=== PATIENT | female | born 1995 | race Caucasian/White ===

== ENCOUNTER → 2020-11-09 10:55 | Outpatient (BNVA) | payer BC, MEDICAID, SELFPAY | PROVIDERS: Family Provider Family Medicine; Visit Provider Obstetrics & Gynecology | DX: Z32.01 Encounter for pregnancy test, result positive (principal) | CPT/HCPCS: 81025; 87210; 87529 ==

== ENCOUNTER 2020-11-23 19:30 | Emergency (ER) | payer BC, MEDICAID, SELFPAY ==
[2020-11-23 19:34] VITALS: BP 120/79; PULSE 95; RESP 16; TEMP 36.8; O2SAT 100; BMI 37.3
--- NOTE | 2020-11-23 20:48 | US_ITS ---
WS: [id number] ULTRASOUND EARLY TECHNIQUE: Transabdominal sonography of the pelvis was performed. Followed by transvaginal sonography to better evaluate the uterus and ovaries. CLINICAL INFORMATION: abd pain LMP: 10/12/2020 Beta hCG: Unknown. COMPARISON: None. FINDINGS: UTERUS AND GESTATIONAL SAC Intrauterine gestations: Estimated gestational age: 5w5d Yolk sac: 0.3 cm. Pajaros rump length (CRL): 0.2 cm. Subchorionic hemorrhage: Present OVARIES Right ovary: Normal. Left ovary: Normal. FREE FLUID Trace US/US OB <= 14 weeks fetus [id number] IMPRESSION: 1. Intrauterine gestational sac with small subchorionic hemorrhage measuring 1 0.0 x 4.5 mm. Recommend short interval follow-up. 2. Estimated gestational age 5 weeks 5 days. Too early to detect cardiac activ ity. 3. Trace free fluid in the cul-de-sac.
--- NOTE | 2020-11-23 20:54 | ED_ITS ---
HPI - Abdominal Pain General: Chief Complaint: Abdominal Pain Stated Complaint: , LOWER ABDOMINAL PAIN Time Seen by Provider: 11/23/20 20:45 Source: patient Mode of arrival: ambulatory Limitations: no limitations History of Present Illness: HPI narrative: 25-year-old female states she is roughly 5 to 6 weeks . States she been having lower abdominal cramping for the last week. She states she had an ultrasound 2 days ago showed a possible IUP possible cyst but they state they cannot see it very well. She also went to [place] today where they recommended her to come here she did not have ultrasound. She states her pain is a 3 out of 10. Denies any vomiting or diarrhea. Denies any vaginal bleeding or discharge. MD elicited complaint: abdominal pain Associated Symptoms: Denies chills, diarrhea, dysuria, fever(s), nausea and vomiting Review of Systems Const: Denies: fever(s), chills, body aches or change in appetite Eyes: Denies: blurry vision or eye discomfort ENMT: Denies: throat pain or dental pain Card: Denies: chest pain Resp: Denies: dyspnea GI: Reports: abdominal pain; Denies: nausea, vomiting or diarrhea : Denies: dysuria Musc: Denies: neck pain or back pain Skin/Breast: Denies: rash Neuro: Denies: headache(s) Psych: Denies: depression Moshe/Lymph: Denies: easy bruising All/Imm: Denies: urticaria PFSH ED PFSH: Medical History (Updated 11/23/20 @ 22:46 by Feliciano Olivares MD) Anxiety and depression Has had a long-standing problem with depression and anxiety since teenage years and has been on medication on and off Blood type A+ Mild intermittent asthma, uncomplicated States that she was diagnosed with asthma as a child. Right now she only has asthma attacks when she has panic attacks and uses her inhaler only during those times usually a couple of times a month. Surgical History (Updated 11/11/20 @ 14:20 by Alex Farrar MD) Hx laparoscopic cholecystectomy (12/08/18) Performed by Dr. Roberts at [facility] in [place], [place] Family History (Updated 11/09/20 @ 11:39 by Keesha Rodriguez) Mother Hypertension Diabetes Father Diabetes Social History (Updated 11/11/20 @ 14:22 by Alex Farrar MD) Smoking and tobacco status: former smoker Quit status (tobacco): has quit using tobacco Year quit tobacco: Quit age 20 Former quit date comment: Started smoking age 19. Smoked 1 to 2 cig/day Alcohol intake: current Physical Exam Const: COMMON NORMALS: no acute distress, patient oriented x3 and healthy appearing HENMT: COMMON NORMALS: normocephalic and atraumatic HEAD & SCALP: normocephalic and atraumatic Eye: COMMON NORMALS: Equal, round and reactive pupils present and EOMs intact bilaterally PUPIL: Yes Equal, round and reactive pupils present Neck/C-Spine: COMMON NORMALS: full ROM and supple Chest: COMMONS NORMALS: normal inspection of the chest and normal palpation of entire chest wall Resp: COMMON NORMALS: normal respiratory effort, No retractions, No use of accessory muscles and clear to auscultation bilaterally AUSCULTATION: clear to auscultation bilaterally Cardio: COMMON NORMALS: regular rate, regular rhythm and No murmurs present (Cardio) RATE: regular rate RHYTHM: regular rhythm GI: COMMON NORMALS: Normal to inspection, nondistended, normoactive bowel sounds present, Soft to palpation, non-tender and no masses PALPATION: Yes Soft to palpation Extremity: COMMON NORMALS: normal to inspection and full ROM Neuro: COMMON NORMALS: patient oriented x3, moves all extremities and no focal motor deficits Psych: COMMON NORMALS: mental status grossly normal, Normal thought process present and cooperative THOUGHT PROCESS: Normal thought process present Skin: COMMON NORMALS: no rashes or lesions noted and no wounds GENERAL SKIN EXAM: no rashes or lesions noted Course Vital Signs: Vital signs: Vital Signs Temperature 98.2 F 11/23/20 19:34 Pulse Rate 95 11/23/20 19:34 Respiratory Rate 16 11/23/20 19:34 Blood Pressure 120/79 11/23/20 19:34 Pulse Oximetry 100 11/23/20 19:34 MDM - Abdominal Pain MDM Narrative: Medical decision making narrative: Patient presents here with some cramping in . Her ultrasound here showed an IUP. She is slightly dehydrated and feels improved after IV fluids and Reglan. Will prescribe her Reglan for home. She is stable for discharge and is to follow-up with OB and return if worsening. Lab Data: Labs: Lab Results 11/23/20 11/23/20 11/23/20 Range/Units 21:34 21:34 22:15 WBC 7.8 (4.0-10.0) 10^3/ uL RBC 4.40 (4.1-5.3) 10^6/u L Hgb 11.3 L (11.5-15.3) g/dL Hct 36.8 L (37.0-47.0) % MCV 83.6 (81-99) fL MCH 25.7 L (28.0-34.0) pg MCHC 30.7 (30.0-36.0) g/dL RDW 16.3 H (12.1-15.1) % Plt Count 280 (130-400) 10^3/c mm MPV 9.5 (7.4-10.4) fL Neut % (Auto) 60.8 % Lymph % (Auto) 30.8 % [place] % (Auto) 5.9 % Eos % (Auto) 1.5 % Baso % (Auto) 0.4 % Neut # (Auto) 4.72 (1.8-7.7) 10^3/u L Lymph # (Auto) 2.4 (0.8-4.8) 10^3/u L [place] # (Auto) 0.5 (0.2-0.9) 10^3/u L Eos # (Auto) 0.1 (0.0-0.8) 10^3/u L Baso # (Auto) 0.0 (0.0-0.1) 10^3/u L Nucleated RBC % (a uto) 0 % Nucleated RBCs # 0.0 /100WBC Sodium 135 L (136-145) mmol/L Potassium 3.6 (3.5-5.1) mmol/L Chloride 101 (98-107) mmol/L Carbon Dioxide 22 (22-29) mmol/L Anion Gap 15.6 (5-19) BUN 8 (6-20) mg/dL Creatinine 0.5 (0.5-0.9) mg/dL GFR Calculation 151.6 H (90-130) mL/min Glucose 95 (65-115) mg/dL Calculated Osmolal ity 278 L (285-295) mOsm/k g Calcium 8.9 (8.5-10.5) mg/dL Total Bilirubin 0.3 (0.15-1.2) mg/dL AST 41 H (0-32) U/L ALT 71 H (0-33) U/L Alkaline Phosphata se 77 (35-105) IU/L Total Protein 7.4 (6.6-8.7) g/dL Albumin 3.8 (3.5-5.2) g/dL Globulin 3.6 (1.3-4.6) g/dL Lipase 12 L (13-60) U/L Urine Color Yellow (Yellow) Urine Appearance Clear (CLEAR) Urine pH 5.0 (5-7) Ur Specific Gravit y 1.030 (1.005-1.030) Urine Protein Neg (Negative) Urine Glucose (UA) Norm (Normal) Urine Ketones 2+ H (Negative) Urine Blood Neg (Negative) Urine Nitrate Negative (Negative) Urine Bilirubin Neg (Negative) Urine Urobilinogen Norm (Negative) mg/dL Ur Leukocyte Yaa ase Negative (Negative) Discharge Plan Discharge Patient Disposition: Home Clinical Impression: Abdominal pain, Condition: Stable Prescriptions: New Reglan 10 mg tablet 10 mg PO Q6H PRN (Reason: nausea and vomiting) Qty: 20 RF: 0 No Action prenat.vits,neal,[id number] Tablet 1 tab PO DAILY@0900 RF: 0 Tylenol 325 mg Tablet 325 mg PO QID PRN (Reason: Pain) RF: 0 Discharge Orders: Discharge ED (Routine); Ordered 11/23/20 Ordered By: Feliciano Olivares Referrals: Stephany Dudley MD [Primary Care Provider] - Discharge Diet: Advance as tolerated Discharge Activity: Resume usual activity Patient Instructions: Abdominal Pain (ED) Coding Level of Care Code ED Clamp Remover for Chg Fwd Exam Comprehensive
[2020-11-23 21:40] LABS: Basophils % 0.4 %; Eosinophils # 0.1 10^3/uL (0.0-0.8); Eosinophils % 1.5 %; Hematocrit 36.8 % (37.0-47.0); Hemoglobin 11.3 g/dL (11.5-15.3); Lymphocytes # 2.4 10^3/uL (0.8-4.8); Lymphocytes % 30.8 %; Mean Corpuscular HGB Conc 30.7 g/dL (30.0-36.0); Mean Corpuscular Hemoglobin 25.7 pg (28.0-34.0); Mean Corpuscular Volume 83.6 fL (81-99); Mean Platelet Volume 9.5 fL (7.4-10.4); Monocytes # 0.5 10^3/uL (0.2-0.9); Monocytes % 5.9 %; Neutrophils # 4.72 10^3/uL (1.8-7.7); Neutrophils % 60.8 %; Nucleated Red Blood Cells % 0 %; Platelet Count 280 10^3/cmm (130-400); Red Cell Distribution Width 16.3 % (12.1-15.1); White Blood Count 7.8 10^3/uL (4.0-10.0)
[2020-11-23] MEDS: sodium chloride 0.9% 1,000 ML 999 ML IV (21:40)
--- NOTE | 2020-11-23 22:12 | PC.NURSE ---
Patient requested for food and water, doctor okayed it. Took a sandwich, oreos, peaches, and water to the patient and some additional water for her at bedside.
[2020-11-23 22:13] LABS: Alanine Aminotransferase 71 U/L (0-33); Albumin Level 3.8 g/dL (3.5-5.2); Alkaline Phosphatase 77 IU/L (35-105); Anion Gap 15.6 (5-19); Aspartate Amino Transferase 41 U/L (0-32); Blood Urea Nitrogen 8 mg/dL (6-20); Calcium 8.9 mg/dL (8.5-10.5); Carbon Dioxide 22 mmol/L (22-29); Chloride 101 mmol/L (98-107); Globulin 3.6 g/dL (1.3-4.6); Glomerular Filtration Rate 151.6 mL/min (90-130); Glucose 95 mg/dL (65-115); Lipase 12 U/L (13-60); Osmolality Calculated 278 mOsm/kg (285-295); Potassium 3.6 mmol/L (3.5-5.1); Sodium 135 mmol/L (136-145); Total Bilirubin 0.3 mg/dL (0.15-1.2); Total Protein 7.4 g/dL (6.6-8.7)
--- NOTE | 2020-11-23 22:20 | PC.NURSE ---
UA collected and sent to lab
[2020-11-23 22:33] LABS: Add Urine Microscopic? NO
[2020-11-23 22:44] LABS: Bilirubin Urine Neg (Negative); Blood Urine Neg (Negative); Glucose Urine UA Norm (Normal); Ketones Urine 2+ (Negative); Leukocyte Esterase Urine Negative (Negative); Nitrate Urine Negative (Negative); Protein Urine Neg (Negative); Urine Appearance Clear (CLEAR); Urine Color Yellow (Yellow); Urobilinogen Urine Norm (Negative)
[2020-11-23 22:58] VITALS: BP 121/80; PULSE 90; RESP 18; O2SAT 100
== END 2020-11-23 22:58 | disposition home or self-care (01) ==
PROVIDERS: Emergency Provider Emergency Medicine; PCP Family Medicine
DX: O26.891 Other specified pregnancy related conditions, first trimester (principal); R10.9 Unspecified abdominal pain; Z3A.01 Less than 8 weeks gestation of pregnancy; Z87.891 Personal history of nicotine dependence
CPT/HCPCS: 12345; 76801; 80053; 81003; 83690; 85025; 96361; 96374; 96375; 99282; 99283; J7030

== ENCOUNTER → 2020-12-05 12:50 | Outpatient (BNVA) | payer BC, MEDICAID, SELFPAY | PROVIDERS: PCP Family Medicine; Visit Provider Obstetrics & Gynecology | DX: Z34.90 Encounter for supervision of normal pregnancy, unspecified, unspecified trimester (principal); N89.8 Other specified noninflammatory disorders of vagina; B37.3 Candidiasis of vulva and vagina | CPT/HCPCS: 84315; 87070; 87205; 87491; 87591 ==

== ENCOUNTER 2021-02-24 19:48 | Emergency (ER) | payer BC, MEDICAID, SELFPAY ==
[2021-02-24 20:02] VITALS: BP 118/81; PULSE 97; RESP 16; TEMP 36.5; O2SAT 98; BMI 34.4
--- NOTE | 2021-02-24 20:20 | XRR_ITS ---
PROCEDURE INFORMATION: Exam: XR Chest Exam date and time: 02/24/2021 8:24 PM Age: 26 years old Clinical indication: Pain; Chest pressure; Additional info: Cp TECHNIQUE: Imaging protocol: XR of the chest. Views: 1 view. Total images: 1 COMPARISON: No relevant prior studies available. FINDINGS: Lungs: No visible active interstitial or alveolar airspace disease. Pleural spaces: Unremarkable. No pleural effusion. No pneumothorax. Heart/Mediastinum: Unremarkable. No cardiomegaly. Bones/joints: Unremarkable. Other findings: Obesity. XR/XR chest 1V portable [id number] IMPRESSION: Nonacute.
[2021-02-25 00:15] VITALS: BP 130/80; O2SAT 98
[2021-02-25 00:15] LABS: Basophils % 0.3 %; Eosinophils # 0.1 10^3/uL (0.0-0.8); Eosinophils % 1.1 %; Hematocrit 35.7 % (37.0-47.0); Hemoglobin 11.5 g/dL (11.5-15.3); Lymphocytes # 2.5 10^3/uL (0.8-4.8); Lymphocytes % 32.9 %; Mean Corpuscular HGB Conc 32.2 g/dL (30.0-36.0); Mean Corpuscular Hemoglobin 26.6 pg (28.0-34.0); Mean Corpuscular Volume 82.6 fL (81-99); Mean Platelet Volume 10.1 fL (7.4-10.4); Monocytes # 0.4 10^3/uL (0.2-0.9); Monocytes % 5.7 %; Neutrophils # 4.54 10^3/uL (1.8-7.7); Neutrophils % 59.7 %; Nucleated Red Blood Cells % 0 %; Platelet Count 230 10^3/cmm (130-400); Red Blood Count 4.32 10^6/uL (4.1-5.3); Red Cell Distribution Width 14.6 % (12.1-15.1); White Blood Count 7.6 10^3/uL (4.0-10.0)
[2021-02-25] MEDS: diphenhydrAMINE 50 mg/mL SDV 1mL 25 MG IVP (00:19)
[2021-02-25] MEDS: metoclopramide 5 mg/mL SDV 2 mL IVP (00:20)
[2021-02-25] MEDS: sodium chloride 0.9% 1,000 ML 999 ML IV ×2 (00:20→00:55)
--- NOTE | 2021-02-25 00:20 | ED_ITS ---
HPI - Chest Pain General: Chief Complaint: Chest Pain Stated Complaint: Chest pain/pressure upon standing, shaking,dizzy Time Seen by Provider: 02/24/21 23:53 Source: patient Mode of arrival: ambulatory Limitations: no limitations History of Present Illness: HPI narrative: 26-year-old female is currently 20 weeks states that over the last 4 days she has been having nausea along with some dizziness and numbness in her hands. States she has this nausea when she lays flat she gets a burning sensation in her chest. She denies any chest pain currently. She denies any swelling in her legs or shortness of breath. She denies any vaginal discharge or bleeding or lower abdominal pain. This is her second and she states she had no problems with the first pre gnancy. She had one episode of vomiting earlier today. Denies any worsening improving factors. Associated symptoms: Reports nausea; Deny dyspnea or fever(s) Review of Systems Const: Denies: fever(s), chills, body aches or change in appetite Eyes: Denies: blurry vision or eye discomfort ENMT: Denies: throat pain or dental pain Card: Reports: chest pain Resp: Denies: dyspnea GI: Reports: nausea : Denies: dysuria Musc: Denies: neck pain or back pain Skin/Breast: Denies: rash Neuro: Denies: headache(s) Psych: Denies: depression Moshe/Lymph: Denies: easy bruising All/Imm: Denies: urticaria [facility] ED PFSH: Medical History (Updated 02/25/21 @ 00:46 by Feliciano Olivares MD) Anxiety and depression Has had a long-standing problem with depression and anxiety since teenage years and has been on medication on and off--BuSpar and Effexor which she s topped when she found out she was . Mild intermittent asthma, uncomplicated States that she was diagnosed with asthma as a child. Right now she only has asthma attacks when she has panic attacks and uses her inhaler only during those times usually a couple of times a month. No pertinent past medical history Denies diabetes, hypertension, seizures, DVT/PE PCP: PEACE De Paz Surgical History Hx laparoscopic cholecystectomy 12/08/2018---performed by Dr. Roberts at [facility] in [place], [place] Family History (Updated 12/21/20 @ 12:18 by Nilsa Chen RN) Mother Hypertension Diabetes Thyroid condition Father Diabetes Grandfather Heart disease maternal Other Colon cancer Denies family history of Ovarian cancer Hyperlipidemia Breast cancer Uterine cancer Stroke Physical Exam Const: COMMON NORMALS: no acute distress, patient oriented x3 and healthy appearing HENMT: COMMON NORMALS: normocephalic and atraumatic HEAD & SCALP: normoceph alic and atraumatic Eye: COMMON NORMALS: Equal, round and reactive pupils present and EOMs intact bilaterally PUPIL: Yes Equal, round and reactive pupils present Neck/C-Spine: COMMON NORMALS: full ROM and supple Chest: COMMONS NORMALS: normal inspection of the chest and normal palpation of entire chest wall Resp: COMMON NORMALS: normal respiratory effort, No retractions, No use of accessory muscles and clear to auscultation bilaterally AUSCULTATION: clear to auscultation bilaterally Cardio: COMMON NORMALS: regular rate, regular rhythm and No murmurs present (Cardio) RATE: regular rate RHYTHM: regular rhythm GI: COMMON NORMALS: Normal to inspection, nondistended, normoactive bowel sounds present, Soft to palpation, non-tender and no masses PALPATION: Yes Soft to palpation Extremity: COMMON NORMALS: normal to inspection and full ROM NARRATIVE EXTREMITY EXAM: No sign of DVT GENERAL: No calf tenderness Neuro: COMMON NORMALS: patient oriented x3, moves all extremities and no focal motor deficits Psych: COMMON NORMALS: mental status grossly normal, Normal thought process present and cooperative THOUGHT PROCESS: Normal thought process present Skin: COMMON NORMALS: no rashes or lesions noted and no wounds GENERAL SKIN EXAM: no rashes or lesions noted Course Vital Signs: Vital signs: Vital Signs Temperature 97.7 F 02/24/21 20:02 Pulse Rate 90 02/25/21 01:24 Respiratory Rate 16 02/25/21 01:24 Blood Pressure 95/55 02/25/21 01:24 Pulse Oximetry 99 02/25/21 01:24 MDM - Chest Pain MDM Narrative: Medical decision making narrative: Patient presents here with nausea vomiting some abdominal cramping and dizziness. She does have ketones in her urine likely dehydrated. She feels improved here after Reglan and Benadryl and IV fluids. Patient's blood work here is all normal. She is stable for discharge and is to follow-up PCP and return if worsening. She understands agrees to plan. Lab Data: Labs: Lab Results 02/25/21 02/25/21 02/25/21 Range/Units 00:08 00:08 00:15 WBC 7.6 (4.0-10.0) 10^3/ uL RBC 4.32 (4.1-5.3) 10^6/u L Hgb 11.5 (11.5-15.3) g/dL Hct 35.7 L (37.0-47.0) % MCV 82.6 (81-99) fL MCH 26.6 L (28.0-34.0) pg MCHC 32.2 (30.0-36.0) g/dL RDW 14.6 (12.1-15.1) % Plt Count 230 (130-400) 10^3/c mm MPV 10.1 (7.4-10.4) fL Neut % (Auto) 59.7 % Lymph % (Auto) 32.9 % [place] % (Auto) 5.7 % Eos % (Auto) 1.1 % Baso % (Auto) 0.3 % Neut # (Auto) 4.54 (1.8-7.7) 10^3/u L Lymph # (Auto) 2.5 (0.8-4.8) 10^3/u L [place] # (Auto) 0.4 (0.2-0.9) 10^3/u L Eos # (Auto) 0.1 (0.0-0.8) 10^3/u L Baso # (Auto) 0.0 (0.0-0.1) 10^3/u L Nucleated RBC % (a uto) 0 % Nucleated RBCs # 0.0 /100WBC Sodium 137 (136-145) mmol/L Potassium 3.9 (3.5-5.1) mmol/L Chloride 104 (98-107) mmol/L Carbon Dioxide 25 (22-29) mmol/L Anion Gap 11.9 (5-19) BUN 7 (6-20) mg/dL Creatinine 0.6 (0.5-0.9) mg/dL GFR Calculation 121.8 (90-130) mL/min Glucose 88 (65-115) mg/dL Calculated Osmolal ity 281 L (285-295) mOsm/k g Calcium 8.9 (8.5-10.5) mg/dL Total Bilirubin 0.2 (0.15-1.2) mg/dL AST 13 (0-32) U/L ALT 15 (0-33) U/L Alkaline Phosphata se 90 (35-105) IU/L Total Protein 7.2 (6.6-8.7) g/dL Albumin 3.8 (3.5-5.2) g/dL Globulin 3.4 (1.3-4.6) g/dL Lipase 16 (13-60) U/L Urine Color Yellow (Yellow) Urine Appearance Clear (CLEAR) Urine pH 5 (5-7) Ur Specific Gravit y 1.025 (1.005-1.030) Urine Protein Neg (Negative) Urine Glucose (UA) Norm (Normal) Urine Ketones 2+ H (Negative) Urine Blood Neg (Negative) Urine Nitrate Negative (Negative) Urine Bilirubin Neg (Negative) Urine Urobilinogen Norm (Negative) mg/dL Ur Leukocyte Yaa ase Negative (Negative) Imaging Data^: CXR: Attestation: I personally reviewed and interpreted this imaging study as follows: Radiologist's impression: [address] [address] XRay Report Signed Patient: Catalina Mcbride Unit #: [id number] : 1995 Age/Sex: 26 / F ADM Date: 02/24/21 Loc: ER Room/Bed: Attending Dr: Ordering Provider/Ordering MD: Feliciano Olivares MD Date of Service: 02/24/21 Procedure(s): XR chest 1V portable [id number] Accession Number(s): [id number] Report Number: [id number] PROCEDURE INFORMATION: Exam: XR Chest Exam date and time: 02/24/2021 8:24 PM Age: 26 years old Clinical indication: Pain; Chest pressure; Additional info: Cp TECHNIQUE: Imaging protocol: XR of the chest. Views: 1 view. Total images: 1 COMPARISON: No relevant prior studies available. FINDINGS: Lungs: No visible active interstitial or alveolar airspace disease. Pleural spaces: Unremarkable. No pleural effusion. No pneumothorax. Heart/Mediastinum: Unremarkable. No cardiomegaly. Bones/joints: Unremarkable. Other findings: Obesity. XR/XR chest 1V portable [id number] IMPRESSION: Nonacute. EKG Data^: EKG 1: Attestation: I personally reviewed and interpreted this EKG as follows: EKG interpretation date: 02/24/21 EKG interpretation time: 20:14 Interpretation: nsr hr [address] or t wave abnormalities qrs 82 qtc 409 Discharge Plan Discharge Patient Disposition: Home Clinical Impression: Nausea & vomiting Qualifiers: Vomiting type: unspecified Vomiting Intractability: non-intractable Qualified Code(s): R11.2 - Nausea with vomiting, unspecified Chest pain Qualifiers: Chest pain type: unspecified Qualified Code(s): R07.9 - Chest pain, unspecified Qualifiers: Weeks of gestation: 20 weeks Qualified Code(s): Z3A.20 - 20 weeks gestation of Condition: Stable Prescriptions: No Action prenat.vits,neal,[id number] Tablet 1 tab PO DAILY@0900 RF: 0 Tylenol 325 mg Tablet 325 mg PO QID PRN (Reason: Pain) RF: 0 Discharge Orders: Discharge ED (Routine); Ordered 02/25/21 Ordered By: Feliciano Olivares Referrals: Stephany Dudley MD [Primary Care Provider] - Discharge Diet: Advance as tolerated Discharge Activity: Resume usual activity Patient Instructions: Chest Pain (ED) Coding Level of Care Code ED [employer] [place] Specialist for Chg Fwd Exam Comprehensive
[2021-02-25 00:25] LABS: Add Urine Microscopic? NO; Charge for UA Resulting for Rev
[2021-02-25 00:29] LABS: Bilirubin Urine Neg (Negative); Blood Urine Neg (Negative); Glucose Urine UA Norm (Normal); Ketones Urine 2+ (Negative); Leukocyte Esterase Urine Negative (Negative); Nitrate Urine Negative (Negative); Protein Urine Neg (Negative); Specific Gravity, Urine 1.025 (1.005-1.030); Urine Appearance Clear (CLEAR); Urine Color Yellow (Yellow); Urobilinogen Urine Norm (Negative); pH Urine 5 (5-7)
[2021-02-25 00:32] LABS: Alanine Aminotransferase 15 U/L (0-33); Albumin Level 3.8 g/dL (3.5-5.2); Alkaline Phosphatase 90 IU/L (35-105); Anion Gap 11.9 (5-19); Aspartate Amino Transferase 13 U/L (0-32); Blood Urea Nitrogen 7 mg/dL (6-20); Calcium 8.9 mg/dL (8.5-10.5); Carbon Dioxide 25 mmol/L (22-29); Chloride 104 mmol/L (98-107); Creatinine Clr Calc Pharmacy 145.1995; Globulin 3.4 g/dL (1.3-4.6); Glomerular Filtration Rate 121.8 mL/min (90-130); Glucose 88 mg/dL (65-115); Lipase 16 U/L (13-60); Osmolality Calculated 281 mOsm/kg (285-295); Potassium 3.9 mmol/L (3.5-5.1); Sodium 137 mmol/L (136-145); Total Bilirubin 0.2 mg/dL (0.15-1.2); Total Protein 7.2 g/dL (6.6-8.7)
[2021-02-25 01:24] VITALS: BP 95/55; PULSE 90; RESP 16; O2SAT 99
== END 2021-02-25 01:25 | disposition home or self-care (01) ==
PROVIDERS: Emergency Provider Emergency Medicine; PCP Family Medicine
DX: O26.892 Other specified pregnancy related conditions, second trimester (principal); R07.9 Chest pain, unspecified; R11.2 Nausea with vomiting, unspecified; Z3A.20 20 weeks gestation of pregnancy
CPT/HCPCS: 71045; 80053; 81003; 83690; 85025; 96361; 96374; 96375; 99284; J1200; J2765; J7030

== ENCOUNTER 2021-04-13 16:11 | Outpatient (CLI) | payer BC, MEDICAID, SELFPAY ==
[2021-04-13 16:20] VITALS: RESP 17
[2021-04-13 16:27] VITALS: BP 119/76; PULSE 73
[2021-04-13 16:30] VITALS: TEMP 36.3
[2021-04-13 16:48] VITALS: BMI 36.7
== END 2021-04-13 16:44 | disposition home or self-care (01) ==
LOC: OPOB 16:13 → OBGYN 16:14
PROVIDERS: PCP Family Medicine; Visit Provider Family Medicine
DX: O36.8190 Decreased fetal movements, unspecified trimester, not applicable or unspecified (principal); Z3A.00 Weeks of gestation of pregnancy not specified
CPT/HCPCS: 99211

== ENCOUNTER 2021-06-02 17:20 | Outpatient (CLI) | payer MEDICAID, SELFPAY ==
[2021-06-02 17:39] VITALS: TEMP 35.9
[2021-06-02 17:40] VITALS: BP 101/55; PULSE 97; RESP 18
[2021-06-02 17:47] VITALS: BMI 36.7
== END 2021-06-02 18:14 | disposition home or self-care (01) ==
LOC: OPOB 17:26 → OBGYN 17:27
PROVIDERS: PCP Family Medicine; Visit Provider Family Medicine
DX: O26.899 Other specified pregnancy related conditions, unspecified trimester (principal); Z3A.00 Weeks of gestation of pregnancy not specified; R10.9 Unspecified abdominal pain; M54.9 Dorsalgia, unspecified
CPT/HCPCS: 59025; 99211

== ENCOUNTER 2021-07-08 16:25 | Outpatient (CLI) | payer MEDICAID, SELFPAY ==
[2021-06-02 17:40] VITALS: RESP 18
[2021-07-08 16:42] VITALS: TEMP 36.2
[2021-07-08 16:43] VITALS: BP 136/75; PULSE 100
[2021-07-08 17:00] VITALS: RESP 18
[2021-07-08 17:01] VITALS: BMI 36.2
[2021-07-08 17:03] VITALS: BP 120/68; PULSE 93
[2021-07-08 17:23] VITALS: BP 119/67; PULSE 91
[2021-07-08 17:41] VITALS: BP 122/72; PULSE 92
== END 2021-07-08 17:48 | disposition home or self-care (01) ==
LOC: OPOB 16:31 → OBGYN 16:34
PROVIDERS: PCP Family Medicine; Visit Provider Family Medicine
DX: O26.899 Other specified pregnancy related conditions, unspecified trimester (principal); Z3A.00 Weeks of gestation of pregnancy not specified; R10.9 Unspecified abdominal pain
CPT/HCPCS: 59025; 99211

== ENCOUNTER 2021-07-17 19:05 | Inpatient (IN) | payer MEDICAID, SELFPAY ==
[2021-07-17] VITALS (9 sets, daily range): BP systolic 108–126; BP diastolic 71–89; PULSE 65–84; RESP 15–18; TEMP 36.3; BMI 36.4
[2021-07-17 18:49] LABS: Actim Prom Positive
[2021-07-17 18:53] LABS: Add Urine Culture? No; Bacteria Urine TRACE /hpf; Bilirubin Urine Neg (Negative); Blood Urine Neg (Negative); Glucose Urine UA Norm (Normal); Ketones Urine Negative (Negative); Leukocyte Esterase Urine Negative (Negative); Nitrate Urine Negative (Negative); Protein Urine Neg (Negative); RBC Urine 0-4 /hpf (0-2); Squamous Epithelial Cell Urine 0-4 /hpf (0-5); Urine Appearance Clear (CLEAR); Urine Color Yellow (Yellow); Urobilinogen Urine Norm (Negative); WBC Urine 0-4 /hpf (0-5); pH Urine 7 (5-7)
[2021-07-17 19:49] LABS: Basophils % 0.2 %; Eosinophils # 0.1 10^3/uL (0.0-0.8); Eosinophils % 0.6 %; Hematocrit 36.3 % (37.0-47.0); Hemoglobin 11.5 g/dL (11.5-15.3); Lymphocytes % 21.7 %; Mean Corpuscular HGB Conc 31.7 g/dL (30.0-36.0); Mean Corpuscular Hemoglobin 26.4 pg (28.0-34.0); Mean Corpuscular Volume 83.3 fl (81-99); Mean Platelet Volume 10.3 fL (7.4-10.4); Monocytes # 0.6 10^3/uL (0.2-0.9); Monocytes % 6.5 %; Neutrophils # 6.59 10^3/uL (1.8-7.7); Neutrophils % 70.6 %; Nucleated Red Blood Cells % 0 %; Platelet Count 248 10^3/cmm (130-400); Red Blood Count 4.36 10^6/uL (4.1-5.3); Red Cell Distribution Width 15.7 % (12.1-15.1); White Blood Count 9.4 10^3/uL (4.0-10.0)
[2021-07-17] MEDS: miSOPROStol 100 mcg tablet 25 MCG SUBLINGUAL (20:06)
[2021-07-17] MEDS: dextrose 5%-lactated ringers 1,000 ML 125 ML IV (20:07)
[2021-07-18] VITALS (85 sets, daily range): BP systolic 90–158; BP diastolic 52–91; PULSE 66–108; RESP 17; TEMP 35.4–36.7; O2SAT 93–100
[2021-07-18] MEDS: miSOPROStol 100 mcg tablet 25 MCG SUBLINGUAL ×2 (00:12→05:01)
--- NOTE | 2021-07-18 06:56 | PM.OPHPUD ---
Labor & Delivery H&P Update Date of Procedure: July 18, 2021 Date H&P Performed: 07/12/21 H&P update information: I have reviewed H&P completed within last 30 days, I have examined patient prior to procedure and Changes to prior documentation as noted here (Spontaneous rupture of membranes) Admission Diagnosis: 39-week female with spontaneous rupture of membranes. Related Problem List Diagnoses (1) 39 weeks gestation of : (2) Spontaneous rupture of membranes:
[2021-07-18] MEDS: oxytocin 30 UNIT/500 ML BAG IV (08:58)
[2021-07-18] MEDS: lactated ringers 1,000 ML 999 ML IV ×2 (10:23→11:34)
[2021-07-18] MEDS: fentaNYL 50 mcg/mL INJ 2mL IVP (11:06)
--- NOTE | 2021-07-18 11:45 | P.ANESASSM_ITS ---
Pre-Anesthetic Assessment Pre-Anesthetic Assessment: Height/Weight: Height 1.55 m Weight 87.543 kg Temp Pulse Resp BP Pulse Ox 97.0 F L 78 15 125/59 93 07/18/21 07:06 07/18/21 11:42 07/17/21 19:01 07/18/21 11:42 07/18/21 11:31 Preop Diagnosis: IUP Proposed Procedure: Epidural Familial anesthetic complications: None Was Beta Waylon taken within 24 hours: N/A Was Clonidine taken within 24 hours: N/A Last intake: Hours Social: Social History: No alcohol and No tobacco Exam: Pre-Anes Outpt Exam: alert, oriented x 3, clear to auscultation bilaterally and regular rate & rhythm Airway: Cervical ROM: WNL MP: 2 Dentition: Chipped Pulmonary: Pulmonary: Asthma Metabolic: Metabolic: Morbid obesity Anesthetic Plan: ASA status: 2 Anesthesia: Regional (specify below) Risk of > 500 ml blood loss (7ml/kg in children): Yes, adequate IV access and fluids planned Meds/Allergies Current Medications: Current Medications Generic Name Dose Route Start Last Admin Trade Name Freq PRN Reason Stop Dose Admin Fentanyl 25 - 100 mcg 07/17/21 19:01 07/18/21 11:06 Fentanyl 50 Mcg/ Ml Inj 2ml IVP 25 mcg Q1H PRN Administration SEVERE PAIN Dextrose/Lactated Ringer's 1,000 mls @ 125 m ls/hr 07/17/21 19:15 07/17/21 20:07 Dextrose 5%-Lact ated Ringers IV 125 mls/hr .Q8H QUAN Administration Lactated Ringer's 1,000 mls @ 999 m ls/hr 07/17/21 19:01 07/18/21 11:34 Lactated Ringers IV 999 mls/hr .Q1H1M PRN Administration Per L&D Rescitati on Protocol Oxytocin 30 unit in 500 ml s @ 2 mls/hr 07/18/21 09:00 07/18/21 10:30 Pitocin IV 14 milliunit/min .Q24H QUAN 14 mls/hr Titration Protocol 2 MILLIUNIT/MIN Lactated Ringer's 1,000 mls @ 999 m ls/hr 07/18/21 10:18 07/18/21 10:23 Lactated Ringers IV 999 mls/hr .Q1H1M PRN Administration See label comment s PFSH Anesthesia PFSH: Medical History (Updated 07/18/21 @ 06:57 by Kip Oglesby MD) Anxiety and depression Has had a long-standing problem with depression and anxiety since teenage years and has been on medication on and off--BuSpar and Effexor which she stopped when she found out she was . Mild intermittent asthma, uncomplicated States that she was diagnosed with asthma as a child. Right now she only has asthma attacks when she has panic attacks and uses her inhaler only during those times usually a couple of times a month. No pertinent past medical history Denies diabetes, hypertension, seizures, DVT/PE PCP: PEACE De Paz Surgical History Hx laparoscopic cholecystectomy 12/08/2018---[place]. Roberts [place] [facility] [place], [place] Family History (Updated 12/21/20 @ 12:18 by Nilsa Chen RN) Mother Hypertension Diabetes Thyroid condition Father Diabetes Grandfather Heart disease maternal Other Colon cancer Denies family history of Ovarian cancer Hyperlipidemia Breast cancer Uterine cancer Stroke Female Reproductive History: : 2 Data Anesthesia CBC & Chem 7: 07/17/21 19:30 Other Labs: Laboratory Results - last 48 hr 07/17/21 07/17/21 07/17/21 18:20 18:20 19:30 WBC 9.4 RBC 4.36 Hgb 11.5 Hct 36.3 L MCV 83.3 MCH 26.4 L MCHC 31.7 RDW 15.7 H Plt Count 248 MPV 10.3 Neut % (Auto) 70.6 Lymph % (Auto) 21.7 [place] % (Auto) 6.5 Eos % (Auto) 0.6 Baso % (Auto) 0.2 Neut # (Auto) 6.59 Lymph # (Auto) 2.0 [place] # (Auto) 0.6 Eos # (Auto) 0.1 Baso # (Auto) 0.0 Nucleated RBC % (auto) 0 Nucleated RBCs # 0.0 Insulin-like GF I Positive Urine Color Yellow Urine Appearance Clear Urine pH 7 Ur Specific [place] 1.010 Urine Protein Neg Urine Glucose (UA) Norm Urine Ketones Negative Urine Blood Neg Urine Nitrate Negative Urine Bilirubin Neg Urine Urobilinogen Norm Ur Leukocyte Esterase Negative Urine RBC 0-4 H Urine WBC 0-4 H Ur Squamous Epith Cells 0-4 H Amorphous Sediment Not Reportable Urine Bacteria Trace Cardiac Studies: No Data to Display
--- NOTE | 2021-07-18 11:45 | ANES.PROC ---
Anesthesia Procedures Procedure/Date: 07/18/21 Epidural: Time Out Performed: Yes Consents Signed: Procedure Consent, NPO Consent and No Consent Needed Consent: requested by attending/covering physician, from patient, risks and benefits reviewed and patient agrees to proceed Lumbar Level: L3-L4 Epidural position: other Epidural procedure: sterile prep of area, 1% lidocaine to numb the area, 18 g needle, negative for paresthesia passed, neg for paresthesia, test dose given, 1.5% xylocaine 1:200k epi (3 cc), 0.2% Ropivacaine bolus ml (5 cc), placed PCEA, no systemic response, sterile dressing applied, L.U.D. no apparent complications and 0.2% Ropiavacaine @ mls/hr (10) Additional Comments: BALA at 7 cm, threaded to 13 cm
--- NOTE | 2021-07-18 16:16 | PM.DELIVERY ---
Delivery Note: Date of delivery: July 18, 2021 Pre-delivery diagnoses: 26-year-old 2 para 1-0-0-1 at 39 weeks and 6 days estimated gestational age with spontaneous rupture of membranes Post-delivery diagnoses: Status post spontaneous vaginal delivery Procedure: Spontaneous vaginal delivery Op report anesthesia: Epidural Estimated blood loss (mL): 75 Pre-Delivery Course: The patient presented to the hospital about 24 hours prior to delivery with spontaneous rupture of membranes. Her cervix was found to be 2 cm dilated about 50% effaced with a -3 station. She was placed on Cytotec 25 mcg sublingually x3. An epidural was placed. She progressed to complete without difficulty. She was allowed to labor down for about 45 minutes. Delivery: DELIVERY: The patient progressed to complete without difficulty. She delivered a female with a weight of 5 pounds 10 ounces with Apgars of 9, 9. The baby was delivered from the JORDY position and placed on the mother's abdomen. The cord was then clamped and cut 1 minute after delivery. There was no nuchal cord. There was no meconium. The placenta and 3 vessel cord were delivered intact shortly thereafter. The perineum and vaginal vault were carefully examined. No lacerations were noted. Both the mother and the baby were in stable condition. 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
[2021-07-18] MEDS: ibuprofen 800 mg tablet PO (21:54)
[2021-07-19] VITALS (8 sets, daily range): BP systolic 114–131; BP diastolic 52–95; PULSE 75–91; RESP 16; TEMP 35.9–36.5
[2021-07-19 06:21] LABS: Hematocrit 30.1 % (37.0-47.0); Hemoglobin 9.5 g/dL (11.5-15.3); Mean Corpuscular HGB Conc 31.6 g/dL (30.0-36.0); Mean Corpuscular Hemoglobin 26.2 pg (28.0-34.0); Mean Corpuscular Volume 82.9 fl (81-99); Mean Platelet Volume 10.2 fL (7.4-10.4); Platelet Count 197 10^3/cmm (130-400); Red Blood Count 3.63 10^6/uL (4.1-5.3); Red Cell Distribution Width 15.9 % (12.1-15.1); White Blood Count 9.8 10^3/uL (4.0-10.0)
--- NOTE | 2021-07-19 07:40 | P.DS_ITS ---
Discharge Providers [place] MACHINE OPERATOR Date of Admission: 07/17/21 19:05 Date of Discharge: 07/19/21 Attending Provider at Admission: Kip Oglesby MD Attending Provider at Discharge: Kip Oglesby MD Primary Care Provider: Stephany Dudley MD Diagnoses at Discharge Discharge Diagnosis (1) 39 weeks gestation of : Status: Acute (2) Spontaneous rupture of membranes: Status: Acute Reason for Visit Reason for Visit: POSSIBLE RUPTURE OF MEMBRANES Hospital Course Hospital Course The patient arrived at the hospital with spontaneous rupture of membranes. She was not in active labor. Her cervix was unfavorable. She was placed on Cytotec 25 mcg sublingual every 4 hours x3. An epidural was placed. She progressed to complete and delivered her about 24 hours after her membranes ruptured. She pushed through 2 contractions. Her labor was unremarkable. The delivery of her baby was unremarkable. Her course was also unremarkable. Her bleeding was within normal limits. Her pain was well controlled. She had some difficulty with her baby latching well breast-feeding, but ultimately was able to breast-feed well prior to discharge. Information 2 Peripartum Data: Delivery Method: Vaginal Physical Exam Narrative: EXAM NARRATIVE: The patient is alert. She appears comfortable. Her heart has a regular rate and rhythm with no murmurs appreciated. Lungs are clear to auscultation bilaterally. Her fundus is firm and below the umbilicus. Urinary Catheter Management^: [place]: Cath Placed During This Visit: yes Urinary Catheter Date of Insertion: 07/18/21 Urinary Catheter Time of Insertion: 12:20 Discharge Data Data Completed and Pending: Labs from last 24 hours 07/19/21 06:00 WBC 9.8 RBC 3.63 L Hgb 9.5 L Hct 30.1 L MCV 82.9 MCH 26.2 L MCHC 31.6 RDW 15.9 H Plt Count 197 MPV 10.2 Vitals: Last Vital Signs Temp 95.7 F L 07/18/21 15:21 Pulse 86 07/19/21 04:35 Resp 17 07/18/21 16:40 BP 114/52 07/19/21 04:35 Pulse Ox 93 07/18/21 11:31 Discharge Plan Discharge Patient Disposition: Home Condition: Stable Prescriptions: New ibuprofen 800 mg Tablet 800 mg PO TID Qty: 45 RF: 0 Discharge Orders: Discharge Order (Routine); Ordered 07/19/21 Ordered By: Kip Oglesby Referrals: Kip Oglesby MD [Family Provider] - 6 Weeks Discharge Diet: Usual diet Discharge Activity: Limit activity as instructed Patient Instructions: Opioid Safety Discharge Attestations [place] MACHINE OPERATOR Time Spent in Discharge Care*: less than 30 min Specific Discharge Activities: Specific discharge activities: educating patient Coding Level of Care Code Acute Slice 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
[2021-07-19] MEDS: prenatal vitamin Capsule 1 CAP PO (08:10)
[2021-07-19] MEDS: docusate sodium 100 mg Capsule PO (08:10)
[2021-07-19] MEDS: ibuprofen 800 mg tablet PO ×2 (08:10→15:00)
--- NOTE | 2021-07-19 09:30 | ANE.PACU2 ---
Inpatient post-anesthesia follow up: Airway intact: Yes Vital signs: Temperature 97.7 F Pulse Rate 75 Respiratory Rate 16 Blood Pressure 127/82 Pulse Oximetry 93 Oxygen Delivery Me thod Room Air Oxygen Flow Rate Fraction of Inspir ed Oxygen Hydration adequate: Yes Nausea and vomiting: No Pain level: 2 Mental status: Baseline
== END 2021-07-19 18:18 | disposition home or self-care (01) | DRG 807 ==
LOC: OPOB 20:45 → OBGYN 20:45
PROVIDERS: Absent Provider Family Medicine; Admitting Provider Family Medicine; Family Provider Family Medicine; PCP Family Medicine; Visit Provider Family Medicine
DX: O80 Encounter for full-term uncomplicated delivery (principal); Z37.0 Single live birth; Z3A.39 39 weeks gestation of pregnancy
CPT/HCPCS: 12345; 36415; 51702; 59025; 81001; 83986; 84112; 85025; 85027; 96374; 98960; 99211; J2795; J3010

== ENCOUNTER 2021-08-25 16:35 | Emergency (ER) | payer MEDICAID, SELFPAY ==
[2021-08-25] VITALS (7 sets, daily range): BP systolic 123–142; BP diastolic 81–98; PULSE 72–81; RESP 17–19; TEMP 36.4; O2SAT 96–100; BMI 34.2
[2021-08-25 18:06] LABS: Basophils % 0.5 %; Eosinophils # 0.2 10^3/uL (0.0-0.8); Eosinophils % 2.1 %; Hematocrit 39.2 % (37.0-47.0); Lymphocytes # 2.3 10^3/uL (0.8-4.8); Lymphocytes % 29.3 %; Mean Corpuscular HGB Conc 30.6 g/dL (30.0-36.0); Mean Corpuscular Volume 81.7 fl (81-99); Mean Platelet Volume 9.7 fL (7.4-10.4); Monocytes # 0.5 10^3/uL (0.2-0.9); Monocytes % 5.9 %; Neutrophils # 4.75 10^3/uL (1.8-7.7); Neutrophils % 61.8 %; Nucleated Red Blood Cells % 0 %; Platelet Count 324 10^3/cmm (130-400); Red Cell Distribution Width 14.8 % (12.1-15.1); White Blood Count 7.7 10^3/uL (4.0-10.0)
[2021-08-25 18:17] LABS: Alanine Aminotransferase 40 U/L (0-33); Albumin Level 4.4 g/dL (3.5-5.2); Alkaline Phosphatase 116 IU/L (35-105); Anion Gap 14.4 (5-19); Aspartate Amino Transferase 23 U/L (0-32); Blood Urea Nitrogen 11 mg/dL (6-20); Calcium 9.4 mg/dL (8.5-10.5); Carbon Dioxide 27 mmol/L (22-29); Chloride 98 mmol/L (98-107); Globulin 3.3 g/dL (1.3-4.6); Glomerular Filtration Rate 150.3 mL/min (90-130); Glucose 81 mg/dL (65-115); Osmolality Calculated 278 mOsm/kg (285-295); Potassium 4.4 mmol/L (3.5-5.1); Sodium 135 mmol/L (136-145); Total Bilirubin 0.2 mg/dL (0.15-1.2); Total Protein 7.7 g/dL (6.6-8.7)
[2021-08-25 18:20] LABS: Troponin T (5th) Once 6 ng/L (0-10)
--- NOTE | 2021-08-25 18:28 | XRR_ITS ---
PROCEDURE INFORMATION: Exam: XR Chest Exam date and time: 08/25/2021 6:28 PM Age: 26 years old Clinical indication: Pain; Chest pressure; Additional info: Chest pain TECHNIQUE: Imaging protocol: XR of the chest. Views: 2 views. COMPARISON: CR XR chest 1V portable [id number] 02/24/2021 8:26 PM FINDINGS: Lungs: Unremarkable. No consolidation. Pleural spaces: Unremarkable. No pleural effusion. No pneumothorax. Heart/Mediastinum: Unremarkable. No cardiomegaly. Bones/joints: Unremarkable. XR/XR chest 2V* [id number] IMPRESSION: No acute findings. Radiation Dose CTDIVOL = (mGy): DLP = (mGy-cm)
--- NOTE | 2021-08-25 19:17 | W.ED.CHESTPA ---
Documented by User: PEACE Griffin 08/25/21 21:22 HPI - Chest Pain General: Chief Complaint: Chest Pain Stated Complaint: 5 WKS P/:CHEST TIGHT, HTN, H/A, EARS CLOGGED Time Seen by Provider: 08/25/21 19:17 History of Present Illness: HPI narrative: 26-year-old female comes in today with some shortness of breath. Patient states that started this afternoon. Patient had a baby about 5 weeks ago. Patient's baby had RSV last week and was hospitalized. Patient states that today she was at home in the kitchen and felt some chest discomfort and noticed that her blood pressure was running high. Patient denies any other complaints. Patient does have a history of asthma and recurrent bronchitis along with anxiety. Associated symptoms: Reports dyspnea Review of Systems General: Reports: 10 or more systems reviewed and unremarkable except in HPI and below Resp: Reports: dyspnea [facility] ED PFSH: Medical History (Updated 08/26/21 @ 17:02 by João Santana DO) Anxiety and depression Has had a long-standing problem with depression and anxiety since teenage years and has been on medication on and off--BuSpar and Effexor which she stopped when she found out she was . Mild intermittent asthma, uncomplicated States that she was diagnosed with asthma as a child. Right now she only has asthma attacks when she has panic attacks and uses her inhaler only during those times usually a couple of times a month. No pertinent past medical history Denies diabetes, hypertension, seizures, DVT/PE PCP: PEACE De Paz Surgical History Hx laparoscopic cholecystectomy 12/08/2018---[place]. Roberts [place] [facility] [place] Family History (Updated 12/21/20 @ 12:18 by Nilsa Chen RN) Mother Hypertension Diabetes Thyroid condition Father Diabetes Grandfather Heart disease maternal Other Colon cancer Denies family history of Ovarian cancer Hyperlipidemia Breast cancer Uterine cancer Stroke Physical Exam Const: COMMON NORMALS: no acute distress and patient oriented x3 GENERAL APPEARANCE: cooperative HENMT: COMMON NORMALS: normocephalic, TM's normal bilaterally and Normal external nose present HEAD & SCALP: normal to inspection and normocephalic NOSE: Normal external nose present TYMPANIC MEMBRANE: TM's normal bilaterally MOUTH: Normal oral and palatal mucosa present THROAT: posterior oropharynx normal Eye: GENERAL EYE: appearance normal, both eyes and all related structures Neck/C-Spine: COMMON NORMALS: full ROM Lymph: LYMPHATIC: no lymphadenopathy noted Chest: COMMONS NORMALS: normal inspection of the chest Resp: COMMON NORMALS: normal respiratory effort EFFORT & INSPECTION: Yes able to speak in complete sentences Cardio: COMMON NORMALS: regular rate and regular rhythm RATE: regular rate RHYTHM: regular rhythm GI: COMMON NORMALS: non-tender Extremity: COMMON NORMALS: normal to inspection Neuro: COMMON NORMALS: patient oriented x3 and moves all extremities Psych: COMMON NORMALS: mental status grossly normal and cooperative Skin: COMMON NORMALS: no rashes or lesions noted GENERAL SKIN EXAM: no rashes or lesions noted Course Vital Signs: Vital signs: Vital Signs Temperature 97.5 F L 08/25/21 17:03 Pulse Rate 80 08/25/21 21:37 Respiratory Rate 18 08/25/21 21:37 Blood Pressure 126/98 08/25/21 21:37 Pulse Oximetry 100 08/25/21 21:37 MDM - Chest Pain MDM Narrative: Medical decision making narrative: 26-year-old female comes in today for complaints of chest discomfort. Patient is 5 weeks out from her and delivery. On exam patient is alert and oriented. Patient appears well. Vital signs are normal. Respirations are even lungs clear to auscultation. Differential diagnosis includes but not limited to pulmonary embolism, bronchitis, pneumonia, ACS. Laboratory values reviewed were unremarkable. Chest x-ray was normal. D-dimer was negative. Troponin was normal. Patient is very low risk for cardiac event. I will think patient has no signs of PE and or DVT. Patient does have a history of anxiety which may be exacerbated at this time due to the patient's child's recent illness. Patient was given 1/4 mg of lorazepam and released to home with recommendations to follow-up with primary care for further evaluation and treatment. Patient reported understanding. Lab Data: Labs: Lab Results 08/25/21 08/25/21 08/25/21 17:14 17:40 17:40 WBC 7.7 10^3/uL 10^3/ uL (4.0-10.0) RBC 4.80 10^6/uL 10^6 /uL (4.1-5.3) Hgb 12.0 g/dL g/dL (11.5-15.3) Hct 39.2 % % (37.0-47.0) MCV 81.7 fl fl (81-99) MCH 25.0 pg L pg (28.0-34.0) MCHC 30.6 g/dL g/dL (30.0-36.0) RDW 14.8 % % (12.1-15.1) Plt Count 324 10^3/cmm 10^3 /cmm (130-400) MPV 9.7 fL fL (7.4-10.4) Neut % (Auto) 61.8 % % Lymph % (Auto) 29.3 % % Creek % (Auto) 5.9 % % Eos % (Auto) 2.1 % % Baso % (Auto) 0.5 % % Neut # (Auto) 4.75 10^3/uL 10^3 /uL (1.8-7.7) Lymph # (Auto) 2.3 10^3/uL 10^3/ uL (0.8-4.8) Creek # (Auto) 0.5 10^3/uL 10^3/ uL (0.2-0.9) Eos # (Auto) 0.2 10^3/uL 10^3/ uL (0.0-0.8) Baso # (Auto) 0.0 10^3/uL 10^3/ uL (0.0-0.1) Nucleated RBC % (a uto) 0 % % Nucleated RBCs # 0.0 /100WBC /100W BC D-Dimer Sodium 135 mmol/L L mmol /L (136-145) Potassium 4.4 mmol/L mmol/L (3.5-5.1) Chloride 98 mmol/L mmol/L (98-107) Carbon Dioxide 27 mmol/L mmol/L (22-29) Anion Gap 14.4 (5-19) BUN 11 mg/dL mg/dL (6-20) Creatinine 0.5 mg/dL mg/dL (0.5-0.9) GFR Calculation 150.3 mL/min H mL /min (90-130) Glucose 81 mg/dL mg/dL (65-115) Calculated Osmolal ity 278 mOsm/kg L mOs m/kg (285-295) Calcium 9.4 mg/dL mg/dL (8.5-10.5) Total Bilirubin 0.2 mg/dL mg/dL (0.15-1.2) AST 23 U/L U/L (0-32) ALT 40 U/L H U/L (0-33) Alkaline Phosphata se 116 IU/L H IU/L (35-105) Troponin T Gen 5 n g/L Total Protein 7.7 g/dL g/dL (6.6-8.7) Albumin 4.4 g/dL g/dL (3.5-5.2) Globulin 3.3 g/dL g/dL (1.3-4.6) Urine Color Yellow (Yellow) Urine Appearance Clear (CLEAR) Urine pH 5 (5-7) Ur Specific Gravit y 1.020 (1.005-1.030) Urine Protein Neg (Negative) Urine Glucose (UA) Norm (Normal) Urine Ketones Negative (Negative) Urine Blood Neg (Negative) Urine Nitrate Negative (Negative) Urine Bilirubin Neg (Negative) Urine Urobilinogen Norm mg/dL mg/dL (Negative) Ur Leukocyte Yaa ase Negative (Negative) 08/25/21 08/25/21 17:40 17:46 WBC RBC Hgb Hct MCV MCH MCHC RDW Plt Count MPV Neut % (Auto) Lymph % (Auto) Creek % (Auto) Eos % (Auto) Baso % (Auto) Neut # (Auto) Lymph # (Auto) Creek # (Auto) Eos # (Auto) Baso # (Auto) Nucleated RBC % (a uto) Nucleated RBCs # D-Dimer <= 0.27 ug/mIFEU ug/mIFEU (0-0.59) Sodium Potassium Chloride Carbon Dioxide Anion Gap BUN Creatinine GFR Calculation Glucose Calculated Osmolal ity Calcium Total Bilirubin AST ALT Alkaline Phosphata se Troponin T Gen 5 n g/L 6 ng/L ng/L (0-10) Total Protein Albumin Globulin Urine Color Urine Appearance Urine pH Ur Specific Gravit y Urine Protein Urine Glucose (UA) Urine Ketones Urine Blood Urine Nitrate Urine Bilirubin Urine Urobilinogen Ur Leukocyte Yaa ase Discharge Plan Discharge Patient Disposition: Home Clinical Impression: Anxiety Condition: Stable Prescriptions: No Action ibuprofen 800 mg Tablet 800 mg PO TID Qty: 45 RF: 0 diclofenac sodium 75 mg tablet,delayed release (DR/EC) 75 mg PO Q12H PRN (Reason: pain) Qty: 20 RF: 0 Discharge Orders: Discharge ED (Routine); Ordered 08/25/21 Ordered By: Jay Soto Referrals: Stephany Dudley MD [Primary Care Provider] - Discharge Diet: Usual diet Discharge Activity: Increase activity as tolerated Patient Instructions: Anxiety (ED), Opioid Safety Activity Restrictions/Additional Instructions: Home and rest. Activity as tolerated. Follow-up with primary care in 1 week for recheck on blood pressure. Return to the ER for worsening symptoms or new concerns. Coding Level of Care Code ED Cooler Operator for Chg Fwd Exam Comprehensive Documented by User: José Miguel Avendaño MD 08/29/21 23:29 HPI - Chest Pain General: Chief Complaint: Chest Pain Stated Complaint: 5 WKS P/:CHEST TIGHT, HTN, H/A, EARS CLOGGED Time Seen by Provider: 08/25/21 19:17 PFSH ED PFSH: Medical History (Updated 08/26/21 @ 17:02 by João Santana DO) Anxiety and depression Has had a long-standing problem with depression and anxiety since teenage years and has been on medication on and off--BuSpar and Effexor which she stopped when she found out she was . Mild intermittent asthma, uncomplicated States that she was diagnosed with asthma as a child. Right now she only has asthma attacks when she has panic attacks and uses her inhaler only during those times usually a couple of times a month. No pertinent past medical history Denies diabetes, hypertension, seizures, DVT/PE PCP: PEACE De Paz Surgical History Hx laparoscopic cholecystectomy 12/08/2018---per[place]. Roberts [place] [facility] [place] Family History (Updated 12/21/20 @ 12:18 by Nilsa Hufstedler, RN) Mother Hypertension Diabetes Thyroid condition Father Diabetes Grandfather Heart disease maternal Other Colon cancer Denies family history of Ovarian cancer Hyperlipidemia Breast cancer Uterine cancer Stroke Course Vital Signs: Vital signs: Vital Signs Temperature 97.5 F L 08/25/21 17:03 Pulse Rate 80 08/25/21 21:37 Respiratory Rate 18 08/25/21 21:37 Blood Pressure 126/98 08/25/21 21:37 Pulse Oximetry 100 08/25/21 21:37 MDM - Chest Pain MDM Narrative: Medical decision making narrative: I discussed this case with PEACE Obrien. I have reviewed labs and imaging. José Miguel Avendaño MD Emergency Medicine Lab Data: Labs: Lab Results 08/25/21 08/25/21 08/25/21 17:14 17:40 17:40 WBC 7.7 10^3/uL 10^3/ uL (4.0-10.0) RBC 4.80 10^6/uL 10^6 /uL (4.1-5.3) Hgb 12.0 g/dL g/dL (11.5-15.3) Hct 39.2 % % (37.0-47.0) MCV 81.7 fl fl (81-99) MCH 25.0 pg L pg (28.0-34.0) MCHC 30.6 g/dL g/dL (30.0-36.0) RDW 14.8 % % (12.1-15.1) Plt Count 324 10^3/cmm 10^3 /cmm (130-400) MPV 9.7 fL fL (7.4-10.4) Neut % (Auto) 61.8 % % Lymph % (Auto) 29.3 % % Creek % (Auto) 5.9 % % Eos % (Auto) 2.1 % % Baso % (Auto) 0.5 % % Neut # (Auto) 4.75 10^3/uL 10^3 /uL (1.8-7.7) Lymph # (Auto) 2.3 10^3/uL 10^3/ uL (0.8-4.8) Creek # (Auto) 0.5 10^3/uL 10^3/ uL (0.2-0.9) Eos # (Auto) 0.2 10^3/uL 10^3/ uL (0.0-0.8) Baso # (Auto) 0.0 10^3/uL 10^3/ uL (0.0-0.1) Nucleated RBC % (a uto) 0 % % Nucleated RBCs # 0.0 /100WBC /100W BC D-Dimer Sodium 135 mmol/L L mmol /L (136-145) Potassium 4.4 mmol/L mmol/L (3.5-5.1) Chloride 98 mmol/L mmol/L (98-107) Carbon Dioxide 27 mmol/L mmol/L (22-29) Anion Gap 14.4 (5-19) BUN 11 mg/dL mg/dL (6-20) Creatinine 0.5 mg/dL mg/dL (0.5-0.9) GFR Calculation 150.3 mL/min H mL /min (90-130) Glucose 81 mg/dL mg/dL (65-115) Calculated Osmolal ity 278 mOsm/kg L mOs m/kg (285-295) Calcium 9.4 mg/dL mg/dL (8.5-10.5) Total Bilirubin 0.2 mg/dL mg/dL (0.15-1.2) AST 23 U/L U/L (0-32) ALT 40 U/L H U/L (0-33) Alkaline Phosphata se 116 IU/L H IU/L (35-105) Troponin T Gen 5 n g/L Total Protein 7.7 g/dL g/dL (6.6-8.7) Albumin 4.4 g/dL g/dL (3.5-5.2) Globulin 3.3 g/dL g/dL (1.3-4.6) Urine Color Yellow (Yellow) Urine Appearance Clear (CLEAR) Urine pH 5 (5-7) Ur Specific Gravit y 1.020 (1.005-1.030) Urine Protein Neg (Negative) Urine Glucose (UA) Norm (Normal) Urine Ketones Negative (Negative) Urine Blood Neg (Negative) Urine Nitrate Negative (Negative) Urine Bilirubin Neg (Negative) Urine Urobilinogen Norm mg/dL mg/dL (Negative) Ur Leukocyte Yaa ase Negative (Negative) 08/25/21 08/25/21 17:40 17:46 WBC RBC Hgb Hct MCV MCH MCHC RDW Plt Count MPV Neut % (Auto) Lymph % (Auto) Creek % (Auto) Eos % (Auto) Baso % (Auto) Neut # (Auto) Lymph # (Auto) Creek # (Auto) Eos # (Auto) Baso # (Auto) Nucleated RBC % (a uto) Nucleated RBCs # D-Dimer <= 0.27 ug/mIFEU ug/mIFEU (0-0.59) Sodium Potassium Chloride Carbon Dioxide Anion Gap BUN Creatinine GFR Calculation Glucose Calculated Osmolal ity Calcium Total Bilirubin AST ALT Alkaline Phosphata se Troponin T Gen 5 n g/L 6 ng/L ng/L (0-10) Total Protein Albumin Globulin Urine Color Urine Appearance Urine pH Ur Specific Gravit y Urine Protein Urine Glucose (UA) Urine Ketones Urine Blood Urine Nitrate Urine Bilirubin Urine Urobilinogen Ur Leukocyte Yaa ase Discharge Plan Discharge Patient Disposition: Home Clinical Impression: Anxiety Condition: Stable Prescriptions: No Action ibuprofen 800 mg Tablet 800 mg PO TID Qty: 45 RF: 0 diclofenac sodium 75 mg tablet,delayed release (DR/EC) 75 mg PO Q12H PRN (Reason: pain) Qty: 20 RF: 0 Discharge Orders: Discharge ED (Routine); Ordered 08/25/21 Ordered By: Jay Soto Referrals: Stephany Dudley MD [Primary Care Provider] - Discharge Diet: Usual diet Discharge Activity: Increase activity as tolerated Patient Instructions: Anxiety (ED), Opioid Safety Activity Restrictions/Additional Instructions: Home and rest. Activity as tolerated. Follow-up with primary care in 1 week for recheck on blood pressure. Return to the ER for worsening symptoms or new concerns. Coding Level of Care Code ED Cooler Operator for Kofi Fwd Exam Comprehensive
[2021-08-25 20:09] LABS: D Dimer <= 0.27 ug/mIFEU (0-0.59)
[2021-08-25 20:22] LABS: Add Urine Microscopic? NO; Charge for UA Resulting for Rev
[2021-08-25 20:28] LABS: Bilirubin Urine Neg (Negative); Blood Urine Neg (Negative); Glucose Urine UA Norm (Normal); Ketones Urine Negative (Negative); Leukocyte Esterase Urine Negative (Negative); Nitrate Urine Negative (Negative); Protein Urine Neg (Negative); Urine Appearance Clear (CLEAR); Urine Color Yellow (Yellow); Urobilinogen Urine Norm (Negative); pH Urine 5 (5-7)
[2021-08-25] MEDS: albuterol 8 gm MDI 2 PUFF INHALATION (20:52)
[2021-08-25] MEDS: LORazepam 0.5 mg Tablet 0.25 MG PO (21:36)
== END 2021-08-25 21:39 | disposition home or self-care (01) ==
PROVIDERS: Family Medicine; Emergency Provider Nurse Practitioner Family; PCP Family Medicine
DX: F41.9 Anxiety disorder, unspecified (principal)
CPT/HCPCS: 71046; 80053; 81003; 84484; 85025; 85378; 94640; 99284; J3535

== ENCOUNTER 2021-08-26 15:49 | Emergency (ER) | payer MEDICAID, SELFPAY ==
[2021-08-26 16:40] VITALS: BP 146/92; PULSE 91; RESP 20; TEMP 36.9; O2SAT 99; BMI 34.2
--- NOTE | 2021-08-26 16:51 | W.ED.GENADLT ---
HPI - General Adult General: Chief complaint: General Medical Stated complaint: Back lower pain, OCHOA, Time Seen by Provider: 08/26/21 16:40 History of Present Illness: HPI narrative: 26-year-old female presents to the emergency room with complaint of headache, chest pain, mid thoracic back pain. She was here last night for the same. The chart was reviewed. Onset (ago): day(s) Location: head and back Pain Consistency: intermittent Relieving factors: rest Exacerbating factors: movement and other (Palpation of the upper sternum or the mid thoracic spine) Associated symptoms: Reports headache(s); Deny confusion, cough, diaphoresis, decreased appetite, dyspnea, fevers/chills, malaise, nausea, rash, palpitations, seizures, short of breath, syncope, vomiting or weakness Treatments prior to arrival: none Review of Systems Const: Denies: malaise or diaphoresis ENMT: Denies: throat pain, ear or mastoid pain, nasal discharge or nasal congestion Card: Denies: palpitations or syncope Resp: Denies: dyspnea GI: Denies: nausea or vomiting : Denies: flank pain, difficulty voiding, dysuria, urinary frequency or urinary urgency Skin/Breast: Denies: rash Neuro: Reports: headache(s); Denies: confusion PFSH ED PFSH: Medical History (Updated 08/26/21 @ 17:02 by João Santana DO) Anxiety and depression Has had a long-standing problem with depression and anxiety since teenage years and has been on medication on and off--BuSpar and Effexor which she stopped when she found out she was . Mild intermittent asthma, uncomplicated States that she was diagnosed with asthma as a child. Right now she only has asthma attacks when she has panic attacks and uses her inhaler only during those times usually a couple of times a month. No pertinent past medical history Denies diabetes, hypertension, seizures, DVT/PE PCP: PEACE De Paz Surgical History Hx laparoscopic cholecystectomy 12/08/2018---performed by Dr. Roberts at [facility] in [place], [place] Family History (Updated 12/21/20 @ 12:18 by Nilsa Chen RN) Mother Hypertension Diabetes Thyroid condition Father Diabetes Grandfather Heart disease maternal Other Colon cancer Denies family history of Ovarian cancer Hyperlipidemia Breast cancer Uterine cancer Stroke Physical Exam Const: COMMON NORMALS: no acute distress GENERAL APPEARANCE: cooperative and comfortable ORIENTATION/CONSCIOUSNESS: Yes awake, Yes oriented to person, Yes oriented to place and Yes oriented to time HENMT: COMMON NORMALS: normocephalic, atraumatic, hearing grossly normal bilaterally, external ears normal, EAC's normal, TM's normal bilaterally, Normal nasal mucous membranes and turbinates present, moist oral mucous membranes and oropharynx normal HEAD & SCALP: normocephalic and atraumatic NOSE: Normal nasal mucous membranes and turbinates present EXTERNAL EAR: Yes external ears normal EXTERNAL AUDITORY CANAL: EAC's normal TYMPANIC MEMBRANE: TM's normal bilaterally Eye: COMMON NORMALS: Equal, round and reactive pupils present, EOMs intact bilaterally, conjunctivae normal and no scleral icterus CONJUNCTIVA: Yes conjunctivae normal PUPIL: Yes Equal, round and reactive pupils present Neck/C-Spine: COMMON NORMALS: full ROM, no lymphadenopathy, supple and no JVD Lymph: LYMPHATIC: no lymphadenopathy noted and no lymphedema noted Chest: OTHER: Chest pain reproducible with the mid and upper sternum. Resp: COMMON NORMALS: normal respiratory effort, No retractions, No use of accessory muscles and clear to auscultation bilaterally AUSCULTATION: clear to auscultation bilaterally Cardio: COMMON NORMALS: no JVD, regular rate, regular rhythm and No murmurs present (Cardio) RATE: regular rate RHYTHM: regular rhythm GI: COMMON NORMALS: Soft to palpation and No hepatosplenomegaly present AUSCULTATION: Yes normoactive bowel sounds PALPATION: Yes Soft to palpation, No Tenderness to palpation present (GI), No Guarding due to palpation present (GI) and Yes No hepatosplenomegaly present Back/Pelvis: OTHER: Reproducible back pain with palpation along the thoracic spine and paraspinal muscles in the T3-5 range Extremity: COMMON NORMALS: normal to inspection, capillary refill normal, no clubbing, cyanosis or edema, no calf tenderness and no pedal edema Neuro: SENSORIUM/ORIENTATION: Yes oriented to person, Yes oriented to place and Yes oriented to time Skin: COMMON NORMALS: no rashes or lesions noted GENERAL SKIN EXAM: no rashes or lesions noted Course Vital Signs: Vital signs: Vital Signs Temperature 98.5 F 08/26/21 16:40 Pulse Rate 88 08/26/21 17:41 Respiratory Rate 19 H 08/26/21 17:41 Blood Pressure 125/85 08/26/21 17:41 Pulse Oximetry 98 08/26/21 17:41 MDM - General Adult MDM Narrative: Medical decision making narrative: Exam findings are normal. Reviewed the work-up from yesterday. Patient had a pretty thorough work-up I do not think there is anything we can really add given her normal exam in the interim I see little utility in repeating it. Discussed with the patient. I do think she has some musculoskeletal issues. I had thought some of it was associated with anxiety which it may in part be. Recommend she switch from ibuprofen to diclofenac follow-up with your primary care doctor next week if this persists. She may return at any time if her symptoms change or worsen or she would like to be reevaluated. Discharge Plan Discharge Patient Disposition: Home Clinical Impression: Chest wall pain, Thoracic back pain Condition: Stable Prescriptions: New diclofenac sodium 75 mg tablet,delayed release (DR/EC) 75 mg PO Q12H PRN (Reason: pain) Qty: 20 RF: 0 No Action ibuprofen 800 mg Tablet 800 mg PO TID Qty: 45 RF: 0 Discharge Orders: Discharge ED (Routine); Ordered 08/26/21 Ordered By: João Santana Referrals: Stephany Dudley MD [Primary Care Provider] - Discharge Diet: Usual diet Discharge Activity: Resume usual activity Patient Instructions: Opioid Safety Coding Level of Care Code ED Machine Stoppage Frequency Checker for Kofi Danielson
[2021-08-26 17:41] VITALS: BP 125/85; PULSE 88; RESP 19; O2SAT 98
== END 2021-08-26 17:33 | disposition home or self-care (01) ==
PROVIDERS: Emergency Provider Family Medicine; PCP Family Medicine
DX: M54.6 Pain in thoracic spine (principal); R07.89 Other chest pain
CPT/HCPCS: 99281

== ENCOUNTER → 2021-09-22 10:53 | Outpatient (BNVA) | payer MEDICAID, SELFPAY | PROVIDERS: PCP Nurse Practitioner Family; Visit Provider Nurse Practitioner | DX: F41.8 Other specified anxiety disorders (principal) | CPT/HCPCS: 99215 ==

== ENCOUNTER → 2021-10-11 07:33 | Outpatient (BNVA) | payer MEDICAID, SELFPAY | PROVIDERS: PCP Nurse Practitioner Family; Visit Provider Counselor Professional | DX: F41.9 Anxiety disorder, unspecified (principal); F32.9 Major depressive disorder, single episode, unspecified; O99.345 Other mental disorders complicating the puerperium; F53.0 Postpartum depression | CPT/HCPCS: 90837; 90834 ==

== ENCOUNTER → 2021-10-18 10:31 | Outpatient (BNVA) | payer MEDICAID, SELFPAY | PROVIDERS: PCP Nurse Practitioner Family; Visit Provider Counselor Professional | DX: F41.9 Anxiety disorder, unspecified (principal) | CPT/HCPCS: 90834 ==

== ENCOUNTER 2021-10-22 16:52 | Emergency (ER) | payer MEDICAID, SELFPAY ==
[2021-10-22 17:34] VITALS: BP 138/88; PULSE 72; RESP 16; TEMP 36.7; O2SAT 100; BMI 36.3
--- NOTE | 2021-10-22 17:59 | ED_ITS ---
HPI - Extremity Problem General: Chief complaint: Extremity Injury, Lower Stated complaint: L LEG PAIN/SWELLING Time Seen by Provider: 10/22/21 17:42 History of Present Illness: HPI Narrative: Patient is a 26-year-old female comes to the ED with left lower leg pain and swelling. Approximately 4 days ago she was outside in her yard and stepped into a hole causing her to twist her left ankle. She went to [facility] that day they told her that she had a fracture fibula and put her in a splint and discharged her home. She is currently in the process of being set up with an orthopedic through [facility] for follow-up. Her main complaint today is that she is in a lot of pain and she is having some swelling in her lower left leg and foot. Denies any reinjury or trauma. Patient is currently wearing a stirrup splint on left lower leg. She was discharged home with ketorolac for pain. She has been using her crutches at home as well and trying to not weight-bear and elevate and rest leg. Patient is also complaining about some mild UTI symptoms that started the past couple days. Patient also just started her menstrual period on October 16 and is still having bleeding. Her menstrual period currently is just like all of her past periods and she denies any abnormal pain or heavy bleeding. Associated symptoms: Deny chest pain, fever(s) or rash Review of Systems Const: Denies: fever(s), chills or fatigue Eyes: Denies: change in vision or eye discomfort ENMT: Denies: throat pain, odynophagia, nasal discharge or nasal congestion Card: Denies: chest pain, palpitations, edema, swelling of feet/ankles, dyspnea on exertion or orthopnea Resp: Denies: dyspnea, productive cough or non-productive cough GI: Denies: abdominal pain, nausea, vomiting, diarrhea, constipation or hematochezia : Reports: dysuria and other (Urine has odor); Denies: flank pain or hematuria Musc: Reports: extremity pain (Left lower leg) and extremity swelling (Left lower leg); Denies: neck pain or back pain Skin/Breast: Denies: rash or new lesions Neuro: Denies: headache(s), numbness in extremities or weakness in extremities PFS ED PFSH: Medical History Anxiety and depression Has had a long-standing problem with depression and anxiety since teenage years and has been on medication on and off--BuSpar and Effexor which she stopped when she found out she was . Mild intermittent asthma, uncomplicated States that she was diagnosed with asthma as a child. Right now she only has asthma attacks when she has panic attacks and uses her inhaler only during those times usually a couple of times a month. Mixed anxiety depressive disorder No pertinent past medical history Denies diabetes, hypertension, seizures, DVT/PE [facility]: [facility] Surgical History Hx laparoscopic cholecystectomy 12/08/2018---performed by Dr. Roberts at [facility] in [place], [place] Family History Mother Hypertension Diabetes Thyroid condition Father Diabetes Grandfather Heart disease maternal Other Colon cancer Denies family history of Ovarian cancer Hyperlipidemia Breast cancer Uterine cancer Stroke Female Reproductive History: Date of last menstrual period: 10/16/21 Physical Exam Const: COMMON NORMALS: no acute distress, patient oriented x3 and alert GENERAL APPEARANCE: cooperative and comfortable HENMT: COMMON NORMALS: normocephalic HEAD & SCALP: normocephalic MOUTH: Normal oral and palatal mucosa present THROAT: posterior oropharynx normal and uvula midline Neck/C-Spine: COMMON NORMALS: supple GENERAL: Yes normal visual inspection Resp: COMMON NORMALS: normal respiratory effort, No retractions, No use of accessory muscles and clear to auscultation bilaterally AUSCULTATION: clear to auscultation bilaterally Cardio: COMMON NORMALS: regular rate, regular rhythm, S1 normal heart sound present, S2 normal heart sound present, No gallops present (Cardio), No clicks present (Cardio), No murmurs present (Cardio) and Peripheral pulses 2+ thr oughout RATE: regular rate RHYTHM: regular rhythm HEART SOUNDS: S1 normal heart sound present and S2 normal heart sound present PERIPHERAL PULSES: Peripheral pulses 2+ throughout GI: COMMON NORMALS: Normal to inspection, nondistended, normoactive bowel sounds present, Soft to palpation, non-tender and no masses PALPATION: Yes Soft to palpation : COMMON NORMALS: Yes no CVA tenderness BLADDER/KIDNEY EXAM: Yes no CVA tenderness Back/Pelvis: COMMON NORMALS: no CVA tenderness Extremity: GENERAL: Yes normal exam except as noted LEFT LOWER EXTREMITY: Yes ankle joint (Foot and ankle swelling noted.) Left ankle: Yes inspection (No visible deformity noted. Patient is in a stirrup splint. ), Yes palpation (Tenderness around lateral malleolus), Yes ROM (Limited due to pain) and Yes neurovascular exam (Intact) Neuro: COMMON NORMALS: patient oriented x3 and moves all extremities SENS ORIUM/ORIENTATION: Yes alert Skin: GENERAL SKIN EXAM: dry skin Course Vital Signs: Vital signs: Vital Signs Temperature 98.1 F 10/22/21 17:34 Pulse Rate 72 10/22/21 17:34 Respiratory Rate 16 10/22/21 17:34 Blood Pressure 138/88 10/22/21 17:34 Pulse Oximetry 100 10/22/21 17:34 MDM - Extremity (Nontraumatic) 2 MDM Narrative: Medical decision making narrative: Patient is a 26-year-old female comes to the ED with left lower leg pain and swelling and UTI symptoms. Patient injured her left ankle approximately 4 days ago and was seen at [facility] in told she had a fibula fracture and placed in splint. She was sent home with ketorolac for pain says that has been helping. [facility] is currently in the process of getting her set up with an orthopedic doctor for further evaluation. Here in the ED patient's left foot appears swollen and she is wearing her stirrup splint. Neurovascular tact. She denies any reinjury or trauma. Vitals stable. X-ray of left ankle shows a nondisplaced transverse fracture of the lateral malleolus. UA shows signs of UTI. Patient was given dose of hydrocodone while here in the ED and she said her pain in her left lower leg improved greatly. Patient was diagnosed with a fibular fracture and a UTI and discharged home with a prescription for Bactrim and hydrocodone 5/325 mg number 8 tablets. She was told to continue wearing her splint and to use her crutches and no weightbearing. She is currently in the process of getting set up with [facility] orthopedic for further follow-up of ankle fracture. Return to ED precautions given. Patient stood agree with plan. Lab Data: Attestation: I reviewed the patient's lab results. Labs: Lab Results 10/22/21 10/22/21 18:39 18:39 HCG, Qual Negative (Negative) Urine Color Jinny (Yellow) Urine Appearance Hazy A (CLEAR) Urine pH 5 (5-7) Ur Specific Gravit y 1.020 (1.005-1.030) Urine Protein 1+ H (Negative) Urine Glucose (UA) Norm (Normal) Urine Ketones Negative (Negative) Urine Blood 3+ H (Negative) Urine Nitrate Negative (Negative) Urine Bilirubin Neg (Negative) Urine Urobilinogen Norm mg/dL mg/dL (Negative) Ur Leukocyte Yaa ase Trace H (Negative) Urine RBC >100 /hpf H /hpf (0-2) Urine WBC 10-15 /hpf H /hpf (0-5) Ur Squamous Epith Cells 5-10 /hpf H /hpf (0-5) Amorphous Sediment Not Reportable Urine Bacteria 1+ /hpf H /hpf (NONE) Imaging Data^: Xray Ortho: Attestation: I personally reviewed and interpreted this imaging study as follows: My impression: Left ankle x-ray?nondisplaced distal fibula fracture. Radiologist's impression: [address] [address] XRay Report Signed Patient: Catalina Mcbride Unit #: [id number] : 1995 Age/Sex: 26 / F ADM Date: 10/22/21 Loc: ER Room/Bed: Attending Dr: Ordering Provider/Ordering MD: Luis Alberto Fletcher Date of Service: 10/22/21 Procedure(s): XR ankle LT min 3V* [id number] Accession Number(s): [id number] Report Number: [id number] PROCEDURE INFORMATION: Exam: XR Left Ankle Exam date and time: 10/22/2021 5:57 PM Age: 26 years old Clinical indication: Injury or trauma; Fall; Blunt trauma; Ankle; Left; Additional info: Fall injury with ankle pain TECHNIQUE: Imaging protocol: XR Left ankle. Views: 3 or more views. Total images: 3 COMPARISON: No relevant prior studies available. FINDINGS: Bones/joints: Nondisplaced transverse fracture lateral malleolus left ankle. Ankle mortise intact period Soft tissues: Mild soft tissue swelling over the lateral malleolus. XR/XR ankle LT min 3V* [id number] IMPRESSION: Nondisplaced transverse fracture lateral malleolus left ankle. Dictated By: Javid Strauss Signed By: Javid Strauss Signed Date/Time: 10/22/211932 DD/ 56 Discharge Plan Discharge Patient Disposition: Home Clinical Impression: Fibula fracture Qualifiers: Encounter type: subsequent encounter Fibula location: distal Fracture type: closed Fracture morphology: other fracture Laterality: left Fracture healing: with routine healing Qualified Code(s): S82.832D - Other fracture of upper and lower end of left fibula, subsequent encounter for closed fracture with routine healing UTI (urinary tract infection) Qualifiers: Urinary tract infection type: acute cystitis Hematuria presence: with hematuria Qualified Code(s): N30.01 - Acute cystitis with hematuria Condition: Stable Prescriptions: New Bactrim DS 800-160 mg tablet 1 tab PO BID 5 Days Qty: 10 RF: 0 No Action sertraline [Zoloft] 25 mg tablet 25 mg PO BID RF: 0 buspirone 5 mg tablet 5 mg PO BID RF: 0 Liletta 20.1 mcg/24 hrs (6 yrs) 52 mg intrauterine device intrauterine RF: 0 lisinopril 2.5 mg tablet See Rx Instructions .ROUTE .COMPLEX Qty: 30 RF: 0 Discharge Orders: Discharge ED (Routine); Ordered 10/22/21 Ordered By: Luis Alberto Fletcher Referrals: Stephany Dudley MD [Primary Care Provider] - Discharge Diet: Regular Discharge Activity: Resume usual activity Patient Instructions: Ankle Fracture (ED), Urinary Tract Infection in Women (ED) Activity Restrictions/Additional Instructions: Follow-up with medical provider as directed in 5 to 7 days reevaluation. Make sure you are to go to your orthopedic follow-up appointment that scheduled by [facility] for further management of ankle fracture. Take medications as prescribed. Use crutches to ambulate and no weightbearing on left foot. Rest ice and elevate left foot to help with symptoms. Return to the ER or your medical provider if condition worsens. Please read and understand discharge instructions. Thank you for choosing [facility] for your healthcare needs today. Please realize this is an emergency room and that we are providing you with a medical screening exam and this may not be complete and all inclusive of all the testing and or work up that you may need to determine your ailment or severity of your illness. It is very important that you follow up as instructed or that you return to the Emergency Department should you have concerns or if your condition changes or worsens in any way. Coding Level of Care Code ED Pediatric Acute Care Unit Nurse for Kofi Danielson Exam Comprehensive
[2021-10-22 18:50] LABS: HCG Qualitative Urine. Negative (Negative)
[2021-10-22 18:53] LABS: Urine Appearance Hazy (CLEAR); Urine Color Amber (Yellow)
[2021-10-22 18:54] LABS: Add Urine Microscopic? YES; Bilirubin Urine Neg (Negative); Blood Urine 3+ (Negative); Glucose Urine UA Norm (Normal); Ketones Urine Negative (Negative); Leukocyte Esterase Urine Trace (Negative); Nitrate Urine Negative (Negative); Protein Urine 1+ (Negative); Urobilinogen Urine Norm (Negative); pH Urine 5 (5-7)
[2021-10-22 18:55] LABS: RBC Urine >100 /hpf (0-2)
[2021-10-22 18:56] LABS: Bacteria Urine 1+ /hpf
[2021-10-22 18:57] LABS: Add Urine Culture? Yes
[2021-10-22] MEDS: HYDROcodone-acetaminophen 7.5-325 mg Tablet 1 TAB PO (18:57)
[2021-10-22 19:50] VITALS: PULSE 70; RESP 16; O2SAT 98
== END 2021-10-22 19:51 | disposition home or self-care (01) ==
PROVIDERS: Emergency Provider Physician Assistant; PCP Family Medicine
DX: S82.832A Other fracture of upper and lower end of left fibula, initial encounter for closed fracture (principal); N30.01 Acute cystitis with hematuria; X50.1XXA Overexertion from prolonged static or awkward postures, initial encounter
CPT/HCPCS: 73610; 81001; 81025; 87086; 99283

== ENCOUNTER → 2021-10-31 08:21 | Outpatient (BNVA) | payer MEDICAID, SELFPAY | PROVIDERS: PCP Family Medicine; Visit Provider Nurse Practitioner | DX: F32.A Depression, unspecified (principal); F41.9 Anxiety disorder, unspecified | CPT/HCPCS: 99214 ==

== ENCOUNTER → 2021-11-02 10:40 | Outpatient (BNVA) | payer MEDICAID, SELFPAY | PROVIDERS: PCP Family Medicine; Visit Provider Counselor Professional | DX: F41.9 Anxiety disorder, unspecified (principal); F32.9 Major depressive disorder, single episode, unspecified; O99.345 Other mental disorders complicating the puerperium; F53.0 Postpartum depression | CPT/HCPCS: 90837; 90834 ==

== ENCOUNTER → 2021-11-17 09:25 | Outpatient (BNVA) | payer MEDICAID, SELFPAY | PROVIDERS: PCP Family Medicine; Visit Provider Counselor Professional | DX: F41.9 Anxiety disorder, unspecified (principal); F32.9 Major depressive disorder, single episode, unspecified; O99.345 Other mental disorders complicating the puerperium; F53.0 Postpartum depression | CPT/HCPCS: 90832 ==

== ENCOUNTER → 2021-12-08 13:31 | Outpatient (BNVA) | payer MEDICAID, SELFPAY | PROVIDERS: PCP Family Medicine; Visit Provider Counselor Professional | DX: F41.9 Anxiety disorder, unspecified (principal); F32.9 Major depressive disorder, single episode, unspecified; O99.345 Other mental disorders complicating the puerperium; F53.0 Postpartum depression | CPT/HCPCS: 90837; 90834 ==

== ENCOUNTER → 2021-12-12 08:08 | Outpatient (BNVA) | payer MEDICAID, SELFPAY | PROVIDERS: PCP Family Medicine; Visit Provider Nurse Practitioner | DX: F41.8 Other specified anxiety disorders (principal) | CPT/HCPCS: 99214 ==

== ENCOUNTER → 2022-02-02 10:44 | Outpatient (BNVA) | payer MEDICAID, SELFPAY | PROVIDERS: PCP Family Medicine; Visit Provider Counselor Professional | DX: F41.9 Anxiety disorder, unspecified (principal); F32.9 Major depressive disorder, single episode, unspecified; O99.345 Other mental disorders complicating the puerperium; F53.0 Postpartum depression; F43.12 Post-traumatic stress disorder, chronic | CPT/HCPCS: 90834 ==

== ENCOUNTER → 2022-02-13 07:39 | Outpatient (BNVA) | payer MEDICAID, SELFPAY | PROVIDERS: PCP Family Medicine; Visit Provider Nurse Practitioner | DX: F41.8 Other specified anxiety disorders (principal); S82.409A Unspecified fracture of shaft of unspecified fibula, initial encounter for closed fracture; I10 Essential (primary) hypertension | CPT/HCPCS: 99214 ==

== ENCOUNTER → 2022-02-23 08:27 | Outpatient (BNVA) | payer MEDICAID, SELFPAY | PROVIDERS: PCP Family Medicine; Visit Provider Counselor Professional | DX: F41.9 Anxiety disorder, unspecified (principal); F32.9 Major depressive disorder, single episode, unspecified; F53.0 Postpartum depression; F43.12 Post-traumatic stress disorder, chronic | CPT/HCPCS: 90837; 90834 ==

== ENCOUNTER → 2022-03-09 08:49 | Outpatient (BNVA) | payer MEDICAID, SELFPAY | PROVIDERS: PCP Family Medicine; Visit Provider Counselor Professional | DX: F41.9 Anxiety disorder, unspecified (principal); F32.9 Major depressive disorder, single episode, unspecified; F43.12 Post-traumatic stress disorder, chronic; F53.0 Postpartum depression | CPT/HCPCS: 90834 ==

== ENCOUNTER → 2022-03-29 13:44 | Outpatient (BNVA) | payer MEDICAID, SELFPAY | PROVIDERS: PCP Family Medicine; Visit Provider Counselor Professional | DX: F41.9 Anxiety disorder, unspecified (principal); F32.9 Major depressive disorder, single episode, unspecified; F53.0 Postpartum depression; F43.12 Post-traumatic stress disorder, chronic | CPT/HCPCS: 90837; 90834 ==

== ENCOUNTER → 2022-04-19 07:37 | Outpatient (BNVA) | payer MEDICAID, SELFPAY | PROVIDERS: PCP Family Medicine; Visit Provider Counselor Professional | DX: F41.9 Anxiety disorder, unspecified (principal); F32.9 Major depressive disorder, single episode, unspecified; F53.0 Postpartum depression; F43.12 Post-traumatic stress disorder, chronic | CPT/HCPCS: 90834 ==

== ENCOUNTER → 2022-05-01 09:51 | Outpatient (BNVA) | payer MEDICAID, SELFPAY | PROVIDERS: PCP Family Medicine; Visit Provider Nurse Practitioner | DX: F41.9 Anxiety disorder, unspecified (principal) | CPT/HCPCS: 80061; 83036 ==

== ENCOUNTER → 2022-06-10 17:52 | Outpatient (BNVA) | payer MEDICAID, SELFPAY ==
[2022-05-30 12:49] VITALS: BP 133/85; BMI 39.0
== END ==
PROVIDERS: PCP Family Medicine; Visit Provider Family Medicine
DX: R10.2 Pelvic and perineal pain (principal)
CPT/HCPCS: 81000; 81025

== ENCOUNTER 2022-06-21 18:52 | Emergency (ER) | payer MEDICAID, SELFPAY ==
[2022-05-30 12:49] VITALS: BP 133/85; BMI 39.0
[2022-06-21 19:24] VITALS: BP 120/82; PULSE 89; RESP 16; TEMP 36.4; O2SAT 99
--- NOTE | 2022-06-21 20:09 | ED_ITS ---
HPI - Abdominal Pain General: Chief Complaint: Abdominal Pain Stated Complaint: RT side pelvic and lower back pain Time Seen by Provider: 06/21/22 20:08 History of Present Illness: Ms Mcbride is a 27-year-old lady with history of psychiatric disorder presents to the emergency department due to pelvic pain. She reports a intermittent history for the past 5 to 6 months of typically bila teral flank pain radiating down to the pelvis. This morning she reports a discomfort and full sensation in her vagina as well as dysuria and more isolated flank pain on the right groin. Intensity of symptoms varies. There is some radiation of the leg. Patient does have a history of PID though this was treated with a course of antibiotics. No other specific changes in health, exacerbating, or alleviating factors identified. Onset (ago): month(s) Pain Consistency: intermittent Location: L flank, R flank and Pelvis Severity: moderate Quality: aching Associated Symptoms: Reports dysuria Related Data: Date of Last Menstrual Period: 06/01/22 Review of Systems General: Reports: 10 or more systems reviewed and unremarkable except in HPI and below : Reports: dysuria PFSH ED PFSH: Medical History Anxiety and depression Has had a long-standing problem with depression and anxiety since teenage years and has been on medication on and off--BuSpar and Effexor which she stopped when she found out she was . Major depressive disorder, recurrent severe without psychotic features Mild intermittent asthma, uncomplicated States that she was diagnosed with asthma as a child. Right now she only has asthma attacks when she has panic attacks and uses her inhaler only during those times usually a couple of times a month. Mixed anxiety depressive disorder No pertinent past medical history Denies diabetes, hypertension, seizures, DVT/PE [facility]CP: [facility] Surgical History Hx laparoscopic cholecystectomy 12/08/2018---performed by Dr. Roberts at [facility] [place], [place] Family History Mother Hypertension Diabetes Thyroid condition Father Diabetes Grandfather Heart disease maternal Other Colon cancer Denies family history of Ovarian cancer Hyperlipidemia Breast cancer Uterine cancer Stroke Social History Smoking and tobacco status: former smoker Second hand smoke exposure: No Alcohol intake: current Alcohol intake frequency: holidays/special occasions only Adopted: Yes Caregiver/support person: No Lives independently: Yes Household members: children Housing: Manufactured/Mobile home Marital status: Marital status details: 6 years Number of children: 2 Number of grandchildren: 0 Highest education level completed: Some College, No Degree service: No Current occupational status: unemployed Pets and animals: No History of recent travel: No Leisure activites: reading and other Leisure activities details: bake Sexually active: Yes Current gender identity: Female Leticia/Catholic: Church Special leticia needs: No Agree to transfusion: Yes Financial difficulty paying for basics: Hard Female Reproductive History: Date of last menstrual period: 06/01/22 Para: 2 Spontaneous abortions: No Physical Exam Const: COMMON NORMALS: alert GENERAL APPEARANCE: cooperative and well developed HENMT: COMMON NORMALS: normocephalic and atraumatic HEAD & SCALP: normocephalic and atraumatic Eye: COMMON NORMALS: conjunctivae normal CONJUNCTIVA: Yes conjunctivae normal SCLERA: sclerae normal Neck/C-Spine: COMMON NORMALS: supple GENERAL: Yes trachea midline Resp: COMMON NORMALS: normal respiratory effort and clear to auscultation bilaterally EFFORT & INSPECTION: Yes able to speak in complete sentences AUSCULTATION: clear to auscultation bilaterally Cardio: COMMON NORMALS: regular rate and regular rhythm RATE: regular rate RHYTHM: regular rhythm GI: COMMON NORMALS: Soft to palpation PALPATION: Yes Soft to palpation, Yes Tenderness to palpation present (GI) (Mild epigastric), No Guarding due to palpation present (GI) and No Rigid due to palpation PERCUSSION: normal to percussion : COMMON NORMALS: Yes no CVA tenderness BLADDER/KIDNEY EXAM: Yes no CVA tenderness Back/Pelvis: COMMON NORMALS: no CVA tenderness and no thoracic nor lumbar t enderness OTHER: Mild right paraspinal lumbar tenderness nearing the SI joint Extremity: GENERAL: Yes normal exam except as noted and No edema Neuro: COMMON NORMALS: moves all extremities SENSORIUM/ORIENTATION: Yes alert and No Orientation impaired Psych: COMMON NORMALS: mental status grossly normal and Normal thought process present THOUGHT PROCESS: Normal thought process present Course ED course: - Patient was seen and evaluated by me at bedside - Patient placed on cardiac monitors, IV access obtained - Initial evaluation notable for exam as above. Patient is nontoxic in appearance. - Labs and xrays personally interpreted by me -Symptom treatment ordered - Labs notable for no leukocytosis, no acute electrolyte abnormality. Mild transaminitis of uncertain etiology. Negative urinalysis, not . - Imaging notable for negative renal and pelvis ultrasounds. - Upon serial reexamination after treatment the patient was improved. Given improvement and in discussion with the patient she is comfortable foregoing further imaging. - Based on patient history, evaluation, and testing as interpreted the most likely cause of the patient's condition is unclear pain likely musculoskeletal - The results of ED evaluation were discussed with the patient including prescriptions and/or symptomatic cares (if applicable) including appropriate and responsible use, followup plan, and return precautions. The patient verbalized understanding and felt safe for discharge. - Patient discharged in satisfactory condition. Note: Click bubbles or prepopulated melgar in note writing are used for assistance with data collection and billing and are inherently more limited than narrative and other text portions of this note. Please use narrative for additional clinical history and defer to narrative/free test for any case of contradictory information. If information appears in only free text or click bubble it should be considered present or absent as reported. Please contact note technical report writer for clarifications of clinical information or contradictory information. MDM is a brief summary, contradictory or erroneous seeming information should be clarified and full note should be reviewed. Vital Signs: Vital signs: Vital Signs Temperature 97.5 F L 06/21/22 19:24 Pulse Rate 78 06/21/22 22:32 Respiratory Rate 18 06/21/22 22:32 Blood Pressure 124/80 06/21/22 22:32 Pulse Oximetry 99 06/21/22 22:32 Oxygen Delivery Mi thod 06/21/22 22:32 MDM - Abdominal Pain Medical Decision Making 27-year-old lady presenting with pelvic and back pain. No clear etiology identified on ED evaluation. Improved with treatment. Satisfactory for outpatient management with strict return precautions given. Medical Records I reviewed the patient's medical records. Lab Data I reviewed the patient's lab results. : 06/21/22 20:32 06/21/22 20:32 Labs/Radiology: Radiology Impressions Pelvis Ultrasound 06/21/22 21:28 IMPRESSION: No acute findings. Renal Ultrasound 06/21/22 21:28 IMPRESSION: Unremarkable kidneys and bladder. Laboratory Results WBC 8.4 10^3/uL (4.0-10.0) 06/21/22: RBC 4.98 10^6/uL (4.1-5.3) 06/21/22 20: Hgb 12.2 g/dL (11.5-15.3) 06/21/22 20: Hct 39.7 % (37.0-47.0) 06/21/22: MCV 79.7 fl (81-99) L 06/21/22: MCH 24.5 pg (28.0-34.0) L 06/21/22: MCHC 30.7 g/dL (30.0-36.0) 06/21/22: RDW 16.0 % (12.1-15.1) H 06/21/22: Plt Count 299 10^3/cmm (130-400) 06/21/22: MPV 9.8 fL (7.4-10.4) 06/21/22 20: Neut % (Auto) 67.4 % 06/21/22: Lymph % (Auto) 25.5 % 06/21/22: [place] % (Auto) 4.4 % 06/21/22: Eos % (Auto) 1.7 % 06/21/22: Baso % (Auto) 0.4 % 06/21/22: Neut # (Auto) 5.66 10^3/uL (1.8-7.7) 06/21/22: Lymph # (Auto) 2.1 10^3/uL (0.8-4.8) 06/21/22: [place] # (Auto) 0.4 10^3/uL (0.2-0.9) 06/21/22: Eos # (Auto) 0.1 10^3/uL (0.0-0.8) 06/21/22: Baso # (Auto) 0.0 10^3/uL (0.0-0.1) 06/21/22: Nucleated RBC % (auto) 0 % 08/11/22 20:32 Nucleated RBCs # 0.0 /100WBC 06/21/22 20:32 Sodium 138 mmol/L (136-145) 06/21/22 20:32 Potassium 4.0 mmol/L (3.5-5.1) 06/21/22 20:32 Chloride 99 mmol/L (98-107) 06/21/22 20:32 Carbon Dioxide 28 mmol/L (22-29) 06/21/22 20:32 Anion Gap 15.0 (5-19) 06/21/22 20:32 BUN 7 mg/dL (6-20) 06/21/22 20:32 Creatinine 0.6 mg/dL (0.5-0.9) 06/21/22 20:32 GFR Calculation 120.8 mL/min (90-130) 06/21/22 20:32 Glucose 130 mg/dL (65-115) H 06/21/22 20:32 Calculated Osmolality 286 mOsm/kg (285-295) 06/21/22 20:32 Calcium 9.5 mg/dL (8.5-10.5) 06/21/22 20:32 Total Bilirubin 0.3 mg/dL (0.15-1.2) 06/21/22 20:32 AST 37 U/L (0-32) H 06/21/22 20:32 ALT 57 U/L (0-33) H 06/21/22 20:32 Alkaline Phosphatase 94 IU/L (35-105) 06/21/22 20:32 Total Protein 8.1 g/dL (6.6-8.7) 06/21/22 20:32 Albumin 4.6 g/dL (3.5-5.2) 06/21/22 20:32 Globulin 3.5 g/dL (1.3-4.6) 06/21/22 20:32 Lipase 13 U/L (13-60) 06/21/22 20:32 HCG, Qual Negative (Negative) 06/21/22 20:36 Urine Color Yellow (Yellow) 06/21/22 20:36 Urine Appearance Clear (CLEAR) 06/21/22 20:36 Urine pH 6 (5-7) 06/21/22 20:36 Ur Specific [place] 1.020 (1.005-1.030) 06/21/22 20:36 Urine Protein Neg (Negative) 06/21/22 20:36 Urine Glucose (UA) Norm (Normal) 06/21/22 20:36 Urine Ketones Negative (Negative) 06/21/22 20:36 Urine Blood Neg (Negative) 06/21/22 20:36 Urine Nitrate Negative (Negative) 06/21/22 20:36 Urine Bilirubin Neg (Negative) 06/21/22 20:36 Urine Urobilinogen Norm mg/dL (Negative) 06/21/22 20:36 Ur Leukocyte Esterase Negative (Negative) 06/21/22 20:36 Discharge Plan Discharge Patient Disposition: Home Clinical Impression: Pelvic pain, Transaminitis Condition: Stable Prescriptions: New orphenadrine citrate 100 mg tablet extended release 100 mg PO BID PRN (Reason: back pain) Qty: 10 0RF No Action buspirone 5 mg tablet 5 mg PO BID Qty: 60 1RF sertraline [Zoloft] 50 mg tablet 50 mg PO DAILY Qty: 30 1RF Discharge Orders: Discharge ED (Routine); Ordered 06/21/22 Ordered By: José Miguel Avendaño Referrals: Stephany Dudley MD [Primary Care Provider] - Discharge Diet: Usual diet Discharge Activity: Increase activity as tolerated Patient Instructions: Pelvic Pain in Women (ED), Back Pain (ED) Activity Restrictions/Additional Instructions: Thank you for visiting the emergency department. You were seen and evaluated for pelvic pain and back pain. The exact cause of your symptoms is unclear. I recommended continued outpatient follow-up including follow-up with [facility]. Please follow-up with your primary care provider. Return to the emergency department for worsening symptoms or anything else that you are concerned about and feel needs emergency department evaluation. Coding Level of Care Code ED [facility] Driver for Kofi Fwfareed Exam Comprehensive
[2022-06-21 20:44] LABS: Basophils % 0.4 %; Eosinophils # 0.1 10^3/uL (0.0-0.8); Eosinophils % 1.7 %; Hematocrit 39.7 % (37.0-47.0); Hemoglobin 12.2 g/dL (11.5-15.3); Lymphocytes # 2.1 10^3/uL (0.8-4.8); Lymphocytes % 25.5 %; Mean Corpuscular HGB Conc 30.7 g/dL (30.0-36.0); Mean Corpuscular Hemoglobin 24.5 pg (28.0-34.0); Mean Corpuscular Volume 79.7 fl (81-99); Mean Platelet Volume 9.8 fL (7.4-10.4); Monocytes # 0.4 10^3/uL (0.2-0.9); Monocytes % 4.4 %; Neutrophils # 5.66 10^3/uL (1.8-7.7); Neutrophils % 67.4 %; Nucleated Red Blood Cells % 0 %; Platelet Count 299 10^3/cmm (130-400); Red Blood Count 4.98 10^6/uL (4.1-5.3); White Blood Count 8.4 10^3/uL (4.0-10.0)
[2022-06-21 20:55] LABS: HCG Qualitative Urine. Negative (Negative)
[2022-06-21 20:58] LABS: Add Urine Microscopic? NO; Charge for UA Resulting for Rev
[2022-06-21 21:01] LABS: Alanine Aminotransferase 57 U/L (0-33); Albumin Level 4.6 g/dL (3.5-5.2); Alkaline Phosphatase 94 IU/L (35-105); Aspartate Amino Transferase 37 U/L (0-32); Blood Urea Nitrogen 7 mg/dL (6-20); Calcium 9.5 mg/dL (8.5-10.5); Carbon Dioxide 28 mmol/L (22-29); Chloride 99 mmol/L (98-107); Creatinine Clr Calc Pharmacy 152.4838; Globulin 3.5 g/dL (1.3-4.6); Glomerular Filtration Rate 120.8 mL/min (90-130); Glucose 130 mg/dL (65-115); Lipase 13 U/L (13-60); Osmolality Calculated 286 mOsm/kg (285-295); Sodium 138 mmol/L (136-145); Total Bilirubin 0.3 mg/dL (0.15-1.2); Total Protein 8.1 g/dL (6.6-8.7)
[2022-06-21 21:11] LABS: Bilirubin Urine Neg (Negative); Blood Urine Neg (Negative); Glucose Urine UA Norm (Normal); Ketones Urine Negative (Negative); Leukocyte Esterase Urine Negative (Negative); Nitrate Urine Negative (Negative); Protein Urine Neg (Negative); Urine Appearance Clear (CLEAR); Urine Color Yellow (Yellow); Urobilinogen Urine Norm (Negative); pH Urine 6 (5-7)
--- NOTE | 2022-06-21 21:28 | USR_ITS ---
PROCEDURE INFORMATION: Exam: US Nonobstetric Pelvis; Complete Exam date and time: 06/21/2022 10:02 PM Age: 27 years old Clinical indication: Pelvic pain; Additional info: R adnexal pain TECHNIQUE: Imaging protocol: Transabdominal pelvic nonobstetric ultrasound. Complete exam. Real time ultrasound with image documentation. COMPARISON: US renal BI* [id number] 06/21/2022 9:50 PM FINDINGS: Uterus: Uterus is normal. Endometrial stripe is normal. Right ovary/adnexa: Ovary is normal. No mass. Normal blood flow. Left ovary/adnexa: Ovary is normal. No mass. Normal blood flow. Intraperitoneal space: No intraperitoneal fluid. Urinary bladder: Normal. US/US pelvic complete* [id number] IMPRESSION: No acute findings.
--- NOTE | 2022-06-21 21:28 | USR_ITS ---
PROCEDURE INFORMATION: Exam: US Retroperitoneal; Complete; Kidneys and Bladder Exam date and time: 06/21/2022 9:50 PM Age: 27 years old Clinical indication: Abdominal pain; Acute; Additional info: Bilateral flank pain TECHNIQUE: Imaging protocol: Real-time ultrasound of the retroperitoneum with image documentation. Complete exam focused on the kidneys and bladder. COMPARISON: US OB >= 14 weeks fetus [id number] 02/27/2021 1:16 PM FINDINGS: Right kidney: Normal. No stones. No hydronephrosis. Left kidney: Normal. No stones. No hydronephrosis. Urinary bladder: Unremarkable. US/US renal BI* [id number] IMPRESSION: Unremarkable kidneys and bladder.
[2022-06-21] MEDS: orphenadrine 30 mg/mL Inj 2 mL 60 MG IVP (22:10)
[2022-06-21] MEDS: ketorolac 30 mg/mL INJ IVP (22:10)
[2022-06-21 22:32] VITALS: BP 124/80; PULSE 78; RESP 18; O2SAT 99
== END 2022-06-22 | disposition home or self-care (01) ==
PROVIDERS: Emergency Provider Emergency Medicine; PCP Family Medicine
DX: R10.2 Pelvic and perineal pain (principal); R74.01 Elevation of levels of liver transaminase levels; Z87.891 Personal history of nicotine dependence
CPT/HCPCS: 76770; 76856; 80053; 81003; 81025; 83690; 85025; 87210; 87491; 87591; 96374; 96375; 99284; J1885; J2360

== ENCOUNTER → 2023-05-24 14:15 | Outpatient (BNVA) | payer OTHER, SELFPAY ==
[2022-05-30 12:49] VITALS: BP 133/85; BMI 39.0
== END ==
PROVIDERS: PCP Family Medicine; Visit Provider Nurse Practitioner Psychiatric/Mental Health
DX: F41.9 Anxiety disorder, unspecified (principal)
CPT/HCPCS: 80061; 83036

== ENCOUNTER 2023-12-02 03:12 | Observation (INO) | payer MEDICAID, SELFPAY ==
[2022-05-30 12:49] VITALS: BP 133/85
[2023-06-19 13:29] VITALS: BMI 39.5
[2023-12-02] VITALS (196 sets, daily range): BP systolic 92–139; BP diastolic 58–105; PULSE 64–112; RESP 12–25; TEMP 36.6–37.8; O2SAT 93–100; BMI 37.5; BMI 38.0
--- NOTE | 2023-12-02 03:16 | ECG_ITS ---
[facility] Test Date: 2023-12-02 Pat Name: Catalina Mcbride Department: Room: Gender: Female Hand Singer: : 1995 Requested By: Feliciano Olivares Order Number: [id number] MD: Cy Hummel M.D. Measurements Intervals [place] Rate: 86 P: 11 NE: 143 QRS: 1 QRSD: 84 T: 0 QT: 369 QTc: 443 Interpretive Statements SINUS RHYTHM WITH MARKED SINUS ARRHYTHMIA VOLTAGE CRITERIA FOR LVH [MEETS CRITERIA IN ONE OF: R(aVL), S(V1), R(V5), R(V5/V6)+S(V1)] No previous ECG available for comparison Electronically Signed On 12-02-2023 9:54:46 OBSERVER HELPER by Cy Hummel M.D. [id number]
--- NOTE | 2023-12-02 03:16 | XRR_ITS ---
PROCEDURE INFORMATION: Exam: XR Chest Exam date and time: 12/02/2023 3:26 AM Age: 28 years old Clinical indication: Chest pressure; Prior surgery; Surgery date: 6+ months; Surgery type: Gb; Patient HX: C/O chest pain; Additional info: Cp TECHNIQUE: Imaging protocol: Radiologic exam of the chest. Views: 1 view. COMPARISON: CR (CHEST, ) 08/25/2021 6:54 PM FINDINGS: Lungs: Unremarkable. No consolidation. Pleural spaces: Unremarkable. No pleural effusion. No pneumothorax. Heart/Mediastinum: Unremarkable. No cardiomegaly. Bones/joints: Unremarkable. XR/XR chest 1V portable [id number] IMPRESSION: No acute findings.
--- NOTE | 2023-12-02 03:19 | ED_ITS ---
HPI - Chest Pain 2 General: Chief Complaint: Chest Pain Stated Complaint: chest tighness and zone out Time Seen by Provider: 12/02/23 03:15 Source: patient Mode of arrival: ambulatory Limitations: no limitations History of Present Illness: 28-year-old female states over last 4 ho urs she has had some chest pressure. States she has been working states she is feels like she is zoned out at times as well. Denies any headache she denies any shortness of breath denies any nausea or vomiting. She rates her pain a 4 out of 10 currently. Denies any abdominal pain Associated symptoms: Deny abdominal pain, dyspnea, fever(s), nausea or vomiting Review of Systems 2 Const: Denies: fever(s), chills, body aches or change in appetite Eyes: Denies: blurry vision or eye discomfort ENMT: Denies: throat pain or dental pain Card: Denies: chest pain Resp: Denies: dyspnea GI: Denies: abdominal pain, nausea, vomiting or diarrhea : Denies: dysuria Musc: Denies: neck pain or back pain Skin/Breast: Denies: rash Neuro: Denies: headache(s) PFSH ED 2 PFSH: Medical History Personal history of nonsuicidal self-harm last self harmed via cutting 2012 Generalized anxiety disorder Major depressive disorder, recurrent severe without psychotic features Psychiatric care No pertinent past medical history Denies diabetes, hypertension, seizures, DVT/PE PCP: PEACE De Paz Mild intermittent asthma, uncomplicated States that she was diagnosed with asthma as a child. Right now she only has asthma attacks when she has panic attacks and uses her inhaler only during those times usually a couple of times a month. Surgical History Hx laparoscopic cholecystectomy 12/08/2018---performed by Dr. Roberts at [facility] in [place], [place] Family History Mother Hypertension Diabetes Thyroid disease Father Diabetes Grandfather Heart disease maternal Other Colon cancer Denies family history of Ovarian cancer Hyperlipidemia Breast cancer Uterine cancer Stroke Social History Smoking and tobacco/nicotine status: former use of tobacco/nicotine Second hand smoke exposure: No Alcohol intake: current Alcohol intake frequency: holidays/special occasions only Alcohol type: hard liquor Substance/Drug Use: never Adopted: Yes Caregiver/support person: No Lives independently: Yes Household members: spouse and children Housing: Manufactured/Mobile home Marital status: Marital status details: 6 years Number of children: 2 Number of grandchildren: 0 Highest education level completed: Some College, No Degree service: No Current occupational status: unemployed Current occupational exposures/hazards: No Pets and animals: Yes Pets & animals: cat(s) Leisure activites: reading and other Leisure activities details: bake for other people Sexually active: Yes Do you think of yourself as: Straight/Heterosexual Current gender identity: Female Leticia/Sikh: Confucianism Special leticia needs: No Agree to transfusion: Yes Female Reproductive History: Para: 2 Spontaneous abortions: No Physical Exam 2 Const: COMMON NORMALS: no acute distress, patient oriented x3 and healthy appearing HENMT: COMMON NORMALS: normocephalic and atraumatic HEAD & SCALP: n ormocephalic and atraumatic Eye: COMMON NORMALS: conjunctivae normal CONJUNCTIVA: Yes conjunctivae normal Neck/C-Spine: COMMON NORMALS: full ROM and supple Chest: COMMONS NORMALS: normal inspection of the chest Resp: COMMON NORMALS: normal respiratory effort, No retractions, No use of accessory muscles and clear to auscultation bilaterally AUSCULTATION: clear to auscultation bilaterally Cardio: COMMON NORMALS: regular rate, regular rhythm and No murmurs present (Cardio) RATE: regular rate RHYTHM: regular rhythm GI: COMMON NORMALS: Normal to inspection, nondistended, normoactive bowel sounds present, Soft to palpation, non-tender and no masses PALPATION: Yes Soft to palpation Extremity: COMMON NORMALS: normal to inspection and full ROM Neuro: COMMON NORMALS: patient oriented x3, moves all extremities and no focal motor deficits Psych: COMMON NORMALS: mental status grossly normal, Normal thought process present and cooperative THOUGHT PROCESS: Normal thought process present Skin: COMMON NORMALS: no rashes or lesions noted and no wounds GENERAL SKIN EXAM: no rashes or lesions noted Course 2 Vital Signs: Vital signs: Vital Signs Temperature 98.4 F 12/02/23 03:17 Pulse Rate 80 12/02/23 04:02 Respiratory Rate 15 12/02/23 04:02 Blood Pressure 130/85 12/02/23 04:02 Pulse Oximetry 97 12/02/23 04:02 Oxygen Delivery Me thod Room Air 12/02/23 03:36 MDM - Chest Pain Medical Decision Making Patient presents here with chest pain she does have an elevated troponin or D- dimer here is negative patient was seen down in the ER by Dr. Humphrey is again admit patient for ACS rule out Medical Records I reviewed the patient's medical records. Lab Data I reviewed the patient's lab results. 12/02/23 03:28 12/02/23 03:28 Radiology Impressions Chest X-Ray 12/02/23 03:16 IMPRESSION: No acute findings. Laboratory Results WBC 7.80 10^3/uL (3.29-11.43) 12/02/23 03:28 RBC 4.60 10^6/uL (3.85-5.65) 12/02/23 03:28 Hgb 11.40 g/dL (11.27-16.99) 12/02/23 03:28 Hct 36.2 % (36-47) 12/02/23 03:28 MCV 78.7 fl (85-98) L 12/02/23 03:28 MCH 24.8 pg (27-33) L 12/02/23 03:28 MCHC 31.5 g/dL (30-55) 12/02/23 03:28 RDW 15.9 % (12.1-15.1) H 12/02/23 03:28 Plt Count 296 10^3/cmm (157-399) 12/02/23 03:28 MPV 9.5 fL (7.4-10.4) 12/02/23 03:28 Neut % (Auto) 59.3 % 12/02/23 03:28 Lymph % (Auto) 32.6 % 12/02/23 03:28 [place] % (Auto) 6.0 % 12/02/23 03:28 Eos % (Auto) 1.2 % 12/02/23 03:28 Baso % (Auto) 0.5 % 12/02/23 03:28 Neut # (Auto) 4.63 10^3/uL (1.8-7.7) 12/02/23 03:28 Lymph # (Auto) 2.5 10^3/uL (0.8-4.8) 12/02/23 03:28 [place] # (Auto) 0.5 10^3/uL (0.2-0.9) 12/02/23 03:28 Eos # (Auto) 0.1 10^3/uL (0.0-0.8) 12/02/23 03:28 Baso # (Auto) 0.0 10^3/uL (0.0-0.1) 12/02/23 03:28 Nucleated RBC % (auto) 0 % 12/02/23 03:28 Nucleated RBCs # 0.0 /100WBC 12/02/23 03:28 D-Dimer 0.28 ug/mLFEU (0-0.59) 12/02/23 03:29 Sodium 137 mmol/L (136-145) 12/02/23 03:28 Potassium 3.5 mmol/L (3.5-5.1) 12/02/23 03:28 Chloride 100 mmol/L (98-107) 12/02/23 03:28 Carbon Dioxide 23 mmol/L (22-29) 12/02/23 03:28 Anion Gap 17.5 (5-19) 12/02/23 03:28 BUN 10 mg/dL (6-20) 12/02/23 03:28 Creatinine 0.7 mg/dL (0.5-0.9) 12/02/23 03:28 GFR Calculation 100.4 mL/min (90-130) 12/02/23 03:28 Glucose 94 mg/dL (65-115) 12/02/23 03:28 Calculated Osmolality 283 mOsm/kg (285-295) L 12/02/23 03:28 Calcium 9.5 mg/dL (8.5-10.5) 12/02/23 03:28 Total Bilirubin 0.2 mg/dL (0.15-1.2) 12/02/23 03:28 AST 69 U/L (0-32) H 12/02/23 03:28 ALT 104 U/L (0-33) H 12/02/23 03:28 Alkaline Phosphatase 106 U/L (35-105) H 12/02/23 03:28 Troponin T Baseline 63 ng/L (0-10) H 12/02/23 03:28 NT-Pro-B Natriuret Pep 203 pg/mL (0-125) H 12/02/23 03:29 Total Protein 7.5 g/dL (6.6-8.7) 12/02/23 03:28 Albumin 4.0 g/dL (3.5-5.2) 12/02/23 03:28 Globulin 3.5 g/dL (1.3-4.6) 12/02/23 03:28 HCG, Qual Negative (Negative) 12/02/23 03:28 All radiology interpretation(s) finalized by discharge EKG Data EKG 1: I personally reviewed and interpreted this EKG as follows: EKG interpretation date: 12/02/23 EKG interpretation time: 03:20 Interpretation: nsr hr [address] or t wave abnormalities qrs 84 qtc 412 Discharge Plan Discharge Condition: Stable Prescriptions: No Action ibuprofen 600 mg tablet 600 mg PO Q8H PRN (Reason: pain) Qty: 60 0RF azithromycin [Zithromax Z-Ge] 250 mg tablet See Rx Instructions PO .COMPLEX Qty: 6 0RF Rx Instructions: For 250 mg dose pack: take 500 mg today (day 1), then 250 mg for 4 days (days 2-5) PO albuterol sulfate 2.5 mg /3 mL (0.083 %) solution for nebulization 2.5 mg inhalation QID PRN (Reason: shortness of breath or wheezing) Qty: 75 1RF aripiprazole [Abilify] 2 mg tablet 4 mg PO .morning Qty: 60 2RF Rx Instructions: Take two tablets every morning control tablet PO trazodone 50 mg tablet 50 mg PO DIRECTED PRN (Reason: insomnia) Qty: 30 1RF Rx Instructions: May take half to one tablet 30-60 min prior to bedtime as needed for sleep. 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
[2023-12-02 03:34] LABS: Basophils % 0.5 %; Eosinophils # 0.1 10^3/uL (0.0-0.8); Eosinophils % 1.2 %; Hematocrit 36.2 % (36-47); Lymphocytes # 2.5 10^3/uL (0.8-4.8); Lymphocytes % 32.6 %; Mean Corpuscular HGB Conc 31.5 g/dL (30-55); Mean Corpuscular Hemoglobin 24.8 pg (27-33); Mean Corpuscular Volume 78.7 fl (85-98); Mean Platelet Volume 9.5 fL (7.4-10.4); Monocytes # 0.5 10^3/uL (0.2-0.9); Neutrophils # 4.63 10^3/uL (1.8-7.7); Neutrophils % 59.3 %; Nucleated Red Blood Cells % 0 %; Platelet Count 296 10^3/cmm (157-399); Red Cell Distribution Width 15.9 % (12.1-15.1)
[2023-12-02 03:44] LABS: HCG, Serum Qual Negative (Negative)
[2023-12-02 03:51] LABS: Troponin(5th) Baseline 63 ng/L (0-10)
[2023-12-02 03:53] LABS: Alanine Aminotransferase 104 U/L (0-33); Alkaline Phosphatase 106 U/L (35-105); Anion Gap 17.5 (5-19); Aspartate Amino Transferase 69 U/L (0-32); Blood Urea Nitrogen 10 mg/dL (6-20); Calcium 9.5 mg/dL (8.5-10.5); Carbon Dioxide 23 mmol/L (22-29); Chloride 100 mmol/L (98-107); Globulin 3.5 g/dL (1.3-4.6); Glomerular Filtration Rate 100.4 mL/min (90-130); Glucose 94 mg/dL (65-115); Osmolality Calculated 283 mOsm/kg (285-295); Potassium 3.5 mmol/L (3.5-5.1); Sodium 137 mmol/L (136-145); Total Bilirubin 0.2 mg/dL (0.15-1.2); Total Protein 7.5 g/dL (6.6-8.7)
[2023-12-02 04:34] LABS: NT Pro B Type Natriuretic Pept 203 pg/mL (0-125)
[2023-12-02 04:41] LABS: D Dimer 0.28 ug/mLFEU (0-0.59)
--- NOTE | 2023-12-02 05:05 | CTR_ITS ---
PROCEDURE INFORMATION: Exam: CTA Chest With Contrast Exam date and time: 12/02/2023 5:40 AM Age: 28 years old Clinical indication: Shortness of breath; Chest pressure; Prior surgery; Surgery date: 6+ months; Surgery type: Gb; Patient HX: Chest pain with SOB. Negative dimer with elevated troponin. ; Additional info: Chest pain, shortness of breath TECHNIQUE: Imaging protocol: Computed tomographic angiography of the chest with contrast. Exam focused on the arteries. 3D rendering (Not supervised by radiologist): MIP and/or 3D reconstructed images were created by the technologist. Total images: 1163 Radiation optimization: All CT scans at this facility use at least one of these dose optimization techniques: automated exposure control; mA and/or kV adjustment per patient size (includes targeted exams where dose is matched to clinical indication); or iterative reconstruction. Contrast material: OMNI 350; Contrast volume: 64 ml; Contrast route: INTRAVENOUS (IV); COMPARISON: CR (CHEST, ) 12/02/2023 3:26 AM RADIATION DOSE METRICS: Total DLP (mGy-cm): 426.35 FINDINGS: Pulmonary arteries: Pulmonary artery evaluation of good technical quality with no pulmonary artery embolism identified. Aorta: Unremarkable. No aortic aneurysm. No aortic dissection. Lungs: No acute focal pulmonary opacities are detected. Pleural spaces: Unremarkable. No pneumothorax. No pleural effusion. Heart: Upper normal heart size noted. Lymph nodes: Unremarkable. No enlarged lymph nodes. Gallbladder and bile ducts: Prior cholecystectomy noted. Bones/joints: Unremarkable. No acute fracture. Soft tissues: Unremarkable. CT/CT angio chest PE protcl [id number] IMPRESSION: 1. No pulmonary artery embolism identified. 2. No acute focal pulmonary opacities are detected.
[2023-12-02 05:14] LABS: Estmated Average Glucose 111; Hemoglobin A1C 5.5 % (4.0-6.0)
--- NOTE | 2023-12-02 05:19 | ECG_ITS ---
[facility] Test Date: 2023-12-02 Pat Name: Catalina Mcbride Department: Room: Gender: Female Video Presentation Operator: : 1995 Requested By: Feliciano Olivares Order Number: [id number] Kerrie MD: Cy Hummel M.D. Measurements Intervals [place] Rate: 77 P: 22 [place]: 150 QRS: -5 QRSD: 99 T: -6 QT: 397 QTc: 450 Interpretive Statements SINUS RHYTHM WITH OCCASIONAL SUPRAVENTRICULAR PREMATURE COMPLEXES VOLTAGE CRITERIA FOR LVH [MEETS CRITERIA IN ONE OF: R(aVL), S(V1), R(V5), R(V5/V6)+S(V1)] INFERIOR MYOCARDIAL INFARCTION , OF INDETERMINATE AGE [40+ ms Q WAVE AND/OR ST/T ABNORMALITY IN II/aVF] Compared to ECG 12/02/2023 03:20:00 Myocardial infarct finding now present Sinus arrhythmia no longer present Electronically Signed On 12-02-2023 10:12:51 SOAKERS SUPERVISOR by Cy Hummel M.D. [id number]
--- NOTE | 2023-12-02 05:22 | USCV_ITS ---
Catalina Mcbride Age: 28 Gender: F : 1995 Exam Date: 12/02/2023 06:14 Ordering Phys: Vladimir Royal MD Technologist: Armen Monson Exam Location: [facility] Indication: high trop BP: 97 / 58 HR: 77 Rhythm: Sinus Technical Quality: Adequate MEASUREMENTS (Male / Female) Normal Values 2D ECHO LV Diastolic Diameter PLAX 3.5 cm 4.2 - 5.9 / 3.9 - 5.3 cm LV Systolic Diameter PLAX 2.5 cm IVS Diastolic Thickness 1.1 cm 0.6 - 1.0 / 0.6 - 0.9 cm IVS Systolic Thickness 1.5 cm LVPW Diastolic Thickness 1.0 cm 0.6 - 1.0 / 0.6 - 0.9 cm LVPW Systolic Thickness 1.3 cm LVOT Diameter 2.0 cm LV Ejection Fraction 2D Teich 55.8 % LV Ejection Fraction MOD 2C 65.9 % LV Ejection Fraction 2C AL 65.8 % LA Diameter 3.3 cm M-MODE Aortic Annulus Diameter 3.4 cm LA Ao Ratio MM 1.0 MV E Point Septal Separation 1.1 cm DOPPLER AV Peak Velocity 120.0 cm/s LVOT Peak Velocity 102.0 cm/s AV Area Cont Eq vti 3.4 cm squared AV Area Cont Eq pk 2.8 cm squared MV Area PHT 3.9 cm squared Mitral E to A Ratio 1.7 MV E' Velocity 56.5 cm/s Mitral E to MV E' Ratio 7.3 Mitral E to LV E' Lateral Ratio 5.8 Mitral E to LV E' Septal Ratio 9.7 TR Peak Velocity 126.0 cm/s TR Peak Gradient 6.4 mmHg TV Peak E Velocity 80.0 cm/s Right Atrial Pressure 3.0 mmHg Pulmonary Artery Systolic Pressu 9.4 mmHg RV Acceleration Time 0.1 s FINDINGS Left Ventricle Normal left ventricular size and systolic function, EF 67 %. No regional wall motion abnormalities. Right Ventricle The right ventricle is normal in size and function. Right Atrium The right atrium is normal in size. Left Atrium The left atrium is normal in size. Mitral Valve No gross abnormalities noted no gross abnormalities noted Aortic Valve No gross abnormalities noted Tricuspid Valve No gross abnormalities noted Pulmonic Valve No gross abnormalities noted Pericardium Normal pericardium without effusion. Aorta Normal ascending aorta dimension. IVC The inferior vena cava appears normal. CONCLUSIONS Normal left ventricular size and systolic function, EF 67 %. No regional wall motion abnormalities. No gross valvular abnormalities. Normal cardiac chamber sizes. No intracardiac shunts by color-flow Doppler examination There is no pericardial effusion. There are no intracardiac masses. No similar previous studies are available for comparison Dr Sam Escalante MD [facility] (Electronically Signed) Final Date: 02 December 2023 09:54 S
--- NOTE | 2023-12-02 05:24 | P.HP_ITS ---
Providers/Chief Complaint 2 Primary Care Provider: Stephany Dudley MD Chief Complaint: chest tighness and zone out History of Present Illness Catalina Mcbride is a 28 year old female , history of cholecystectomy, currently on control, who presents to [facility] due to chest pain. 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, and she started experience substernal chest pain, nonradiating, associated with difficulty catching her breath, she tells me that the chest pain was pressure like someone sitting sitting on her chest, denies a cardiovascular history, she is adopted is not sure of her family history, she does not use any alcohol no drug use, he does report that she took a C4 energy drink but this was yesterday, no recent caffeine use, or any other energy drink Review of Systems 2 Const: Denies: fever(s) or chills Card: Reports: chest pain Resp: Reports: dyspnea GI: Denies: abdominal pain Medications/Allergies Home Medications Medication Instructions Recorded Confirmed Last Taken Type ibuprofen 600 mg tablet 600 mg PO Q8H PRN pain #60 tabs 05/12/23 09/30/23 Unknown Rx albuterol sulfate 2.5 mg/3 mL 2.5 mg (3 mL) inhalation QID PRN 07/23/23 09/30/23 Unknown Rx (0.083 %) solution for nebulization shortness of breath or wheezing #75 mL azithromycin 250 mg tablet See Rx Instructions PO .COMPLEX #6 07/23/23 09/02/23 Unknown Rx (Zithromax Z-Ge) tabs trazodone 50 mg tablet 50 mg PO DIRECTED PRN insomnia 08/15/23 09/30/23 Unknown Rx #30 tabs aripiprazole 2 mg tablet (Abilify) 4 mg (2 x 2 mg) PO .morning #60 09/02/23 09/30/23 Unknown Rx tabs control PO 09/30/23 Unknown History Allergies Allergy/AdvReac Type Severity Reaction Status Date / Time No Known Allergies Allergy Verified 09/30/23 13:16 PFSH Acute 2 PFSH: Medical History Personal history of nonsuicidal self-harm last self harmed via cutting 2012 Generalized anxiety disorder Major depressive disorder, recurrent severe without psychotic features Psychiatric care No pertinent past medical history Denies diabetes, hypertension, seizures, DVT/PE PCP: PEACE De Paz Mild intermittent asthma, uncomplicated States that she was diagnosed with asthma as a child. Right now she only has asthma attacks when she has panic attacks and uses her inhaler only during those times usually a couple of times a month. Surgical History Hx laparoscopic cholecystectomy 12/08/2018---[place] [facility] [place] Family History Mother Hypertension Diabetes Thyroid disease Father Diabetes Grandfather Heart disease maternal Other Colon cancer Denies family history of Ovarian cancer Hyperlipidemia Breast cancer Uterine cancer Stroke Social History Smoking and tobacco/nicotine status: former use of tobacco/nicotine Second hand smoke exposure: No Alcohol intake: current Alcohol intake frequency: holidays/special occasions only Alcohol type: hard liquor Substance/Drug Use: never Adopted: Yes Caregiver/support person: No Lives independently: Yes Household members: spouse and children Housing: Manufactured/Mobile home Marital status: Marital status details: 6 years Number of children: 2 Number of grandchildren: 0 Highest education level completed: Some College, No Degree service: No Current occupational status: unemployed Current occupational exposures/hazards: No Pets and animals: Yes Pets & animals: cat(s) Leisure activites: reading and other Leisure activities details: bake for other people Sexually active: Yes Do you think of yourself as: Straight/Heterosexual Current gender identity: Female Leticia/Denominational: Confucianism Special leticia needs: No Agree to transfusion: Yes Female Reproductive History: Date of last menstrual period: 11/25/23 Para: 2 Spontaneous abortions: No Vitals/I&O/Wt Last Vital Signs Temp 98.4 F 12/02/23 03:17 Pulse 80 12/02/23 04:02 Resp 15 12/02/23 04:02 BP 130/85 12/02/23 04:02 Pulse Ox 97 12/02/23 04:02 O2 Del Method Room Air 12/02/23 03:36 Weight last 48 hrs Weight 92.986 kg Physical Exam 2 Const: COMMON NORMALS: no acute distress and patient oriented x3 HENMT: COMMON NORMALS: normocephalic HEAD & SCALP: normocephalic Eye: COMMON NORMALS: Equal, round and reactive pupils present Neck/C-Spine: COMMON NORMALS: no JVD Resp: COMMON NORMALS: normal respiratory effort, No retractions, No use of accessory muscles and clear to auscultation bilaterally AUSCULTATION: clear to auscultation bilaterally Cardio: COMMON NORMALS: regular rate, regular rhythm, S1 normal heart sound present and S2 normal heart sound present RATE: regular rate RHYTHM: r egular rhythm HEART SOUNDS: S1 normal heart sound present and S2 normal heart sound present GI: COMMON NORMALS: Normal to inspection, nondistended, normoactive bowel sounds present, Soft to palpation and non-tender PALPATION: Yes Soft to palpation and Yes No hepatosplenomegaly present Extremity: COMMON NORMALS: capillary refill normal, no clubbing, cyanosis or edema, no calf tenderness and no pedal edema Neuro: COMMON NORMALS: patient oriented x3, CN's II-XII intact bilaterally, moves all extremities and no focal motor deficits Psych: COMMON NORMALS: mental status grossly normal Data 12/02/23 03:28 12/02/23 03:28 A&P Assessment and plan (1) Chest pain: Qualifiers: Chest pain type: unspecified Qualified Code(s): R07.9 - Chest pain, unspecified Plan Chest pain ? Has typical features ? First troponin is 63 ? EKG did show T wave inversions in inferior lead -Does report shortness of breath ? Plan: ? Given shortness of breath, chest pain, is on control, will order CT angiogram of the chest to rule out PE ? Serial EKGs, start troponins Telemetry monitoring, ? Cardiac echo ? Telemetry monitoring -S/p cholecystectomy -Has transaminitis, CRP, Pro-Asif, TSH, GGT, lipase, lipid profile, -CPK, CK-MB ? Full code ? Lovenox DVT prophylaxis Attestations 2 Medical Necessity Statement*: Patient requires hospitalization, outpatient observation, for chest pain and shortness of breath Diagnoses Chest pain R07.9 Chest pain type: unspecified
[2023-12-02 05:35] LABS: Troponin 5 2HR 78.84 ng/L (0-10)
[2023-12-02 05:38] LABS: Troponin 5 2HR Delta 15.84 ABS# (0-10)
[2023-12-02 05:43] LABS: CKMB 2.7 ng/mL (0-5.34); Procalcitonin 0.08 ng/mL (0-0.5); Thyroid Stimulating Hormone 1.43 uIU/mL (0.27-4.20)
[2023-12-02] MEDS: iohexol 350 mg/mL 500 mL Btl (per mL) IV (05:46)
[2023-12-02 05:54] LABS: C Reactive Protein 48.4 mg/L (0.0-4.9); Chol HDL Ratio 4.37 mg/dL (0.0-4.40); Cholesterol 166 mg/dL (0-200); Creatine Phosphokinase 68 U/L (26-192); Gamma Glutamyl Transferase 47 U/L (5-36); HDL Cholesterol 38 mg/dL (60-100); LDL Cholesterol Calculated 103 mg/dL (50-129); LDL HDL Ratio 2.71 RATIO (0.00-3.22); Lipase 17 U/L (13-60); Magnesium 2.2 mg/dL (1.7-2.3); Phosphorus 4.4 mg/dL (2.5-4.5); Triglycerides 123 mg/dL (0-150)
[2023-12-02 05:57] LABS: Alcohol Level < 10 mg/dL (0-10)
[2023-12-02] MEDS: aspirin 81 mg Chew Tablet 324 MG PO (06:24)
[2023-12-02] MEDS: sodium chloride 0.9% 1,000 ML 75 ML IV (06:25)
[2023-12-02] MEDS: pantoprazole 40 mg SDV IVP (06:30)
[2023-12-02] MEDS: heparin drip 25,000 UNIT/500 ML PREMIX 26 UNIT IV (06:48)
[2023-12-02] MEDS: heparin 5,000 unit/mL INJ 1 mL IV (06:50)
[2023-12-02 08:03] LABS: Amphetamines Screen Urine Negative (Negative); Barbiturates Screen Urine Negative (Negative); Benzodiazepines Screen Urine Negative (Negative); Cocaine Screen Urine Negative (Negative); Opiate Screen Urine Negative (Negative); PCP Screen Urine Negative (Negative); THC Screen Urine Negative (Negative)
[2023-12-02 08:18] LABS: Erythrocyte Sedimentation Rate 77 mm/hr (0-15)
[2023-12-02 08:26] LABS: Add Urine Microscopic? YES; Bilirubin Urine Neg (Negative); Blood Urine Neg (Negative); Glucose Urine UA Norm (Normal); Ketones Urine 2+ (Negative); Leukocyte Esterase Urine Negative (Negative); Nitrate Urine Negative (Negative); Protein Urine Trace (Negative); Specific Gravity, Urine 1.015 (1.005-1.030); Urine Appearance Clear (CLEAR); Urine Color Yellow (Yellow); Urobilinogen Urine Neg (Negative); pH Urine 5 (5-7)
[2023-12-02 08:27] LABS: Bacteria Urine 1+ /hpf; Mucus Urine 2+ /hpf; RBC Urine 0-4 /hpf (0-2); WBC Urine 0-4 /hpf (0-5)
[2023-12-02 08:28] LABS: Add Urine Culture? No
[2023-12-02] MEDS: morphine 4 mg/mL SDV 1 mL 1 MG IVP ×2 (08:49→12:21)
[2023-12-02 09:03] LABS: Adenovirus Not Detected (NOT DETECT); Chlamydia Pneumoniae Not Detected (NOT DETECT); Coronavirus 229E,HKU1,NL63,OC4 Not Detected (NOT DETECT); Human Metapneumovirus Not Detected (NOT DETECT); Human Rhinovirus/Enterovirus Not Detected (NOT DETECT); Influenza A Not Detected (NOT DETECT); Influenza A H1 Not Detected (NOT DETECT); Influenza A H1-2009 Not Detected (NOT DETECT); Influenza A H3 Not Detected (NOT DETECT); Influenza B Not Detected (NOT DETECT); Mycoplasma Pneumoniae Not Detected (NOT DETECT); Parainfluenza Virus Type 1 Not Detected (NOT DETECT); Parainfluenza Virus Type 2 Not Detected (NOT DETECT); Parainfluenza Virus Type 3 Not Detected (NOT DETECT); Parainfluenza Virus Type 4 Not Detected (NOT DETECT); Respiratory Syncytial Virus A Not Detected (NOT DETECT); Respiratory Syncytial Virus B Not Detected (NOT DETECT); SARS-COV-2 Not Detected (NOT DETECT)
[2023-12-02 09:40] LABS: Troponin 5 6HR 103.6 ng/L (0-10); Troponin 5 6HR Delta 40.6 ng/L (0-12)
--- NOTE | 2023-12-02 09:40 | ECG_ITS ---
[facility] Test Date: 2023-12-02 Pat Name: Catalina Mcbride Department: Room: 104 Gender: Female Investigative Research Specialist: : 1995 Requested By: Feliciano Olivares Order Number: [id number] Kerrie MD: Cy Hummel M.D. Measurements Intervals [place] Rate: 73 P: -23 CT: 134 QRS: -25 QRSD: 92 T: -25 QT: 410 QTc: 452 Interpretive Statements SINUS RHYTHM BORDERLINE LEFT AXIS DEVIATION [QRS AXIS < -20] MINIMAL VOLTAGE CRITERIA FOR LVH, CONSIDER NORMAL VARIANT [MEETS CRITERIA IN ONE OF: R(aVL), S(V1), R(V5), R(V5/V6)+S(V1)] Compared to ECG 12/02/2023 05:18:33 Myocardial infarct finding no longer present Electronically Signed On 12-02-2023 10:13:56 TRANSPORT MANAGER by Cy Hummel M.D. [id number]
[2023-12-02 11:02] LABS: Iron 31 ug/dL (37-145); Percent Saturation 11.7 % (20-50); Total Iron Binding Capacity 264 mcg/dl; Unsaturated Iron Binding 233 ug/dL (112-347)
[2023-12-02 11:18] LABS: Vitamin B12 467 pg/mL (232-1245)
--- NOTE | 2023-12-02 12:14 | PM.CONSULT ---
Providers/Reason For Consult Consulting Physician/Specialty*: AISHWARYA Escalante MD/cardiology Reason for Consult*: Patient with chest pain and elevated troponin T Requesting Physician: Dr. Benjamin Attending Physician: Michael Santiago MD Primary Care Provider: Stephany Dudley MD History of Present Illness History of Present Illness Catalina Mcbride is a 28 year old female with no significant past medical history, is admitted to hospital through the emergency room where she presented with complaints of chest pain for 4 hours. 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 She started with pain around midnight. She was resting at that time. The pain was more or less constant with some waxing and waning. Denies any the pain was 4-6. It was in the mid substernal region radiating across the chest. She may have had some associated shortness of breath. No nausea or vomiting. No sweating, dizziness or syncopal episode. Her friend drove her to the emergency room. Her initial troponin Ts was elevated. She had a 2-hour delta of 15 and a 6-hour delta of 40. She continues to have the pain, intensity of 3-4/10. She also has some amount of shortness of breath. She has no previous history for coronary disease, myocardial infarction or congestive heart failure. No history for high blood pressure, diabetes or dyslipidemia. She drinks occasionally. No smoking abuse. She has 2 children diagnosed 1 is 2 years old. She got 6 months ago. Her mother and maternal grandmother are known to have some form of tachyarrhythmia. Maternal grandfather had a myocardial infarction in his 70s. Father is known to have diabetes. No other relevant family history. Review of Systems Narrative: CONSTITUTIONAL: No fever or chills.She had a low-grade fever and sore throat last week. Has not had any fever or chills for the last 72 hours ENT: No hoarseness of voice, auditory disturbances or sore throat. CARDIOVASCULAR: As mentioned above. RESPIRATORY: No significant cough. GASTROINTESTINAL: No hematemesis or melena. GENITOURINARY: No dysuria or hematuria. INTEGUMENTARY: No skin rashes or history of skin cancer. NEURO: No transient ischemic attacks or amaurosis. PSYCHIATRIC: No history of psychosis or major depression. HEMATOLOGIC: No bleeding disorders or significant anemia. ENDOCRINE: No history of polyuria or polydipsia. MUSCULOSKELETAL: No recent joint pain or swelling. ALLERGY/IMMUNOLOGY: As mentioned above. Medications/Allergies Home Medications Medication Instructions Recorded Confirmed Last Taken Type ibuprofen 600 mg tablet 600 mg PO Q8H PRN pain #60 tabs 05/12/23 09/30/23 Unknown Rx albuterol sulfate 2.5 mg/3 mL 2.5 mg (3 mL) inhalation QID PRN 07/23/23 09/30/23 Unknown Rx (0.083 %) solution for nebulization shortness of breath or wheezing #75 mL azithromycin 250 mg tablet See Rx Instructions PO .COMPLEX #6 07/23/23 09/02/23 Unknown Rx (Zithromax Z-Ge) tabs trazodone 50 mg tablet 50 mg PO DIRECTED PRN insomnia 08/15/23 09/30/23 Unknown Rx #30 tabs aripiprazole 2 mg tablet (Abilify) 4 mg (2 x 2 mg) PO .morning #60 09/02/23 09/30/23 Unknown Rx tabs control PO 09/30/23 Unknown History Allergies Allergy/AdvReac Type Severity Reaction Status Date / Time No Known Allergies Allergy Verified 09/30/23 13:16 Current Medications Generic Name Dose Route Start Last Admin Trade Name Freq PRN Reason Stop Dose Admin Heparin Sodium (Porcine) 0 unit 12/02/23 06:21 12/02/23 06:50 Heparin 5,000 Unit/Ml Inj 1 Ml IV 4,700 unit PRN PRN Administration Heparin weight-base protocol Protocol Sodium Chloride 1,000 mls @ 75 mls/hr 12/02/23 05:30 12/02/23 06:25 Sodium Chloride 0.9% IV 75 mls/hr .[id number] QUAN Administration Heparin Sodium/Sodium Chloride 25,000 unit in 500 mls @ 0 mls/hr 12/02/23 06:21 12/02/23 06:48 Heparin Drip IV 13.79 unit/kg/hr .Q0M QUAN 26 mls/hr Administration Protocol Per Protocol Morphine Sulfate 1 mg 12/02/23 05:22 12/02/23 08:49 Morphine 4 Mg/Ml Sdv 1 Ml IVP 1 mg Q4H PRN Administration SEVERE PAIN Pantoprazole Sodium 40 mg 12/02/23 05:30 12/02/23 06:30 Pantoprazole 40 Mg Sdv IVP 40 mg Q24H QUAN Administration PFSH Acute PFSH: Medical History Personal history of nonsuicidal self-harm last self harmed via cutting 2012 Generalized anxiety disorder Major depressive disorder, recurrent severe without psychotic features Psychiatric care No pertinent past medical history Denies diabetes, hypertension, seizures, DVT/PE PCP: PEACE De Paz Mild intermittent asthma, uncomplicated States that she was diagnosed with asthma as a child. Right now she only has asthma attacks when she has panic attacks and uses her inhaler only during those times usually a couple of times a month. Surgical History Hx laparoscopic cholecystectomy 12/08/2018---performed by Dr. Roberts at [facility] in [place], [place] Family History Mother Hypertension Diabetes Thyroid disease Father Diabetes Grandfather Heart disease maternal Other Colon cancer Denies family history of Ovarian cancer Hyperlipidemia Breast cancer Uterine cancer Stroke Social History Smoking and tobacco/nicotine status: former use of tobacco/nicotine Second hand smoke exposure: No Alcohol intake: current Alcohol intake frequency: holidays/special occasions only Alcohol type: hard liquor Substance/Drug Use: never Adopted: Yes Caregiver/support person: No Lives independently: Yes Household members: spouse and children Housing: Manufactured/Mobile home Marital status: Marital status details: 6 years Number of children: 2 Number of grandchildren: 0 Highest education level completed: Some College, No Degree service: No Current occupational status: unemployed Current occupational exposures/hazards: No Pets and animals: Yes Pets & animals: cat(s) Leisure activites: reading and other Leisure activities details: bake for other people Sexually active: Yes Do you think of yourself as: Straight/Heterosexual Current gender identity: Female Leticia/Oriental Orthodox: Methodist Special leticia needs: No Agree to transfusion: Yes Female Reproductive History: Date of last menstrual period: 11/25/23 Para: 2 Spontaneous abortions: No Vitals/I&O/Wt Last Vital Signs Temp 100.0 F H 12/02/23 09:40 Pulse 73 12/02/23 10:38 Resp 19 H 12/02/23 08:49 BP 111/72 12/02/23 09:40 Pulse Ox 99 12/02/23 09:40 O2 Del Method Room Air 12/02/23 09:40 Weight last 48 hrs Weight 207 lb 14.4 oz Weight 205 lb Physical Exam Narrative: GENERAL: The patient is alert and oriented times three. Not in any acute distress. Somewhat anxious and nervous HEENT: No significant pallor, icterus or lymphadenopathy.Oral cavity: There are no mucous membrane lesions. NECK: Trachea appears to be central. No masses noted. No JVD or thyromegaly appreciated. RESPIRATORY: Chest is symmetrical. No intercostals muscle retraction or any accessory muscle activation. There is no chest wall tenderness. Breath sounds are heard bilaterally. No rales or rhonchi heard. No evidence of any consolidation. BREASTS: Deferred. HEART: The heart sounds are normal. No S3 or S4. No significant murmurs. No pericardial rub ABDOMEN: No vessel pulsations or distention. No tenderness. No organomegaly appreciated. Bowel sounds are normally heard. : Deferred. RECTAL: Deferred. LYMPHATIC: No lymphadenopathy noted in the neck. EXTREMITIES: No edema or cyanosis. No clubbing. Radial pulses are of low amplitude bilaterally MUSCULOSKELETAL: No acute joint deformities or swelling SKIN: There are no significant rashes or ecchymosis NEUROPSYCHIATRIC: The patient is alert and oriented x3. Appears to be in a good mood. No tremors or rigidity noted. Data 12/02/23 03:28 12/02/23 03:28 Other Labs: Laboratory Last Values WBC 7.80 10^3/uL (3.29-11.43) 12/02/23 03:28 RBC 4.60 10^6/uL (3.85-5.65) 12/02/23 03:28 Hgb 11.40 g/dL (11.27-16.99) 12/02/23 03:28 Hct 36.2 % (36-47) 12/02/23 03:28 MCV 78.7 fl (85-98) L 12/02/23 03:28 MCH 24.8 pg (27-33) L 12/02/23 03:28 MCHC 31.5 g/dL (30-55) 12/02/23 03:28 RDW 15.9 % (12.1-15.1) H 12/02/23 03:28 Plt Count 296 10^3/cmm (157-399) 12/02/23 03:28 MPV 9.5 fL (7.4-10.4) 12/02/23 03:28 Neut % (Auto) 59.3 % 12/02/23 03:28 Lymph % (Auto) 32.6 % 12/02/23 03:28 Centre % (Auto) 6.0 % 12/02/23 03:28 Eos % (Auto) 1.2 % 12/02/23 03:28 Baso % (Auto) 0.5 % 12/02/23 03:28 Neut # (Auto) 4.63 10^3/uL (1.8-7.7) 12/02/23 03:28 Lymph # (Auto) 2.5 10^3/uL (0.8-4.8) 12/02/23 03:28 Centre # (Auto) 0.5 10^3/uL (0.2-0.9) 12/02/23 03:28 Eos # (Auto) 0.1 10^3/uL (0.0-0.8) 12/02/23 03:28 Baso # (Auto) 0.0 10^3/uL (0.0-0.1) 12/02/23 03:28 Nucleated RBC % (auto) 0 % 12/02/23 03:28 Nucleated RBCs # 0.0 /100WBC 12/02/23 03:28 ESR 77 mm/hr (0-15) H 12/02/23 03:28 D-Dimer 0.28 ug/mLFEU (0-0.59) 12/02/23 03:29 Sodium 137 mmol/L (136-145) 12/02/23 03:28 Potassium 3.5 mmol/L (3.5-5.1) 12/02/23 03:28 Chloride 100 mmol/L (98-107) 12/02/23 03:28 Carbon Dioxide 23 mmol/L (22-29) 12/02/23 03:28 Anion Gap 17.5 (5-19) 12/02/23 03:28 BUN 10 mg/dL (6-20) 12/02/23 03:28 Creatinine 0.7 mg/dL (0.5-0.9) 12/02/23 03:28 GFR Calculation 100.4 mL/min (90-130) 12/02/23 03:28 Glucose 94 mg/dL (65-115) 12/02/23 03:28 Estimat Average Glucose 111 12/02/23 03:27 Hemoglobin A1c 5.5 % (4.0-6.0) 12/02/23 03:27 Calculated Osmolality 283 mOsm/kg (285-295) L 12/02/23 03:28 Calcium 9.5 mg/dL (8.5-10.5) 12/02/23 03:28 Phosphorus 4.4 mg/dL (2.5-4.5) 12/02/23 05:08 Magnesium 2.2 mg/dL (1.7-2.3) 12/02/23 05:08 Iron 31 ug/dL (37-145) L 12/02/23 09:07 TIBC 264 mcg/dl 12/02/23 09:07 % Saturation 11.7 % (20-50) L 12/02/23 09:07 Unsat Iron Binding 233 ug/dL (112-347) 12/02/23 09:07 Total Bilirubin 0.2 mg/dL (0.15-1.2) 12/02/23 03:28 GGT 47 U/L (5-36) H 12/02/23 05:08 AST 69 U/L (0-32) H 12/02/23 03:28 ALT 104 U/L (0-33) H 12/02/23 03:28 Alkaline Phosphatase 106 U/L (35-105) H 12/02/23 03:28 Creatine Kinase 68 U/L (26-192) 12/02/23 05:08 CK-MB (CK-2) 2.7 ng/mL (0-5.34) 12/02/23 05:08 CK-MB (CK-2) Rel Index % (0.0-10.4) 12/02/23 05:08 Troponin T Baseline 63 ng/L (0-10) H 12/02/23 03:28 Troponin T 120 Minute 78.84 ng/L (0-10) H 12/02/23 05:08 Delta Troponin T 15.84 ABS# (0-10) H* 12/02/23 05:08 Troponin T Hi Sens 6Hr 103.6 ng/L (0-10) H 12/02/23 09:07 Troponin T Hi Sens 6Hr Delta 40.6 ng/L (0-12) H* 12/02/23 09:07 C-Reactive Protein 48.4 mg/L (0.0-4.9) H 12/02/23 05:08 NT-Pro-B Natriuret Pep 203 pg/mL (0-125) H 12/02/23 03:29 Total Protein 7.5 g/dL (6.6-8.7) 12/02/23 03:28 Albumin 4.0 g/dL (3.5-5.2) 12/02/23 03:28 Globulin 3.5 g/dL (1.3-4.6) 12/02/23 03:28 Triglycerides 123 mg/dL (0-150) 12/02/23 05:08 Cholesterol 166 mg/dL (0-200) 12/02/23 05:08 LDL Cholesterol, Calc 103 mg/dL (50-129) 12/02/23 05:08 HDL Cholesterol 38 mg/dL (60-100) L 12/02/23 05:08 LDL/HDL Ratio 2.71 RATIO (0.00-3.22) 12/02/23 05:08 Cholesterol/HDL Ratio 4.37 mg/dL (0.0-4.40) 12/02/23 05:08 Lipase 17 U/L (13-60) 12/02/23 05:08 Vitamin B12 467 pg/mL (232-1245) 12/02/23 09:07 Procalcitonin 0.08 ng/mL (0-0.5) 12/02/23 05:08 TSH 1.43 uIU/mL (0.27-4.20) 12/02/23 05:08 HCG, Qual Negative (Negative) 12/02/23 03:28 Urine Color Yellow (Yellow) 12/02/23 07:32 Urine Appearance Clear (CLEAR) 12/02/23 07:32 Urine pH 5 (5-7) 12/02/23 07:32 Ur Specific [place] 1.015 (1.005-1.030) 12/02/23 07:32 Urine Protein Trace (Negative) 12/02/23 07:32 Urine Glucose (UA) Norm (Normal) 12/02/23 07:32 Urine Ketones 2+ (Negative) H 12/02/23 07:32 Urine Blood Neg (Negative) 12/02/23 07:32 Urine Nitrate Negative (Negative) 12/02/23 07:32 Urine Bilirubin Neg (Negative) 12/02/23 07:32 Urine Urobilinogen Neg mg/dL (Negative) 12/02/23 07:32 Ur Leukocyte Esterase Negative (Negative) 12/02/23 07:32 Urine RBC 0-4 /hpf (0-2) H 12/02/23 07:32 Urine WBC 0-4 /hpf (0-5) H 12/02/23 07:32 Ur Squamous Epith Cells 5-10 /hpf (0-5) H 12/02/23 07:32 Amorphous Sediment Not Reportable 12/02/23 07:32 Urine Bacteria 1+ /hpf (NONE) H 12/02/23 07:32 Urine Mucus 2+ /hpf 12/02/23 07:32 Urine Opiates Screen Negative ng/mL (Negative) 12/02/23 07:32 Ur Barbiturates Screen Negative ng/mL (Negative) 12/02/23 07:32 Ur Phencyclidine Scrn Negative ng/mL (Negative) 12/02/23 07:32 Ur Amphetamines Screen Negative ng/mL (Negative) 12/02/23 07:32 U Benzodiazepines Scrn Negative ng/mL (Negative) 12/02/23 07:32 Urine Cocaine Screen Negative ng/mL (Negative) 12/02/23 07:32 U Marijuana (THC) Screen Negative ng/mL (Negative) 12/02/23 07:32 Ethyl Alcohol < 10 mg/dL (0-10) 12/02/23 05:08 Adenovirus (PCR) Not detected (NOT DETECT) 12/02/23 05:31 C. pneumoniae DNA (PCR) Not detected (NOT DETECT) 12/02/23 05:31 Coronavirus 229E (PCR) Not detected (NOT DETECT) 12/02/23 05:31 Human Metapneumovir PCR Not detected (NOT DETECT) 12/02/23 05:31 Influenza A (H1) PCR Not detected (NOT DETECT) 12/02/23 05:31 Influ A (H1/09) PCR Not detected (NOT DETECT) 12/02/23 05:31 Influenza A (H3) PCR Not detected (NOT DETECT) 12/02/23 05:31 Influenza Type A (PCR) Not detected (NOT DETECT) 12/02/23 05:31 Influenza Type B (PCR) Not detected (NOT DETECT) 12/02/23 05:31 M. pneumoniae (PCR) Not detected (NOT DETECT) 12/02/23 05:31 Parainfluenza 1 (PCR) Not detected (NOT DETECT) 12/02/23 05:31 Parainfluenza 2 (PCR) Not detected (NOT DETECT) 12/02/23 05:31 Parainfluenza 3 (PCR) Not detected (NOT DETECT) 12/02/23 05:31 Parainfluenza 4 (PCR) Not detected (NOT DETECT) 12/02/23 05:31 RSV Type A (PCR) Not detected (NOT DETECT) 12/02/23 05:31 RSV Type B (PCR) Not detected (NOT DETECT) 12/02/23 05:31 Entero/Rhino (PCR) Not detected (NOT DETECT) 12/02/23 05:31 SARS-CoV-2 (PCR) Not detected (NOT DETECT) 12/02/23 05:31 EKG 1: My Interpretation: Sinus rhythm with some early repolarization changes. No acute ST-T changes. Minimal voltage criteria for LVH Other data: Echocardiogram from today Normal left ventricular size and systolic function, EF 67 %. No regional wall motion abnormalities. No gross valvular abnormalities. Normal cardiac chamber sizes. No intracardiac shunts by color-flow Doppler examination There is no pericardial effusion. There are no intracardiac masses. No similar previous studies are available for comparison A&P Assessment and plan (1) Chest pain: Patient continues to have the chest pain. Her clinical features are suggestive of unstable angina. She was started on heparin. No significant EKG changes Qualifiers: Chest pain type: unspecified Qualified Code(s): R07.9 - Chest pain, unspecified (2) Elevated troponin: She has features of a non-ST elevation myocardial infarction. Patient may be treated with beta-ashia, aspirin, Plavix and heparin. (3) Elevated blood pressure reading: I may go ahead and started on metoprolol 25 mg p.o. now and twice daily. (4) Dyslipidemia: Patient may be started on Lipitor 40 mg p.o. now and daily. Plan Patient may be given Plavix 300 mg p.o. now followed by 75 mg p.o. daily Lipitor 40 mg p.o. now and daily Metoprolol 25 mg p.o. twice daily In view of the patient's ongoing symptoms, in order to further evaluate her coronary status, a cardiac catheterization would be appropriate. This was discussed with the patient in detail with risk and benefits. The risk of bleeding, hematoma, vascular injury, myocardial infarction, myocardial perforation, malignant cardiac arrhythmias ,CVA, renal failure and other concomitant complications were explained in detail. Patient understood this well and consented to proceed. We may go ahead schedule this as early as possible Based on the results of the above tests and the patient's clinical progress, further recommendations will be made. Consult Attestations Medical Necessity Statement: Patient requires continued hospital stay for close monitoring and further management Coding Level of Care Code 11259 Diagnoses Chest pain R07.9 Chest pain type: unspecified Elevated troponin R79.89 Elevated blood pressure reading R03.0 Dyslipidemia E78.5
--- NOTE | 2023-12-02 13:21 | XACV_ITS ---
Exam Room: 2 Ht: 157 cm Wt: 94 kg BSA: 2.07 m2 Gender: Female : 1995 Any Known Allergies: No known allergies Exam Priority: Routine Procedure(s): Procedure Description: Diagnostic procedure Procedure Description: Left Heart Catheterization Procedure Description: Left ventriculography Procedure Description: Coronary Angiography Boris ADKINS; Diagnostic Cath Status: Elective Diagnostic Findings * The left main is a medium caliber vessel with no significant stenotic lesions. * The left anterior descending artery is a medium caliber vessel which appears to wrap around the LV apex. It gives off a high diagonal branch which also was found to have no significant lesions. * The intermedius artery(high obtuse marginal) is a small to medium caliber vessel with no significant lesions. * The left circumflex artery is a nondominant small to medium caliber vessel with no significant lesions. * The right coronary artery is a medium caliber dominant vessel which was found to have an acute angulation at the ostium. There is also catheter induced ostial spasm. Intracoronary injection of nitroglycerin relieved the spasm in the artery. Conclusions 1. 28-year-old white female presents with a prolonged episode of chest pain, elevated troponin T. EKG and echocardiogram were unremarkable. CTA did not reveal any evidence of PE. In view of her ongoing chest pains, a cardiac catheterization was recommended to further evaluate the coronary status and decide on management. Patient underwent left heart catheterization with left and right coronary angiogram and LV angiogram today. The findings are as follows.. 2. Normal left main, with no significant stenotic lesions. Medium sized to left anterior descending artery which wraparound LV apex. Nondominant circumflex artery with no significant lesions. Small to medium caliber intermedius artery also with no significant lesions. Right coronary artery was found to have ostial spasm and also bent near the ostium. No significant stenotic lesions. The catheter induced ostial spasm was relieved with intracoronary nitro. Normal LV ejection fraction of 55%. LVEDP of 16 mmHg. Recommendations * Possibility of her having a variant of Takotsubo is a consideration. Patient apparently is known to have anxiety/depressive illness and also has been undergoing some stress situations at home lately. Diagnostic RX Recommendation: medical therapy and/or counseling LV EDP: 16 mmHg Ventriculography Ejection Fraction: 55.0 % Left Ventriculography Findings: * The LV gram was performed the LORD projection. The LV cavity appeared to be normal size. There was no filling defects. No significant mitral valve prolapse or mitral regurgitation. No significant wall motion normalities were noted. The overall ejection fraction was 55%. LVEDP was 16 mmHg which went up to 22 following the LV angiogram. Pressures Phase:Rest AO : 128 / 83 ( 103 ) @ 2:14:00 PM 79 / 60 ( 21 ) @ 2:18:00 PM 117 / 93 ( 106 ) @ 2:19:00 PM 127 / 86 ( 107 ) @ 2:22:00 PM 134 / 80 ( 108 ) @ 2:32:00 PM 135 / 79 ( 107 ) @ 2:32:00 PM LV : 142 / -9 / 16 @ 2:30:00 PM 143 / -5 / 21 @ 2:32:00 PM 144 / -4 / 19 @ 2:32:00 PM Valves Phase:DefaultPhase AV : 14.0 @ 2:40:12 PM 14.0 @ 2:40:12 PM AV Mean Gradient: 14.0 @ 2:40:12 PM 14.0 @ 2:40:12 PM Clinical Evaluation EBL: 5mL-10mL Procedural Details Procedure Consent Obtained. Current Diagnosis : NSTEMI. Pre-Procedure Time Out. Identified patient by full name and date of as verbalized by the patient/guarantor. Does the consent match the physician's order: Yes. Accurate & Complete Informed Consent: Yes. Inpatient/Outpatient History & Physical on Chart: Yes. If H&P is completed, is and addenduem needed: No; If yes, is the addendum complete: N/A. Visualize and Verify Site with Patient/Guarantor: N/A. Relevant Radiology Images available: Yes. Pre-op teaching completed and patient verbalized understanding. The risks, benefits, and alternatives of sedation and/or procedure were discussed by physician. The patient agrees to continue. Procedure started. [facility] Clinical Fraility Score: 3: Managing Well. Community Placement Worker Indications: ACS > 24 hours. Chest Pain Symptom Assessment: Atypical Angina. Correct patient, site and procedure confirmed by cath team. Current diagnosis: NSTEMI. PERRLA. Strong, equal hand certified nursing attendant bilaterally. Lungs clear x 5 lobes. IV Site on Arrival: 20 gauge in the right anticubital. IV Site on Arrival: 20 gauge in the left anticubital. IV Fluids: 0.9% NaCl at KVO. 500 mL infused prior to medical laboratory technical officer. Pre Procedural Pulses: bilateral dorsalis pedis was 3+. Pre Procedural Pulses: bilateral posterior tibial was 3+. Oxygen started at 2liters/min via nasal canula. bilateral groins was prepped with chloroprep then draped in the usual sterile fashion. Baseline sample Acquired. HR: 72 BPM. Physician notified. Physician arrived. Physician scrubbed in. Immediate Pre-Procedure Time Out. Correct Patient: Yes; Correct Procedure: Yes; Correct Site: Yes; Correct Patient Position: Yes; Correct Supplies: Yes; Dried Flammable Prep: Yes; Blood Products Available: N/A;. Lidocaine 1% infiltrated to the right radial. Arterial access obtained. Wire unable to advance. Wire and needle out. Pressure dressing applied to brachial site. Lidocaine 1% infiltrated to the right groin. Arterial access obtained with micropuncture set. A 5 albanian JL4 catheter in over wire. ACT drawn. Results 120 seconds. Therapeutic limits - pre-heparin administration 90-150 seconds and monitoring heparin during a vascular procedure >250 seconds. Catheter removed over the standard wire. A 5 albanian JL3.5 catheter in over wire. Multiple views taken of left coronary artery. Catheter removed over the standard wire. A 5 albanian JR4 catheter in over wire. Multiple views taken of right coronary artery. Catheter removed over the standard wire. A 5 albanian Angled Pig catheter in over wire. EDP Sample taken: LV 142/-10,16; HR: 103 BPM; SpO2: 100%. LV gram performed in LORD @ 10 mL/second for a total of 30 mL. EDP Sample taken: LV 143/-6,21; HR: 104 BPM; SpO2: 100%. Pullback taken: LV 144/-5,19; AO 134/80(108); Mean: 14mmHg, Peak to Peak: 14mmHg, SEP: 25sec/min; HR: 106 BPM; SpO2: 100%. Catheter removed over the standard wire. A Suture was successful obtaining hemostatsis at the Right Femoral artery insertion site. Vital chart was stopped. Physician scrubbed out. Sheath(s) sutured into position with 2-0 silk and sterile 4x4's and Op-site applied over the site. No oozing or signs and symptoms of hematoma noted. Arterial sheath flushed and connected to tranducer and pressure bag with heparinized saline. Post Procedure: Pulses reassessed and unchanged. PERRLA. Strong, equal hand certified nursing attendant bilaterally. No VTE prophylaxis required. Medication's Wasted: Lidocaine 1% = 10 mL. Medication's Wasted: Nitro = 49.8 mg. Medication's Wasted: Heparin = 4000 units. Medication's Wasted: Other = Fentanyl 75mcg Versed 1 mg. Total IV fluids: 70 mL. Complications: None. Post-op diagnosis: Normal Coronaries. Estimated blood loss: 5mL-10mL. Responsiveness - Normal response to verbal stimuli; alert and oriented, PERRLA. Airway - Unaffected, no intervention required; spontaneous ventilation. Circulation: W/N/L, pulses unchanged. Nausea/Vomiting: Yes. Procedure completed. Patient transferred by bed to 1st floor. Access Site Site: Right Femoral artery Sheath Size: 5 Fr Hemostasis Method: Suture Hemostasis Success: Successful Procedure Medications Start: 1:45 PM Stop: 1:45 PM Medication: Fentanyl Amount: 25 mcg Route: I.V. Start: 1:49 PM Stop: 1:49 PM Medication: Versed 1 mg and Fentanyl 25 mcg Amount: 1 Route: I.V. Start: 1:58 PM Stop: 1:58 PM Medication: Versed 1 mg and Fentanyl 25 mcg Amount: 1 Route: I.V. Start: 2:07 PM Stop: 2:07 PM Medication: Versed Amount: 1 mg Route: I.V. Start: 2:08 PM Stop: 2:08 PM Medication: Fentanyl Amount: 25 mcg Route: I.V. Start: 2:24 PM Stop: 2:24 PM Medication: Nitrogylcerin Amount: 2 Sprays Route: S.L. Start: 2:26 PM Stop: 2:26 PM Medication: Nitrogylcerin Amount: 200 mcg Route: I.C. I, the attending physician, have reviewed and verified all procedure medications. Yes, all medications given per verbal order History/Risk Factors Hypertension: No Dyslipidemia: No Peripheral Arterial Disease (PAD): No Myocardial Infarction (PR): No Obesity: No Renal Disease: No Tobacco Use: Former Prior Interventions PCI: No CABG: No Valve Surgery: No Report Signatures Finalized by Dr Sam Escalante MD [facility] on 12/02/2023 04:15 PM
[2023-12-02] MEDS: metoprolol tartrate 25 mg Tablet PO ×2 (13:29→19:55)
[2023-12-02] MEDS: clopidogrel 300 mg Tablet PO (13:29)
--- NOTE | 2023-12-02 13:31 | W.PM.OPSUD ---
Surgery/Procedure H&P Update DATE OF PROCEDURE: December 02, 2023 DATE H&P PERFORMED: 12/02/23 H&P UPDATE INFORMATION: I have reviewed H&P completed within last 30 days, I have examined patient prior to procedure and No changes to prior documentation PREOP DIAGNOSIS: Non-ST elation myocardial infarction /atherosclerotic heart disease PRIMARY INDICATION FOR PROCEDURE: Unstable angina/elevated troponin T PLANNED PROCEDURE: Left heart catheterization with left and right coronary angiogram and possible PCI PATIENT REASSESSED PRIOR TO SEDATION, WITH NO CHANGE NOTED: Yes PHYSICAL EXAM: alert, oriented x 3 and clear to auscultation bilaterally AIRWAY EVAL/ANESTHESIA PLAN: normal airway, see other exam findings, ASA III, Local Anesthesia, Risks, benefits & alternatives of sedation and/or procedure discussed and Patient agrees to continue as planned
[2023-12-02 15:47] LABS: Partial Thromboplastin Time 22.7 SECONDS (23.9-36.7)
--- NOTE | 2023-12-02 15:53 | W.PM.EVENTAC ---
Event Note Event Note: Cross coverage note. Mid overnight. H&P and labs appreciated. On examination patient is on heparin drip. Complaining of retrosternal chest pressure and dizziness on minimal movement. Patient slightly tachycardic with heart rate up to 110. Blood pressure stable. Remains on room air. Awake and alert. Troponin cycle positive. D-dimer negative. CT results appreciated. Echocardiogram results appreciated for no regional wall motion abnormality, normal EF. Plan: Will consult cardiology given ongoing chest pressure and positive delta troponins for possible cardiac angiogram versus stress test. Start on metoprolol 25 mg twice daily. Protonix IV daily Carafate before meals and at bedtime for now. One-time Maalox. Addendum: Patient seen by cardiology. Patient underwent cardiac angiogram given ongoing chest pain with delta troponins. Patient found to have normal coronaries on cardiac angiogram. Stop heparin drip Continue with oral metoprolol and other treatment as above. Event Notes Attestations Time Spent in Patient Care: Greater than 35 minutes
[2023-12-02] MEDS: sucralfate 1 gm/10 mL Oral Liq UDC PO (19:56)
[2023-12-03] VITALS (59 sets, daily range): BP systolic 102–127; BP diastolic 67–82; PULSE 60–103; RESP 18; TEMP 36.7–37; O2SAT 92–99
[2023-12-03 03:53] LABS: Basophils % 0.3 %; Eosinophils # 0.1 10^3/uL (0.0-0.8); Eosinophils % 1.5 %; Hematocrit 30.7 % (36-47); Lymphocytes # 2.1 10^3/uL (0.8-4.8); Lymphocytes % 30.1 %; Mean Corpuscular HGB Conc 30.9 g/dL (30-55); Mean Corpuscular Hemoglobin 24.8 pg (27-33); Mean Corpuscular Volume 80.2 fl (85-98); Mean Platelet Volume 9.7 fL (7.4-10.4); Monocytes # 0.4 10^3/uL (0.2-0.9); Monocytes % 5.7 %; Neutrophils # 4.21 10^3/uL (1.8-7.7); Nucleated Red Blood Cells % 0 %; Platelet Count 245 10^3/cmm (157-399); Red Blood Count 3.83 10^6/uL (3.85-5.65); Red Cell Distribution Width 16.1 % (12.1-15.1)
[2023-12-03 04:18] LABS: Alanine Aminotransferase 99 U/L (0-33); Albumin Level 3.3 g/dL (3.5-5.2); Alkaline Phosphatase 83 U/L (35-105); Aspartate Amino Transferase 61 U/L (0-32); Blood Urea Nitrogen 9 mg/dL (6-20); Calcium 8.9 mg/dL (8.5-10.5); Carbon Dioxide 23 mmol/L (22-29); Chloride 106 mmol/L (98-107); Creatinine Clr Calc Pharmacy 150.7025; Globulin 3.4 g/dL (1.3-4.6); Glomerular Filtration Rate 119.9 mL/min (90-130); Glucose 86 mg/dL (65-115); Osmolality Calculated 284 mOsm/kg (285-295); Sodium 138 mmol/L (136-145); Total Bilirubin 0.2 mg/dL (0.15-1.2); Total Protein 6.7 g/dL (6.6-8.7)
[2023-12-03 04:29] LABS: Magnesium 2.1 mg/dL (1.7-2.3)
[2023-12-03 04:32] LABS: Folate Level 9.3 ng/mL (4.8-37.3)
[2023-12-03] MEDS: pantoprazole 40 mg SDV IVP (06:21)
[2023-12-03] MEDS: sucralfate 1 gm/10 mL Oral Liq UDC PO ×2 (06:21→11:31)
[2023-12-03] MEDS: metoprolol tartrate 25 mg Tablet PO (08:04)
--- NOTE | 2023-12-03 10:37 | PM.PN ---
Subjective Subjective: The patient is feeling okay. Vital signs remained stable. No hematoma bleeding from the right groin. She had a cardiac catheterization yesterday. Was found to have no significant obstructive coronary artery disease. Medications: Medication Review Details: Current Medications Acetaminophen (Acetaminophen 325 Mg Tablet) 650 mg PO Q6H PRN PRN Reason: Mild/Mod Pain Or Temp >/= 101 Al Hydrox/Mg Hydrox/Simethicone (Jaqv-Nrj-Gcjretcml-Noman 30 Ml Udc) 30 ml PO Q15M PRN PRN Reason: INDIGESTION Alprazolam (Alprazolam 0.5 Mg Tablet) 0.25 mg PO TID PRN PRN Reason: ANXIETY Atropine Sulfate (Atropine 1 Mg/Ml Sdv 1 Ml) 0.5 mg IVP PRN PRN PRN Reason: Symptomatic bradycardia Magnesium Hydroxide (Magnesium Hydroxide 30 Ml Udc) 30 ml PO DAILY PRN PRN Reason: CONSTIPATION Metoprolol Tartrate (Metoprolol Tartrate 25 Mg Tablet) 25 mg PO BID@0900,2100 [facility] Last Admin: 12/03/23 08:04 Dose: 25 mg Morphine Sulfate (Morphine 4 Mg/Ml Sdv 1 Ml) 1 mg IVP Q4H PRN PRN Reason: SEVERE PAIN Last Admin: 12/02/23 12:21 Dose: 1 mg Naloxone HCl (Naloxone 0.4 Mg/Ml Sdv) 0.1 mg IVP Q2M PRN PRN Reason: OPIATERV Nitroglycerin (Nitroglycerin 0.4 Mg Sublingual Tablet) 0.4 mg SUBLINGUAL Q5M PRN PRN Reason: CHEST PAIN Ondansetron HCl (Ondansetron 2 Mg/Ml Sdv 2 Ml) 4 mg IVP Q8H PRN PRN Reason: vomiting, or N/V if npo Pantoprazole Sodium (Pantoprazole 40 Mg Sdv) 40 mg IVP Q24H [facility] Last Admin: 12/03/23 06:21 Dose: 40 mg Sucralfate (Sucralfate 1 Gm/10 Ml Oral Liq Udc) 1 gm PO AC&BEDTIME [facility] Last Admin: 12/03/23 06:21 Dose: 1 gm Temazepam (Temazepam 15 Mg Capsule) 15 mg PO BEDTIME PRN PRN Reason: INSOMNIA Vitals/I&O/Wt Last Vital Signs Temp 98.6 F 12/03/23 08:50 Pulse 92 12/03/23 08:50 Resp 18 12/03/23 08:50 BP 104/67 12/03/23 08:50 Pulse Ox 96 12/03/23 08:50 O2 Del Method Room Air 12/02/23 19:57 12/02/23 12/03/23 12/03/23 22:59 06:59 14:59 Intake Total 2161.597 / 2161.597 240 / 2401.597 240 / 240 Balance 2161.597 / 2161.597 240 / 2401.597 240 / 240 Weight last 48 hrs Weight 207 lb Weight 207 lb 14.4 oz Weight 205 lb Physical Exam Narrative: GENERAL: The patient is alert and oriented times three. Not in any acute distress. Somewhat anxious and nervous HEENT: No significant pallor, icterus or lymphadenopathy.Oral cavity: There are no mucous membrane lesions. NECK: Trachea appears to be central. No masses noted. No JVD or thyromegaly appreciated. RESPIRATORY: Chest is symmetrical. No intercostals muscle retraction or any accessory muscle activation. There is no chest wall tenderness. Breath sounds are heard bilaterally. No rales or rhonchi heard. No evidence of any consolidation. BREASTS: Deferred. HEART: The heart sounds are normal. No S3 or S4. No significant murmurs. No pericardial rub ABDOMEN: No vessel pulsations or distention. No tenderness. No organomegaly appreciated. Bowel sounds are normally heard. : Deferred. RECTAL: Deferred. LYMPHATIC: No lymphadenopathy noted in the neck. EXTREMITIES: No hematoma bleeding in the right groin. MUSCULOSKELETAL: No acute joint deformities or swelling SKIN: There are no significant rashes or ecchymosis NEUROPSYCHIATRIC: The patient is alert and oriented x3. Appears to be in a good mood. No tremors or rigidity noted. Data 12/03/23 03:33 12/03/23 03:33 Other Labs: Laboratory Last Values WBC 6.80 10^3/uL (3.29-11.43) 12/03/23 03:33 RBC 3.83 10^6/uL (3.85-5.65) L 12/03/23 03:33 Hgb 9.50 g/dL (11.27-16.99) L 12/03/23 03:33 Hct 30.7 % (36-47) L 12/03/23 03:33 MCV 80.2 fl (85-98) L 12/03/23 03:33 MCH 24.8 pg (27-33) L 12/03/23 03:33 MCHC 30.9 g/dL (30-55) 12/03/23 03:33 RDW 16.1 % (12.1-15.1) H 12/03/23 03:33 Plt Count 245 10^3/cmm (157-399) 12/03/23 03:33 MPV 9.7 fL (7.4-10.4) 12/03/23 03:33 Neut % (Auto) 62.0 % 12/03/23 03:33 Lymph % (Auto) 30.1 % 12/03/23 03:33 [place] % (Auto) 5.7 % 12/03/23 03:33 Eos % (Auto) 1.5 % 12/03/23 03:33 Baso % (Auto) 0.3 % 12/03/23 03:33 Neut # (Auto) 4.21 10^3/uL (1.8-7.7) 12/03/23 03:33 Lymph # (Auto) 2.1 10^3/uL (0.8-4.8) 12/03/23 03:33 [place] # (Auto) 0.4 10^3/uL (0.2-0.9) 12/03/23 03:33 Eos # (Auto) 0.1 10^3/uL (0.0-0.8) 12/03/23 03:33 Baso # (Auto) 0.0 10^3/uL (0.0-0.1) 12/03/23 03:33 Nucleated RBC % (auto) 0 % 12/03/23 03:33 Nucleated RBCs # 0.0 /100WBC 12/03/23 03:33 ESR 77 mm/hr (0-15) H 12/02/23 03:28 APTT 22.7 SECONDS (23.9-36.7) L 12/02/23 15:27 D-Dimer 0.28 ug/mLFEU (0-0.59) 12/02/23 03:29 Sodium 138 mmol/L (136-145) 12/03/23 03:33 Potassium 4.0 mmol/L (3.5-5.1) 12/03/23 03:33 Chloride 106 mmol/L (98-107) 12/03/23 03:33 Carbon Dioxide 23 mmol/L (22-29) 12/03/23 03:33 Anion Gap 13.0 (5-19) 12/03/23 03:33 BUN 9 mg/dL (6-20) 12/03/23 03:33 Creatinine 0.6 mg/dL (0.5-0.9) 12/03/23 03:33 GFR Calculation 119.9 mL/min (90-130) 12/03/23 03:33 Glucose 86 mg/dL (65-115) 12/03/23 03:33 Estimat Average Glucose 111 12/02/23 03:27 Hemoglobin A1c 5.5 % (4.0-6.0) 12/02/23 03:27 Calculated Osmolality 284 mOsm/kg (285-295) L 12/03/23 03:33 Calcium 8.9 mg/dL (8.5-10.5) 12/03/23 03:33 Phosphorus 4.4 mg/dL (2.5-4.5) 12/02/23 05:08 Magnesium 2.1 mg/dL (1.7-2.3) 12/03/23 03:33 Iron 31 ug/dL (37-145) L 12/02/23 09:07 TIBC 264 mcg/dl 12/02/23 09:07 % Saturation 11.7 % (20-50) L 12/02/23 09:07 Unsat Iron Binding 233 ug/dL (112-347) 12/02/23 09:07 Total Bilirubin 0.2 mg/dL (0.15-1.2) 12/03/23 03:33 GGT 47 U/L (5-36) H 12/02/23 05:08 AST 61 U/L (0-32) H 12/03/23 03:33 ALT 99 U/L (0-33) H 12/03/23 03:33 Alkaline Phosphatase 83 U/L (35-105) 12/03/23 03:33 Creatine Kinase 68 U/L (26-192) 12/02/23 05:08 CK-MB (CK-2) 2.7 ng/mL (0-5.34) 12/02/23 05:08 CK-MB (CK-2) Rel Index % (0.0-10.4) 12/02/23 05:08 Troponin T Baseline 63 ng/L (0-10) H 12/02/23 03:28 Troponin T 120 Minute 78.84 ng/L (0-10) H 12/02/23 05:08 Delta Troponin T 15.84 ABS# (0-10) H* 12/02/23 05:08 Troponin T Hi Sens 6Hr 103.6 ng/L (0-10) H 12/02/23 09:07 Troponin T Hi Sens 6Hr Delta 40.6 ng/L (0-12) H* 12/02/23 09:07 C-Reactive Protein 48.4 mg/L (0.0-4.9) H 12/02/23 05:08 NT-Pro-B Natriuret Pep 203 pg/mL (0-125) H 12/02/23 03:29 Total Protein 6.7 g/dL (6.6-8.7) 12/03/23 03:33 Albumin 3.3 g/dL (3.5-5.2) L 12/03/23 03:33 Globulin 3.4 g/dL (1.3-4.6) 12/03/23 03:33 Triglycerides 123 mg/dL (0-150) 12/02/23 05:08 Cholesterol 166 mg/dL (0-200) 12/02/23 05:08 LDL Cholesterol, Calc 103 mg/dL (50-129) 12/02/23 05:08 HDL Cholesterol 38 mg/dL (60-100) L 12/02/23 05:08 LDL/HDL Ratio 2.71 RATIO (0.00-3.22) 12/02/23 05:08 Cholesterol/HDL Ratio 4.37 mg/dL (0.0-4.40) 12/02/23 05:08 Lipase 17 U/L (13-60) 12/02/23 05:08 Vitamin B12 467 pg/mL (232-1245) 12/02/23 09:07 Folate 9.3 ng/mL (4.8-37.3) 12/03/23 03:33 Procalcitonin 0.08 ng/mL (0-0.5) 12/02/23 05:08 TSH 1.43 uIU/mL (0.27-4.20) 12/02/23 05:08 HCG, Qual Negative (Negative) 12/02/23 03:28 Urine Color Yellow (Yellow) 12/02/23 07:32 Urine Appearance Clear (CLEAR) 12/02/23 07:32 Urine pH 5 (5-7) 12/02/23 07:32 Ur Specific [place] 1.015 (1.005-1.030) 12/02/23 07:32 Urine Protein Trace (Negative) 12/02/23 07:32 Urine Glucose (UA) Norm (Normal) 12/02/23 07:32 Urine Ketones 2+ (Negative) H 12/02/23 07:32 Urine Blood Neg (Negative) 12/02/23 07:32 Urine Nitrate Negative (Negative) 12/02/23 07:32 Urine Bilirubin Neg (Negative) 12/02/23 07:32 Urine Urobilinogen Neg mg/dL (Negative) 12/02/23 07:32 Ur Leukocyte Esterase Negative (Negative) 12/02/23 07:32 Urine RBC 0-4 /hpf (0-2) H 12/02/23 07:32 Urine WBC 0-4 /hpf (0-5) H 12/02/23 07:32 Ur Squamous Epith Cells 5-10 /hpf (0-5) H 12/02/23 07:32 Amorphous Sediment Not Reportable 12/02/23 07:32 Urine Bacteria 1+ /hpf (NONE) H 12/02/23 07:32 Urine Mucus 2+ /hpf 12/02/23 07:32 Urine Opiates Screen Negative ng/mL (Negative) 12/02/23 07:32 Ur Barbiturates Screen Negative ng/mL (Negative) 12/02/23 07:32 Ur Phencyclidine Scrn Negative ng/mL (Negative) 12/02/23 07:32 Ur Amphetamines Screen Negative ng/mL (Negative) 12/02/23 07:32 U Benzodiazepines Scrn Negative ng/mL (Negative) 12/02/23 07:32 Urine Cocaine Screen Negative ng/mL (Negative) 12/02/23 07:32 U Marijuana (THC) Screen Negative ng/mL (Negative) 12/02/23 07:32 Ethyl Alcohol < 10 mg/dL (0-10) 12/02/23 05:08 Adenovirus (PCR) Not detected (NOT DETECT) 12/02/23 05:31 C. pneumoniae DNA (PCR) Not detected (NOT DETECT) 12/02/23 05:31 Coronavirus 229E (PCR) Not detected (NOT DETECT) 12/02/23 05:31 Human Metapneumovir PCR Not detected (NOT DETECT) 12/02/23 05:31 Influenza A (H1) PCR Not detected (NOT DETECT) 12/02/23 05:31 Influ A (H1/09) PCR Not detected (NOT DETECT) 12/02/23 05:31 Influenza A (H3) PCR Not detected (NOT DETECT) 12/02/23 05:31 Influenza Type A (PCR) Not detected (NOT DETECT) 12/02/23 05:31 Influenza Type B (PCR) Not detected (NOT DETECT) 12/02/23 05:31 M. pneumoniae (PCR) Not detected (NOT DETECT) 12/02/23 05:31 Parainfluenza 1 (PCR) Not detected (NOT DETECT) 12/02/23 05:31 Parainfluenza 2 (PCR) Not detected (NOT DETECT) 12/02/23 05:31 Parainfluenza 3 (PCR) Not detected (NOT DETECT) 12/02/23 05:31 Parainfluenza 4 (PCR) Not detected (NOT DETECT) 12/02/23 05:31 RSV Type A (PCR) Not detected (NOT DETECT) 12/02/23 05:31 RSV Type B (PCR) Not detected (NOT DETECT) 12/02/23 05:31 Entero/Rhino (PCR) Not detected (NOT DETECT) 12/02/23 05:31 SARS-CoV-2 (PCR) Not detected (NOT DETECT) 12/02/23 05:31 A&P Assessment and plan (1) Chest pain: Most likely the patient had a variant of Takotsubo. Currently she is asymptomatic. May continue on baby aspirin and the metoprolol. Qualifiers: Chest pain type: unspecified Qualified Code(s): R07.9 - Chest pain, unspecified (2) Elevated troponin: As mentioned above. (3) Elevated blood pressure reading: Continue on the small dose of metoprolol. (4) Dyslipidemia: May try the dietary modification Plan If the patient continues remain stable, may be discharged home from a cardiac standpoint. Continue on the metoprolol and a baby aspirin. Appointment at the [facility] to be seen by the nurse practitioner in 1 week. Appointment with me in the office in 6 weeks. Attestations Medical Necessity Statement*: Disposition as per the primary. Coding Level of Care Code 01169 Diagnoses Chest pain R07.9 Chest pain type: unspecified Elevated troponin R79.89 Elevated blood pressure reading R03.0 Dyslipidemia E78.5
--- NOTE | 2023-12-03 12:07 | PM.DCS ---
Discharge Providers Date of Admission: 12/02/23 05:35 Date of Discharge: December 03, 2023 Attending Provider at Admission: Vladimir Royal MD Attending Provider at Discharge: Michael Santiago MD Consults: Cardiology: Dr. Escalante Primary Care Provider: Stephany Dudley MD Diagnoses at Discharge Discharge Diagnosis (1) Chest pain: Status: Inactive Qualifiers: Chest pain type: unspecified Qualified Code(s): R07.9 - Chest pain, unspecified (2) Elevated troponin: Status: Acute (3) Elevated blood pressure reading: Status: Acute (4) Dyslipidemia: Status: Acute Reason for Visit Reason for Visit: chest tighness and zone out Hospital Course Hospital Course Catalina Mcbride is a 28 year old female with no significant past medical history, is admitted to hospital through the emergency room where she presented with complaints of chest pain for 4 hours. 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 She started with pain around midnight. She was resting at that time. The pain was more or less constant with some waxing and waning. Denies any the pain was 4-6. It was in the mid substernal region radiating across the chest. She may have had some associated shortness of breath. No nausea or vomiting. No sweating, dizziness or syncopal episode. Her friend drove her to the emergency room. Her initial troponin Ts was elevated. She had a 2-hour delta of 15 and a 6-hour delta of 40. She continues to have the pain, intensity of 3-4/10. She also has some amount of shortness of breath. She has no previous history for coronary disease, myocardial infarction or congestive heart failure. No history for high blood pressure, diabetes or dyslipidemia. She drinks occasionally. No smoking abuse. She has 2 children diagnosed 1 is 2 years old. She got 6 months ago. Her mother and maternal grandmother are known to have some form of tachyarrhythmia. Maternal grandfather had a myocardial infarction in his 70s. Father is known to have diabetes. No other relevant family history. She underwent cardiac angiogram on 12/02 which showed nonobstructive CAD with normal coronaries. Underwent echocardiogram which showed normal EF without regional wall motion abnormality. It is believed patient's symptoms are most likely in setting of gastritis. Patient was seen to have mild hypertension for which she was started on metoprolol 25 mg twice daily. She is discharged in hemodynamically stable condition advised to follow-up with a primary care provider within next 2 weeks. She was counseled in detail about healthy heart lifestyle. Physical Exam Narrative: GENERAL: The patient is alert and oriented times three. Not in any acute distress. Somewhat anxious and nervous HEENT: No significant pallor, icterus or lymphadenopathy.Oral cavity: There are no mucous membrane lesions. NECK: Trachea appears to be central. No masses noted. No JVD or thyromegaly appreciated. RESPIRATORY: Chest is symmetrical. No intercostals muscle retraction or any accessory muscle activation. There is no chest wall tenderness. Breath sounds are heard bilaterally. No rales or rhonchi heard. No evidence of any consolidation. BREASTS: Deferred. HEART: The heart sounds are normal. No S3 or S4. No significant murmurs. No pericardial rub ABDOMEN: No vessel pulsations or distention. No tenderness. No organomegaly appreciated. Bowel sounds are normally heard. : Deferred. RECTAL: Deferred. LYMPHATIC: No lymphadenopathy noted in the neck. EXTREMITIES: No edema or cyanosis. No clubbing. Radial pulses are of low amplitude bilaterally MUSCULOSKELETAL: No acute joint deformities or swelling SKIN: There are no significant rashes or ecchymosis NEUROPSYCHIATRIC: The patient is alert and oriented x3. Appears to be in a good mood. No tremors or rigidity noted. Discharge Data Studies Completed and Pending Completed Studies During Hospitalization Category Date Time Status CT angio chest PE protcl [id number] Stat Cat Scan 12/02/23 05:05 Completed [employer] request for service Routine Exams 12/02/23 13:21 Completed XR chest 1V portable [id number] Stat Exams 12/02/23 03:16 Completed CV. echo complete* [id number] Stat Ultrasound 12/02/23 05:22 Completed Pending at discharge Category Date Time Status MAG [Magnesium] AM LABS Lab 12/04/23 04:00 Ordered MAG [Magnesium] AM LABS Lab 12/05/23 04:00 Ordered Radiology Impressions Chest X-Ray 12/02/23 03:16 IMPRESSION: No acute findings. Chest CTA 12/02/23 05:05 IMPRESSION: 1. No pulmonary artery embolism identified. 2. No acute focal pulmonary opacities are detected. Echocardiogram: CONCLUSIONS Normal left ventricular size and systolic function, EF 67 %. No regional wall motion abnormalities. No gross valvular abnormalities. Normal cardiac chamber sizes. No intracardiac shunts by color-flow Doppler examination There is no pericardial effusion. There are no intracardiac masses. No similar previous studies are available for comparison Laboratory Results WBC 6.80 10^3/uL (3.29-11.43) 12/03/23 03:33 RBC 3.83 10^6/uL (3.85-5.65) L 12/03/23 03:33 Hgb 9.50 g/dL (11.27-16.99) L 12/03/23 03:33 Hct 30.7 % (36-47) L 12/03/23 03:33 MCV 80.2 fl (85-98) L 12/03/23 03:33 MCH 24.8 pg (27-33) L 12/03/23 03:33 MCHC 30.9 g/dL (30-55) 12/03/23 03:33 RDW 16.1 % (12.1-15.1) H 12/03/23 03:33 Plt Count 245 10^3/cmm (157-399) 12/03/23 03:33 MPV 9.7 fL (7.4-10.4) 12/03/23 03:33 Neut % (Auto) 62.0 % 12/03/23 03:33 Lymph % (Auto) 30.1 % 12/03/23 03:33 [place] % (Auto) 5.7 % 12/03/23 03:33 Eos % (Auto) 1.5 % 12/03/23 03:33 Baso % (Auto) 0.3 % 12/03/23 03:33 Neut # (Auto) 4.21 10^3/uL (1.8-7.7) 12/03/23 03:33 Lymph # (Auto) 2.1 10^3/uL (0.8-4.8) 12/03/23 03:33 [place] # (Auto) 0.4 10^3/uL (0.2-0.9) 12/03/23 03:33 Eos # (Auto) 0.1 10^3/uL (0.0-0.8) 12/03/23 03:33 Baso # (Auto) 0.0 10^3/uL (0.0-0.1) 12/03/23 03:33 Nucleated RBC % (auto) 0 % 12/03/23 03:33 Nucleated RBCs # 0.0 /100WBC 12/03/23 03:33 ESR 77 mm/hr (0-15) H 12/02/23 03:28 APTT 22.7 SECONDS (23.9-36.7) L 12/02/23 15:27 D-Dimer 0.28 ug/mLFEU (0-0.59) 12/02/23 03:29 Sodium 138 mmol/L (136-145) 12/03/23 03:33 Potassium 4.0 mmol/L (3.5-5.1) 12/03/23 03:33 Chloride 106 mmol/L (98-107) 12/03/23 03:33 Carbon Dioxide 23 mmol/L (22-29) 12/03/23 03:33 Anion Gap 13.0 (5-19) 12/03/23 03:33 BUN 9 mg/dL (6-20) 12/03/23 03:33 Creatinine 0.6 mg/dL (0.5-0.9) 12/03/23 03:33 GFR Calculation 119.9 mL/min (90-130) 12/03/23 03:33 Glucose 86 mg/dL (65-115) 12/03/23 03:33 Estimat Average Glucose 111 12/02/23 03:27 Hemoglobin A1c 5.5 % (4.0-6.0) 12/02/23 03:27 Calculated Osmolality 284 mOsm/kg (285-295) L 12/03/23 03:33 Calcium 8.9 mg/dL (8.5-10.5) 12/03/23 03:33 Phosphorus 4.4 mg/dL (2.5-4.5) 12/02/23 05:08 Magnesium 2.1 mg/dL (1.7-2.3) 12/03/23 03:33 Iron 31 ug/dL (37-145) L 12/02/23 09:07 TIBC 264 mcg/dl 12/02/23 09:07 % Saturation 11.7 % (20-50) L 12/02/23 09:07 Unsat Iron Binding 233 ug/dL (112-347) 12/02/23 09:07 Total Bilirubin 0.2 mg/dL (0.15-1.2) 12/03/23 03:33 GGT 47 U/L (5-36) H 12/02/23 05:08 AST 61 U/L (0-32) H 12/03/23 03:33 ALT 99 U/L (0-33) H 12/03/23 03:33 Alkaline Phosphatase 83 U/L (35-105) 12/03/23 03:33 Creatine Kinase 68 U/L (26-192) 12/02/23 05:08 CK-MB (CK-2) 2.7 ng/mL (0-5.34) 12/02/23 05:08 CK-MB (CK-2) Rel Index % (0.0-10.4) 12/02/23 05:08 Troponin T Baseline 63 ng/L (0-10) H 12/02/23 03:28 Troponin T 120 Minute 78.84 ng/L (0-10) H 12/02/23 05:08 Delta Troponin T 15.84 ABS# (0-10) H* 12/02/23 05:08 Troponin T Hi Sens 6Hr 103.6 ng/L (0-10) H 12/02/23 09:07 Troponin T Hi Sens 6Hr Delta 40.6 ng/L (0-12) H* 12/02/23 09:07 C-Reactive Protein 48.4 mg/L (0.0-4.9) H 12/02/23 05:08 NT-Pro-B Natriuret Pep 203 pg/mL (0-125) H 12/02/23 03:29 Total Protein 6.7 g/dL (6.6-8.7) 12/03/23 03:33 Albumin 3.3 g/dL (3.5-5.2) L 12/03/23 03:33 Globulin 3.4 g/dL (1.3-4.6) 12/03/23 03:33 Triglycerides 123 mg/dL (0-150) 12/02/23 05:08 Cholesterol 166 mg/dL (0-200) 12/02/23 05:08 LDL Cholesterol, Calc 103 mg/dL (50-129) 12/02/23 05:08 HDL Cholesterol 38 mg/dL (60-100) L 12/02/23 05:08 LDL/HDL Ratio 2.71 RATIO (0.00-3.22) 12/02/23 05:08 Cholesterol/HDL Ratio 4.37 mg/dL (0.0-4.40) 12/02/23 05:08 Lipase 17 U/L (13-60) 12/02/23 05:08 Vitamin B12 467 pg/mL (232-1245) 12/02/23 09:07 Folate 9.3 ng/mL (4.8-37.3) 12/03/23 03:33 Procalcitonin 0.08 ng/mL (0-0.5) 12/02/23 05:08 TSH 1.43 uIU/mL (0.27-4.20) 12/02/23 05:08 HCG, Qual Negative (Negative) 12/02/23 03:28 Urine Color Yellow (Yellow) 12/02/23 07:32 Urine Appearance Clear (CLEAR) 12/02/23 07:32 Urine pH 5 (5-7) 12/02/23 07:32 Ur Specific [place] 1.015 (1.005-1.030) 12/02/23 07:32 Urine Protein Trace (Negative) 12/02/23 07:32 Urine Glucose (UA) Norm (Normal) 12/02/23 07:32 Urine Ketones 2+ (Negative) H 12/02/23 07:32 Urine Blood Neg (Negative) 12/02/23 07:32 Urine Nitrate Negative (Negative) 12/02/23 07:32 Urine Bilirubin Neg (Negative) 12/02/23 07:32 Urine Urobilinogen Neg mg/dL (Negative) 12/02/23 07:32 Ur Leukocyte Esterase Negative (Negative) 12/02/23 07:32 Urine RBC 0-4 /hpf (0-2) H 12/02/23 07:32 Urine WBC 0-4 /hpf (0-5) H 12/02/23 07:32 Ur Squamous Epith Cells 5-10 /hpf (0-5) H 12/02/23 07:32 Amorphous Sediment Not Reportable 12/02/23 07:32 Urine Bacteria 1+ /hpf (NONE) H 12/02/23 07:32 Urine Mucus 2+ /hpf 12/02/23 07:32 Urine Opiates Screen Negative ng/mL (Negative) 12/02/23 07:32 Ur Barbiturates Screen Negative ng/mL (Negative) 12/02/23 07:32 Ur Phencyclidine Scrn Negative ng/mL (Negative) 12/02/23 07:32 Ur Amphetamines Screen Negative ng/mL (Negative) 12/02/23 07:32 U Benzodiazepines Scrn Negative ng/mL (Negative) 12/02/23 07:32 Urine Cocaine Screen Negative ng/mL (Negative) 12/02/23 07:32 U Marijuana (THC) Screen Negative ng/mL (Negative) 12/02/23 07:32 Ethyl Alcohol < 10 mg/dL (0-10) 12/02/23 05:08 Adenovirus (PCR) Not detected (NOT DETECT) 12/02/23 05:31 C. pneumoniae DNA (PCR) Not detected (NOT DETECT) 12/02/23 05:31 Coronavirus 229E (PCR) Not detected (NOT DETECT) 12/02/23 05:31 Human Metapneumovir PCR Not detected (NOT DETECT) 12/02/23 05:31 Influenza A (H1) PCR Not detected (NOT DETECT) 12/02/23 05:31 Influ A (H1/09) PCR Not detected (NOT DETECT) 12/02/23 05:31 Influenza A (H3) PCR Not detected (NOT DETECT) 12/02/23 05:31 Influenza Type A (PCR) Not detected (NOT DETECT) 12/02/23 05:31 Influenza Type B (PCR) Not detected (NOT DETECT) 12/02/23 05:31 M. pneumoniae (PCR) Not detected (NOT DETECT) 12/02/23 05:31 Parainfluenza 1 (PCR) Not detected (NOT DETECT) 12/02/23 05:31 Parainfluenza 2 (PCR) Not detected (NOT DETECT) 12/02/23 05:31 Parainfluenza 3 (PCR) Not detected (NOT DETECT) 12/02/23 05:31 Parainfluenza 4 (PCR) Not detected (NOT DETECT) 12/02/23 05:31 RSV Type A (PCR) Not detected (NOT DETECT) 12/02/23 05:31 RSV Type B (PCR) Not detected (NOT DETECT) 12/02/23 05:31 Entero/Rhino (PCR) Not detected (NOT DETECT) 12/02/23 05:31 SARS-CoV-2 (PCR) Not detected (NOT DETECT) 12/02/23 05:31 Procedures Performed Cardiac angiogram: Diagnostic Cath Status: Elective Diagnostic Findings * The left main is a medium caliber vessel with no significant stenotic lesions. * The left anterior descending artery is a medium caliber vessel which appears to wrap around the LV apex. It gives off a high diagonal branch which also was found to have no significant lesions. * The intermedius artery(high obtuse marginal) is a small to medium caliber vessel with no significant lesions. * The left circumflex artery is a nondominant small to medium caliber vessel with no significant lesions. * The right coronary artery is a medium caliber dominant vessel which was found to have an acute angulation at the ostium. There is also catheter induced ostial spasm. Intracoronary injection of nitroglycerin relieved the spasm in the artery. Conclusions 1. 28-year-old white female presents with a prolonged episode of chest pain, elevated troponin T. EKG and echocardiogram were unremarkable. CTA did not reveal any evidence of PE. In view of her ongoing chest pains, a cardiac catheterization was recommended to further evaluate the coronary status and decide on management. Patient underwent left heart catheterization with left and right coronary angiogram and LV angiogram today. The findings are as follows.. 2. Normal left main, with no significant stenotic lesions. Medium sized to left anterior descending artery which wraparound LV apex. Nondominant circumflex artery with no significant lesions. Small to medium caliber intermedius artery also with no significant lesions. Right coronary artery was found to have ostial spasm and also bent near the ostium. No significant stenotic lesions. The catheter induced ostial spasm was relieved with intracoronary nitro. Normal LV ejection fraction of 55%. LVEDP of 16 mmHg. Recommendations * Possibility of her having a variant of Takotsubo is a consideration. Patient apparently is known to have anxiety/depressive illness and also has been undergoing some stress situations at home lately. Diagnostic RX Recommendation: medical therapy and/or counseling LV EDP: 16 mmHg Ventriculography Ejection Fraction: 55.0 % Vitals Last Vital Signs Temp 98.6 F 12/03/23 08:50 Pulse 92 12/03/23 08:50 Resp 18 12/03/23 08:50 BP 104/67 12/03/23 08:50 Pulse Ox 96 12/03/23 08:50 O2 Del Method Room Air 12/02/23 19:57 Discharge Plan Discharge Patient Disposition: Home Condition: Stable Prescriptions: New metoprolol tartrate 25 mg Tablet 25 mg PO BID@0900,2100 30 Days Qty: 60 0RF Protonix 40 mg tablet,delayed release (DR/EC) 40 mg PO QAM 28 Days Qty: 28 0RF Mag-Al Plus 200-200-20 mg/5 mL Suspension 30 ml PO TID PRN (Reason: Indigestion) Qty: 3000 0RF Continued albuterol sulfate 2.5 mg /3 mL (0.083 %) solution for nebulization 2.5 mg inhalation QID PRN (Reason: shortness of breath or wheezing) Qty: 75 1RF Justyna Fe 1.5/30 (28) 1.5 mg-30 mcg (21)/75 mg (7) tablet 1 tab PO DAILY ibuprofen 200 mg Tablet 600 mg PO Q6H PRN (Reason: Pain) trazodone 50 mg tablet 25 - 50 mg PO BEDTIME PRN (Reason: Sleep) Abilify 2 mg tablet 4 mg PO QAM Discharge Orders: Discharge Order (Routine); Ordered 12/03/23 Ordered By: Michael Santiago Referrals: Maci Ricketts FNP [Nurse Practitioner] - 12/12/23 2:00 pm Damaris Escamilla [Referring] - 12/06/23 10:00 am Discharge Diet: Regular Discharge Activity: Resume usual activity and Increase activity as tolerated Patient Instructions: Metoprolol (By mouth) (Lopressor, Toprol XL), Pantoprazole (By mouth) (Protonix), Aluminum, Magnesium, and Simethicone Antacid (By mouth) (Almacone,..., Low Fat Diet (DC), Heart Catheterization (DC), Chest Pain Stoplight, Opioid Safety, Post Angiogram Home Care Instructions Discharge Attestations Time Spent in Discharge Care*: greater than 30 min Specific Discharge Activities: educating patient, educating and/or supporting family/caregiver, discussing with pcp/other providers, discussing with watch case polisher/social workers/dc planners, documenting/other paperwork and evaluating patient/reviewing data Status at Discharge: Cognitive status at discharge: cognitively intact, Behavioral status at discharge: cooperative, Functional status at discharge: independent ambulation, Overall status at discharge: patient is back to baseline Quality Metrics Clinical Quality Measures [ No reported AMI, CVA or VTE this stay] Coding Level of Care Code 19151 Total time (in minutes) for Discharge: 60 Diagnoses Chest pain R07.9 Chest pain type: unspecified Elevated troponin R79.89 Elevated blood pressure reading R03.0 Dyslipidemia E78.5
[2023-12-03] MEDS: acetaminophen 325 mg Tablet 650 MG PO (12:54)
== END 2023-12-03 14:38 | disposition home or self-care (01) ==
LOC: ER 03:23 → CSU 05:35
PROVIDERS: Internal Medicine Cardiovascular Disease; Admitting Provider Family Medicine; Emergency Provider Emergency Medicine; PCP Family Medicine; Visit Provider Student in an Organized Health Care Education/Training Program
DX: R07.9 Chest pain, unspecified (principal); R79.89 Other specified abnormal findings of blood chemistry; R03.0 Elevated blood-pressure reading, without diagnosis of hypertension; E78.5 Hyperlipidemia, unspecified
CPT/HCPCS: 36415; 71045; 71275; 80053; 80061; 80306; 80307; 81001; 82550; 82553; 82607; 82746; 82977; 83036; 83540; 83550; 83690; 83735; 83880; 84100; 84145; 84443; 84484; 84703; 85025; 85347; 85378; 85651; 85730; 86140; 87486; 87581; 87633; 93005; 93306; 93458; 96376; 99152; 99153; 99285; C1769; C1887; C1894; C9113; G0378; J1644; J2250; J2270; J3010; J3490; J7030; Q9967

== ENCOUNTER 2024-03-10 14:46 | Inpatient (IN) | payer MEDICAID, SELFPAY ==
[2022-05-30 12:49] VITALS: BP 133/85
[2023-06-19 13:29] VITALS: BMI 39.5
[2024-03-10 14:49] VITALS: BP 139/83; PULSE 60; RESP 16; TEMP 36.6; O2SAT 99
--- NOTE | 2024-03-10 15:34 | ED.C_ITS ---
HPI - Psych 2 General: Chief Complaint: Psychiatric Symptoms Stated Complaint: MHE Time Seen by Provider: 03/10/24 14:59 Source: patient Mode of arrival: ambulatory History of Present Illness: 29-year-old female presents emergency ro om with her significant other. She has a history of mental health that she she wrote a letter to her significant other she showed it to me on her phone basically that she is not feeling well she has thoughts of suicide although she states she did not have a specific plan and later states she did not really plan to harm herself she has been acting out of sorts that she is been distracted. She states she feels very stressed and anxious. Several years ago she was admitted to the hospital after an episode of cutting she states she was not particularly suicidal at that time. Her significant other that was with is with her they are legally but however I have amicably but not . They have a mutual agreement on child custody sharing. Patient states she is been going to college for psychology degree and has 1 year left. No auditory or visual hallucinations. She feels very depressed. She normally is seen at [facility] although has not been taking any of her medications she tells me the last 3 to 4 months. She has a scheduled appointment for her provider at [facility] within the next few weeks. MD complaint: feels depressed Onset (ago): day(s) Duration: constant Associated psychiatric symptoms: depression Associated symptoms: Reports depression and suicidal ideation; Deny auditory hallucinations, visual hallucinations, delusions, homicidal ideation or racing thoughts If self harm: admits thoughts of self harm Review of Systems 2 Const: Denies: fever(s) or chills Card: Denies: chest pain Resp: Denies: dyspnea GI: Denies: abdominal pain : Denies: dysuria, urinary frequency or urinary urgency Musc: Denies: neck pain or back pain Skin/Breast: Denies: rash Psych: Reports: depression and suicidal ideation; Denies: visual hallucinations, auditory hallucinations or homicidal ideation PFS ED 2 PFSH: Medical History Personal history of nonsuicidal self-harm last self harmed via cutting 2012 Generalized anxiety disorder Major depressive disorder, recurrent severe without psychotic features Psychiatric care No pertinent past medical history Denies diabetes, hypertension, seizures, DVT/PE PCP: [facility] De Paz Mild intermittent asthma, uncomplicated States that she was diagnosed with asthma as a child. Right now she only has asthma attacks when she has panic attacks and uses her inhaler only during those times usually a couple of times a month. Surgical History Hx laparoscopic cholecystectomy 12/08/2018---performed by Dr. Roberts at [facility] in [place], [place] Family History Mother Hypertension Diabetes Thyroid disease Father Diabetes Grandfather Heart disease maternal Other Colon cancer Denies family history of Ovarian cancer Hyperlipidemia Breast cancer Uterine cancer Stroke Social History Smoking and tobacco/nicotine status: former use of tobacco/nicotine Second hand smoke exposure: No Alcohol intake: current Alcohol intake frequency: holidays/special occasions only Alcohol type: hard liquor Substance/Drug Use: never Adopted: Yes Caregiver/support person: No Lives independently: Yes Household members: spouse and children Housing: Manufactured/Mobile home Marital status: Marital status details: 6 years Number of children: 2 Number of grandchildren: 0 Highest education level completed: Some College, No Degree service: No Current occupational status: unemployed Current occupational exposures/hazards: No Pets and animals: Yes Pets & animals: cat(s) Leisure activites: reading and other Leisure activities details: bake for other people Sexually active: Yes Do you think of yourself as: Straight/Heterosexual Current gender identity: Female Leticia/Latter-Day: Hoahaoism Special leticia needs: No Agree to transfusion: Yes Female Reproductive History: Para: 2 Spontaneous abortions: No Physical Exam 2 Const: COMMON NORMALS: no acute distress GENERAL APPEARANCE: cooperative and comfortable ORIENTATION/CONSCIOUSNESS: Yes awake, Yes oriented to person, Yes oriented to place and Yes oriented to time HENMT: COMMON NORMALS: normocephalic, atraumatic and hearing grossly normal bilaterally HEAD & SCALP: normocephalic and atraumatic Resp: COMMON NORMALS: normal respiratory effort, No retractions, No use of accessory muscles and clear to auscultation bilaterally AUSCULTATION: clear to auscultation bilaterally Cardio: COMMON NORMALS: regular rate, regular rhythm and No murmurs present (Cardio) RATE: regular rate RHYTHM: regular rhythm GI: COMMON NORMALS: Soft to palpation and No hepatosplenomegaly present A USCULTATION: Yes normoactive bowel sounds PALPATION: Yes Soft to palpation, No Tenderness to palpation present (GI), No Guarding due to palpation present (GI) and Yes No hepatosplenomegaly present Extremity: COMMON NORMALS: normal to inspection, capillary refill normal, no clubbing, cyanosis or edema, no calf tenderness and no pedal edema Neuro: SENSORIUM/ORIENTATION: Yes oriented to person, Yes oriented to place and Yes oriented to time Psych: THOUGHT CONTENT: No delusions Skin: COMMON NORMALS: no rashes or lesions noted GENERAL SKIN EXAM: no rashes or lesions noted Course 2 Vital Signs: Vital signs: Vital Signs Temperature 97.9 F 03/10/24 14:49 Pulse Rate 60 03/10/24 14:49 Respiratory Rate 16 03/10/24 14:49 Blood Pressure 139/83 03/10/24 14:49 Pulse Oximetry 99 03/10/24 14:49 MDM - Psych Medical Decision Making Discussed with Dr. Yuen will admit for suicidal ideation and depression. Patient is agreeable for admission. Orders written Medical Records I reviewed the patient's medical records. Lab Data I reviewed the patient's lab results. 03/10/24 15:52 03/10/24 15:52 Laboratory Results WBC 6.98 10^3/uL (3.29-11.43) 03/10/24 15:52 RBC 4.66 10^6/uL (3.85-5.65) 03/10/24 15:52 Hgb 11.70 g/dL (11.27-16.99) 03/10/24 15:52 Hct 37.0 % (36-47) 03/10/24 15:52 MCV 79.4 fl (85-98) L 03/10/24 15:52 MCH 25.1 pg (27-33) L 03/10/24 15:52 MCHC 31.6 g/dL (30-55) 03/10/24 15:52 RDW 15.6 % (12.1-15.1) H 03/10/24 15:52 Plt Count 269 10^3/cmm (157-399) 03/10/24 15:52 MPV 9.3 fL (7.4-10.4) 03/10/24 15:52 Neut % (Auto) 61.4 % 03/10/24 15:52 Lymph % (Auto) 31.4 % 03/10/24 15:52 [place] % (Auto) 5.4 % 03/10/24 15:52 Eos % (Auto) 1.1 % 03/10/24 15:52 Baso % (Auto) 0.4 % 03/10/24 15:52 Neut # (Auto) 4.28 10^3/uL (1.8-7.7) 03/10/24 15:52 Lymph # (Auto) 2.2 10^3/uL (0.8-4.8) 03/10/24 15:52 [place] # (Auto) 0.4 10^3/uL (0.2-0.9) 03/10/24 15:52 Eos # (Auto) 0.1 10^3/uL (0.0-0.8) 03/10/24 15:52 Baso # (Auto) 0.0 10^3/uL (0.0-0.1) 03/10/24 15:52 Nucleated RBC % (auto) 0 % 03/10/24 15:52 Nucleated RBCs # 0.0 /100WBC 03/10/24 15:52 No radiology studies performed this visit Discharge Plan Discharge Patient Disposition: Admitted As Inpatient Clinical Impression: Suicidal ideation, Depression Condition: Stable Prescriptions: No Action albuterol sulfate 2.5 mg /3 mL (0.083 %) solution for nebulization 2.5 mg inhalation QID PRN (Reason: shortness of breath or wheezing) Qty: 75 1RF norethindrone-e.estradiol-iron [Justyna Fe 1.5/30 (28)] 1.5 mg-30 mcg (21)/75 mg (7) tablet 1 tab PO DAILY ibuprofen 200 mg Tablet 600 mg PO Q6H PRN (Reason: Pain) trazodone 50 mg tablet 25 - 50 mg PO BEDTIME PRN (Reason: Sleep) Referrals: Stephany Dudley MD [Primary Care Provider] - Coding Level of Care Code ED Wastewater Technician for Chg Erum
[2024-03-10 15:55] LABS: Basophils % 0.4 %; Eosinophils # 0.1 10^3/uL (0.0-0.8); Eosinophils % 1.1 %; Lymphocytes # 2.2 10^3/uL (0.8-4.8); Lymphocytes % 31.4 %; Mean Corpuscular HGB Conc 31.6 g/dL (30-55); Mean Corpuscular Hemoglobin 25.1 pg (27-33); Mean Corpuscular Volume 79.4 fl (85-98); Mean Platelet Volume 9.3 fL (7.4-10.4); Monocytes # 0.4 10^3/uL (0.2-0.9); Monocytes % 5.4 %; Neutrophils # 4.28 10^3/uL (1.8-7.7); Neutrophils % 61.4 %; Nucleated Red Blood Cells % 0 %; Platelet Count 269 10^3/cmm (157-399); Red Blood Count 4.66 10^6/uL (3.85-5.65); Red Cell Distribution Width 15.6 % (12.1-15.1); White Blood Count 6.98 10^3/uL (3.29-11.43)
[2024-03-10 16:17] LABS: Alanine Aminotransferase 31 U/L (0-33); Albumin Level 3.7 g/dL (3.5-5.2); Alkaline Phosphatase 92 U/L (35-105); Anion Gap 14.8 (5-19); Aspartate Amino Transferase 21 U/L (0-32); Blood Urea Nitrogen 9 mg/dL (6-20); Calcium 8.9 mg/dL (8.5-10.5); Carbon Dioxide 22 mmol/L (22-29); Chloride 100 mmol/L (98-107); Creatinine Clr Calc Pharmacy 145.4101; Globulin 4.2 g/dL (1.3-4.6); Glucose 78 mg/dL (65-115); Osmolality Calculated 274 mOsm/kg (285-295); Potassium 3.8 mmol/L (3.5-5.1); Sodium 133 mmol/L (136-145); Total Bilirubin 0.3 mg/dL (0.15-1.2); Total Protein 7.9 g/dL (6.6-8.7)
[2024-03-10 16:18] LABS: Acetaminophen < 5.0 ug/mL (10-30); Alcohol Level < 10 mg/dL (0-10); Salicylate < 0.3 mg/dL (3-10)
[2024-03-10 16:34] LABS: HCG Qualitative Urine. Negative (Negative)
[2024-03-10 16:43] LABS: Amphetamines Screen Urine Negative (Negative); Barbiturates Screen Urine Negative (Negative); Benzodiazepines Screen Urine Negative (Negative); Cocaine Screen Urine Negative (Negative); Opiate Screen Urine Negative (Negative); PCP Screen Urine Negative (Negative); THC Screen Urine Negative (Negative)
[2024-03-10 16:44] LABS: Urine Color Yellow (Yellow)
[2024-03-10 16:45] LABS: Add Urine Microscopic? YES; Bilirubin Urine Neg (Negative); Blood Urine 3+ (Negative); Glucose Urine UA Norm (Normal); Ketones Urine 1+ (Negative); Leukocyte Esterase Urine Negative (Negative); Nitrate Urine Negative (Negative); Protein Urine Neg (Negative); Urine Appearance SL Hazy (CLEAR); Urobilinogen Urine Norm (Negative); pH Urine 5 (5-7)
[2024-03-10 17:20] LABS: Bacteria Urine 1+ /hpf; Mucus Urine 1+ /hpf; RBC Urine 15-25 /hpf (0-2); WBC Urine 0-4 /hpf (0-5)
[2024-03-10 17:21] LABS: Add Urine Culture? Yes
[2024-03-10 17:52] VITALS: BP 143/90; PULSE 72; RESP 16; TEMP 36.8; O2SAT 98
--- NOTE | 2024-03-10 18:45 | PC.NURSE ---
Patient denies any past or current psychiatric meds
[2024-03-10 19:31] VITALS: BP 115/79; PULSE 73; RESP 16; TEMP 36.7; O2SAT 99
[2024-03-11 06:00] VITALS: BP 113/78; PULSE 92; RESP 16; TEMP 36.7; O2SAT 98
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
[2024-03-11 14:00] VITALS: BP 104/61; PULSE 85; RESP 16; TEMP 36.6; O2SAT 98
[2024-03-11] MEDS: fluoxetine 10 mg Capsule 20 MG PO (15:59)
[2024-03-11] MEDS: ibuprofen 600 mg Tablet PO (17:44)
[2024-03-11 19:41] VITALS: BP 123/73; PULSE 77; RESP 16; TEMP 36.7; O2SAT 97
[2024-03-12 06:00] VITALS: BP 103/66; PULSE 74; RESP 15; TEMP 36.5; O2SAT 98
[2024-03-12] MEDS: fluoxetine 20 mg Capsule PO (08:54)
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
[2024-03-12 13:55] VITALS: BP 103/66; PULSE 74; RESP 15; TEMP 36.5; O2SAT 98
[2024-03-12 14:00] VITALS: BP 122/82; PULSE 80; RESP 16; TEMP 36.5; O2SAT 98
== END 2024-03-12 15:55 | disposition home or self-care (01) | DRG 880 ==
LOC: ER 16:00 → NP 16:15
PROVIDERS: Admitting Provider Psychiatry & Neurology Psychiatry; Emergency Provider Family Medicine; PCP Family Medicine; Visit Provider Psychiatry & Neurology Psychiatry
DX: F41.1 Generalized anxiety disorder (principal); R45.851 Suicidal ideations; Z91.52 Personal history of nonsuicidal self-harm
CPT/HCPCS: 36415; 80053; 80306; 80307; 81001; 81025; 85025; 87086; 97150; 97165; 99285

== ENCOUNTER → 2024-09-20 18:45 | Outpatient (BNVA) | payer MEDICAID, SELFPAY ==
[2024-03-13 11:29] VITALS: BP 133/85; BMI 39.5
== END ==
PROVIDERS: Visit Provider Emergency Medicine
DX: J02.9 Acute pharyngitis, unspecified (principal)
CPT/HCPCS: 87071; 87880

== ENCOUNTER 2025-06-19 15:19 | Emergency (ER) | payer MEDICAID, SELFPAY ==
--- OUTSIDE RECORDS SUMMARY | 2020-08-25 01:19 | XMS_ITS | Continuity of Care Document ---
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 real-time communication between the patient and the provider. Consent for telephonic visit was obtained in advance. The patient has given consent for this visit.[facility] time: 2:21Stop time: 2:3211 minutesPt to use OTC vaginal lubricant as needed.Continue to monitor. If symptoms do not resolve in a few months pt to RTC for hormone labs.Call sooner with questions or concerns. Related to Vaginal dryness Pelvic US ordered. P t will be notified of results.Referral to gynecology at [facility] will be sent after receiving US results.Call sooner with questions or concerns. Related to Dysmenorrhea I reviewed patient's chart including previous progress notes, lab data and nursing notes. We spoke about the risks and benefits of changes being made in medications, including possible drug/drug interactions and potential side effects. I explained the reason for the changes, i.e. better genetic match, different side effect profile and targeted symptoms. I explained other treatment options available. We also spoke about life style changes, including diet, exercise and substance abuse. Lastly we spoke about continuing the treatment plan and what to do if conditions worsen.F/U in 2 months Related to Severe episode of recurrent major depressive disorder, without psychotic features UA done and WNL. Uri ne preg neg.Yoga, massage and stretching.Ibuprofen 600mg TID with food and muscle cream.Make appt with PCP for follow up. Related to Back muscle spasm Promethazine sent to pharmacy.Most likely viral and antibiotics not indicated at this time.Pt may continue to use OTC cold relief and Tylenol/ibuprofen for symptom management.Pt may use warm salt water gargles, saline nasal flushes, and cool mist vaporizer for symptom management.Pt to eat bland diet until symptoms resolve.Increase fluid intake and rest. Monitor I&O.F/U as needed. Related to Gastroenteritis Dietary management e ducation, guidance, and counseling Related to Gastroenteritis Patient advised about exercise R elated to Gastroenteritis Weight control education Related to Gastroenteritis I reviewed patient's chart including previous progress notes, lab data and nursing notes. We spoke about the risks and benefits of changes being made in medications, including possible drug/drug interactions and potential side effects. I explained the reason for the changes, i.e. better genetic match, different side effect profile and targeted symptoms. I explained other treatment options available. We also spoke about life style changes, including diet, exercise and substance abuse. Lastly we spoke about continuing the treatment plan and what to do if conditions worsen.F/U in 4-6 weeks Related to Severe episode of recurrent major depressive disorder, without psychotic features Area on heel of left foot has improved with cryotherapy.Pt to decide next month if she would like a 2nd treatment.F/U as needed.Call sooner with questions or concerns. Related to Plantar wart of left foot See #1 above. Related to Enc nter for therapeutic drug level monitoring Pt was started on li thium 300mg BID and venlafaxine ER 150mg in the morning at her inpatient psychiatric stay last week. Abilify and Viibryd were stopped there as well.[place] level drawn today.Pt to F/U with Dr. Ruby for medication management on 11/13/2018.Pt to continue counseling and is scheduled on 11/17/2018. Discussed sources of support and positive coping skills pt can utilize to better manage depression and anxiety. Pt agrees to call 911 or go to the nearest emergency room with concern for harm to self or others. F/U in 1 month.Call sooner with questions or concerns. Related to Moderate episode of recurrent major depressive disorder I reviewed patient's chart including previous progress notes, lab data and nursing notes. We spoke about the risks and benefits of changes being made in medications, including possible drug/drug interactions and potential side effects. I explained the reason for the changes, i.e. better genetic match, different side effect profile and targeted symptoms. I explained other treatment options available. We also spoke about life style changes, including diet, exercise and substance abuse. Lastly we spoke about continuing the treatment plan and what to do if conditions worsen.Continue ViibrydStart AbilifyF/U in 4-6 weeks Patient was seen today for greater than 20 minutes. Over 50% of visit was spent in counseling or care coordination with focus being on diagnosis, treatment options and importance of self care Related to Severe episode of recurrent major depressive disorder, without psychotic features Pt reports episodes of nausea, sweating, and lightheadedness 1-2x/month only while at work. Pt reports episodes last approximately 30 minutes and resolve with rest.Pt to check BP readings during episode.Pt encouraged to eat a healthy diet and stay well hydrated drinking at least 64oz of water daily.F/U as needed.Call sooner with questions or concerns. Related to Nausea UPT today is negativ e.Pt to stop oral contraception and start transdermal patch for contraception.Discussed the risks and benefits of transdermal contraception.Education given on the need to use alternate form of control for the first week of using transdermal patches.F/U as needed.Call sooner with questions or concerns. Related to Encounter for initial prescription of transdermal patch hormonal contraceptive device Area treated with li quid nitrogen.Keep area clean and dry. May add padding or donut shaped cushioning to inside shoe.Pt to RTC in 2-4 weeks if further treatment is needed.Call sooner with questions or concerns. Related to Plantar wart of left foot Weight control education Related to Severe episode of recurrent major depressive disorder, without psychotic features Weight control education Related to Nausea Patient advised about exercise R elated to Nausea Dietary management e ducation, guidance, and counseling Related to Nausea I reviewed patient's chart including previous progress notes, lab data and nursing notes. We spoke about the risks and benefits of changes being made in medications, including possible drug/drug interactions and potential side effects. I explained the reason for the changes, i.e. better genetic match, different side effect profile and targeted symptoms. I explained other treatment options available. We also spoke about life style changes, including diet, exercise and substance abuse. Lastly we spoke about continuing the treatment plan and what to do if conditions worsen.Continue ViibrydStart AbilifyF/U in 3-4 weeks Related to Severe episode of recurrent major depressive disorder, without psychotic features Mental health care education Rel ated to Severe episode of recurrent major depressive disorder, without psychotic features Weight control education Related to Severe episode of recurrent major depressive disorder, without psychotic features Most likely viral an d antibiotics not indicated at this time.Pt may continue to use OTC cold relief and Tylenol/ibuprofen for symptom management.Increase fluid intake and rest. Monitor I&O. Education given on signs of dehydration and when to go to the ER.Eat a bland diet until symptoms resolve.F/U as needed. Related to Non-intractable vomiting with nausea, unspecified vomiting type Weight control education Related to Non-intractable vomiting with nausea, unspecified vomiting type Patient advised about exercise R elated to Non-intractable vomiting with nausea, unspecified vomiting type Dietary management e ducation, guidance, and counseling Related to Non-intractable vomiting with nausea, unspecified vomiting type Pt previously seen b y PCP at [facility].Pt would like to establish at [facility] in [place].Pt to return for wellness labs. Pt will be contacted with results. Education given on the importance of healthy low carb diet and exercise.F/U in 6 months.Call sooner with questions or concerns. Related to Encounter to establish care Pt to use nystatin p owder in groin area twice daily until rash resolved.F/U as needed.Call sooner with questions or concerns. Related to Shayla rash of groin See #3 above. Related to Pain in left foot Skelaxin PRN for mus stuart spasms.Pt given information about PT available at [facility].F/U as needed.Call sooner with questions or concern. Related to Back muscle spasm X-rays ordered. Pt w ill be notified of results.Will discuss possible referral to podiatry after X-ray results received.Pt handout given on heel pain.F/U as needed.Call sooner with questions or concerns. Related to Heel pain, bilateral Pt given sample of V iibryd.Pt has tried Zoloft, Effexor, and Remeron in the past but all 3 increased her suicidal ideation so medications were stopped.[facility] genetic testing collected today.Referral given to [facility] for psychological evaluation for possible bipolar disorder and for counseling. Discussed sources of support and positive coping skills pt can utilize to better manage depression and anxiety. Pt agrees to call 911 or go to the nearest emergency room with concern for harm to self or others.F/U in 1 month.Call sooner with questions or concerns. Related to Moderate episode of recurrent major depressive disorder Patient advised about exercise R elated to Encounter to establish care Weight control education Related to Encounter to establish care Mental health care education Rel ated to Moderate episode of recurrent major depressive disorder Dietary management e ducation, guidance, and counseling Related to Encounter to establish care Assessments Type Assessment Date No Information Patient Care Teams Name Effective Dates (start - stop) Status Members No Information
[2024-03-13 11:29] VITALS: BP 133/85; BMI 39.5
--- OUTSIDE RECORDS SUMMARY | 2025-06-15 08:20 | XMS_ITS | Encounter Summary ---
Author Organization [facility] Address [address] [place] [address] Care Team Providers Care Fourdrinier Machine Operator Name Role Phone Armando Ngo MD Primary Care Provider +1 [phone] Reason for Visit * Reason Comments ER Follow Up Seen in ER on d ay and was told that she was slightly dehydrated - been trying to drink liquid IV - states she gags with trying to drink anything - legs cramping Encounter Details Date Type Department Care Team (Late st Contact Info) Description 06/15/2025 8:20 AM CDT Office Visit [facility] [address] [address] Albertina Kahn, [address] [address] Nausea (Primary Dx) Social History Tobacco Use Types Packs/Day Years Used Date Smoking Tobacco: Former Cigarettes Q uit: 09/18/2016 Passive Smoke Exposure: Past Smokeless Tobacco: Never Alcohol Use Standard Drinks/Week Comments Yes 0 (1 standard drink = 0.6 oz pur e alcohol) rarely Comments No Sex and Gender Information Value Date Recorded Sex Assigned at Not on file Legal Sex Female 6:37 AM NURSERY ATTENDANT Gender Identity Not on file Sexual Orientation Not on file documented as of this encounter Last Filed Vital Signs Vital Sign Reading Time Taken Comments Blood Pressure 110/78 06/15/2025 8:16 AM CDT Pulse 107 06/15/2025 8:16 AM CDT Temperature 36.7 C (98 F) 06/15/2025 8:16 AM CDT Respiratory Rate 26 06/15/2025 8:16 AM CDT Oxygen Saturation 100% 06/15/2025 8:16 AM CDT Inhaled Oxygen Concentration - - Weight 89.7 kg (197 lb 12.8 oz) 06/15/2025 8:16 AM CDT Height 157.5 cm (5' 2 ) 06/15/2025 8:16 AM CDT Body Mass Index 36.18 06/15/2025 8:16 AM CDT documented in this encounter Progress Notes * Albertina Kahn, PEACE - 06/15/2025 8:32 AM CDT [facility] 06/15/2025 Subjective: Catalina Mcbride is a 30 y.o. female who comes today for evaluation of ER Follow Up (Seen in ER on Saturday and was told that she was slightly dehydrated - been trying to drink liquid IV - states she gags with trying to drink anything - legs cramping ) . History of Present Illness The patient is a 30-year-old female presenting with concerns of dehydration. She was previously seen at the ER in [facility] and has been consuming Liquid I.V. She reports experiencing symptoms of dehydration, including a lack of urination on Saturday, which is unusual for her. She sought medical attention at the hospital where she was diagnosed with moderate dehydration. She acknowledges not consuming enough fluids and has since purchased a water bottle that tracks her water intake. Yesterday, she began experiencing muscle cramps in her legs and feet. She also reports feeling faint while cooking and experiencing nausea within 2 hours of eating. This morning, she attempted to drink water but ended up gagging and vomiting. The smell of food also triggered her gag reflex. She has Zofran at home but has not taken it yet. She continues to feel fatigued and has a headache. She received a bag of fluid and some water at the hospital, which alleviated her headache and made her feel well enough to drive home. She has Gatorade at home. She had a test this morning, which was negative. Her last menstrual period was in 05/2025. She got a tattoo on Saturday, which does not appear to be infected. She plans to remove the bandage in the shower today and keep it clean. She is considering wrapping it again tomorrow as she has to work and does not want anyone to touch it. She reports no fevers. She underwent a urine test at the ER. GYNECOLOGICAL HISTORY: - Last Menstrual Period: 05/2025 Review of Systems Constitutional: Positive for malaise/fatigue. Negative for chills and fever. HENT: Negative for congestion, ear pain and sore throat. Eyes: Negative for blurred vision. Respiratory: Negative for cough and shortness of breath. Cardiovascular: Negative for chest pain. Gastrointestinal: Positive for nausea. Negative for abdominal pain, constipation, diarrhea and vomiting. Genitourinary: Negative for dysuria and urgency. Musculoskeletal: Negative for joint pain and myalgias. Neurological: Negative for dizziness and headaches. All other systems reviewed and are negative. Objective: Vitals: 06/15/25 0816 Temp: 98 ??F (36.7 ??C) Pulse: (!) 107 BP: 110/78 Resp: 26 SpO2: 100% Physical Exam Past medical history, surgical history and social history reviewed. Past Medical History: Diagnosis Date Allergy Asthma Attention deficit disorder with hyperactivity(314.01) Clavicle fracture left GERD (gastroesophageal reflux disease) Heart disease Nausea Panic attacks Pneumonia Psychiatric disorder Uses control Procedures Assessment/Plan: ICD-10-CM ICD-9-CM 1. Nausea R11.0 787.02 CBC WITH DIFFERENTIAL COMPREHENSIVE METABOLIC PANEL MAGNESIUM LEVEL HCG QUALITATIVE, BLOOD ondansetron (ZOFRAN) 4 mg/2 mL injection 2 mg Assessment & Plan 1. Dehydration. - Symptoms include decreased urine output, headache, fatigue, nausea, and vomiting. - Physical exam findings include no fever and negative test. Labs ordered: CBC, CMP, magnesium, and quantitative hCG. - Discussed potential stomach bug contributing to nausea and vomiting. Advised small sips of sportsdrinks like Gatorade or Propel. - Administered Zofran injection. Patient advised to take another tablet in 8 hours and before getting out of bed tomorrow morning. 2. Muscle cramps. - Reports charley horses in legs and feet. - Electrolyte levels will be checked with today's lab work. - Discussed potential electrolyte imbalance related to dehydration. - Supplementation will be considered based on lab results. PROCEDURE Procedure: Zofran injection - Procedural Discussion: Discussed administering a shot of Zofran to help alleviate nausea. The patient was informed about the medication's effectiveness in preventing nausea and its use in treating existing nausea. - Medication: Zofran - Technique: Administered Zofran injection. - Post-Procedural Discussion: Patient was advised to take a tablet of Zofran again in 8 hours and to drink fluids in small sips throughout the day. PEACE Yee- This note was automatically generated by a [employer] technology (Teamisto), reviewed, edited, and finalized by PEACE Yee. The author of this note, patient (or authorized utility sales representative), and all other persons present consent to the audio recording of this visit for charting documentation purposes. documented in this encounter Plan of Treatment Upcoming Encounters Date Type Department Care Team (Late st Contact Info) Description 08/27/2025 3:40 PM CDT Office Visit [address] [address] Gege Panda FNP [address] [address] 11/23/2025 3:30 PM NURSERY ATTENDANT Appointment [facility] Neurology [facility] [address] [phone] Sylvester Hooker MD [address] [place] [id number] 12/03/2025 11:00 AM NURSERY ATTENDANT Office Visit [address] [address] Gege Panda FNP [address] [address] documented as of this encounter Procedures Procedure Name Priority Date/Time Associated Diagnosis Comments HCG QUALITATIVE, SERUM Routine 9:07 AM CDT Nausea CBC WITH DIFFERENTIAL Stat 06/15/2025 9:07 AM CDT Nausea MAGNESIUM LEVEL Routine 06/15/2025 9:07 AM CDT Nausea COMPREHENSIVE METABOLIC PANEL Stat 06/15/2025 9:07 AM CDT Nausea documented in this encounter Results * HCG QUALITATIVE, BLOOD (06/15/2025 9:07 AM CDT) HCG QUAL, BLOOD NEGATIVE See Note: [facility] Comment: Reference Range: Reference Range Non-: Negative : Positive Test Performed at: [facility] [address] [place] [phone] Elisha Gant MD Blood 06/15/2025 9:07 AM CDT 06/16/2025 4:25 AM CDT lAbertina HAND CHEMISTRY ORDERABLES Final Result Performing Organization Address City/[facility]/ZIP Co de Phone Number [facility] [phone] [facility] [address] [place] [address] * MAGNESIUM LEVEL (06/15/2025 9:07 AM CDT) Pathologist [facility] MAGNESIUM 2.3 1.5 - 2.5 mg/dL [facility] Comment: Test Performed at: [facility] [address] [place] [address] Elisha Gant MD Blood 06/15/2025 9:07 AM CDT 06/16/2025 4:25 AM CDT Albertina HAND CHEMISTRY ORDERABLES Final Result [facility] [phone] [facility] [address] [place] [address] * (ABNORMAL) COMPREHENSIVE METABOLIC PANEL (06/15/2025 9:07 AM CDT) GLUCOSE 85 65 - 99 mg/dL [facility] Comment: Fasting reference interval BUN 10 7 - 25 mg/dL [facility] CREATININE 0.69 0.50 - 0.96 mg/dL [facility] GFR 120 > OR = 60 mL/min/1. 73m2 [facility] BUN/CREAT RATIO SEE NOTE: 6 - 22 (calc) [facility] Comment: Not Reported: BUN and Creatinine are within reference range. SODIUM 137 135 - 146 mmol/L [facility] POTASSIUM 4.4 3.5 - 5.3 mmol/L [facility] CHLORIDE 104 98 - 110 mmol/L [facility] CO2 24 20 - 32 mmol/L [facility] CALCIUM 9.3 8.6 - 10.2 mg/dL [facility] TOTAL PROTEIN 7.3 6.1 - 8.1 g/dL [facility] ALBUMIN 4.1 3.6 - 5.1 g/dL [facility] GLOBULIN 3.2 1.9 - 3.7 g/dL (calc) [facility] ALBUMIN/GLOBULIN RATIO 1.3 1.0 - 2.5 (calc) [facility] BILIRUBIN TOTAL 0.3 0.2 - 1.2 mg/dL [facility] ALKALINE PHOSPHATASE 77 31 - 125 U/L [facility] AST 20 10 - 30 U/L [facility] ALT 30(H) 6 - 29 U/L [facility] Comment: Test Performed at: [facility] [address] [place] [address] Elisha Gant MD Blood 06/15/2025 9:07 AM CDT 06/16/2025 4:25 AM CDT us Albertina Ligia Kahn NEW CAR MAKE READY WORKER CHEMISTRY ORDERABLES Final Result [facility] [phone] [facility] [address] [address] * (ABNORMAL) CBC WITH DIFFERENTIAL (06/15/2025 9:07 AM CDT) WBC 5.8 3.8 - 10.8 Thousand/u L [facility] RBC 4.88 3.80 - 5.10 Million/uL [facility] HEMOGLOBIN 12.7 11.7 - 15.5 g/dL [facility] HEMATOCRIT 40.9 35.0 - 45.0 % [facility] MCV 83.8 80.0 - 100.0 fL [facility] MCH 26.0(L) 27.0 - 33.0 pg [facility] MCHC 31.1(L) 32.0 - 36.0 g/dL [facility] Comment: For adults, a slight decrease in the calculated MCHC value (in the range of 30 to 32 g/dL) is most likely not clinically significant; however, it should be interpreted with caution in correlation with other red cell parameters and the patient's clinical condition. RDW 15.8(H) 11.0 - 15.0 % [facility] PLATELETS 296 140 - 400 Thousand/u L [facility] MPV 9.8 7.5 - 12.5 fL [facility] NEUTROPHIL ABSOLUTE 3,915 1,500 - 7,800 cells/uL [facility] LYMPHOCYTE ABSOLUTE 1,404 850 - 3,900 cells/uL [facility] MONOCYTE ABSOLUTE 371 200 - 950 cells/uL [facility] EOSINOPHIL ABSOLUTE 81 15 - 500 cells/uL [facility] BASOPHILS ABSOLUTE 29 0 - 200 cells/uL [facility] NEUTROPHIL 67.5 % [facility] LYMPHOCYTES 24.2 % [facility] MONOCYTE 6.4 % [facility] EOSINOPHILS 1.4 % [facility] BASOPHILS 0.5 % [facility] Comment: Test Performed at: [facility] [address] [place] [address] Elisha Gant MD Blood 06/15/2025 9:07 AM CDT 06/16/2025 4:25 AM CDT Albertina Strong Femi NEW CAR MAKE READY WORKER HEMATOLOGY ORDERABLES Final Result [facility] [phone] [facility] [address] [place] [address] documented in this encounter Visit Diagnoses Diagnosis Nausea- Primary Nausea alone documented in this encounter Administered Medications Inactive Administered Medications - up to 3 most recent administrations Medication Order MAR Action Action Date Dose Rate Site ondansetron (ZOFRAN) 4 mg/2 mL injection 2 mg 2 mg, IM, ONE TIME ONLY, 1 dose, On Sat06/15/25 at 0845, RoutineIndications:Nause a Given 06/15/2025 10:00 AM CDT 2 mg Vastus Lateralis, Right documented in this encounter Care Teams Fourdrinier Machine Operator Relationship Specialty Start Date End Date Armando Ngo MD [address] [address] PCP - General Family Practice 07/17/18 documented as of this encounter
[2025-06-19 15:23] VITALS: BP 127/90; PULSE 83; RESP 16; TEMP 36.7; O2SAT 100; BMI 36.2
--- OUTSIDE RECORDS SUMMARY | 2025-06-19 15:25 | XMS_ITS | Encounter Summary ---
Author Organization [facility] Address [address] [place] [address] Care Team Providers Care Administrative Support Assistant Name Role Phone Armando Ngo MD Primary Care Provider +1 [phone] Encounter Details Date Type Department Care Team (Latest Contact Info) Description 03/09/2002 Outpatient Historical [facility] [address] [place] [address] Lionel Russell DO NO ADDRESS ON FILE URIN TRACT INFECTION NOS (Primary Dx); ALLERGY, UNSPECIFIED Social History Tobacco Use Types Packs/Day Years Used Date Smoking Tobacco: Never Assessed Comments Unknown Sex and Gender Information Value Date Recorded Sex Assigned at Not on file Legal Sex Female 5:35 AM CARDIOTHORACIC SURGEON Gender Identity Not on file Sexual Orientation Not on file documented as of this encounter Plan of Treatment Not on file documented as of this encounter Visit Diagnoses Diagnosis Urinary tract infection, site not specified- Primary Allergy, unspecified not elsewhere classified documented in this encounter Additional Health Concerns Infection Onset Date Last Indicated Resolved Time R/O COVID-19 09/18/2020 09/18/2020 09/20/2020 12:3 2 AM CARDIOTHORACIC SURGEON documented as of this encounter Care Teams Administrative Support Assistant Relationship Specialty Start Date End Date Armando Ngo MD [address] [place] [phone] PCP - General Family Practice 07/17/18 documented as of this encounter
--- OUTSIDE RECORDS SUMMARY | 2025-06-19 15:25 | XMS_ITS | Encounter Summary ---
Author Organization [facility] Address [address] [place] [address] Care Team Providers Care Commercial Project Manager Name Role Phone Armando Ngo MD Primary Care Provider +1 -[phone] Encounter Details Date Type Department Care Team (Late st Contact Info) Description 09/23/2000 Outpatient Historical [facility], [address] [place] [address] Allergic rhinitis due to other allergen (Primary Dx) Social History Tobacco Use Types Packs/Day Years Used Date Smoking Tobacco: Never Assessed Comments Unknown Sex and Gender Information Value Date Recorded Sex Assigned at Not on file Legal Sex Female 5:35 AM ARMORED CAR DRIVER Gender Identity Not on file Sexual Orientation Not on file documented as of this encounter Plan of Treatment Not on file documented as of this encounter Visit Diagnoses Diagnosis Allergic rhinitis due to other allergen- Primary documented in this encounter Additional Health Concerns Infection Onset Date Last Indicated Resolved Time R/O COVID-19 09/18/2020 09/18/2020 09/20/2020 12:3 2 AM ARMORED CAR DRIVER documented as of this encounter Care Teams Commercial Project Manager Relationship Specialty Start Date End Date Armando Ngo MD [address] [place] [phone] PCP - General Family Practice 07/17/18 documented as of this encounter
--- OUTSIDE RECORDS SUMMARY | 2025-06-19 15:25 | XMS_ITS | Encounter Summary ---
Author Organization [facility] Address [address] [place] [address] Care Team Providers Care Associate Director Of Biostatistics Name Role Phone Armando Ngo MD Primary Care Provider +1 [phone] Encounter Details Date Type Department Care Team (Latest Contact Info) Description 07/03/2002 Outpatient Historical [facility] [address] [place] [address] Amy Liu MD NO ADDRESS ON FILE ACUTE URI NOS (Primary Dx); ACUTE PHARYNGITIS Social History Tobacco Use Types Packs/Day Years Used Date Smoking Tobacco: Never Assessed Comments Unknown Sex and Gender Information Value Date Recorded Sex Assigned at Not on file Legal Sex Female 5:35 AM MUSIC EXECUTIVE Gender Identity Not on file Sexual Orientation Not on file documented as of this encounter Plan of Treatment Not on file documented as of this encounter Visit Diagnoses Diagnosis Acute upper respiratory infections of unspecified site- Primary Acute pharyngitis documented in this encounter Additional Health Concerns Infection Onset Date Last Indicated Resolved Time R/O COVID-19 09/18/2020 09/18/2020 09/20/2020 12:3 2 AM MUSIC EXECUTIVE documented as of this encounter Care Teams Associate Director Of Biostatistics Relationship Specialty Start Date End Date Armando Ngo MD [address] [place] [phone] PCP - General Family Practice 07/17/18 documented as of this encounter
--- OUTSIDE RECORDS SUMMARY | 2025-06-19 15:25 | XMS_ITS | Encounter Summary ---
Author Organization [facility] Address [address] Kang: [place] [address] Care Team Providers Care Senior Analysis Specialist Name Role Phone Armando Ngo MD Primary Care Provider +1 [phone] Encounter Details Date Type Department Care Team (Late st Contact Info) Description 03/11/2002 Outpatient Historical Chela Dukes, [facility] [employer] [address] [place] [address] Social History Tobacco Use Types Packs/Day Years Used Date Smoking Tobacco: Never Assessed Comments Unknown Sex and Gender Information Value Date Recorded Sex Assigned at Not on file Legal Sex Female 5:35 AM SOFTWARE PROJECT ENGINEER Gender Identity Not on file Sexual Orientation Not on file documented as of this encounter Plan of Treatment Not on file documented as of this encounter Visit Diagnoses Not on filedocumented in this encounter Additional Health Concerns Infection Onset Date Last Indicated Resolved Time R/O COVID-19 09/18/2020 09/18/2020 09/20/2020 12:3 2 AM SOFTWARE PROJECT ENGINEER documented as of this encounter Care Teams Senior Analysis Specialist Relationship Specialty Start Date End Date Armando Ngo MD [address] [place] [phone] PCP - General Family Practice 07/17/18 documented as of this encounter
--- OUTSIDE RECORDS SUMMARY | 2025-06-19 15:25 | XMS_ITS | Encounter Summary ---
Author Organization [facility] Address [address] [place] [address] Care Team Providers Care Toolroom Checker Name Role Phone Armando Ngo MD Primary Care Provider +1 [phone] Encounter Details Date Type Department Care Team (Late st Contact Info) Description 03/27/1999 Outpatient [place] [address] [place] [address] Candidiasis of mouth (Primary Dx) Social History Tobacco Use Types Packs/Day Years Used Date Smoking Tobacco: Never Assessed Comments Unknown Sex and Gender Information Value Date Recorded Sex Assigned at Not on file Legal Sex Female 5:35 AM ASSURANCE MANAGER Gender Identity Not on file Sexual Orientation Not on file documented as of this encounter Plan of Treatment Not on file documented as of this encounter Visit Diagnoses Diagnosis Candidiasis of mouth- Primary documented in this encounter Additional Health Concerns Infection Onset Date Last Indicated Resolved Time R/O COVID-19 09/18/2020 09/18/2020 09/20/2020 12:3 2 AM ASSURANCE MANAGER documented as of this encounter Care Teams Toolroom Checker Relationship Specialty Start Date End Date Armando Ngo MD [address] [place] [address] PCP - General Family Practice 07/17/18 documented as of this encounter
--- OUTSIDE RECORDS SUMMARY | 2025-06-19 15:25 | XMS_ITS | Encounter Summary ---
Author Organization [facility] Address [address] [place] [address] Care Team Providers Care Kettle Girl Name Role Phone Armando Ngo MD Primary Care Provider +1 [phone] Encounter Details Date Type Department Care Team (Latest Contact Info) Description 04/24/2004 Outpatient Historical [facility] Family Medicine- [place] [address] [facility] [place] [phone] Amy Liu MD NO ADDRESS ON FILE URIN TRACT INFECTION NOS (Primary Dx) Social History Tobacco Use Types Packs/Day Years Used Date Smoking Tobacco: Never Assessed Comments Unknown Sex and Gender Information Value Date Recorded Sex Assigned at Not on file Legal Sex Female 5:35 AM CURING FINISHER Gender Identity Not on file Sexual Orientation Not on file documented as of this encounter Plan of Treatment Not on file documented as of this encounter Visit Diagnoses Diagnosis Urinary tract infection, site not specified- Primary documented in this encounter Additional Health Concerns Infection Onset Date Last Indicated Resolved Time R/O COVID-19 09/18/2020 09/18/2020 09/20/2020 12:3 2 AM CURING FINISHER documented as of this encounter Care Teams Kettle Girl Relationship Specialty Start Date End Date Armando Ngo MD [address] [place] [phone] PCP - General Family Practice 07/17/18 documented as of this encounter
--- OUTSIDE RECORDS SUMMARY | 2025-06-19 15:25 | XMS_ITS | Encounter Summary ---
Author Organization [facility] Address [address] [place] [address] Care Team Providers Care Plumbing And Heating Mechanic Name Role Phone Armando Ngo MD Primary Care Provider +1 [phone] Encounter Details Date Type Department Care Team (Latest Contact Info) Description 06/26/2004 Outpatient Historical [facility] [address] [place] [address] Chela Dukes, [facility]ACT[facility] RN [address] [place] [phone] MED EXAM NEC-ADMIN PURP (Primary Dx) Social History Tobacco Use Types Packs/Day Years Used Date Smoking Tobacco: Never Assessed Comments Unknown Sex and Gender Information Value Date Recorded Sex Assigned at Not on file Legal Sex Female 5:35 AM REVERSE UNIT OPERATOR FISHERMAN Gender Identity Not on file Sexual Orientation Not on file documented as of this encounter Plan of Treatment Not on file documented as of this encounter Visit Diagnoses Diagnosis Other general medical examination for administrative purposes- Primary documented in this encounter Additional Health Concerns Infection Onset Date Last Indicated Resolved Time R/O COVID-19 09/18/2020 09/18/2020 09/20/2020 12:3 2 AM REVERSE UNIT OPERATOR FISHERMAN documented as of this encounter Care Teams Plumbing And Heating Mechanic Relationship Specialty Start Date End Date Armando Ngo MD [address] [phone] PCP - General Family Practice 07/17/18 documented as of this encounter
--- OUTSIDE RECORDS SUMMARY | 2025-06-19 15:25 | XMS_ITS | Encounter Summary ---
Author Organization [facility] Address [address] [place] [address] Care Team Providers Care Cod Clerk Name Role Phone Armando Ngo MD Primary Care Provider [phone] [phone] Encounter Details Date Type Department Care Team (Late st Contact Info) Description 04/22/2001 Outpatient [place] [address] [place] [address] Bronchitis, not specified as acute or chronic (Primary Dx); Acute upper respiratory infections of other multiple sites Social History Tobacco Use Types Packs/Day Years Used Date Smoking Tobacco: Never Assessed Comments Unknown Sex and Gender Information Value Date Recorded Sex Assigned at Not on file Legal Sex Female 5:35 AM DATA OFFICER Gender Identity Not on file Sexual Orientation Not on file documented as of this encounter Plan of Treatment Not on file documented as of this encounter Visit Diagnoses Diagnosis Bronchitis, not specified as acute or chronic- Primary Acute upper respiratory infections of other multiple sites documented in this encounter Additional Health Concerns Infection Onset Date Last Indicated Resolved Time R/O COVID-19 09/18/2020 09/18/2020 09/20/2020 12:3 2 AM DATA OFFICER documented as of this encounter Care Teams Cod Clerk Relationship Specialty Start Date End Date Armando Ngo MD [address] [phone] PCP - General Family Practice 07/17/18 documented as of this encounter
--- OUTSIDE RECORDS SUMMARY | 2025-06-19 15:25 | XMS_ITS | Encounter Summary ---
Author Organization [facility] Address [address] [place] [address] Care Team Providers Care Green Chain Offbearer Name Role Phone Armando Ngo MD Primary Care Provider +1 [phone] Reason for Visit * Reason Onset Date Comments Urinary Frequency 02/19/2023 Encounter Details Date Type Department Care Team (Late st Contact Info) Description 02/19/2023 Telephone [facility] [address] [facility] [address] [place] [address] Armando Ngo MD [address] [place] [address] Urinary Frequency Social History Tobacco Use Types Packs/Day Years Used Date Smoking Tobacco: Former Cigarettes Q uit: 09/18/2016 Smokeless Tobacco: Never Alcohol Use Standard Drinks/Week Comments No 0 (1 standard drink = 0.6 oz pur e alcohol) Comments No Sex and Gender Information Value Date Recorded Sex Assigned at Not on file Legal Sex Female 6:37 AM SECONDARY CONNECTOR ARMATURE Gender Identity Not on file Sexual Orientation Not on file COVID-19 Exposure Response Date Recorded In the last 10 days, have yo u been in contact with someone who was confirmed or suspected to have Coronavirus/COVID-19? No / Unsure 02/19/2023 10:36 AM CDT documented as of this encounter Miscellaneous Notes * Telephone Encounter - Karmen Narayan LPN - 02/19/2023 8:24 AM CDT No appointments available today. Do you want to treat? Karmen Narayan LPN, 02/19/2023 8:24 AM * Telephone Encounter - Velia Irving - 02/19/2023 8:18 AM CDT Medication Request Medication for UTI Sample Preferred Pharmacy: [facility] in [place] Date of last encounter: 10/17/2022 Next Appointment: Visit date not found Patient Contact Information: Home Phone Work Phone documented in this encounter Plan of Treatment Upcoming Encounters Date Type Department Care Team (Late st Contact Info) Description 08/27/2025 3:40 PM CDT Office Visit [address] [address] Gege Panda [facility] [address] [address] 11/23/2025 3:30 PM SECONDARY CONNECTOR ARMATURE Appointment [facility] Neurology [facility] [address] [address] Sylvester Hooker MD [address] [place] [address] 12/03/2025 11:00 AM SECONDARY CONNECTOR ARMATURE Office Visit [address] [address] Gege Panda FNP [address] [address] documented as of this encounter Visit Diagnoses Not on filedocumented in this encounter Additional Health Concerns Infection Onset Date Last Indicated Resolved Time COVID-19 10/29/2023 10/29/2023 11/18/2023 1:17 AM SECONDARY CONNECTOR ARMATURE R/O COVID-19 07/01/2024 07/01/2024 07/01/2024 11:5 7 PM CDT R/O COVID-19 07/01/2024 07/01/2024 07/02/2024 12:1 9 AM CDT Influenza 12/01/2024 12/01/2024 12/08/2024 1:17 AM SECONDARY CONNECTOR ARMATURE documented as of this encounter Care Teams Green Chain Offbearer Relationship Specialty Start Date End Date Armando Ngo MD [address] [phone] PCP - General Family Practice 07/17/18 documented as of this encounter
--- OUTSIDE RECORDS SUMMARY | 2025-06-19 15:25 | XMS_ITS | Encounter Summary ---
Author Organization [facility] Address [address] [place] [address] Care Team Providers Care V Belt Mold Assembler And Curer Name Role Phone Armando Ngo MD Primary Care Provider +1 [phone] Reason for Visit * Reason Comments Clinical Consult Before Scheduling Encounter Details Date Type Department Care Team (Late st Contact Info) Description 06/14/2025 Nurse Triage [facility] Medicine [address] [address] Armando Ngo MD [address] [address] Social History Tobacco Use Types Packs/Day Years Used Date Smoking Tobacco: Former Cigarettes Q uit: 09/18/2016 Passive Smoke Exposure: Past Smokeless Tobacco: Never Alcohol Use Standard Drinks/Week Comments Yes 0 (1 standard drink = 0.6 oz pur e alcohol) rarely Comments No Sex and Gender Information Value Date Recorded Sex Assigned at Not on file Legal Sex Female 6:37 AM PELLETISING EXTRUDER OPERATOR Gender Identity Not on file Sexual Orientation Not on file documented as of this encounter Miscellaneous Notes * Telephone Encounter - Antoinette Palacio RN - 06/14/2025 3:32 PM CDT DIZZINESS The adult patient complaints of dizziness. How long has patient had symptoms: 2 days. She went to [facility] on Saturday and they gave her IV fluidsand sent her home. She states that she is feeling some better but still feels weak. She was advisedrafael could come to the walk-in clinic this afternoon or she could continue to push fluids and see ifrafael felt better come tomorrow. She is going to continue to push fluids and will call back if symptoms do not improve. Dizziness is best described as: The room spinning (aka vertigo): no OR Lightheaded: yes OR Generalized off balance: no. Any new medications within the last week: No. If patient can't be seen by provider and provider recommends urgent care: [facility] preferable when needed to help to coordinate care. Click, for list of [facility] locations: [email or web address] Designed by [facility] 2019 Reason for Disposition [1] MILD dizziness (e.g., walking normally) AND [2] has been evaluated by doctor (or ELECTROMECHANICAL EQUIPMENT ASSEMBLER/PA) for this Protocols used: Dizziness - [id number] See PCP Within 2 Weeks * Telephone Encounter - Derick Wood - 06/14/2025 3:32 PM CDT Copied from [facility] #[id number]. Topic: Symptomatic Care >> Jun 14, 2025 3:28 PM Derick Palomino wrote: Has this patient seen any provider (current or former) at the requested clinic in the past? Yes, Select the appropriate age range and symptom Patient has symptoms and is seeking care. Caller Name: Catalina Mcbride Callback Number: [phone] Call Notes: Light headed legs are cramping, Feels like she is going to pass out, weak Age Range/Symptom: Adult 18+ - Fainting, passing out, vertigo, dizziness, feeling of nearly passingout, loss of balance Is there an encounter open? No Transferred to N line and Jada answered call. documented in this encounter Plan of Treatment Upcoming Encounters Date Type Department Care Team (Late st Contact Info) Description 08/27/2025 3:40 PM CDT Office Visit [facility] [address] [place] [address] Gege Panda [facility] [address] [place] [address] 11/23/2025 3:30 PM PELLETISING EXTRUDER OPERATOR Appointment [facility] Neurology [facility] [address] [place] [address] Sylvester Hooker MD [address] Narayan [facility] [place] [address] 12/03/2025 11:00 AM PELLETISING EXTRUDER OPERATOR Office Visit [facility] [address] [place] [address] Gege Panda VERIFICATION LEAD [address] [place] [address] documented as of this encounter Visit Diagnoses Not on filedocumented in this encounter Care Teams V Belt Mold Assembler And Curer Relationship Specialty Start Date End Date Armando Ngo MD [address] [place] [address] PCP - General Family Practice 07/17/18 documented as of this encounter
--- OUTSIDE RECORDS SUMMARY | 2025-06-19 15:25 | XMS_ITS | Encounter Summary ---
Author Organization [facility] Address [address] [place] [address] Care Team Providers Care Size Tester Name Role Phone Armando Ngo MD Primary Care Provider +1 [phone] Encounter Details Date Type Department Care Team (Latest Contact Info) Description 07/23/2003 Outpatient Historical [facility] [address] [place] [address] Amy Liu MD NO ADDRESS ON FILE ACUTE TONSILLITIS (Primary Dx); ACUTE PHARYNGITIS Social History Tobacco Use Types Packs/Day Years Used Date Smoking Tobacco: Never Assessed Comments Unknown Sex and Gender Information Value Date Recorded Sex Assigned at Not on file Legal Sex Female 5:35 AM OPTICAL MECHANIC APPRENTICE Gender Identity Not on file Sexual Orientation Not on file documented as of this encounter Plan of Treatment Not on file documented as of this encounter Visit Diagnoses Diagnosis Acute tonsillitis- Primary Acute pharyngitis documented in this encounter Additional Health Concerns Infection Onset Date Last Indicated Resolved Time R/O COVID-19 09/18/2020 09/18/2020 09/20/2020 12:3 2 AM OPTICAL MECHANIC APPRENTICE documented as of this encounter Care Teams Size Tester Relationship Specialty Start Date End Date Armando Ngo MD [address] [place] [address] PCP - General Family Practice 07/17/18 documented as of this encounter
--- OUTSIDE RECORDS SUMMARY | 2025-06-19 15:25 | XMS_ITS | Encounter Summary ---
Author Organization [facility] Address [address] [place] [address] Care Team Providers Care Ecommerce Analyst Name Role Phone Armando gNo MD Primary Care Provider +1 [phone] Encounter Details Date Type Department Care Team (Latest Contact Info) Description 10/24/2001 Outpatient Historical [facility] [address] [place] [address] Chela Dukes, FARMWORKER [employer] [address] [place] [address] MED EXAM NEC-ADMIN PURP (Primary Dx) Social History Tobacco Use Types Packs/Day Years Used Date Smoking Tobacco: Never Assessed Comments Unknown Sex and Gender Information Value Date Recorded Sex Assigned at Not on file Legal Sex Female 5:35 AM ICT PROGRAMMER Gender Identity Not on file Sexual Orientation Not on file documented as of this encounter Plan of Treatment Not on file documented as of this encounter Visit Diagnoses Diagnosis Other general medical examination for administrative purposes- Primary documented in this encounter Additional Health Concerns Infection Onset Date Last Indicated Resolved Time R/O COVID-19 09/18/2020 09/18/2020 09/20/2020 12:3 2 AM ICT PROGRAMMER documented as of this encounter Care Teams Ecommerce Analyst Relationship Specialty Start Date End Date Armando Ngo MD [address] [phone] PCP - General Family Practice 07/17/18 documented as of this encounter
--- OUTSIDE RECORDS SUMMARY | 2025-06-19 15:25 | XMS_ITS | Encounter Summary ---
Author Organization [facility] Address [address] [place] [address] Care Team Providers Care Roller Billet Mill Name Role Phone Armando Ngo MD Primary Care Provider +1 [phone] Encounter Details Date Type Department Care Team (Latest Contact Info) Description 07/31/2002 Outpatient Historical [facility] [address] [place] [address] Rashard Helm MD [address] [phone] ACUTE PHARYNGITIS (Primary Dx) Social History Tobacco Use Types Packs/Day Years Used Date Smoking Tobacco: Never Assessed Comments Unknown Sex and Gender Information Value Date Recorded Sex Assigned at Not on file Legal Sex Female 5:35 AM LAMINATE FLOOR INSTALLER Gender Identity Not on file Sexual Orientation Not on file documented as of this encounter Plan of Treatment Not on file documented as of this encounter Visit Diagnoses Diagnosis Acute pharyngitis- Primary documented in this encounter Additional Health Concerns Infection Onset Date Last Indicated Resolved Time R/O COVID-19 09/18/2020 09/18/2020 09/20/2020 12:3 2 AM LAMINATE FLOOR INSTALLER documented as of this encounter Care Teams Roller Billet Mill Relationship Specialty Start Date End Date Armando Ngo MD [address] [phone] PCP - General Family Practice 07/17/18 documented as of this encounter
--- OUTSIDE RECORDS SUMMARY | 2025-06-19 15:25 | XMS_ITS | Encounter Summary ---
Author Organization [facility] Address [address] [place] [address] Care Team Providers Care Group Supervisor Yard Name Role Phone Armando Ngo MD Primary Care Provider +1 [phone] Encounter Details Date Type Department Care Team (Latest Contact Info) Description 08/21/2002 Outpatient Historical [address] [phone] Amy Liu MD NO ADDRESS ON FILE ACUTE BRONCHITIS (Primary Dx) Social History Tobacco Use Types Packs/Day Years Used Date Smoking Tobacco: Never Assessed Comments Unknown Sex and Gender Information Value Date Recorded Sex Assigned at Not on file Legal Sex Female 5:35 AM PROSPECTING OBSERVER Gender Identity Not on file Sexual Orientation Not on file documented as of this encounter Plan of Treatment Not on file documented as of this encounter Visit Diagnoses Diagnosis Acute bronchitis- Primary documented in this encounter Additional Health Concerns Infection Onset Date Last Indicated Resolved Time R/O COVID-19 09/18/2020 09/18/2020 09/20/2020 12:3 2 AM PROSPECTING OBSERVER documented as of this encounter Care Teams Group Supervisor Yard Relationship Specialty Start Date End Date Armando Nog MD [address] [place] [address] PCP - General Family Practice 07/17/18 documented as of this encounter
--- OUTSIDE RECORDS SUMMARY | 2025-06-19 15:25 | XMS_ITS | Encounter Summary ---
Author Organization [facility] Address [address] [place] [address] Care Team Providers Care Forge Utility Worker Name Role Phone Armando Ngo MD Primary Care Provider +1 -[phone] Encounter Details Date Type Department Care Team (Latest Contact Info) Description 12/19/2001 Outpatient Historical [facility] [address] [place] [address] Chela Dukes, SOFTWARE LICENSING EXECUTIVE [address] [place] [address] ACUTE PHARYNGITIS (Primary Dx) Social History Tobacco Use Types Packs/Day Years Used Date Smoking Tobacco: Never Assessed Comments Unknown Sex and Gender Information Value Date Recorded Sex Assigned at Not on file Legal Sex Female 5:35 AM PROFESSOR OF ARCHITECTURE Gender Identity Not on file Sexual Orientation Not on file documented as of this encounter Plan of Treatment Not on file documented as of this encounter Visit Diagnoses Diagnosis Acute pharyngitis- Primary documented in this encounter Additional Health Concerns Infection Onset Date Last Indicated Resolved Time R/O COVID-19 09/18/2020 09/18/2020 09/20/2020 12:3 2 AM PROFESSOR OF ARCHITECTURE documented as of this encounter Care Teams Forge Utility Worker Relationship Specialty Start Date End Date Armando Ngo MD [address] [phone] PCP - General Family Practice 07/17/18 documented as of this encounter
--- OUTSIDE RECORDS SUMMARY | 2025-06-19 15:25 | XMS_ITS | Encounter Summary ---
Author Organization [facility] Address [address] [place] [address] Care Team Providers Care Sports Specialist Name Role Phone Armando Ngo MD Primary Care Provider +1 [phone] Encounter Details Date Type Department Care Team (Late st Contact Info) Description 01/31/2000 Outpatient [place] [address] [place] [address] Family history of diabetes mellitus (Primary Dx); Routine child health exam Social History Tobacco Use Types Packs/Day Years Used Date Smoking Tobacco: Never Assessed Comments Unknown Sex and Gender Information Value Date Recorded Sex Assigned at Not on file Legal Sex Female 5:35 AM MARKETING CLERK Gender Identity Not on file Sexual Orientation Not on file documented as of this encounter Plan of Treatment Not on file documented as of this encounter Visit Diagnoses Diagnosis Family history of diabetes mellitus- Primary Routine child health exam Routine or child health check documented in this encounter Additional Health Concerns Infection Onset Date Last Indicated Resolved Time R/O COVID-19 09/18/2020 09/18/2020 09/20/2020 12:3 2 AM MARKETING CLERK documented as of this encounter Care Teams Sports Specialist Relationship Specialty Start Date End Date Armando Ngo MD [address] [place] [address] PCP - General Family Practice 07/17/18 documented as of this encounter
--- OUTSIDE RECORDS SUMMARY | 2025-06-19 15:25 | XMS_ITS | Encounter Summary ---
Author Organization [facility] Address [address] [place] [address] Care Team Providers Care Almond Paste Molder Name Role Phone Armando Ngo MD Primary Care Provider +1 [phone] Encounter Details Date Type Department Care Team (Latest Contact Info) Description 06/18/2005 Outpatient Historical [facility] [address] [place] [phone] Chela Dukes, FEATURES EDITOR [address] [place] [address] OTHER MALAISE AND FATIGUE (Primary Dx) Social History Tobacco Use Types Packs/Day Years Used Date Smoking Tobacco: Never Assessed Comments Unknown Sex and Gender Information Value Date Recorded Sex Assigned at Not on file Legal Sex Female 5:35 AM CODING VALIDATOR Gender Identity Not on file Sexual Orientation Not on file documented as of this encounter Plan of Treatment Not on file documented as of this encounter Visit Diagnoses Diagnosis Other malaise and fatigue- Primary documented in this encounter Additional Health Concerns Infection Onset Date Last Indicated Resolved Time R/O COVID-19 09/18/2020 09/18/2020 09/20/2020 12:3 2 AM CODING VALIDATOR documented as of this encounter Care Teams Almond Paste Molder Relationship Specialty Start Date End Date Armando Ngo MD [address] [phone] PCP - General Family Practice 07/17/18 documented as of this encounter
--- OUTSIDE RECORDS SUMMARY | 2025-06-19 15:25 | XMS_ITS | Encounter Summary ---
Author Organization [facility] Address [address] [place] [address] Care Team Providers Care Java Programming Professor Name Role Phone Armando Ngo MD Primary Care Provider +1 [phone] Encounter Details Date Type Department Care Team (Late st Contact Info) Description 10/27/1999 Outpatient [place] [address] [place] [address] Acute upper respiratory infections of other multiple sites (Primary Dx); Bronchitis, not specified as acute or chronic Social History Tobacco Use Types Packs/Day Years Used Date Smoking Tobacco: Never Assessed Comments Unknown Sex and Gender Information Value Date Recorded Sex Assigned at Not on file Legal Sex Female 5:35 AM LAPEL PADDER BLINDSTITCH Gender Identity Not on file Sexual Orientation Not on file documented as of this encounter Plan of Treatment Not on file documented as of this encounter Visit Diagnoses Diagnosis Acute upper respiratory infections of other multiple sites- Primary Bronchitis, not specified as acute or chronic documented in this encounter Additional Health Concerns Infection Onset Date Last Indicated Resolved Time R/O COVID-19 09/18/2020 09/18/2020 09/20/2020 12:3 2 AM LAPEL PADDER BLINDSTITCH documented as of this encounter Care Teams Java Programming Professor Relationship Specialty Start Date End Date Armando Ngo MD [address] [phone] PCP - General Family Practice 07/17/18 documented as of this encounter
--- OUTSIDE RECORDS SUMMARY | 2025-06-19 15:25 | XMS_ITS | Encounter Summary ---
Author Organization [facility] Address [address] Kang: [place] [address] Care Team Providers Care Falsework Builder Name Role Phone Armando Ngo MD Primary Care Provider +1 [phone] Encounter Details Date Type Department Care Team (Late st Contact Info) Description 03/11/2002 Outpatient Historical Chela Dukes, SUPERVISOR TOWER [address] [place] [address] Social History Tobacco Use Types Packs/Day Years Used Date Smoking Tobacco: Never Assessed Comments Unknown Sex and Gender Information Value Date Recorded Sex Assigned at Not on file Legal Sex Female 5:35 AM WEIGHER PACKING Gender Identity Not on file Sexual Orientation Not on file documented as of this encounter Plan of Treatment Not on file documented as of this encounter Visit Diagnoses Not on filedocumented in this encounter Additional Health Concerns Infection Onset Date Last Indicated Resolved Time R/O COVID-19 09/18/2020 09/18/2020 09/20/2020 12:3 2 AM WEIGHER PACKING documented as of this encounter Care Teams Falsework Builder Relationship Specialty Start Date End Date Armando Ngo MD [address] [place] [phone] PCP - General Family Practice 07/17/18 documented as of this encounter
--- OUTSIDE RECORDS SUMMARY | 2025-06-19 15:25 | XMS_ITS | Encounter Summary ---
Author Organization [facility] Address [address] [place] [address] Care Team Providers Care Charge Authorizer Name Role Phone Armando Ngo MD Primary Care Provider +1 -[phone] Encounter Details Date Type Department Care Team (Latest Contact Info) Description 06/16/2025 Results Follow-Up [facility] Family Medicine [place] [address] [address] Albertina Kahn, [facility] [address] [address] HCG QUALITATIVE, BLOOD, MAGNESIUM LEVEL, COMPREHENSIVE METABOLIC PANEL, CBC WITH DIFFERENTIAL Social History Tobacco Use Types Packs/Day Years Used Date Smoking Tobacco: Former Cigarettes Q uit: 09/18/2016 Passive Smoke Exposure: Past Smokeless Tobacco: Never Alcohol Use Standard Drinks/Week Comments Yes 0 (1 standard drink = 0.6 oz pur e alcohol) rarely Comments No Sex and Gender Information Value Date Recorded Sex Assigned at Not on file Legal Sex Female 6:37 AM BUSINESS TAXES SPECIALIST Gender Identity Not on file Sexual Orientation Not on file documented as of this encounter Miscellaneous Notes * Telephone Encounter - Jo-Ann Arias RN - 06/16/2025 1:57 PM CDT MMM sent. Jo-Ann Arias RN, 06/16/2025 1:57 PM * Telephone Encounter - Jo-Ann Arias RN - 06/16/2025 1:56 PM CDT ----- Message from Albertina Kahn sent at 06/16/2025 1:46 PM CDT ----- Labs do not indicate concern for dehydration, bacterial infection or . Continue what was discussed in clinic. Call or return if symptoms worsen or do not resolve. ----- Message ----- From: Aniceto Brunson Incoming [facility] Results Sent: 06/16/2025 10:55 AM CDT To: PEACE Estevez documented in this encounter Plan of Treatment Upcoming Encounters Date Type Department Care Team (Late st Contact Info) Description 08/27/2025 3:40 PM CDT Office Visit [address] [address] Gege Panda FNP [address] [address] 11/23/2025 3:30 PM BUSINESS TAXES SPECIALIST Appointment [facility] [address] [address] Sylvester Hooker MD [address] [place] [address] 12/03/2025 11:00 AM BUSINESS TAXES SPECIALIST Office Visit [address] [address] Gege Panda FNP [address] [address] documented as of this encounter Visit Diagnoses Not on filedocumented in this encounter Care Teams Charge Authorizer Relationship Specialty Start Date End Date Armando Ngo MD [address] [address] PCP - General Family Practice 07/17/18 documented as of this encounter
--- OUTSIDE RECORDS SUMMARY | 2025-06-19 15:25 | XMS_ITS | Encounter Summary ---
Author Organization [facility] Address [address] [place] [address] Care Team Providers Care Boom Cat Operator Name Role Phone Armando Ngo MD Primary Care Provider [phone] [phone] Encounter Details Date Type Department Care Team (Late st Contact Info) Description 04/29/2001 Outpatient Historical [facility] [place], [address] [place] [address] Acute pharyngitis (Primary Dx) Social History Tobacco Use Types Packs/Day Years Used Date Smoking Tobacco: Never Assessed Comments Unknown Sex and Gender Information Value Date Recorded Sex Assigned at Not on file Legal Sex Female 5:35 AM COMMUNITY HEALTH NAVIGATOR Gender Identity Not on file Sexual Orientation Not on file documented as of this encounter Plan of Treatment Not on file documented as of this encounter Visit Diagnoses Diagnosis Acute pharyngitis- Primary documented in this encounter Additional Health Concerns Infection Onset Date Last Indicated Resolved Time R/O COVID-19 09/18/2020 09/18/2020 09/20/2020 12:3 2 AM COMMUNITY HEALTH NAVIGATOR documented as of this encounter Care Teams Boom Cat Operator Relationship Specialty Start Date End Date Armando Ngo MD [address] [place] [address] PCP - General Family Practice 07/17/18 documented as of this encounter
--- OUTSIDE RECORDS SUMMARY | 2025-06-19 15:25 | XMS_ITS | Encounter Summary ---
Author Organization [facility] Address [address] [place] [address] Care Team Providers Care Teacher Education Director Name Role Phone Armando Ngo MD Primary Care Provider [phone] Encounter Details Date Type Department Care Team (Late st Contact Info) Description 07/11/2000 Outpatient Historical [facility], [address] [place] [address] Urinary tract infection, site not specified (Primary Dx) Social History Tobacco Use Types Packs/Day Years Used Date Smoking Tobacco: Never Assessed Comments Unknown Sex and Gender Information Value Date Recorded Sex Assigned at Not on file Legal Sex Female 5:[address] DEPART[address] Gender Identity Not on file Sexual Orientation Not on file documented as of this encounter Plan of Treatment Not on file documented as of this encounter Visit Diagnoses Diagnosis Urinary tract infection, site not specified- Primary documented in this encounter Additional Health Concerns Infection Onset Date Last Indicated Resolved Time R/O COVID-19 09/18/2020 09/18/2020 09/20/2020 12:[address] DEPART[address] documented as of this encounter Care Teams Teacher Education Director Relationship Specialty Start Date End Date Armando Ngo MD [address] [place] [address] PCP - General Family Practice 07/17/18 documented as of this encounter
--- OUTSIDE RECORDS SUMMARY | 2025-06-19 15:25 | XMS_ITS | Encounter Summary ---
Author Organization [facility] Address [address] [place] [address] Care Team Providers Care Aquatic Centre Manager Name Role Phone Armando Ngo MD Primary Care Provider [phone] Encounter Details Date Type Department Care Team (Latest Contact Info) Description 05/03/2003 Outpatient Historical [facility] [address] [place] [id number] Rashard Helm MD [address] [phone] ACUTE PHARYNGITIS (Primary Dx) Social History Tobacco Use Types Packs/Day Years Used Date Smoking Tobacco: Never Assessed Comments Unknown Sex and Gender Information Value Date Recorded Sex Assigned at Not on file Legal Sex Female 5:35 AM BAR EXAMINER Gender Identity Not on file Sexual Orientation Not on file documented as of this encounter Plan of Treatment Not on file documented as of this encounter Visit Diagnoses Diagnosis Acute pharyngitis- Primary documented in this encounter Additional Health Concerns Infection Onset Date Last Indicated Resolved Time R/O COVID-19 09/18/2020 09/18/2020 09/20/2020 12:3 2 AM BAR EXAMINER documented as of this encounter Care Teams Aquatic Centre Manager Relationship Specialty Start Date End Date Armando Ngo MD [address] [phone] PCP - General Family Practice 07/17/18 documented as of this encounter
--- OUTSIDE RECORDS SUMMARY | 2025-06-19 15:25 | XMS_ITS | Clinical Summary ---
Author Organization [facility] Address [address] [place] [address] Care Team Providers Care Bakery And Deli Sales Manager Name Role Phone Armando Ngo MD Primary Care Provider [phone] Allergies No known active allergies Medications vit calc,iron,folic ( VITAMIN ORAL) Take by mouth. Active Active Problems Problem Noted Date Diagnosed Date Intractable nausea and vomiting 05/28/2016 Depression with anxiety 04/11/2016 Encounter for surveillance of contraceptives Occupational tobacco smoke exposure 08/12/2015 Attention deficit hyperactivity disorder, inatte ntive type 06/14/2009 Estimated Date of Delivery Comme nts Yes 07/23/2021 Resolved Problems Problem Noted Date Diagnosed Date Resolved Date Essential hypertension 04/11/201610/28 Immunizations Immunization Administration Dates Next Due (ADACEL/BOOSTRIX)(10 YR UP) TDAP VACCINE, 0.5ML, IM 09/08/2010 (M-M-R II/PRIORIX)(12 MO UP) MEASLES, MUMPS AND RUBELLA VIRUS VACCINE, 0.5 ML IM/SUBCUT 06/17/2000,06/01/1997 (VARIVAX)(12 MOS UP)VARICELL A VIRUS VACCINE (PF) 0.5 ML, SUB CUT 02/18/1997 Dt Dtp Dtap Vaccine 06/17/2000, 7,1996,1995,1996 HIB, Unspecified Formulation 06/01/1997, 1996,1996,1995 Hepatitis B Vaccine 1996,1996,1995 INFLUENZA VACCINE QUADRIVALE NT 3 YR UP PF IM 09/07/2016 IPV/OPV 06/01/1997, 6,1996,1995 Influenza Seasonal Unspecifi ed Formulation IM 08/22/2018,09/30/1997,08/31/1997 Skin Test TB 11/25/2020 Family History Medical History Relation Name Comments Healthy Brother Diabetes Father Other Maternal Grandfather unknown Other Maternal Grandmother unknown Diabetes Mother Healthy Mother Other Mother bipolar, thyroi d disorder Other Paternal Grandfather unknown Other Paternal Grandmother unknown Breast Cancer Neg Hx Colon Cancer Neg Hx Relation Name Status Comments Brother Alive Father Alive Maternal Grandfather Maternal Grandmother Mother Alive Paternal Grandfather Paternal Grandmother Social History Tobacco Use Types Packs/Day Years Used Date Smoking Tobacco: Former Cigarettes Q uit: 09/18/2016 Smokeless Tobacco: Never Tobacco Cessation:Ready to Q uit: No; Counseling Given: Yes Alcohol Use Standard Drinks/Week Comments No 0 (1 standard drink = 0.6 oz pur e alcohol) Estimated Date of Delivery Comme nts Yes 07/23/2021 Sex and Gender Information Value Date Recorded Sex Assigned at Not on file Legal Sex Female 5:35 AM SWITCHBOARD OPERATOR HELPER Gender Identity Not on file Sexual Orientation Not on file Last Filed Vital Signs Vital Sign Reading Time Taken Comments Blood Pressure 120/82 11/25/2020 10:43 AM SWITCHBOARD OPERATOR HELPER Pulse 76 11/25/2020 10:43 AM SWITCHBOARD OPERATOR HELPER Temperature 35.9 C (96.6 F) 11/25/2020 10:43 AM SWITCHBOARD OPERATOR HELPER Respiratory Rate 24 11/25/2020 10:43 AM SWITCHBOARD OPERATOR HELPER Oxygen Saturation 100% 11/23/2020 6:06 PM SWITCHBOARD OPERATOR HELPER Inhaled Oxygen Concentration - - Weight 95.1 kg (209 lb 9.6 oz) 11/25/2020 10:43 AM SWITCHBOARD OPERATOR HELPER Height 157.5 cm (5' 2 ) 11/25/2020 10:43 AM SWITCHBOARD OPERATOR HELPER Body Mass Index 38.34 11/25/2020 10:43 AM SWITCHBOARD OPERATOR HELPER Plan of Treatment Health Maintenance Due Date Last Done Comments HPV VACCINES (1 - 3-dose series) 02/03/2011 CERVICAL CANCER SCREENING 07/08/2020 PAP SMEAR 07/08/2020 07/08/2017, 04/03/2016 DTAP/TDAP/TD VACCINES (7 - T d or Tdap) 09/08/2020 09/08/2010, 06/17/2000, 06/01/1997, Additional history exists HPV/Cotest (21-29) 07/08/2022 07/08/2017, 0 07/08/2017, 04/03/2016 Preventative Visit- Commercial 11/11/2024 0 01/28/2024, 07/08/2017, 04/03/2016 INFLUENZA VACCINE (#1) 2025 0, 08/22/2018, 09/07/2016, Additional history exists HPV/Cotest (30-65) 02/03/2026 07/08/2017, 0 07/08/2017, 04/03/2016 RSV VACCINE (60+ or ) (1 - 1-dose 75+ series) 02/03/2071 HEPATITIS B VACCINES Completed 1996, 1996, 1996 Procedures Procedure Name Priority Date/Time Associated Diagnosis Comments CERV/VAG CYTO SCREEN PAP RLFX HPV Routine 07/08/2017 1:38 PM CDT Well woman exam with routine gynecological exam from Last 3 Months or Most Recently Relevant to Health Maintenance Results * (ABNORMAL) CERV/VAG CYTOPATH, THIN PREP IMAGR RFLX HPV (07/08/2017 1:38 PM CDT) Pathologist [facility] CLINICAL INFORMATION HEALTHY 07/16/2017 8:48 PM CDT [facility] LAST MENSTRUAL PERIOD [id number]/16/2017 8:48 PM CDT [facility] PREV PAP: SEE COMMENT 07/16/2017 8:48 PM CDT [facility] Comment:04/03/16 NIL PREV BX: SEE COMMENT 07/16/2017 8:48 PM CDT [facility] Comment:Information not prov ided SOURCE Endocervix 07/16/2017 8:48 PM CDT [facility] ADEQUACY: SEE COMMENT 07/16/2017 8:48 PM CDT [facility] Comment: Satisfactory for evaluation. Endocervical/transformation zone component present. GENERAL CATEGORIZATION: SEE COMMENT(A) 07/16/2017 8:48 PM CDT [facility] Comment:EPITHELIAL CELL ABNO RMALITY PAP INTERP SEE COMMENT(A) 07/16/2017 8:48 PM CDT [facility] Comment: Atypical Squamous Cells of Undetermined Significance (ASC-US) COMMENT SEE COMMENT 07/16/2017 8:48 PM CDT [facility] Comment: This Pap test has been evaluated with computer assisted technology. Suggest clinical correlation and follow-up as clinically appropriate BLOCK SAW OPERATOR: SEE COMMENT 2016 8:48 PM CDT [facility] Comment: LMT, CT(ASCP) CT screening location: [place] [address] [address] [place] [address] PATHOLOGIST SEE COMMENT 07/16/2017 8:48 PM CDT [facility] Comment: Kris Combs M.D., Board Certified in Anatomic Pathology and Cytopathology. (electronic signature) Genital SWAB OF ENDOCERVIX / Unknown Collection / Unknown 07/08/2017 1:38 PM CDT 07/09/2017 7:21 AM CDT Narrative [facility] - 07/16/2017 8:48 PM CDT Performing Organization Information: Site ID: [id number] Name: [facility] Address: [facility] [address] [place] [address] Director: Elisha Gant MD Tameka Sanchez CREDENTIALER PATHOLOGY/CYTOLOG Y ORDERABLES Edited Result - Final [facility] from Last 3 Months or Most Recently Relevant to Health Maintenance Insurance [employer] Member Subscriber Plan / Payer (Ef fective 2019-Present) Name:Catalina Mcbride Relation to Subscriber:Child Name:CATALINA MCBRIDE Date of :1996 (Home) Address: [address] [place] [address] Payer ID:Not on file Type:[employer] Address: [address] [facility] WORKERS COMP Advance Directives For more information, please contact: [phone] * Full Code (Latest Code Status on File) Date Activated Date Inactivated Comments 06/27/2016 10:20 AM 06/27/2016 1:49 PM Care Teams Bakery And Deli Sales Manager Relationship Specialty Start Date End Date Armando Ngo MD [address] [facility] [address] [place] [phone] PCP - General Family Practice 07/17/18
--- OUTSIDE RECORDS SUMMARY | 2025-06-19 15:25 | XMS_ITS | Encounter Summary ---
Author Organization [facility] Address [address] [place] [address] Care Team Providers Care Bonding Supervisor Name Role Phone Armando Ngo MD Primary Care Provider [phone] Encounter Details Date Type Department Care Team (Latest Contact Info) Description 12/15/2004 Outpatient Historical [facility] [address] [place] [phone] Chela Dukes, DRIVER LICENSE REVIEWING OFFICER [address] [place] [phone] ACUTE URI NOS (Primary Dx) Social History Tobacco Use Types Packs/Day Years Used Date Smoking Tobacco: Never Assessed Comments Unknown Sex and Gender Information Value Date Recorded Sex Assigned at Not on file Legal Sex Female 5:35 AM SHEET METAL LAY OUT WORKER Gender Identity Not on file Sexual Orientation Not on file documented as of this encounter Plan of Treatment Not on file documented as of this encounter Visit Diagnoses Diagnosis Acute upper respiratory infections of unspecified site- Primary documented in this encounter Additional Health Concerns Infection Onset Date Last Indicated Resolved Time R/O COVID-19 09/18/2020 09/18/2020 09/20/2020 12:3 2 AM SHEET METAL LAY OUT WORKER documented as of this encounter Care Teams Bonding Supervisor Relationship Specialty Start Date End Date Armando Ngo MD [address] [phone] PCP - General Family Practice 07/17/18 documented as of this encounter
--- OUTSIDE RECORDS SUMMARY | 2025-06-19 15:25 | XMS_ITS | Encounter Summary ---
Author Organization [facility] Address [address] [place] [address] Care Team Providers Care Egg Producer Name Role Phone Armando Ngo MD Primary Care Provider [phone] Encounter Details Date Type Department Care Team (Latest Contact Info) Description 02/13/2002 Outpatient Historical [facility] [address] [place] [address] Amy Liu MD NO ADDRESS ON FILE ACUTE PHARYNGITIS (Primary Dx); URIN TRACT INFECTION NOS Social History Tobacco Use Types Packs/Day Years Used Date Smoking Tobacco: Never Assessed Comments Unknown Sex and Gender Information Value Date Recorded Sex Assigned at Not on file Legal Sex Female 5:35 AM FIFTH HAND Gender Identity Not on file Sexual Orientation Not on file documented as of this encounter Plan of Treatment Not on file documented as of this encounter Visit Diagnoses Diagnosis Acute pharyngitis- Primary Urinary tract infection, site not specified documented in this encounter Additional Health Concerns Infection Onset Date Last Indicated Resolved Time R/O COVID-19 09/18/2020 09/18/2020 09/20/2020 12:3 2 AM FIFTH HAND documented as of this encounter Care Teams Egg Producer Relationship Specialty Start Date End Date Armando Ngo MD [address] [place] [phone] PCP - General Family Practice 07/17/18 documented as of this encounter
--- OUTSIDE RECORDS SUMMARY | 2025-06-19 15:25 | XMS_ITS | Clinical Summary ---
Author Organization [facility] Address [address] [facility] Attn: [place] [address] Care Team Providers Care Deoiling Machine Operator Name Role Phone Armando Ngo MD Primary Care Provider [phone] Allergies No known active allergies Medications Ventolin HFA 90 mcg/actuation inhaler Take 2 Puffs by inhalation every 6 hours as needed for Shortness of Breath. 4 Active ibuprofen (MOTRIN) 600 mg tablet Take 600 mg by mouth every 8 hours as needed for Pain. 4 Active traMADoL (ULTRAM) 50 mg tablet Take 50 mg by mouth every 6 hours as needed for Pain. 4 Active cholecalciferol 1,250 mcg (50,000 unit) CapsuleIndication s:Vitamin D deficiency Take 1 Capsule (50,000 Units) by mouth every 7 days. 12 Capsule 3 5 Active calcium as CARBONATE (OS-SOLIS) 1,250 mg (500 mg elemental) tabletIndications :Vitamin D deficiency Take 1 Tablet (500 mg) by mouth daily. 90 Tablet 3 5 Active ferrous sulfate 325 mg (65 mg iron) tabletIndications :Iron deficiency anemia, unspecified iron deficiency anemia type Take 1 Tablet (325 mg) by mouth daily. 90 Tablet 3 5 Active Norethindrn A-E estradiol-Iron (Justyna Fe 1.5/30, 28,) 1.5 mg-30 mcg (21)/75 mg (7) tabletIndications :Encounter for contraceptive management, unspecified type Take 1 tablet by mouth once daily 28 Tablet 5 5 Active fluticasone propionate (FLONASE) 50 mcg/spray [place], Suspension nasal inhalerIndication s:Fluid level behind tympanic membrane of both ears Administer 2 Sprays in each nostril daily. 16 Gram 11 5 Active brexpiprazole (REXULTI) 0.5 mg TabletIndications :Severe episode of recurrent major depressive disorder, without psychotic features (CMS/HCC) Take 1 Tablet (0.5 mg) by mouth daily. 30 Tablet 2 5 Active Hospital, Clinic, or Other Facility Administered Medication Ordered Dose Route Frequency Start Date End Date Status ondansetron (ZOFRAN) 4 mg/2 mL injection 2 mgIndications:Nausea 2 mg IM ONE TIME ONLY 06/15/2025 06/15/2025 E nded Active Problems Problem Noted Date Diagnosed Date LOC (loss of consciousness) 10/29/2024 Takotsubo syndrome 12/09/2023 Pain, dental 06/30/2022 Intractable nausea and vomiting 05/28/2016 Depression with anxiety 04/11/2016 Encounter for surveillance of contraceptives Occupational tobacco smoke exposure 08/12/2015 Attention deficit hyperactivity disorder, inatte ntive type 06/14/2009 Resolved Problems Problem Noted Date Diagnosed Date Resolved Date Essential hypertension 04/11/201610/28 Encounters Date Type Department Care Team Description 06/16/2025 Results Follow-Up [address] [phone] Albertina Kahn FNP HCG QUALITATIVE, BLOOD, MAGNESIUM LEVEL, COMPREHENSIVE METABOLIC PANEL, CBC WITH DIFFERENTIAL 06/15/2025 8:20 AM CDT Office Visit [address] [phone] Albertina Kahn FNP Nausea (Primary Dx) 06/14/2025 Nurse Triage [address] [phone] Armando Ngo MD 06/02/2025 4:00 PM CDT Office Visit [address] [phone] Damaris Escamilla, ACCOUNTING REPRESENTATIVE Severe episode of recurrent major depressive disorder, without psychotic features (CMS/HCC) (Primary Dx); Obesity (BMI 35.0-39.9 without comorbidity) 06/01/2025 External Device Data [facility] ABSTRACTION Provider, Abstract 06/01/2025 External Device Data [facility] ABSTRACTION Provider, Abstract 06/01/2025 External Device Data [facility]STRACTION Provider, Abstract 05/13/2025 3:29 PM CDT - 05/13/2025 11:59 PM CDT [facility] [address] [address] Sylvester Hooker MD Discharge Disposition: Home or Self Care 05/04/2025 External Device Data ST[place] ABSTRACTION Provider, Abstract 05/04/2025 External Device Data [facility] ABSTRACTION Provider, Abstract 05/04/2025 External Device Data [facility] ABSTRACTION Provider, Abstract 05/01/2025 8:01 PM CDT - 05/01/2025 8:35 PM CDT Emergency [facility] Emergency Medicine [address] [phone] Jose Hearn MD Chest wall pain (Primary Dx) Discharge Disposition: Home or Self Care 05/01/2025 Travel 04/30/2025 1:00 PM CDT Procedure visit [address] [phone] 04/27/2025 9:40 AM CDT Office Visit [address] [phone] Gege Panda, ACCOUNTING REPRESENTATIVE Acute bronchitis, unspecified organism (Primary Dx); Acute cough; Tuberculosis screening 04/14/[address] [address] Armando Ngo MD Question 04/13/2025 External Device Data ST[facility] ABSTRACTION Provider, Abstract 04/13/2025 External Device Data [facility] ABSTRACTION Provider, Abstract from Last 3 Months Immunizations Immunization Administration Dates Next Due (ACTHIB/HIBERIX)(2 MOS-5 YRS /6 WKS-4 YRS) HAEMOPHILUS INFLUENZAE TYPE B VACCINE (HIB), PRP-T CONJUGATE, 4 DOSE, 0.5 ML IM 06/01/1997 (ADACEL/BOOSTRIX)(10 YR UP) TDAP VACCINE, 0.5ML, IM 05/10/2021,08/06/2018,02/09/2011,2009 (M-M-R II/PRIORIX)(12 MO UP) MEASLES, MUMPS AND RUBELLA VIRUS VACCINE, 0.5 ML IM/SUBCUT 06/17/2000,06/01/1997 (SPIKEVAX) (12 YRS UP PRIMAR Y SERIES) COVID-19 VACCINE - MRNA-1273(PF) 100 MCG/0.5 ML IM SUSP 07/10/2021 (VARIVAX)(12 MOS UP)VARICELL A VIRUS VACCINE (PF) 0.5 ML, SUB CUT 02/18/1997 DTP Hib Combined Vaccine IM 1996, 6,1996 Dt Dtp Dtap Vaccine 06/17/2000, 7,1996,1995,1996 HIB, Unspecified Formulation 06/01/1997, 1996,1996,1995 Hepatitis B Vaccine 1996,1996,1995 INFLUENZA VACCINE QUADRIVALE NT 3 YR UP PF IM 09/07/2016 INFLUENZA VACCINE TRIVALENT SPLIT VIRUS, (6 MOS UP), 0.5ML (PF), IM 09/10/2024 IPV/OPV 06/01/1997, 6,1996,1995 Influenza Seasonal Unspecifi ed Formulation IM 08/22/2018,11/11/2016,09/30/1997,1996 Poliovirus Vaccine Live Oral 06/01/1997, 1996,1996,1995 Skin Test TB 04/27/2025,11/25/2020 Family History Medical History Relation Name Comments [...] Passive Smoke Exposure: Past Smokeless Tobacco: Never Tobacco Cessation:Counseling Given: No Alcohol Use Standard Drinks/Week Comments Yes 0 (1 standard drink = 0.6 oz pur e alcohol) rarely Comments No Sex and Gender Information Value Date Recorded Sex Assigned at Not on file Legal Sex Female 6:37 AM EDUCATION RN Gender Identity Not on file Sexual Orientation [...] Mass Index 36.18 06/15/2025 8:16 AM CDT Plan of Treatment Upcoming Encounters Date Type Department Care Team (Late st Contact Info) Description 08/27/2025 3:40 PM CDT Office Visit [facility] [place] [address] [phone] Gege Panda [facility] [address] [phone] 11/23/2025 3:30 PM EDUCATION RN Appointment [facility] Neurology [facility] [address] [phone] Sylvester Hooker MD [address] [place] [phone] 12/03/2025 11:00 AM EDUCATION RN Office Visit [facility] [address] [place] [address] Gege Panda, [facility] [address] [place] [address] Health Maintenance Due Date Last Done Comments HPV VACCINES (1 - 3-dose series) 02/03/2011 COVID-19 Vaccine ( - 2023-2 5 season) 2024 07/10/2021 Preventative Visit-Managed Medicaid 01/28/2025 01/28/2024, 07/08/2017, 04/03/2016 INFLUENZA VACCINE (#1) 2025 , 10/29/2023, 08/02/2022, Additional history exists CERVICAL CANCER SCREENING 01/27/2027 PAP SMEAR 01/27/2027 01/28/2024, 06/12, 07/08/2017, Additional history exists HPV/Cotest (21-29) 01/27/2029 01/28/2024, 0 07/08/2017, 07/08/2017, Additional history exists HPV/Cotest (30-65) 01/27/2029 01/28/2024, 0 07/08/2017, 07/08/2017, Additional history exists DTAP/TDAP/TD VACCINES (10 - Td or Tdap) 05/10/2031 05/10/2021, 08/06/2018, 02/09/2011, Additional history exists HEPATITIS B VACCINES Completed 1996, 1996, 1996 Procedures Procedure Name Priority Date/Time Associated Diagnosis Comments CBC WITH DIFFERENTIAL Stat 06/15/2025 9:07 AM CDT Nausea COMPREHENSIVE METABOLIC PANEL Stat 06/15/2025 9:07 AM CDT Nausea MAGNESIUM LEVEL Routine 06/15/2025 9:07 AM CDT Nausea HCG QUALITATIVE, SERUM Routine 9:07 AM CDT Nausea POC INFLUENZA A/B AND COVID-19 ANTIGENS Routine 04/27/2025 10:02 AM CDT Acute cough CERV/VAG CYTO SCREEN PAP RLFX HPV Routine 01/28/2024 12:38 PM CDT Screening for cervical cancer from Last 3 Months or Most Recently Relevant to Health Maintenance Results * HCG QUALITATIVE, BLOOD (06/15/2025 9:07 AM CDT) HCG QUAL, BLOOD NEGATIVE See Note: [facility] Comment: Reference Range: Reference Range Non-: Negative : Positive Test Performed at: [facility] [address] [place] [address] Elisha Gant MD Blood 06/15/2025 9:07 AM CDT 06/16/2025 4:25 AM CDT Albertina Kahn [facility] CHEMISTRY ORDERABLES Final Result [facility] [phone] [facility] [address] [place] [address] * (ABNORMAL) CBC WITH DIFFERENTIAL (06/15/2025 9:07 [...] [facility] Comment: Test Performed at: [facility] [address] [facility] [place] [address] Elisha Gant MD Blood 06/15/2025 9:07 AM CDT 06/16/2025 4:25 AM CDT us Albertina Kahn ACCOUNTING REPRESENTATIVE HEMATOLOGY ORDERABLES Final Result [facility] [phone] [facility] [address] [place] [address] * MAGNESIUM LEVEL (06/15/2025 9:07 AM CDT) MAGNESIUM 2.3 1.5 - 2.5 mg/dL [facility] Comment: Test Performed at: [facility] [address] [facility] [place] [address] Elisha Gant MD Blood 06/15/2025 9:07 AM CDT 06/16/2025 4:25 AM CDT Albertina Kahn ACCOUNTING REPRESENTATIVE CHEMISTRY ORDERABLES Final Result [facility] [phone] [facility] [address] [facility] [place] [address] * (ABNORMAL) COMPREHENSIVE METABOLIC PANEL (06/15/2025 9:07 [...] [facility] Comment: Test Performed at: [facility] [address] [facility] [place] [address] Elisha Gant MD Blood 06/15/2025 9:07 AM CDT 06/16/2025 4:25 AM CDT Albertina Kahn ACCOUNTING REPRESENTATIVE CHEMISTRY ORDERABLES Final Result Performing Organization Address [facility] de Phone Number [facility] [phone] [facility] [address] [place] [address] * POC INFLUENZA A/B AND COVID-19 ANTIGENS (04/27/2025 10:02 AM CDT) INFLUENZA A AG POC Not Detected Not Detected [facility] INFLUENZA B AG POC Not Detected Not Detected [facility] COVID-19 ANTIGEN POC Presumptively Negative Presumptively Negative [facility] INTERNAL KIT QC POC Pass Pass [facility] KIT LOT NUMBER POC [id number] [facility] KIT EXP DATE POC 06/29/2025 [facility] Upper Respiratory 04/27/2025 10:02 AM CDT Gege Panda ACCOUNTING REPRESENTATIVE POINT OF CARE TESTING Fi nal Result Performing Organization Address [facility] Co de Phone Number [facility] CLIA# [id number] [address] [place] [address] * CERV/VAG CYTO SCREEN PAP RLFX HPV (01/28/2024 12:38 PM CDT) CLINICAL INFORMATION [facility] Comment:None given LAST MENSTRUAL PERIOD [facility] Comment:NONE GIVEN PREV PAP: [facility] Comment:NONE GIVEN PREV BX: [facility] Comment:NONE GIVEN SOURCE [facility] Comment:Endocervix ADEQUACY: Ale Pineda Comment: Satisfactory for evaluation. Endocervical/transformation zone component present. Age and/or menstrual status not provided PAP INTERP Ale LuisPaul Pineda Comment: Cytology Results: Negative for intraepithelial lesion or malignancy. CYTOLOGY INFECTION Q ufrankie Marilyn Pineda Comment: Fungal organisms morphologically consistent with Shayla spp. COMMENT (PAP TEST) Q uest LuisPaul Pineda Comment: This Pap test has been evaluated with computer assisted technology. PAPER SUPERVISOR: Vel Pineda Comment: JAF CT(ASCP) CT Screening Location: [place] [address] [address] [facility] REVIEW PAPER SUPERVISOR: Ale Pineda Comment: RD CT(ASCP) CT screening location: [place] [address] [address] [place] [address] Marilyn Pineda Comment: EXPLANATORY NOTE: The Pap is a screening test for cervical cancer. It is not a diagnostic test and is subject to false negative and false positive results. It is most reliable when a satisfactory sample, regularly obtained, is submitted with relevant clinical findings and history, and when the Pap result is evaluated along with historic and current clinical information. Test Performed at: [place] [address] [address] [place] [address] Elisha Gant Genital SWAB OF ENDOCERVIX / Unknown 01/28/2024 12:38 PM CDT 01/29/2024 7:39 AM CDT Damaris Escamilla ACCOUNTING REPRESENTATIVE PATHOLOGY/CYTOLOGY ORDER KIRAN Final Result [facility] [phone] [place] [address] [address] [place] [address] from Last 3 Months or Most Recently Relevant to Health Maintenance Insurance [facility] PLAN [facility] [id number] Care Teams Deoiling Machine Operator Relationship Specialty Start Date End Date Armando Ngo MD [address] [address] PCP - General Family Practice 07/17/18
--- OUTSIDE RECORDS SUMMARY | 2025-06-19 15:25 | XMS_ITS | Encounter Summary ---
Author Organization [facility] Address [address] [place] [address] Care Team Providers Care Operations Research Scientist Name Role Phone Armando Ngo MD Primary Care Provider [phone] Encounter Details Date Type Department Care Team (Late st Contact Info) Description 03/29/1999 Outpatient Historical [facility] [place], [address] [place] [address] Pain in limb (Primary Dx) Social History Tobacco Use Types Packs/Day Years Used Date Smoking Tobacco: Never Assessed Comments Unknown Sex and Gender Information Value Date Recorded Sex Assigned at Not on file Legal Sex Female 5:35 AM COVER CREASER Gender Identity Not on file Sexual Orientation Not on file documented as of this encounter Plan of Treatment Not on file documented as of this encounter Visit Diagnoses Diagnosis Pain in limb- Primary Pain in soft tissues of limb documented in this encounter Additional Health Concerns Infection Onset Date Last Indicated Resolved Time R/O COVID-19 09/18/2020 09/18/2020 09/20/2020 12:3 2 AM COVER CREASER documented as of this encounter Care Teams Operations Research Scientist Relationship Specialty Start Date End Date Armando Ngo MD [address] [place] [address] PCP - General Family Practice 07/17/18 documented as of this encounter
--- OUTSIDE RECORDS SUMMARY | 2025-06-19 15:25 | XMS_ITS | Encounter Summary ---
Author Organization [facility] Address [address] [place] [address] Care Team Providers Care Ground Transportation Operator Name Role Phone Armando Ngo MD Primary Care Provider [phone] Encounter Details Date Type Department Care Team (Latest Contact Info) Description 08/27/2003 Outpatient Historical [facility] [address] [place] [phone] Rashard Helm MD [address] [phone] ACUTE BRONCHITIS (Primary Dx) Social History Tobacco Use Types Packs/Day Years Used Date Smoking Tobacco: Never Assessed Comments Unknown Sex and Gender Information Value Date Recorded Sex Assigned at Not on file Legal 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 Gender Identity Not on file Sexual Orientation Not on file documented as of this encounter Plan of Treatment Not on file documented as of this encounter Visit Diagnoses Diagnosis Acute bronchitis- Primary documented in this encounter Additional Health Concerns Infection Onset Date Last Indicated Resolved Time R/O COVID-19 09/18/2020 09/18/2020 09/20/2020 12:3 2 AM LEAD CARE MANAGER documented as of this encounter Care Teams Ground Transportation Operator Relationship Specialty Start Date End Date Armando Ngo MD [address] [address] PCP - General Family Practice 07/17/18 documented as of this encounter
[2025-06-19 16:29] VITALS: BP 116/83; PULSE 91; O2SAT 100
[2025-06-19 16:50] LABS: Hematocrit 42.1 % (36-47); Hemoglobin 13.30 g/dL (11.27-16.99); Mean Corpuscular HGB Conc 31.6 g/dL (30-55); Mean Corpuscular Hemoglobin 25.4 pg (27-33); Mean Corpuscular Volume 80.5 fl (85-98); Nucleated Red Blood Cells % 0 %; Platelet Count 332 10^3/cmm (157-399); Red Blood Count 5.23 10^6/uL (3.85-5.65); White Blood Count 7.03 10^3/uL (3.29-11.43)
[2025-06-19] MEDS: metoclopramide 5 mg/mL SDV 2 mL 10 MG IVP (16:56)
[2025-06-19 17:00] VITALS: BP 134/89; PULSE 98; O2SAT 100
--- NOTE | 2025-06-19 17:01 | W.ED.NAVMDI ---
HPI - Nausea/Vomiting/Diarrhea General: Chief complaint: Nausea/Vomiting/Diarrhea Stated complaint: Poss dehydration, cramps, muscle aches Time Seen by Provider: 06/19/25 15:54 Source: patient Mode of arrival: ambulatory Limitations: no limitations History of Present Illness: Patient is a 30-year-old female with psychiatric history who presents to the emergency department complaining of a week nausea and vomiting. She was seen a week ago in emergency department in [facility], was diagnosed with dehydration and given IV fluids and discharged home. Patient states she has felt the same since then, and only historical pertinence is that she began Rexulti immediately prior to symptoms beginning. She is stating at this time that she is having body cramps, lightheadedness and dizziness, still feels nauseous, and overall just feels unwell. Denies possibility as he just finished her period. No abdominal pain, chest pain, shortness of breath. No other pertinent past medical history. She does not smoke marijuana. Onset (ago): week(s) Associated nausea: Yes Associated abdominal pain: No Context: new medication Associated symtoms: Reports dizziness and nausea; Denies chest pain, diaphoresis, dysuria, headache(s) or palpitations Related Data Home Medications ?Medication ?Instructions ?Recorded ?Confirmed ibuprofen 200 mg tablet 600 mg PO Q6H PRN Pain 12/03/23 06/19/25 norethindrone 1.5 mg-ethinyl 1 tab PO DAILY 12/03/23 06/19/25 estradiol 30 mcg(21)/iron 75 mg(7) tablet (Justyna Fe 1.5/30 (28)) brexpiprazole 0.5 mg tablet 0.5 mg PO DAILY 06/19/25 06/19/25 (Rexulti) calcium carbonate (Oyster Shell 500 mg PO DAILY 06/19/25 06/19/25 Calcium 500) cholecalciferol (vitamin D3) 1,250 50,000 unit PO Q7D 06/19/25 06/19/25 mcg (50,000 unit) capsule ferrous sulfate 325 mg (65 mg 325 mg PO DAILY 06/19/25 06/19/25 iron) tablet (FeroSul) Previous Rx's ?Medication ?Instructions ?Recorded cefdinir 300 mg capsule 300 mg PO BID 7 days #14 caps 06/19/25 Allergies Allergy/AdvReac Type Severity Reaction Status Date / Time Edmunds And Derivatives Allergy ALGY-Difficulty Verified 09/20/24 18:41 Breathing Review of Systems General: Reports: 10 or more systems reviewed and unremarkable except in HPI and below Const: Reports: body aches; Denies: fever(s), chills, change in appetite, change in weight or diaphoresis ENMT: Denies: throat pain or hoarseness Card: Reports: lightheadedness; Denies: chest pain or palpitations Resp: Denies: dyspnea, productive cough or wheezing GI: Reports: nausea and vomiting; Denies: abdominal pain or diarrhea : Denies: flank pain, difficulty voiding, dysuria, urinary frequency or urinary urgency Musc: Reports: muscle cramps; Denies: neck pain or back pain Skin/Breast: Denies: rash or new lesions Neuro: Reports: dizziness; Denies: headache(s) PFSH ED PFSH: Medical History Depression Personal history of nonsuicidal self-harm last self harmed via cutting 2012 Generalized anxiety disorder Major depressive disorder, recurrent severe without psychotic features No pertinent past medical history Denies diabetes, hypertension, seizures, DVT/PE PCP: [facility] De [facility] Mild intermittent asthma, uncomplicated States that she was diagnosed with asthma as a child. Right now she only has asthma attacks when she has panic attacks and uses her inhaler only during those times usually a couple of times a month. Surgical History Hx laparoscopic cholecystectomy 12/08/2018---performed by Dr. Roberts at [facility] in [place], [place] Family History Mother Hypertension Diabetes Thyroid disease Father Diabetes Grandfather Heart disease maternal Other Colon cancer Denies family history of Ovarian cancer Hyperlipidemia Breast cancer Uterine cancer Stroke Social History Smoking and tobacco/nicotine status: current every day tobacco/nicotine user Second hand smoke exposure: No Alcohol intake: current Alcohol intake frequency: holidays/special occasions only Alcohol type: hard liquor Substance/Drug Use: never Adopted: Yes Caregiver/support person: No Lives independently: Yes Household members: spouse and children Housing: Manufactured/Mobile home Marital status: Marital status details: 6 years Number of children: 2 Number of grandchildren: 0 Highest education level completed: Some College, No Degree service: No Current occupational status: unemployed Current occupational exposures/hazards: No Pets and animals: Yes Pets & animals: cat(s) Leisure activites: reading and other Leisure activities details: bake for other people Sexually active: Yes Do you think of yourself as: Straight/Heterosexual Current gender identity: Female Leticia/Confucianist: Holiness Special leticia needs: No Agree to transfusion: Yes Female Reproductive History: Para: 2 Spontaneous abortions: No Physical Exam Const: COMMON NORMALS: no acute distress, average body habitus, patient oriented x3, no limitations, healthy appearing, alert and well nourished GENERAL APPEARANCE: cooperative and comfortable ORIENTATION/CONSCIOUSNESS: Yes awake HENMT: COMMON NORMALS: normocephalic, atraumatic, hearing grossly normal bilaterally, external ears normal, Normal external nose present, Normal nasal mucous membranes and turbinates present and moist oral mucous membranes HEAD & SCALP: normocephalic and atraumatic NOSE: Normal external nose present and Normal nasal mucous membranes and turbinates present EXTERNAL EAR: Yes external ears normal Eye: COMMON NORMALS: Equal, round and reactive pupils present, EOMs intact bilaterally, conjunctivae normal and normal visual melgar by confrontation CONJUNCTIVA: Yes conjunctivae normal PUPIL: Yes Equal, round and reactive pupils present Neck/C-Spine: COMMON NORMALS: full ROM, supple, no meningeal signs and no JVD Resp: COMMON NORMALS: normal respiratory effort, No retractions, No use of accessory muscles and clear to auscultation bilaterally AUSCULTATION: clear to auscultation bilaterally, no crackles, no rales, no rhonchi and no wheezes Cardio: COMMON NORMALS: no JVD, regular rate, regular rhythm, S1 normal heart sound present, S2 normal heart sound present, No gallops present (Cardio), No clicks present (Cardio), No murmurs present (Cardio), No rub (Cardio) and Peripheral pulses 2+ throughout RATE: regular rate RHYTHM: regular rhythm HEART SOUNDS: S1 normal heart sound present and S2 normal heart sound present PERIPHERAL PULSES: Peripheral pulses 2+ throughout GI: COMMON NORMALS: Normal to inspection, nondistended, normoactive bowel sounds present, Soft to palpation, non-tender, No hepatosplenomegaly present and no masses AUSCULTATION: Yes normoactive bowel sounds PALPATION: Yes Soft to palpation, No Guarding due to palpation present (GI), No Rigid due to palpation and Yes No hepatosplenomegaly present RECTAL EXAM: deferred : COMMON NORMALS: Yes no CVA tenderness BLADDER/KIDNEY EXAM: Yes no CVA tenderness Back/Pelvis: COMMON NORMALS: no CVA tenderness Extremity: COMMON NORMALS: normal to inspection and full ROM Neuro: COMMON NORMALS: patient oriented x3, moves all extremities, no focal motor deficits and no sensory deficits noted SENSORIUM/ORIENTATION: Yes alert MENINGEAL SIGNS: Yes no meningeal signs Psych: COMMON NORMALS: mental status grossly normal, cooperative and speech normal SPEECH: Yes normal speech Skin: COMMON NORMALS: no rashes or lesions noted GENERAL SKIN EXAM: no rashes or lesions noted Course Vital Signs: Vital signs: Vital Signs Temperature 98.1 F 06/19/25 15:23 Pulse Rate 78 06/19/25 18:40 Respiratory Rate 16 06/19/25 15:23 Blood Pressure 109/93 06/19/25 18:40 Pulse Oximetry 100 06/19/25 18:40 Oxygen Delivery Me thod Room Air 06/19/25 17:00 MDM - Nausea/Vomiting/Diarrhea Medical Decision Making This patient presented for nausea and vomiting, recently started Rexulti. She was seen in the emergency department in [facility] for similar symptoms, diagnosed dehydration and sent home. States her symptoms have still persisted, she has continued to take her Rexulti. Her labs again here were normal, including normal CBC and metabolic panel, normal creatinine kinase, normal lipase. Her urinalysis showing signs of mild UTI, this could explain her symptoms however I do feel that it is more likely medication reaction of her resulted. To avoid further issues by sudden cessation of the medication, will go to 0.25 mg and then have her follow-up with her regular provider in a week. Antibiotics for her UTI, and general return precautions given. Lab Data 06/19/25 16:15 06/19/25 16:15 Laboratory Results WBC 7.03 10^3/uL (3.29-11.43) 06/19/25 16:15 RBC 5.23 10^6/uL (3.85-5.65) 06/19/25 16:15 Hgb 13.30 g/dL (11.27-16.99) 06/19/25 16:15 Hct 42.1 % (36-47) 06/19/25 16:15 MCV 80.5 fl (85-98) L 06/19/25 16:15 MCH 25.4 pg (27-33) L 06/19/25 16:15 MCHC 31.6 g/dL (30-55) 06/19/25 16:15 RDW 15.4 % (12.1-15.1) H 06/19/25 16:15 Plt Count 332 10^3/cmm (157-399) 06/19/25 16:15 MPV 9.9 fL (7.4-10.4) 06/19/25 16:15 Neut % (Auto) 61.9 % 06/19/25 16:15 Lymph % (Auto) 30.6 % 06/19/25 16:15 [place] % (Auto) 5.3 % 06/19/25 16:15 Eos % (Auto) 1.3 % 06/19/25 16:15 Baso % (Auto) 0.6 % 06/19/25 16:15 Neut # (Auto) 4.36 10^3/uL (1.8-7.7) 06/19/25 16:15 Lymph # (Auto) 2.2 10^3/uL (0.8-4.8) 06/19/25 16:15 [place] # (Auto) 0.4 10^3/uL (0.2-0.9) 06/19/25 16:15 Eos # (Auto) 0.1 10^3/uL (0.0-0.8) 06/19/25 16:15 Baso # (Auto) 0.0 10^3/uL (0.0-0.1) 06/19/25 16:15 Nucleated RBC % (auto) 0 % 06/19/25 16:15 Nucleated RBCs # 0.0 /100WBC 06/19/25 16:15 Sodium 139 mmol/L (136-145) 06/19/25 16:15 Potassium 4.7 mmol/L (3.5-5.1) 06/19/25 16:15 Chloride 104 mmol/L (98-107) 06/19/25 16:15 Carbon Dioxide 23 mmol/L (22-29) 06/19/25 16:15 Anion Gap 16.7 (5-19) 06/19/25 16:15 BUN 12 mg/dL (6-20) 06/19/25 16:15 Creatinine 0.6 mg/dL (0.5-0.9) 06/19/25 16:15 GFR Calculation 118.2 mL/min (90-130) 06/19/25 16:15 Glucose 89 mg/dL (65-115) 06/19/25 16:15 Calculated Osmolality 287 mOsm/kg (285-295) 06/19/25 16:15 Calcium 9.6 mg/dL (8.5-10.5) 06/19/25 16:15 Total Bilirubin 0.2 mg/dL (0.15-1.2) 06/19/25 16:15 AST 21 U/L (0-32) 06/19/25 16:15 ALT 33 U/L (0-33) 06/19/25 16:15 Alkaline Phosphatase 101 U/L (35-105) 06/19/25 16:15 Creatine Kinase 31 U/L (26-192) 06/19/25 16:15 Total Protein 8.4 g/dL (6.6-8.7) 06/19/25 16:15 Albumin 4.2 g/dL (3.5-5.2) 06/19/25 16:15 Globulin 4.2 g/dL (1.3-4.6) 06/19/25 16:15 Lipase 17 U/L (13-60) 06/19/25 16:15 HCG, Qual Negative (Negative) 06/19/25 17:00 Urine Color Yellow (Yellow) 06/19/25 17:00 Urine Appearance Clear (CLEAR) 06/19/25 17:00 Urine pH 5.0 (5-7) 06/19/25 17:00 Ur Specific Tebbetts 1.025 (1.005-1.030) 06/19/25 17:00 Urine Protein Negative (Negative) 06/19/25 17:00 Urine Glucose (UA) Negative (Normal) 06/19/25 17:00 Urine Ketones Trace (Negative) 06/19/25 17:00 Urine Blood 3+ (Negative) A 06/19/25 17:00 Urine Nitrate Negative (Negative) 06/19/25 17:00 Urine Bilirubin Negative (Negative) 06/19/25 17:00 Urine Urobilinogen 1.0 mg/dL (Negative) 06/19/25 17:00 Ur Leukocyte Esterase 1+ (Negative) A 06/19/25 17:00 Urine RBC 0-4 /hpf (0-2) H 06/19/25 17:00 Urine WBC 10-15 /hpf (0-5) H 06/19/25 17:00 Ur Squamous Epith Cells 11-20 /hpf (0-5) H 06/19/25 17:00 Amorphous Sediment Not Reportable 06/19/25 17:00 Urine Bacteria 1+ /hpf (NONE) H 06/19/25 17:00 No radiology studies performed this visit Discharge Plan Discharge Patient Disposition: Home Clinical Impression: Drug side effects, Urinary tract infection Condition: Stable Prescriptions: New cefdinir 300 mg capsule 300 mg PO BID 7 Days Qty: 14 0RF No Action norethindrone-e.estradiol-iron [Justyna Fe 1.5/30 (28)] 1.5 mg-30 mcg (21)/75 mg (7) tablet 1 tab PO DAILY ibuprofen 200 mg Tablet 600 mg PO Q6H PRN (Reason: Pain) calcium carbonate [Oyster Shell Calcium 500] 500 mg calcium (1,250 mg) tablet 500 mg PO DAILY ferrous sulfate [FeroSul] 325 mg (65 mg iron) tablet 325 mg PO DAILY cholecalciferol (vitamin D3) 1,250 mcg (50,000 unit) capsule 50,000 unit PO Q7D Rx Instructions: Fridays Rexulti 0.5 mg tablet 0.5 mg PO DAILY Discharge Orders: Discharge ED (Routine); Ordered 06/19/25 Ordered By: Ji Carpio Referrals: [facility], [Primary Care Provider] Patient Instructions: Patient Portal & Ricardo Instructions Activity Restrictions/Additional Instructions: Discharge instructions These instructions explain the treatment plan and what symptoms to watch for. The medicine plan includes lowering Rexulti (brexpiprazole) from 0.5 mg to 0.25 mg once daily, and starting cefdinir to treat a urinary tract infection (UTI). Medication changes - Rexulti (brexpiprazole): Take 0.25 mg by mouth once daily. This is a dose reduction due to suspected side effects. Some side effects can include sleepiness, restlessness (feeling like it is hard to sit still), dizziness, weight gain, and low blood pressure on standing. Rare but serious problems include abnormal movements (tardive dyskinesia), very high fever with stiff muscles and confusion (neuroleptic malignant syndrome), high blood sugar, and impulse-control problems (like strong urges to [place] or shop). - Cefdinir: Take exactly as prescribed for the full course to treat the UTI, even if feeling better before finishing. Common side effects are diarrhea, nausea, headache, and stomach pain. Vaginal yeast infections can occur. Serious but uncommon reactions include severe allergic reactions (trouble breathing, swelling of the face or throat, rash), severe skin reactions, yellowing of the skin/eyes, dark urine, or severe diarrhea with blood or belly cramps (which can happen during treatment or up to 2 months after). How to take cefdinir safely - Do not skip doses. Finish the entire course to help the infection clear and to lower the risk of antibiotic resistance. - Take cefdinir at least 2 hours before or 2 hours after any antacid that contains aluminum or magnesium. - Take cefdinir at least 2 hours before or 2 hours after iron supplements or multivitamins with iron. Iron can reduce how well cefdinir is absorbed. - Diarrhea can happen with antibiotics and usually gets better after stopping them. If diarrhea is watery or bloody, or is severe with cramps or fever, contact a healthcare provider right away?even if this happens up to two months after finishing the antibiotic. Safety tips for Rexulti (brexpiprazole) - Be careful standing up from sitting or lying down. Move slowly to help prevent dizziness or fainting due to low blood pressure. - Until it is clear how the lower dose affects alertness, avoid driving or operating machines if feeling sleepy or not fully alert. - Drink enough fluids and avoid overheating in hot weather to reduce the risk of heat-related problems. - Watch for new or unusual strong urges (like gambling, shopping, binge eating, or sexual urges). Report these if they occur; they may improve if the dose is lowered or if the medicine is stopped. - Report any new muscle stiffness, shaking, or uncontrollable movements of the face, tongue, or body. - If or planning , or if becoming , notify a healthcare provider; late- exposure can cause symptoms in newborns. When to get urgent help (go to the emergency department or call emergency services) - Trouble breathing, swelling of the face, lips, tongue, or throat; or a severe rash or blistering skin. - Very high fever, stiff muscles, confusion, or heavy sweating. - Fainting, chest pain, or seizures. - Severe or bloody diarrhea, or black/tarry stools. When to contact a healthcare provider within 24 hours - New or worsening restlessness, agitation, or uncontrollable movements. - Dizziness when standing that does not improve, or falls. - Signs of high blood sugar: increased thirst, frequent urination, weakness, or confusion. - Yellowing of the skin or eyes, dark urine, pale stools, or right?upper belly pain. - Vaginal itching or discharge suggestive of a yeast infection. - Diarrhea that is persistent (more than a few loose stools per day) or associated with cramps or fever. Follow-up plan - Follow up with the primary care provider within 3?5 days, or sooner if symptoms are not improving. - Return for care or contact a healthcare provider if there are any new or worsening symptoms after the medicine changes today. Additional notes - Take all medicines exactly as directed. Do not start, stop, or change other medicines or supplements without checking first; some can interact with the current medications. - If there is a history of kidney problems, make sure the prescribing provider is aware; cefdinir dosing may need adjustment in reduced kidney function. Print Language: Bengali Coding Level of Care Code ED Chicken Fancier for Kofi Danielson
[2025-06-19 17:06] LABS: Alanine Aminotransferase 33 U/L (0-33); Albumin Level 4.2 g/dL (3.5-5.2); Alkaline Phosphatase 101 U/L (35-105); Anion Gap 16.7 (5-19); Aspartate Amino Transferase 21 U/L (0-32); Blood Urea Nitrogen 12 mg/dL (6-20); Calcium 9.6 mg/dL (8.5-10.5); Carbon Dioxide 23 mmol/L (22-29); Chloride 104 mmol/L (98-107); Creatinine Clr Calc Pharmacy 144.1118; Globulin 4.2 g/dL (1.3-4.6); Glucose 89 mg/dL (65-115); Lipase 17 U/L (13-60); Osmolality Calculated 287 mOsm/kg (285-295); Potassium 4.7 mmol/L (3.5-5.1); Sodium 139 mmol/L (136-145); Total Protein 8.4 g/dL (6.6-8.7)
[2025-06-19 17:18] LABS: Glucose Urine UA Negative (Normal); Nitrate Urine Negative (Negative); Specific Gravity, Urine 1.025 (1.005-1.030)
[2025-06-19 17:21] LABS: HCG Qualitative Urine. Negative (Negative)
[2025-06-19 17:23] LABS: Add Urine Microscopic? YES; Universal Test for UA Present (0)
[2025-06-19 17:46] LABS: UA Manual Slide Review YES
[2025-06-19 18:22] VITALS: BP 113/88; PULSE 77; O2SAT 100
[2025-06-19 18:40] VITALS: BP 109/93; PULSE 78; O2SAT 100
== END 2025-06-19 18:57 | disposition home or self-care (01) ==
PROVIDERS: Emergency Provider Physician Assistant
DX: T50.995A Adverse effect of other drugs, medicaments and biological substances, initial encounter (principal); X58.XXXA Exposure to other specified factors, initial encounter; N39.0 Urinary tract infection, site not specified; Z72.0 Tobacco use
CPT/HCPCS: 36415; 80053; 81001; 81025; 82550; 83690; 85025; 96361; 96374; 99284; J2765; J7030

== ENCOUNTER 2025-08-17 12:43 | Emergency (ER) | payer MEDICAID, SELFPAY ==
[2024-03-13 11:29] VITALS: BP 133/85; BMI 39.5
--- OUTSIDE RECORDS SUMMARY | 2025-08-11 16:00 | XMS_ITS | Encounter Summary ---
Author Organization [facility] Address [address] [place] [address] Care Team Providers Care Director Of Customer Acquisition Name Role Phone Armando Ngo MD Primary Care Provider +1 [phone] Reason for Visit * Reason Comments Consult Patient would like t o discuss getting possible labs for auto immune disorders. Encounter Details Date Type Department Care Team (Latest Contact Info) Description 08/11/2025 4:00 PM CDT Office Visit [facility] Medicine [place] [address] [address] Gege Panda, [facility] [address] [address] Mild intermittent asthma without complication (Primary Dx); Family history of systemic lupus erythematosus Social History Tobacco Use Types Packs/Day Years Used Date Smoking Tobacco: Former Cigarettes Q uit: 09/18/2016 Passive Smoke Exposure: Past Smokeless Tobacco: Never Tobacco Cessation:Counseling Given: Yes Alcohol Use Standard Drinks/Week Comments Yes 0 (1 standard drink = 0.6 oz pur e alcohol) rarely Feeling Safe Answer Date Recorded Are you in a relationship wi th someone who hurts you emotionally and/or physically? No 07/28/2025 Comments No Sex and Gender Information Value Date Recorded Sex Assigned at Not on file Legal Sex Female 6:37 AM RETAIL PRICING COORDINATOR Gender Identity Not on file Sexual Orientation Not on file documented as of this encounter Last Filed Vital Signs Vital Sign Reading Time Taken Comments Blood Pressure 126/72 08/11/2025 3:51 PM CDT Pulse 92 08/11/2025 3:51 PM CDT Temperature 36.3 C (97.4 F) 08/11/2025 3:51 PM CDT Respiratory Rate 16 08/11/2025 3:51 PM CDT Oxygen Saturation 99% 08/11/2025 3:51 PM CDT Inhaled Oxygen Concentration - - Weight 89.4 kg (197 lb 2 oz) 08/11/2025 3:51 PM CDT Height 157.5 cm (5' 2 ) 08/11/2025 3:51 PM CDT Body Mass Index 36.05 08/11/2025 3:51 PM CDT documented in this encounter Patient Instructions * Attachments The following attachments cannot be sent through Care Everywhere. * Antinuclear Antibodies ([place]) documented in this encounter Progress Notes * Gege Panda, PROFESSOR OF APOLOGETICS - 08/11/2025 3:54 PM CDT Chief Complaint Patient presents with Consult Patient would like to discuss getting possible labs for auto immune disorders. History of Present Illness The patient is a 30-year-old female who presents for autoimmune testing. She reports a family history of autoimmune diseases and experiences frequent illnesses, prompting her to seek further investigation. She is particularly concerned about the possibility of Rupal's disease, lupus, and fibromyalgia, given their prevalence in her family. Previous lab work in 12/2024, including thyroid antibodies and T4, was normal. She mentions feeling overstimulated and prefers not to be touched, which aligns with symptoms of fibromyalgia. She has a history of asthma and bronchitis. She notes frequent illnesses, particularly bronchitis every year, which recently caused her to miss a week of work. Additionally, she reports experiencing shortness of breath during long walks. She acknowledges having a higher body weight but has made progress in weight loss, reducing from 214 pounds to 188 pounds. FAMILY HISTORY The patient reports a family history of autoimmune diseases, including Rupal's, lupus, and fibromyalgia. Review of Systems Constitutional: Negative. HENT: Negative. Eyes: Negative. Respiratory: Positive for cough. Cardiovascular: Negative. Gastrointestinal: Negative. Genitourinary: Negative. Musculoskeletal: Negative. Skin: Negative. Neurological: Negative. Endo/Heme/Allergies: Negative. Psychiatric/Behavioral: Negative. BP 126/72 (BP Location: Left arm, Patient Position (BP): Sitting, BP Cuff Size: Adult) Pulse 92 Temp 97.4 ??F (36.3 ??C) (Temporal) Resp 16 Ht 5' 2 (1.575 m) Wt 89.4 kg (197 lb 2 oz) LMP08/09/2025 (Exact Date) SpO2 99% BMI 36.05 kg/m?? Physical Exam Respiratory: Clear to auscultation, no wheezing, rales or rhonchi Physical Exam Vitals and nursing note reviewed. Constitutional: Appearance: She is well-developed. HENT: Head: Normocephalic and atraumatic. Right Ear: External ear normal. Left Ear: External ear normal. Nose: Nose normal. Mouth/Throat: Mouth: Mucous membranes are moist. Eyes: Extraocular Movements: Extraocular movements intact. Conjunctiva/sclera: Conjunctivae normal. Cardiovascular: Rate and Rhythm: Normal rate and regular rhythm. Heart sounds: Normal heart sounds. Pulmonary: Effort: Pulmonary effort is normal. Breath sounds: Normal breath sounds. Musculoskeletal: General: Normal range of motion. Cervical back: Normal range of motion. Skin: General: Skin is warm and dry. Neurological: Mental Status: She is alert and oriented to person, place, and time. Psychiatric: Mood and Affect: Mood normal. Behavior: Behavior normal. Thought Content: Thought content normal. Judgment: Judgment normal. Results Labs - T4: Normal - Thyroid antibodies: 12/2024, Normal - TSH: Normal ICD-10-CM ICD-9-CM 1. Mild intermittent asthma without complication J45.20 493.90 SYSTEMIC AUTOIMMUNE PANEL 2. Family history of systemic lupus erythematosus Z82.69 V19.4 SYSTEMIC AUTOIMMUNE PANEL Assessment & Plan 1. Autoimmune disease screening: - T4 levels were within the normal range, and thyroid antibodies tested in 12/2024 did not raise any concerns. The TSH level obtained during her recent ER visit was also normal. - An autoimmune panel will be ordered to further investigate her condition. The results are expected to be available within a week to 10 days. 2. Asthma: - She reports having asthma, which is a known condition. - No new treatment was discussed during this visit. 3. Bronchitis: - She experiences recurrent bronchitis, which has caused her to miss work. - The potential link between her bronchitis and an autoimmune condition will be explored through the autoimmune panel. 4. Weight management: - She has successfully reduced her weight from 214 pounds to 188 pounds. Continued weight management was encouraged as it can significantly impact her overall health. Gege MAURICIO This note was automatically generated by a Generative AI technology ([email or web address]), reviewed, edited, and finalized by PEACE Moss. The author of this note, patient (or authorized warehouse representative), and all other persons present consent to the audio recording of this visit for charting documentation purposes. documented in this encounter Plan of Treatment Upcoming Encounters Date Type Department Care Team (Late st Contact Info) Description 08/27/2025 3:40 PM CDT Office Visit [address] [phone] Gege Panda FNP [address] [phone] 11/23/2025 3:30 PM RETAIL PRICING COORDINATOR Appointment [facility] Neurology [facility] [address] [phone] Sylvester Hooker MD [address] [place] [address] 12/03/2025 11:00 AM RETAIL PRICING COORDINATOR Office Visit [address] [phone] Gege Panda FNP [address] [phone] Pending Results Name Type Priority Associated Diagnoses Date /Time SYSTEMIC AUTOIMMUNE PANEL Lab Routine Mild intermittent asthma without complication Family history of systemic lupus erythematosus 08/11/2025 3:59 PM CDT Scheduled Orders Name Type Priority Associated Diagnoses Orde r Schedule SYSTEMIC AUTOIMMUNE PANEL Lab Routine Mild intermittent asthma without complication Family history of systemic lupus erythematosus Expected: 08/11/2025, Expires: 08/11/2026 documented as of this encounter Visit Diagnoses Diagnosis Mild intermittent asthma without complication- Primary Unspecified asthma Family history of systemic lupus erythematosus Family history of skin conditions documented in this encounter Care Teams Director Of Customer Acquisition Relationship Specialty Start Date End Date Armando Ngo MD [address] [phone] PCP - General Family Practice 07/17/18 documented as of this encounter
[2025-08-17 12:45] VITALS: BP 141/89; PULSE 120; TEMP 36.7; O2SAT 98; BMI 34.7
--- OUTSIDE RECORDS SUMMARY | 2025-08-17 12:48 | XMS_ITS | Encounter Summary ---
Author Organization [facility] Address [address] [place] [address] Care Team Providers Care Scleroscope Tester Name Role Phone Armando Ngo MD Primary Care Provider [phone] [phone] Encounter Details Date Type Department Care Team (Late st Contact Info) Description 01/31/2000 Outpatient [place] [address] [place] [address] Family history of diabetes mellitus (Primary Dx); Routine child health exam Social History Tobacco Use Types Packs/Day Years Used Date Smoking Tobacco: Never Assessed Comments Unknown Sex and Gender Information Value Date Recorded Sex Assigned at Not on file Legal Sex Female 5:35 AM OPEN HEARTH HELPER Gender Identity Not on file Sexual Orientation Not on file documented as of this encounter Plan of Treatment Not on file documented as of this encounter Visit Diagnoses Diagnosis Family history of diabetes mellitus- Primary Routine child health exam Routine infant or child health check documented in this encounter Additional Health Concerns Infection Onset Date Last Indicated Resolved Time R/O COVID-19 09/18/2020 09/18/2020 09/20/2020 12:3 2 AM OPEN HEARTH HELPER documented as of this encounter Care Teams Scleroscope Tester Relationship Specialty Start Date End Date Armando Ngo MD [address] [place] [address] PCP - General Family Practice 07/17/18 documented as of this encounter
--- OUTSIDE RECORDS SUMMARY | 2025-08-17 12:48 | XMS_ITS | Encounter Summary ---
Author Organization [facility] Address [address] [place] [address] Care Team Providers Care Draw Bench Operator Name Role Phone Armando Ngo MD Primary Care Provider [phone] [phone] Encounter Details Date Type Department Care Team (Latest Contact Info) Description 06/26/2004 Outpatient [facility] [address] [place] [phone] Chela Dukes, EMBROIDERY ASSISTANT [address] [place] [phone] MED EXAM NEC-ADMIN PURP (Primary Dx) Social History Tobacco Use Types Packs/Day Years Used Date Smoking Tobacco: Never Assessed Comments Unknown Sex and Gender Information Value Date Recorded Sex Assigned at Not on file Legal Sex Female 5:35 AM LEAKAGE TESTER Gender Identity Not on file Sexual Orientation Not on file documented as of this encounter Plan of Treatment Not on file documented as of this encounter Visit Diagnoses Diagnosis Other general medical examination for administrative purposes- Primary documented in this encounter Additional Health Concerns Infection Onset Date Last Indicated Resolved Time R/O COVID-19 09/18/2020 09/18/2020 09/20/2020 12:3 2 AM LEAKAGE TESTER documented as of this encounter Care Teams Draw Bench Operator Relationship Specialty Start Date End Date Armando Ngo MD [address] [phone] PCP - General Family Practice 07/17/18 documented as of this encounter
--- OUTSIDE RECORDS SUMMARY | 2025-08-17 12:48 | XMS_ITS | Encounter Summary ---
Author Organization [facility] Address [address] [place] [address] Care Team Providers Care Rug Measurer Name Role Phone Armando Ngo MD Primary Care Provider [phone] Encounter Details Date Type Department Care Team (Latest Contact Info) Description 04/24/2004 Outpatient Historical [facility] Family Medicine- [address] [place] [phone] Amy Liu MD NO ADDRESS ON FILE URIN TRACT INFECTION NOS (Primary Dx) Social History Tobacco Use Types Packs/Day Years Used Date Smoking Tobacco: Never Assessed Comments Unknown Sex and Gender Information Value Date Recorded Sex Assigned at Not on file Legal Sex Female 5:35 AM ACIDIZER WATER WELL Gender Identity Not on file Sexual Orientation Not on file documented as of this encounter Plan of Treatment Not on file documented as of this encounter Visit Diagnoses Diagnosis Urinary tract infection, site not specified- Primary documented in this encounter Additional Health Concerns Infection Onset Date Last Indicated Resolved Time R/O COVID-19 09/18/2020 09/18/2020 09/20/2020 12:3 2 AM ACIDIZER WATER WELL documented as of this encounter Care Teams Rug Measurer Relationship Specialty Start Date End Date Armando Ngo MD [address] [place] [phone] PCP - General Family Practice 07/17/18 documented as of this encounter
--- OUTSIDE RECORDS SUMMARY | 2025-08-17 12:48 | XMS_ITS | Encounter Summary ---
Author Organization [facility] Address [address] [place] [address] Care Team Providers Care Police Sergeant Precinct Name Role Phone Armando Ngo MD Primary Care Provider [phone] [phone] Encounter Details Date Type Department Care Team (Latest Contact Info) Description 03/09/2002 Outpatient Historical [facility] [address] [place] [address] Lionel Russell DO NO ADDRESS ON FILE URIN TRACT INFECTION NOS (Primary Dx); ALLERGY, UNSPECIFIED Social History Tobacco Use Types Packs/Day Years Used Date Smoking Tobacco: Never Assessed Comments Unknown Sex and Gender Information Value Date Recorded Sex Assigned at Not on file Legal Sex Female 5:35 AM APPLICATION SUPPORT TECHNICIAN Gender Identity Not on file Sexual Orientation Not on file documented as of this encounter Plan of Treatment Not on file documented as of this encounter Visit Diagnoses Diagnosis Urinary tract infection, site not specified- Primary Allergy, unspecified not elsewhere classified documented in this encounter Additional Health Concerns Infection Onset Date Last Indicated Resolved Time R/O COVID-19 09/18/2020 09/18/2020 09/20/2020 12:3 2 AM APPLICATION SUPPORT TECHNICIAN documented as of this encounter Care Teams Police Sergeant Precinct Relationship Specialty Start Date End Date Armando Ngo MD [address] [place] [phone] PCP - General Family Practice 07/17/18 documented as of this encounter
--- OUTSIDE RECORDS SUMMARY | 2025-08-17 12:48 | XMS_ITS | Encounter Summary ---
Author Organization [facility] Address [address] [place] [address] Care Team Providers Care Biofuels Technology Manager Name Role Phone Armando Ngo MD Primary Care Provider [phone] [phone] Encounter Details Date Type Department Care Team (Latest Contact Info) Description 07/03/2002 Outpatient Historical [facility] [address] [place] [address] Amy Liu MD NO ADDRESS ON FILE ACUTE URI NOS (Primary Dx); ACUTE PHARYNGITIS Social History Tobacco Use Types Packs/Day Years Used Date Smoking Tobacco: Never Assessed Comments Unknown Sex and Gender Information Value Date Recorded Sex Assigned at Not on file Legal Sex Female 5:35 AM PHOTOGRAPHIC DEVELOPER AND PRINTER Gender Identity Not on file Sexual Orientation Not on file documented as of this encounter Plan of Treatment Not on file documented as of this encounter Visit Diagnoses Diagnosis Acute upper respiratory infections of unspecified site- Primary Acute pharyngitis documented in this encounter Additional Health Concerns Infection Onset Date Last Indicated Resolved Time R/O COVID-19 09/18/2020 09/18/2020 09/20/2020 12:3 2 AM PHOTOGRAPHIC DEVELOPER AND PRINTER documented as of this encounter Care Teams Biofuels Technology Manager Relationship Specialty Start Date End Date Armando Ngo MD [address] [place] [phone] PCP - General Family Practice 07/17/18 documented as of this encounter
--- OUTSIDE RECORDS SUMMARY | 2025-08-17 12:48 | XMS_ITS | Encounter Summary ---
Author Organization [facility] Address [address] [place] [address] Care Team Providers Care Senior Care Specialist Name Role Phone Armando Ngo MD Primary Care Provider [phone] [phone] Encounter Details Date Type Department Care Team (Late st Contact Info) Description 04/29/2001 Outpatient Historical [facility] [place], [address] [place] [address] Acute pharyngitis (Primary Dx) Social History Tobacco Use Types Packs/Day Years Used Date Smoking Tobacco: Never Assessed Comments Unknown Sex and Gender Information Value Date Recorded Sex Assigned at Not on file Legal Sex Female 5:35 AM VICE PRESIDENT GLOBAL ADVERTISING SALES Gender Identity Not on file Sexual Orientation Not on file documented as of this encounter Plan of Treatment Not on file documented as of this encounter Visit Diagnoses Diagnosis Acute pharyngitis- Primary documented in this encounter Additional Health Concerns Infection Onset Date Last Indicated Resolved Time R/O COVID-19 09/18/2020 09/18/2020 09/20/2020 12:3 2 AM VICE PRESIDENT GLOBAL ADVERTISING SALES documented as of this encounter Care Teams Senior Care Specialist Relationship Specialty Start Date End Date Armando Ngo MD [address] [place] [address] PCP - General Family Practice 07/17/18 documented as of this encounter
--- OUTSIDE RECORDS SUMMARY | 2025-08-17 12:48 | XMS_ITS | Encounter Summary ---
Author Organization [facility] Address [address] Kang: [place] [address] Care Team Providers Care Promotional Demonstrator Name Role Phone Armando Ngo MD Primary Care Provider [phone] [phone] Encounter Details Date Type Department Care Team (Late st Contact Info) Description 03/11/2002 Outpatient Historical Chela Dukes, RF DESIGN ENGINEER [address] [place] [address] Social History Tobacco Use Types Packs/Day Years Used Date Smoking Tobacco: Never Assessed Comments Unknown Sex and Gender Information Value Date Recorded Sex Assigned at Not on file Legal Sex Female 5:35 AM TONG CARRIER Gender Identity Not on file Sexual Orientation Not on file documented as of this encounter Plan of Treatment Not on file documented as of this encounter Visit Diagnoses Not on filedocumented in this encounter Additional Health Concerns Infection Onset Date Last Indicated Resolved Time R/O COVID-19 09/18/2020 09/18/2020 09/20/2020 12:3 2 AM TONG CARRIER documented as of this encounter Care Teams Promotional Demonstrator Relationship Specialty Start Date End Date Armando Ngo MD [address] [place] [phone] PCP - General Family Practice 07/17/18 documented as of this encounter
--- OUTSIDE RECORDS SUMMARY | 2025-08-17 12:48 | XMS_ITS | Encounter Summary ---
Author Organization [facility] Address [address] [place] [address] Care Team Providers Care Apparatus Lineman Name Role Phone Armando Ngo MD Primary Care Provider [phone] [phone] Encounter Details Date Type Department Care Team (Late st Contact Info) Description 03/29/1999 Outpatient Historical [facility] [place], [address] [place] [address] Pain in limb (Primary Dx) Social History Tobacco Use Types Packs/Day Years Used Date Smoking Tobacco: Never Assessed Comments Unknown Sex and Gender Information Value Date Recorded Sex Assigned at Not on file Legal Sex Female 5:35 AM HISTORICAL GUIDE Gender Identity Not on file Sexual Orientation Not on file documented as of this encounter Plan of Treatment Not on file documented as of this encounter Visit Diagnoses Diagnosis Pain in limb- Primary Pain in soft tissues of limb documented in this encounter Additional Health Concerns Infection Onset Date Last Indicated Resolved Time R/O COVID-19 09/18/2020 09/18/2020 09/20/2020 12:3 2 AM HISTORICAL GUIDE documented as of this encounter Care Teams Apparatus Lineman Relationship Specialty Start Date End Date Armando Ngo MD [address] [place] [address] PCP - General Family Practice 07/17/18 documented as of this encounter
--- OUTSIDE RECORDS SUMMARY | 2025-08-17 12:48 | XMS_ITS | Clinical Summary ---
Author Organization [facility] Address [address] [place] [address] Care Team Providers Care Student Accounts Coordinator Name Role Phone Armando Ngo MD Primary Care Provider +1 [phone] Allergies No known active allergies Medications vit [...] on file Legal Sex Female 5:35 AM BRAILLE AND TALKING BOOKS CLERK Gender Identity Not on file Sexual Orientation Not on file Last Filed Vital Signs Vital Sign Reading Time Taken Comments Blood Pressure 120/82 11/25/2020 10:43 AM BRAILLE AND TALKING BOOKS CLERK Pulse 76 11/25/2020 10:43 AM BRAILLE AND TALKING BOOKS CLERK Temperature 35.9 C (96.6 F) 11/25/2020 10:43 AM BRAILLE AND TALKING BOOKS CLERK Respiratory Rate 24 11/25/2020 10:43 AM BRAILLE AND TALKING BOOKS CLERK Oxygen Saturation 100% 11/23/2020 6:06 PM BRAILLE AND TALKING BOOKS CLERK Inhaled Oxygen Concentration - - Weight 95.1 kg (209 lb 9.6 oz) 11/25/2020 10:43 AM BRAILLE AND TALKING BOOKS CLERK Height 157.5 cm (5' 2 ) 11/25/2020 10:43 AM BRAILLE AND TALKING BOOKS CLERK Body Mass Index 38.34 11/25/2020 10:43 AM BRAILLE AND TALKING BOOKS CLERK Plan of Treatment Health Maintenance Due Date Last Done Comments CERVICAL CANCER SCREENING 07/08/2020 PAP SMEAR 07/08/2020 07/08/2017, 04/03/2016 DTAP/TDAP/TD VACCINES (7 - T d or Tdap) 09/08/2020 09/08/2010, 06/17/2000, 06/01/1997, Additional history exists HPV/Cotest (21-29) 07/08/2022 07/08/2017, 0 07/08/2017, 04/03/2016 HPV VACCINES (1 - 3-dose SCD M series) 02/03/2023 Preventative Visit- Commercial 11/11/2024 0 01/28/2024, 07/08/2017, 04/03/2016 INFLUENZA VACCINE (#1) 2025 8, 09/07/2016, 09/30/1997, Additional history exists HPV/Cotest (30-65) 02/03/2026 07/08/2017, 0 07/08/2017, 04/03/2016 RSV VACCINE (60+ or ) (1 - 1-dose 75+ series) 02/03/2071 HEPATITIS B VACCINES Completed 1996, 1996, 1996 Procedures Procedure Name Priority Date/Time Associated Diagnosis Comments HPV HIGH RISK DNA DETECTION Routine 07/08/2017 1:38 PM CDT Well woman exam with routine gynecological exam CERV/VAG CYTO SCREEN PAP RLFX HPV Routine 07/08/2017 1:38 PM CDT Well woman exam with routine gynecological exam from Last 3 Months or Most Recently Relevant to Health Maintenance Results * (ABNORMAL) CERV/VAG CYTOPATH, THIN PREP IMAGR RFLX HPV (07/08/2017 1:38 PM CDT) Pathologist [facility] CLINICAL INFORMATION HEALTHY 07/16/2017 8:48 PM CDT [...] clinical correlation and follow-up as clinically appropriate PARTITION SETTER: SEE COMMENT 2016 8:48 PM CDT [facility] Comment: LMT, CT(ASCP) CT screening location: [place] [address] [address] [place] [id number] PATHOLOGIST SEE COMMENT 07/16/2017 8:48 PM CDT [facility] Comment: Kris Combs M.D., Board Certified in Anatomic Pathology and Cytopathology. (electronic signature) Genital SWAB OF ENDOCERVIX / Unknown Collection / Unknown 07/08/2017 1:38 PM CDT 07/09/2017 7:21 AM CDT Narrative [facility] - 07/16/2017 8:48 PM CDT Performing Organization Information: Site ID: [id number] Name: [facility] Address: [facility] Administration [place] [address] Director: Elisha Gant MD us Tameka Sanchez APRN PATHOLOGY/CYTOLOG Y ORDERABLES Edited Result - Final [facility] * HPV HIGH RISK DNA DETECTION (07/08/2017 1:38 PM CDT) HPV HIGH RISK DNA DETECTION NOT DETECTED 07/16/2017 8:48 PM CDT [facility] Comment: Tested for High Risk types 16, 18, 31, 33, 35, 39, 45, 51, 52, 56, 58, 59, 68. REFERENCE RANGE: HPV DNA HIGH RISK: NOT DETECTED The analytical performance characteristics of this assay have been determined by [facility]. The modifications have not been cleared or approved by the FDA. This assay has been validated pursuant to the CLIA regulations and is used for clinical purposes. Genital SWAB OF ENDOCERVIX / Unknown Collection / Unknown 07/08/2017 1:38 PM CDT 07/09/2017 7:21 AM CDT Narrative [facility] - 07/16/2017 8:48 PM CDT Performing Organization Information: Site ID: [id number] Name: [facility] Address: [address] [place] [address] Director: Jose Leigh MD Tameka Sanchez [facility] SPECIALIST PATHOLOGY/CYTOLOG Y ORDERABLES Final Result Performing Organization Address City/State/[facility] Co de Phone Number [facility] from Last 3 Months or Most Recently Relevant to Health Maintenance Insurance [employer] [place] [facility] CallMD [place] [id number] WORKERS COMP [employer] [place] [id number] Advance Directives For more information, please contact: [phone] * Full Code (Latest Code Status on File) Date Activated Date Inactivated Comments 06/27/2016 10:20 AM 06/27/2016 1:49 PM Care Teams Student Accounts Coordinator Relationship Specialty Start Date End Date Armando Ngo MD [address] [phone] PCP - General Family Practice 07/17/18
--- OUTSIDE RECORDS SUMMARY | 2025-08-17 12:48 | XMS_ITS | Encounter Summary ---
Author Organization [facility] Address [address] [place] [address] Care Team Providers Care Fabrication Operator Name Role Phone Armando Ngo MD Primary Care Provider +1 [phone] Encounter Details Date Type Department Care Team (Late st Contact Info) Description 10/27/1999 Outpatient [place] [address] [place] [address] Acute upper respiratory infections of other multiple sites (Primary Dx); Bronchitis, not specified as acute or chronic Social History Tobacco Use Types Packs/Day Years Used Date Smoking Tobacco: Never Assessed Comments Unknown Sex and Gender Information Value Date Recorded Sex Assigned at Not on file Legal Sex Female 5:35 AM FITNESS MANAGER Gender Identity Not on file Sexual [...] COVID-19 09/18/2020 09/18/2020 09/20/2020 12:3 2 AM FITNESS MANAGER documented as of this encounter Care Teams Fabrication Operator Relationship Specialty Start Date End Date Armando Ngo MD [address] [phone] PCP - General Family Practice 07/17/18 documented as of this encounter
--- OUTSIDE RECORDS SUMMARY | 2025-08-17 12:48 | XMS_ITS | Encounter Summary ---
Author Organization [facility] Address [address] [place] [address] Care Team Providers Care District Sales Manager Name Role Phone Armando Ngo MD Primary Care Provider [phone] [phone] Encounter Details Date Type Department Care Team (Late st Contact Info) Description 09/23/2000 Outpatient Historical [facility] [place], [address] [place] [address] Allergic rhinitis due to other allergen (Primary Dx) Social History Tobacco Use Types Packs/Day Years Used Date Smoking Tobacco: Never Assessed Comments Unknown Sex and Gender Information Value Date Recorded Sex Assigned at Not on file Legal Sex Female 5:35 AM RETAIL SALES VITAMIN CONSULTANT Gender Identity Not on file Sexual Orientation Not on file documented as of this encounter Plan of Treatment Not on file documented as of this encounter Visit Diagnoses Diagnosis Allergic rhinitis due to other allergen- Primary documented in this encounter Additional Health Concerns Infection Onset Date Last Indicated Resolved Time R/O COVID-19 09/18/2020 09/18/2020 09/20/2020 12:3 2 AM RETAIL SALES VITAMIN CONSULTANT documented as of this encounter Care Teams District Sales Manager Relationship Specialty Start Date End Date Armando Ngo MD [address] [place] [phone] PCP - General Family Practice 07/17/18 documented as of this encounter
--- OUTSIDE RECORDS SUMMARY | 2025-08-17 12:48 | XMS_ITS | Encounter Summary ---
Author Organization [facility] Address [address] [place] [address] Care Team Providers Care Certified Nuclear Medicine Technologist Name Role Phone Armando Ngo MD Primary Care Provider +1 [phone] Encounter Details Date Type Department Care Team (Latest Contact Info) Description 08/27/2003 Outpatient Historical [facility] [address] [place] [address] Rashard Helm MD [address] [phone] ACUTE BRONCHITIS (Primary Dx) Social History Tobacco Use Types Packs/Day Years Used Date Smoking Tobacco: Never Assessed Comments Unknown Sex and Gender Information Value Date Recorded Sex Assigned at Not on file Legal Sex Female 5:35 AM PUBLIC HEALTH DIRECTOR Gender Identity Not on file Sexual Orientation Not on file documented as of this encounter Plan of Treatment Not on file documented as of this encounter Visit Diagnoses Diagnosis Acute bronchitis- Primary documented in this encounter Additional Health Concerns Infection Onset Date Last Indicated Resolved Time R/O COVID-19 09/18/2020 09/18/2020 09/20/2020 12:3 2 AM PUBLIC HEALTH DIRECTOR documented as of this encounter Care Teams Certified Nuclear Medicine Technologist Relationship Specialty Start Date End Date Armando Ngo MD [address] [phone] PCP - General Family Practice 07/17/18 documented as of this encounter
--- OUTSIDE RECORDS SUMMARY | 2025-08-17 12:48 | XMS_ITS | Encounter Summary ---
Author Organization [facility] Address [address] [place] [address] Care Team Providers Care Motorcycle Technician Name Role Phone Armando Ngo MD Primary Care Provider +1 [phone] Encounter Details Date Type Department Care Team (Latest Contact Info) Description 10/24/2001 Outpatient Historical [facility] [address] [place] [phone] Chela Dukes, FIRER HELPER [address] [place] [phone] MED EXAM NEC-ADMIN PURP (Primary Dx) Social History Tobacco Use Types Packs/Day Years Used Date Smoking Tobacco: Never Assessed Comments Unknown Sex and Gender Information Value Date Recorded Sex Assigned at Not on file Legal Sex Female 5:35 AM MARINE SCIENTIST Gender Identity Not on file Sexual Orientation Not on file documented as of this encounter Plan of Treatment Not on file documented as of this encounter Visit Diagnoses Diagnosis Other general medical examination for administrative purposes- Primary documented in this encounter Additional Health Concerns Infection Onset Date Last Indicated Resolved Time R/O COVID-19 09/18/2020 09/18/2020 09/20/2020 12:3 2 AM MARINE SCIENTIST documented as of this encounter Care Teams Motorcycle Technician Relationship Specialty Start Date End Date Armando Ngo MD [address] [phone] PCP - General Family Practice 07/17/18 documented as of this encounter
--- OUTSIDE RECORDS SUMMARY | 2025-08-17 12:48 | XMS_ITS | Encounter Summary ---
Author Organization [facility] Address [address] [place] [address] Care Team Providers Care Chopping Machine Operator Name Role Phone Armando Ngo MD Primary Care Provider +1 [phone] Encounter Details Date Type Department Care Team (Latest Contact Info) Description 12/15/2004 Outpatient Historical [facility] [address] [place] [phone] Chela Dukes, OUTSIDE PLANT FIELD ENGINEER [address] [place] [phone] ACUTE URI NOS (Primary Dx) Social History Tobacco Use Types Packs/Day Years Used Date Smoking Tobacco: Never Assessed Comments Unknown Sex and Gender Information Value Date Recorded Sex Assigned at Not on file Legal Sex Female 5:35 AM HATCHERY ATTENDANT Gender Identity Not on file Sexual Orientation Not on file documented as of this encounter Plan of Treatment Not on file documented as of this encounter Visit Diagnoses Diagnosis Acute upper respiratory infections of unspecified site- Primary documented in this encounter Additional Health Concerns Infection Onset Date Last Indicated Resolved Time R/O COVID-19 09/18/2020 09/18/2020 09/20/2020 12:3 2 AM HATCHERY ATTENDANT documented as of this encounter Care Teams Chopping Machine Operator Relationship Specialty Start Date End Date Armando Ngo MD [address] [phone] PCP - General Family Practice 07/17/18 documented as of this encounter
--- OUTSIDE RECORDS SUMMARY | 2025-08-17 12:48 | XMS_ITS | Encounter Summary ---
Author Organization [facility] Address [address] [place] [address] Care Team Providers Care Associate Dean Of Women Name Role Phone Armando Ngo MD Primary Care Provider +1 [phone] Encounter Details Date Type Department Care Team (Latest Contact Info) Description 05/03/2003 Outpatient Historical [facility] [address] [place] [phone] Rashard Helm MD [address] [phone] ACUTE PHARYNGITIS (Primary Dx) Social History Tobacco Use Types Packs/Day Years Used Date Smoking Tobacco: Never Assessed Comments Unknown Sex and Gender Information Value Date Recorded Sex Assigned at Not on file Legal Sex Female 5:35 AM OPERATIONS LOGISTICS ANALYST Gender Identity Not on file Sexual Orientation Not on file documented as of this encounter Plan of Treatment Not on file documented as of this encounter Visit Diagnoses Diagnosis Acute pharyngitis- Primary documented in this encounter Additional Health Concerns Infection Onset Date Last Indicated Resolved Time R/O COVID-19 09/18/2020 09/18/2020 09/20/2020 12:3 2 AM OPERATIONS LOGISTICS ANALYST documented as of this encounter Care Teams Associate Dean Of Women Relationship Specialty Start Date End Date Armando Ngo MD [address] [phone] PCP - General Family Practice 07/17/18 documented as of this encounter
--- OUTSIDE RECORDS SUMMARY | 2025-08-17 12:48 | XMS_ITS | Encounter Summary ---
Author Organization [facility] Address [address] [place] [address] Care Team Providers Care [employer] Principal Name Role Phone Armando Ngo MD Primary Care Provider +1 [phone] Encounter Details Date Type Department Care Team (Latest Contact Info) Description 12/19/2001 Outpatient Historical [facility] [address] [place] [address] Chela Dukes, SUSTAINABLE AGRICULTURE FACULTY [address] [place] [phone] ACUTE PHARYNGITIS (Primary Dx) Social History Tobacco Use Types Packs/Day Years Used Date Smoking Tobacco: Never Assessed Comments Unknown Sex and Gender Information Value Date Recorded Sex Assigned at Not on file Legal Sex Female 5:35 AM NO BAKE MOLDER Gender Identity Not on file Sexual Orientation Not on file documented as of this encounter Plan of Treatment Not on file documented as of this encounter Visit Diagnoses Diagnosis Acute pharyngitis- Primary documented in this encounter Additional Health Concerns Infection Onset Date Last Indicated Resolved Time R/O COVID-19 09/18/2020 09/18/2020 09/20/2020 12:3 2 AM NO BAKE MOLDER documented as of this encounter Care Teams [employer] Principal Relationship Specialty Start Date End Date Armando Ngo MD [address] [phone] PCP - General Family Practice 07/17/18 documented as of this encounter
--- OUTSIDE RECORDS SUMMARY | 2025-08-17 12:48 | XMS_ITS | Encounter Summary ---
Author Organization [facility] Address [address] [place] [address] Care Team Providers Care Magnetometer Operator Name Role Phone Armando Ngo MD Primary Care Provider +1 [phone] Encounter Details Date Type Department Care Team (Latest Contact Info) Description 08/21/2002 Outpatient Historical [address] [phone] Amy Liu MD NO ADDRESS ON FILE ACUTE BRONCHITIS (Primary Dx) Social History Tobacco Use Types Packs/Day Years Used Date Smoking Tobacco: Never Assessed Comments Unknown Sex and Gender Information Value Date Recorded Sex Assigned at Not on file Legal Sex Female 5:35 AM AUTOMOBILE BODY WORKER Gender Identity Not on file Sexual Orientation Not on file documented as of this encounter Plan of Treatment Not on file documented as of this encounter Visit Diagnoses Diagnosis Acute bronchitis- Primary documented in this encounter Additional Health Concerns Infection Onset Date Last Indicated Resolved Time R/O COVID-19 09/18/2020 09/18/2020 09/20/2020 12:3 2 AM AUTOMOBILE BODY WORKER documented as of this encounter Care Teams Magnetometer Operator Relationship Specialty Start Date End Date Armando Ngo MD [address] [place] [phone] PCP - General Family Practice 07/17/18 documented as of this encounter
--- OUTSIDE RECORDS SUMMARY | 2025-08-17 12:48 | XMS_ITS | Encounter Summary ---
Author Organization [facility] Address [address] [place] [address] Care Team Providers Care Children'S Book Author Name Role Phone Armando Ngo MD Primary Care Provider +1 [phone] Encounter Details Date Type Department Care Team (Latest Contact Info) Description 07/23/2003 Outpatient Historical [facility] [address] [place] [phone] Amy Liu MD NO ADDRESS ON FILE ACUTE TONSILLITIS (Primary Dx); ACUTE PHARYNGITIS Social History Tobacco Use Types Packs/Day Years Used Date Smoking Tobacco: Never Assessed Comments Unknown Sex and Gender Information Value Date Recorded Sex Assigned at Not on file Legal Sex Female 5:35 AM RUG SAMPLE BEVELER Gender Identity Not on file Sexual Orientation Not on file documented as of this encounter Plan of Treatment Not on file documented as of this encounter Visit Diagnoses Diagnosis Acute tonsillitis- Primary Acute pharyngitis documented in this encounter Additional Health Concerns Infection Onset Date Last Indicated Resolved Time R/O COVID-19 09/18/2020 09/18/2020 09/20/2020 12:3 2 AM RUG SAMPLE BEVELER documented as of this encounter Care Teams Children'S Book Author Relationship Specialty Start Date End Date Armando Ngo MD [address] [place] [phone] PCP - General Family Practice 07/17/18 documented as of this encounter
--- OUTSIDE RECORDS SUMMARY | 2025-08-17 12:48 | XMS_ITS | Encounter Summary ---
Author Organization [facility] Address [address] [place] [address] Care Team Providers Care Splunk Dashboard Developer Name Role Phone Armando Ngo MD Primary Care Provider [phone] [phone] Encounter Details Date Type Department Care Team (Latest Contact Info) Description 02/13/2002 Outpatient Historical [facility] [address] [place] [address] Amy Liu MD NO ADDRESS ON FILE ACUTE PHARYNGITIS (Primary Dx); URIN TRACT INFECTION NOS Social History Tobacco Use Types Packs/Day Years Used Date Smoking Tobacco: Never Assessed Comments Unknown Sex and Gender Information Value Date Recorded Sex Assigned at Not on file Legal Sex Female 5:35 AM BASEBALL SCOUT Gender Identity Not on file Sexual Orientation Not on file documented as of this encounter Plan of Treatment Not on file documented as of this encounter Visit Diagnoses Diagnosis Acute pharyngitis- Primary Urinary tract infection, site not specified documented in this encounter Additional Health Concerns Infection Onset Date Last Indicated Resolved Time R/O COVID-19 09/18/2020 09/18/2020 09/20/2020 12:3 2 AM BASEBALL SCOUT documented as of this encounter Care Teams Splunk Dashboard Developer Relationship Specialty Start Date End Date Armando Ngo MD [address] [place] [phone] PCP - General Family Practice 07/17/18 documented as of this encounter
--- OUTSIDE RECORDS SUMMARY | 2025-08-17 12:48 | XMS_ITS | Clinical Summary ---
Author Organization [facility] Address [address] [facility] Attn: [place] [address] Care Team Providers Care Transmission Maintenance Supervisor Name Role Phone Armando Nog MD Primary Care Provider [phone] Allergies No known active allergies Medications ibuprofen (MOTRIN) 600 mg tablet Take 600 mg by mouth every 8 hours as needed for Pain. 09/21/20 24 Active traMADoL (ULTRAM) 50 mg tablet Take 50 mg by mouth every 6 hours as needed for Pain. 09/30/20 24 Active cholecalciferol 1,250 mcg (50,000 unit) CapsuleIndicatio ns:Vitamin D deficiency Take 1 Capsule (50,000 Units) by mouth every 7 days. 12 Capsule 3 01/08/20 25 Active calcium as CARBONATE (OS-SOLIS) 1,250 mg (500 mg elemental) tabletIndication s:Vitamin D deficiency Take 1 Tablet (500 mg) by mouth daily. 90 Tablet 3 01/08/20 25 Active ferrous sulfate 325 mg (65 mg iron) tabletIndication s:Iron deficiency anemia, unspecified iron deficiency anemia type Take 1 Tablet (325 mg) by mouth daily. 90 Tablet 3 01/08/20 25 Active Norethindrn A-E estradiol-Iron (Justyna Fe 1.5/30, 28,) 1.5 mg-30 mcg (21)/75 mg (7) tabletIndication s:Encounter for contraceptive management, unspecified type Take 1 Tablet by mouth daily. 28 Tablet 5 07/08/20 25 Active Ventolin HFA 90 mcg/actuation inhalerIndicatio ns:Acute cough,Mild intermittent asthma without complication Take 2 Puffs by inhalation every 6 hours as needed for Shortness of Breath. 8.5 Gram 07/28/20 25 Active DULoxetine (CYMBALTA) 30 mg Capsule, Delayed Release(E.C.) Take 1 Capsule by mouth daily. 07/26/20 25 Active DULoxetine (CYMBALTA) 60 mg Capsule, Delayed Release(E.C.) Take 1 Capsule by mouth daily. 07/26/20 25 Active Ventolin HFA 90 mcg/actuation inhaler Take 2 Puffs by inhalation every 6 hours as needed for Shortness of Breath. 07/30/20 24 2024 Discontinued(R eorder) Ventolin HFA 90 mcg/actuation inhalerIndicatio ns:Acute cough,Mild intermittent asthma without complication Take 2 Puffs by inhalation every 6 hours as needed for Shortness of Breath. 8.5 Gram 07/26/20 25 2024 Discontinued Active Problems Problem Noted Date Diagnosed Date Mild intermittent asthma without complication LOC (loss of consciousness) 10/29/2024 Takotsubo syndrome 12/09/2023 Pain, dental 06/30/2022 Intractable nausea and vomiting 05/28/2016 Depression with anxiety 04/11/2016 Encounter for surveillance of contraceptives Occupational tobacco smoke exposure 08/12/2015 Attention deficit hyperactivity disorder, inatte ntive type 06/14/2009 Resolved Problems Problem Noted Date Diagnosed Date Resolved Date Essential hypertension 04/11/201610/28 Encounters Date Type Department Care Team Description 08/11/2025 4:00 PM CDT Office Visit [facility] [address] [phone] Gege Panda FNP Mild intermittent asthma without complication (Primary Dx); Family history of systemic lupus erythematosus 08/03/2025 External Device Data [facility] ABSTRACTION Provider, Abstract 08/03/2025 External Device Data [place]STRA[place] Provider, Abstract 08/03/2025 External Device Data [place]STRACTION Provider, Abstract 07/28/2025 5:19 PM CDT - 07/28/2025 7:44 PM CDT Emergency [facility] Emergency Medicine [address] [place] [phone] Dorian Goodwin MD Sindlinger, Timothy S, MD Acute bronchitis, unspecified organism (Primary Dx); Acute cough; Mild intermittent asthma without complication Discharge Disposition: Home or Self Care 07/28/2025 Travel 07/28/2025 External Device Data [place] ABSTRACTION Provider, Abstract 07/27/2025 External Device Data [place] ABSTRACTION Provider, Abstract 07/26/2025 10:20 AM CDT Office Visit [address] [phone] Albertina Kahn FNP Acute cough (Primary Dx); Mild intermittent asthma without complication 07/14/2025 External Device Data [place] ABSTRACTION Provider, Abstract 07/07/[address] [phone] Damaris Escamilla FNP Encounter for contraceptive management, unspecified type 07/07/2025 External Device Data [place] ABSTRACTION Provider, Abstract 06/30/2025 External Device Data [place] ABSTRACTION Provider, Abstract 06/16/2025 Results Follow-Up [address] [place] [phone] Albertina Kahn FNP HCG QUALITATIVE, BLOOD, MAGNESIUM LEVEL, COMPREHENSIVE METABOLIC PANEL, CBC WITH DIFFERENTIAL 06/15/2025 8:20 AM CDT Office Visit [address] [phone] Albertina Kahn FNP Nausea (Primary Dx) 06/14/2025 Nurse Triage [address] [phone] Armando Ngo MD 06/02/2025 4:00 PM CDT Office Visit [address] [phone] Damaris Escamillan, GROUNDS FOREMAN Severe episode of recurrent major depressive disorder, [...] on file Legal Sex Female 6:37 AM SURGICAL SUPPLY ASSISTANT Gender Identity Not on file Sexual Orientation [...] Mass Index 36.05 08/11/2025 3:51 PM CDT Plan of Treatment Upcoming Encounters Date Type Department Care Team (Late st Contact Info) Description 08/27/2025 3:40 PM CDT Office Visit [facility] [address] [phone] Gege Panda, GROUNDS FOREMAN [address] [place] [phone] 11/23/2025 3:30 PM SURGICAL SUPPLY ASSISTANT Appointment [facility] Neurology [facility] [address] [place] [phone] Sylvester Hooker MD [address] [place] [phone] 12/03/2025 11:00 AM SURGICAL SUPPLY ASSISTANT Office Visit [facility] Family [facility] [place] [address] [place] [address] Gege Panda, [facility] [address] [place] [address] Health Maintenance Due Date Last Done Comments HPV VACCINES (1 - 3-dose SCD M series) 02/03/2023 Preventative Visit-Managed Medicaid 01/28/2025 01/28/2024, 07/08/2017, 04/03/2016 INFLUENZA VACCINE (#1) 2025 , 08/02/2022, 12/08/2021, Additional history exists COVID-19 Vaccine (2 - 2024-2 6 season) 2025 07/10/2021 CERVICAL CANCER SCREENING 01/27/2027 PAP SMEAR 01/27/2027 01/28/2024, 06/12, 07/08/2017, Additional history exists HPV/Cotest (21-29) 01/27/2029 01/28/2024, 0 07/08/2017, 07/08/2017, Additional history exists HPV/Cotest (30-65) 01/27/2029 01/28/2024, 0 07/08/2017, 07/08/2017, Additional history exists DTAP/TDAP/TD VACCINES (10 - Td or Tdap) 05/10/2031 05/10/2021, 08/06/2018, 02/09/2011, Additional history exists HEPATITIS B VACCINES Completed 1996, 1996, 1996 Procedures Procedure Name Priority Date/Time Associated Diagnosis Comments XR CHEST PA OR AP 1 VW Stat 6:00 PM CDT EKG 12-LEAD Stat 07/28/2025 5:54 PM CDT MAGNESIUM LEVEL Stat 07/28/2025 5:41 PM CDT TROPONIN BASELINE, 5TH GEN Stat 07/28/2025 5:41 PM CDT TSH Stat 07/28/2025 5:41 PM CDT COMPREHENSIVE METABOLIC PANEL Stat 07/28/2025 5:41 PM CDT CBC WITH DIFFERENTIAL Stat 07/28/2025 5:41 PM CDT POC INFLUENZA A/B AND COVID-19 ANTIGENS Routine 07/26/2025 10:11 AM CDT Acute cough CBC WITH DIFFERENTIAL Stat 06/15/2025 9:07 AM CDT Nausea COMPREHENSIVE METABOLIC PANEL Stat 06/15/2025 9:07 AM CDT Nausea MAGNESIUM LEVEL Routine 06/15/2025 9:07 AM CDT Nausea HCG QUALITATIVE, SERUM Routine 9:07 AM CDT Nausea CERV/VAG CYTO SCREEN PAP RLFX HPV Routine 01/28/2024 12:38 PM CDT Screening for cervical cancer from Last 3 Months or Most Recently Relevant to Health Maintenance Results * XR CHEST PA OR AP 1 VW (07/28/2025 6:00 PM CDT) Anatomical Region Laterality Modality Chest Computed Radiogr aphy 07/28/2025 6:00 PM CDT Impressions 07/28/2025 7:07 PM CDT IMPRESSION: Please see below. Exam: XR CHEST PA OR AP 1 VW Date/Time of Exam: 07/28/2025 6:00 PM Reason For Exam: Chest Pain. Diagnosis: See Reason for Exam. Findings: The portable AP upright study is compared to the exam of 11/07/2024. Lung volumes are somewhat low. There is no pneumothorax. The lungs are clear. The cardiomediastinal silhouette and pulmonary vessels are unremarkable. The bony thorax is grossly intact. IMPRESSION: No significant radiographic abnormality. Narrative Procedure Note Maci aBrakat MD - 07/28/2025 IMPRESSION: Please see below. Exam: XR CHEST PA OR AP 1 VW Date/Time of Exam: 07/28/2025 6:00 PM Reason For Exam: Chest Pain. Diagnosis: See Reason for Exam. Findings: The portable AP upright study is compared to the exam of 11/07/2024. Lung volumes are somewhat low. There is no pneumothorax. The lungs are clear. The cardiomediastinal silhouette and pulmonary vessels are unremarkable. The bony thorax is grossly intact. IMPRESSION: No significant radiographic abnormality. Dorian Goodwin MD DIAGNOSTIC IMAGING OR DERABLES Final Result * EKG 12 lead (07/28/2025 5:54 PM CDT) Narrative Jose Hearn MD - 07/28/2025 5:54 PM CDT Jose Hearn MD 07/28/2025 7:28 PM EKG 12 lead Date/Time: 07/28/2025 5:54 PM Performed by: Dorian Goodwin MD Authorized by: Dorian Goodwin MD ECG interpreted by ED Physician in the absence of a cognos developer: yes Rate: ECG rate assessment: age appropriate Rhythm: Rhythm Origin: sinus Leupp: QRS axis: Normal Intervals: normal QRSTT: QRSTT changes: No Dorian Goodwin MD ECG ORDERABLES Final Result * TROPONIN BASELINE, 5TH GEN (07/28/2025 5:41 PM CDT) [facility] TROPONIN T, BASELINE 5TH GEN <6 <=10 ng/L 07/28/2025 6:14 PM CDT [facility] Blood BLOOD SPECIMEN / Unknown Venipuncture / Unknown 07/28/2025 5:41 PM CDT 07/28/2025 5:47 PM CDT Narrative [facility] - 07/28/2025 6:14 PM CDT Troponin Undetectable us Dorian Goodwin MD CHEMISTRY ORDERABLES Final Result [facility] CLIA # [id number] [address] [place] [address] * (ABNORMAL) CBC WITH DIFFERENTIAL (07/28/2025 5:41 PM CDT) Only the most recent of2 resultswithin the time period is included. [facility] WBC 10.7(H) 4.0 - 10.0 K/uL 07/28/2025 5:53 PM [facility] RBC 4.74 3.93 - 5.22 M/uL 07/28/2025 5:53 PM [facility] HEMOGLOBIN 11.9 11.2 - 15.7 g/dL 07/28/2025 5:53 PM [facility] HEMATOCRIT 35.5 34.1 - 44.9 % 07/28/2025 5:53 PM [facility] MCV 74.9(L) 79.4 - 94.8 fL 07/28/2025 5:53 PM [facility] MCH 25.1(L) 25.6 - 32.2 pg 07/28/2025 5:53 PM [facility] MCHC 33.5 32.2 - 35.5 g/dL 07/28/2025 5:53 PM [facility] RDW 14.8(H) 11.0 - 14.5 % 07/28/2025 5:53 PM [facility] RDW-STDEV 39.9 36.9 - 56.9 fL 07/28/2025 5:53 PM [facility] PLATELETS 330 163 - 337 K/uL 07/28/2025 5:53 PM [facility] MPV 9.6(L) 10.0 - 14.8 fL 07/28/2025 5:53 PM [facility] NEUTROPHILS 71 34 - 71 % 07/28/2025 5:53 PM [facility] LYMPHOCYTES 22 19 - 52 % 07/28/2025 5:53 PM [facility] MONOCYTES 6 5 - 13 % 07/28/2025 5:53 PM [facility] EOSINOPHILS 0(L) 1 - 6 % 07/28/2025 5:53 PM [facility] BASOPHILS 0 0 - 1 % 07/28/2025 5:53 PM [facility] IMMATURE GRANULOCYTES 1 % 07/28/2025 5:53 PM [facility] NEUTROPHIL ABSOLUTE 7.66(H) 1.56 - 6.13 K/uL 07/28/2025 5:53 PM [facility] LYMPHOCYTE ABSOLUTE 2.39 1.20 - 3.40 K/uL 07/28/2025 5:53 PM [facility] MONOCYTE ABSOLUTE 0.59(H) 0.24 - 0.36 K/uL 07/28/2025 5:53 PM [facility] EOSINOPHIL ABSOLUTE 0.03(L) 0.04 - 0.36 K/uL 07/28/2025 5:53 PM [facility] BASOPHILS ABSOLUTE 0.02 0.01 - 0.08 K/uL 07/28/2025 5:53 PM [facility] IMMATURE GRANULOCYTES ABSOLUTE 0.05 K/uL 07/28/2025 5:53 PM [facility] Blood BLOOD SPECIMEN / Unknown Venipuncture / Unknown 07/28/2025 5:41 PM CDT 07/28/2025 5:47 PM CDT Dorian Goodwin MD HEMATOLOGY ORDERABLES Final Result Performing Organization Address City/[facility]/ZIP Co de Phone Number [facility] CLIA # [id number] [address] [place] [address] * TSH (07/28/2025 5:41 PM CDT) TSH 0.98 0.27 - 4.20 uIU/mL 07/28/2025 6:14 PM CDT [facility] Blood BLOOD SPECIMEN / Unknown Venipuncture / Unknown 07/28/2025 5:41 PM CDT 07/28/2025 5:47 PM CDT Dorian Goodwin MD CHEMISTRY ORDERABLES Final Result Performing Organization Address [facility] Co de Phone Number [facility] CLIA # [id number] [address] [place] [address] * MAGNESIUM LEVEL (07/28/2025 5:41 PM CDT) Only the most recent of2 resultswithin the time period is included. Pathologist [facility] MAGNESIUM 2.0 1.6 - 2.6 mg/dL 07/28/2025 6:14 PM CDT [facility] Blood BLOOD SPECIMEN / Unknown Venipuncture / Unknown 07/28/2025 5:41 PM CDT 07/28/2025 5:47 PM CDT Dorian Goodwin MD CHEMISTRY ORDERABLES Final Result Performing Organization Address [facility] Co de Phone Number [facility] CLIA # [id number] [address] [place] [address] * (ABNORMAL) COMPREHENSIVE METABOLIC PANEL (07/28/2025 5:41 PM CDT) Only the most recent of2 resultswithin the time period is included. SODIUM 134(L) 136 - 145 mmol/L 07/28/2025 6:14 PM [facility] POTASSIUM 3.9 3.5 - 5.1 mmol/L 07/28/2025 6:14 PM [facility] CHLORIDE 99 98 - 107 mmol/L 07/28/2025 6:14 PM [facility] CO2 23 22 - 29 mmol/L 07/28/2025 6:14 PM [facility] CALCIUM 9.4 8.6 - 10.0 mg/dL 07/28/2025 6:14 PM [facility] BUN 13 6 - 20 mg/dL 07/28/2025 6:14 PM [facility] CREATININE 0.68 0.51 - 0.95 mg/dL 07/28/2025 6:14 PM [facility] GLUCOSE 106(H) 74 - 99 mg/dL 07/28/2025 6:14 PM [facility] TOTAL PROTEIN 7.9 6.6 - 8.7 g/dL 07/28/2025 6:14 PM [facility] ALBUMIN 4.3 3.5 - 5.2 g/dL 07/28/2025 6:14 PM [facility] BILIRUBIN TOTAL 0.3 0.0 - 1.2 mg/dL 07/28/2025 6:14 PM [facility] ALKALINE PHOSPHATASE 82 35 - 104 U/L 07/28/2025 6:14 PM [facility] AST 25 0 - 35 U/L 07/28/2025 6:14 PM [facility] ALT 36(H) 0 - 35 U/L 07/28/2025 6:14 PM [facility] GFR >60 >=60 mL/min/1.7 3 sq meter 07/28/2025 6:14 PM [facility] Comment:eGFR calculated with 2020 CKD-EPI equation. Vegetarian diet, extremely high or low muscle mass, and may affect results. Cystatin C with Glomerular Filtration Rate is a suitable alternative for these patients. ANION GAP 12 5 - 20 mmol/L 07/28/2025 6:14 PM [facility] Blood BLOOD SPECIMEN / Unknown Venipuncture / Unknown 07/28/2025 5:41 PM CDT 07/28/2025 5:47 PM CDT Dorian Goodwin MD CHEMISTRY ORDERABLES Final Result Performing Organization Address [facility] Co de Phone Number [facility] CLIA # [id number] [address] [facility] [address] [place] [address] * POC INFLUENZA A/B AND COVID-19 ANTIGENS (07/26/2025 10:11 AM CDT) INFLUENZA A AG POC Not Detected Not Detected [facility] INFLUENZA B AG POC Not Detected Not Detected [facility] COVID-19 ANTIGEN POC Presumptively Negative Presumptively Negative [facility] INTERNAL KIT QC POC Pass Pass [facility] KIT LOT NUMBER POC [id number] [facility] KIT EXP DATE POC [id number] [facility] Upper Respiratory 07/26/2025 10:11 AM CDT Albertina HAND POINT OF CARE TESTING Final Result Performing Organization Address [facility] de Phone Number [facility] CLIA# [id number] [address] [address] * HCG QUALITATIVE, BLOOD (06/15/2025 9:07 AM CDT) HCG QUAL, BLOOD NEGATIVE See Note: [facility] Comment: Reference Range: Reference Range Non-: Negative : Positive Test Performed at: [facility] [address] [address] Elisha Gant MD Blood 06/15/2025 9:07 AM CDT 06/16/2025 4:25 AM CDT Albertina Liiga Kanh GROUNDS FOREMAN CHEMISTRY ORDERABLES Final Result [facility] [phone] [facility] [address] [address] * CERV/VAG CYTO SCREEN PAP RLFX HPV (01/28/2024 12:38 PM CDT) CLINICAL INFORMATION Ale LuisPaul Pineda Comment:None given LAST MENSTRUAL PERIOD Ale Pineda Comment:NONE GIVEN PREV PAP: Ale Pineda Comment:NONE GIVEN PREV BX: Ale LuisPaul Pineda Comment:NONE GIVEN SOURCE Ale Pineda Comment:Endocervix ADEQUACY: Ale Pineda Comment: Satisfactory for evaluation. Endocervical/transformation zone component present. Age and/or menstrual status not provided PAP INTERP Ale Pineda Comment: Cytology Results: Negative for intraepithelial lesion or malignancy. CYTOLOGY INFECTION Q JackBefrankie Marilyn Pineda Comment: Fungal organisms morphologically consistent with Shayla spp. COMMENT (PAP TEST) Q JackBefrankie Marilyn Pineda Comment: This Pap test has been evaluated with computer assisted technology. ROLLER MILL OPERATOR: Vel Pineda Comment: ABIGAIL WOODARD(ASCP) CT Screening Location: [place] [address] [address] [address] REVIEW ROLLER MILL OPERATOR: Ale Pineda Comment: ABIGAIL SULTANA(ASCP) CT screening location: [place] [address] [address] [place] [id number] Marilyn Pineda Comment: [...] and current clinical information. Test Performed at: CoraidMojgan Pineda [facility] [address] [place] [address] Elisha Gant Genital SWAB OF ENDOCERVIX / Unknown 01/28/2024 12:38 PM CDT 01/29/2024 7:39 AM CDT Crystal Debra Francine GROUNDS FOREMAN PATHOLOGY/CYTOLOGY ORDER KIRAN Final Result [facility] [phone] [place] [address] [place] [address] from Last 3 Months or Most Recently Relevant to Health Maintenance Insurance [facility] PLAN [facility] [place] [id number] Care Teams Transmission Maintenance Supervisor Relationship Specialty Start Date End Date Armando Ngo MD [address] [facility] [address] [place] [address] PCP - General Family Practice 07/17/18
--- OUTSIDE RECORDS SUMMARY | 2025-08-17 12:48 | XMS_ITS | Encounter Summary ---
Author Organization [facility] Address [address] [place] [address] Care Team Providers Care Kosher Dietary Service Manager Name Role Phone Armando Ngo MD Primary Care Provider [phone] Encounter Details Date Type Department Care Team (Latest Contact Info) Description 06/18/2005 Outpatient Historical [facility] [address] [place] [phone] Chela Dukes, TANNER ROTARY DRUM CONTINUOUS PROCESS [address] [place] [phone] OTHER MALAISE AND FATIGUE (Primary Dx) Social History Tobacco Use Types Packs/Day Years Used Date Smoking Tobacco: Never Assessed Comments Unknown Sex and Gender Information Value Date Recorded Sex Assigned at Not on file Legal Sex Female 5:35 AM SUPERVISOR PRE WAVE Gender Identity Not on file Sexual Orientation Not on file documented as of this encounter Plan of Treatment Not on file documented as of this encounter Visit Diagnoses Diagnosis Other malaise and fatigue- Primary documented in this encounter Additional Health Concerns Infection Onset Date Last Indicated Resolved Time R/O COVID-19 09/18/2020 09/18/2020 09/20/2020 12:3 2 AM SUPERVISOR PRE WAVE documented as of this encounter Care Teams Kosher Dietary Service Manager Relationship Specialty Start Date End Date Armando Ngo MD [address] [phone] PCP - General Family Practice 07/17/18 documented as of this encounter
--- OUTSIDE RECORDS SUMMARY | 2025-08-17 12:48 | XMS_ITS | Encounter Summary ---
Author Organization [facility] Address [address] [place] [address] Care Team Providers Care Specification Consultant Name Role Phone Armando Ngo MD Primary Care Provider [phone] Encounter Details Date Type Department Care Team (Latest Contact Info) Description 07/31/2002 Outpatient Historical [facility] [address] [place] [phone] Rashard Helm MD [address] [phone] ACUTE PHARYNGITIS (Primary Dx) Social History Tobacco Use Types Packs/Day Years Used Date Smoking Tobacco: Never Assessed Comments Unknown Sex and Gender Information Value Date Recorded Sex Assigned at Not on file Legal Sex Female 5:35 AM OFFICE SECRETARY Gender Identity Not on file Sexual Orientation Not on file documented as of this encounter Plan of Treatment Not on file documented as of this encounter Visit Diagnoses Diagnosis Acute pharyngitis- Primary documented in this encounter Additional Health Concerns Infection Onset Date Last Indicated Resolved Time R/O COVID-19 09/18/2020 09/18/2020 09/20/2020 12:3 2 AM OFFICE SECRETARY documented as of this encounter Care Teams Specification Consultant Relationship Specialty Start Date End Date Armando Ngo MD [address] [phone] PCP - General Family Practice 07/17/18 documented as of this encounter
--- OUTSIDE RECORDS SUMMARY | 2025-08-17 12:48 | XMS_ITS | Encounter Summary ---
Author Organization [facility] Address [address] Kang: [place] [address] Care Team Providers Care Braiding Machine Operator Name Role Phone Armando Ngo MD Primary Care Provider [phone] Encounter Details Date Type Department Care Team (Late st Contact Info) Description 03/11/2002 Outpatient Historical Chela Dukes, METER REPAIRER HELPER [address] [place] [address] Social History Tobacco Use Types Packs/Day Years Used Date Smoking Tobacco: Never Assessed Comments Unknown Sex and Gender Information Value Date Recorded Sex Assigned at Not on file Legal Sex Female 5:35 AM VERTICAL ROLL OPERATOR Gender Identity Not on file Sexual Orientation Not on file documented as of this encounter Plan of Treatment Not on file documented as of this encounter Visit Diagnoses Not on filedocumented in this encounter Additional Health Concerns Infection Onset Date Last Indicated Resolved Time R/O COVID-19 09/18/2020 09/18/2020 09/20/2020 12:3 2 AM VERTICAL ROLL OPERATOR documented as of this encounter Care Teams Braiding Machine Operator Relationship Specialty Start Date End Date Armando Ngo MD [address] [place] [phone] PCP - General Family Practice 07/17/18 documented as of this encounter
--- OUTSIDE RECORDS SUMMARY | 2025-08-17 12:48 | XMS_ITS | Encounter Summary ---
Author Organization [facility] Address [address] [place] [address] Care Team Providers Care Information Resources Director Name Role Phone Armando Ngo MD Primary Care Provider [phone] Encounter Details Date Type Department Care Team (Late st Contact Info) Description 07/11/2000 Outpatient Historical [facility] [place], [address] [place] [address] Urinary tract infection, site not specified (Primary Dx) Social History Tobacco Use Types Packs/Day Years Used Date Smoking Tobacco: Never Assessed Comments Unknown Sex and Gender Information Value Date Recorded Sex Assigned at Not on file Legal Sex Female 5:35 AM SOAPING MACHINE BACK TENDER Gender Identity Not on file Sexual Orientation Not on file documented as of this encounter Plan of Treatment Not on file documented as of this encounter Visit Diagnoses Diagnosis Urinary tract infection, site not specified- Primary documented in this encounter Additional Health Concerns Infection Onset Date Last Indicated Resolved Time R/O COVID-19 09/18/2020 09/18/2020 09/20/2020 12:3 2 AM SOAPING MACHINE BACK TENDER documented as of this encounter Care Teams Information Resources Director Relationship Specialty Start Date End Date Armando Ngo MD [address] [place] [address] PCP - General Family Practice 07/17/18 documented as of this encounter
--- OUTSIDE RECORDS SUMMARY | 2025-08-17 12:48 | XMS_ITS | Encounter Summary ---
Author Organization [facility] Address [address] [place] [address] Care Team Providers Care Motor Runner Name Role Phone Armando Ngo MD Primary Care Provider [phone] Reason for Visit * Reason Onset Date Comments Urinary Frequency 02/19/2023 Encounter Details Date Type Department Care Team (Late st Contact Info) Description 02/19/2023 Telephone [facility] [address] [facility] [address] [place] [address] Armando Ngo MD [address] [place] [address] Urinary Frequency Social History Tobacco Use Types Packs/Day Years Used Date Smoking Tobacco: Former Cigarettes Q uit: 09/18/2016 Smokeless Tobacco: Never Alcohol Use Standard Drinks/Week Comments No 0 (1 standard drink = 0.6 oz pur e alcohol) Comments No Sex and Gender Information Value Date Recorded Sex Assigned at Not on file Legal Sex Female 6:37 AM DIRECTOR OF AVIATION Gender Identity Not on file Sexual Orientation [...] for UTI Sample Preferred Pharmacy: [facility] in [place] Date of last encounter: 10/17/2022 Next Appointment: Visit date not found Patient Contact Information: Home Phone Work Phone documented in this encounter Plan of Treatment Upcoming Encounters Date Type Department Care Team (Late st Contact Info) Description 08/27/2025 3:40 PM CDT Office Visit [address] [address] Gege Panda [facility] [address] [address] 11/23/2025 3:30 PM DIRECTOR OF AVIATION Appointment [facility] Neurology [facility] [address] [address] Sylvester Hooker MD [address] [place] [phone] 12/03/2025 11:00 AM DIRECTOR OF AVIATION Office Visit [address] [address] Gege Panda FNP [address] [address] documented as of this encounter Visit Diagnoses Not on filedocumented in this encounter Additional Health Concerns Infection Onset Date Last Indicated Resolved Time COVID-19 10/29/2023 10/29/2023 11/18/2023 1:17 AM DIRECTOR OF AVIATION R/O COVID-19 07/01/2024 07/01/2024 07/01/2024 11:5 7 PM CDT R/O COVID-19 07/01/2024 07/01/2024 07/02/2024 12:1 9 AM CDT Influenza 12/01/2024 12/01/2024 12/08/2024 1:17 AM DIRECTOR OF AVIATION documented as of this encounter Care Teams Motor Runner Relationship Specialty Start Date End Date Armando Ngo MD [address] [phone] PCP - General Family Practice 07/17/18 documented as of this encounter
--- OUTSIDE RECORDS SUMMARY | 2025-08-17 12:48 | XMS_ITS | Encounter Summary ---
Author Organization [facility] Address [address] [place] [address] Care Team Providers Care Sap Fico Architect Name Role Phone Armando Ngo MD Primary Care Provider [phone] Encounter Details Date Type Department Care Team (Late st Contact Info) Description 03/27/1999 Outpatient [place] [address] [place] [address] Candidiasis of mouth (Primary Dx) Social History Tobacco Use Types Packs/Day Years Used Date Smoking Tobacco: Never Assessed Comments Unknown Sex and Gender Information Value Date Recorded Sex Assigned at Not on file 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 Gender Identity Not on file Sexual Orientation Not on file documented as of this encounter Plan of Treatment Not on file documented as of this encounter Visit Diagnoses Diagnosis Candidiasis of mouth- Primary documented in this encounter Additional Health Concerns Infection Onset Date Last Indicated Resolved Time R/O COVID-19 09/18/2020 09/18/2020 09/20/2020 12:3 2 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
--- OUTSIDE RECORDS SUMMARY | 2025-08-17 12:48 | XMS_ITS | Encounter Summary ---
Author Organization [facility] Address [address] [place] [address] Care Team Providers Care Horse Trainer Name Role Phone Armando Ngo MD Primary Care Provider [phone] Encounter Details Date Type Department Care Team (Late st Contact Info) Description 04/22/2001 Outpatient [place] [address] [place] [address] Bronchitis, not specified as acute or chronic (Primary Dx); Acute upper respiratory infections of other multiple sites Social History Tobacco Use Types Packs/Day Years Used Date Smoking Tobacco: Never Assessed Comments Unknown Sex and Gender Information Value Date Recorded Sex Assigned at Not on file 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
--- NOTE | 2025-08-17 13:03 | ECG_ITS ---
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 Measurements Intervals [place] Rate: 109 P: 17 OK: 125 QRS: 15 QRSD: 80 T: 30 QT: 313 QTc: 422 Interpretive Statements SINUS TACHYCARDIA WITH OCCASIONAL SUPRAVENTRICULAR PREMATURE COMPLEXES MINIMAL VOLTAGE CRITERIA FOR LVH, CONSIDER NORMAL VARIANT [MEETS CRITERIA IN ONE OF: R(aVL), S(V1), R(V5), R(V5/V6)+S(V1)] ABNORMAL RHYTHM ECG INTERPRETATION BASED ON A DEFAULT AGE OF 40 YEARS Compared to ECG 12/02/2023 09:40:29 Sinus rhythm no longer present Electronically Signed On 08-17-2025 23:54:43 CDT by Sam Escalante M.D. [id number]
--- NOTE | 2025-08-17 14:20 | W.ED.ARRPALP ---
HPI - Arrhythmia/Palpitations General: Chief Complaint: Arrhythmia/Palpitations Stated Complaint: chest pain Time Seen by Provider: 08/17/25 13:15 History of Present Illness: 30-year-old female with history of asthma and tachycardia who presents emergency room with tachycardia. She says she was at work and started having palpitations and her heart rate got up as high as 140. Related Data Home Medications ?Medication ?Instructions ?Recorded ?Confirmed ibuprofen 200 mg tablet 600 mg PO Q6H PRN Pain 12/03/23 07/26/25 norethindrone 1.5 mg-ethinyl 1 tab PO DAILY 12/03/23 07/26/25 estradiol 30 mcg(21)/iron 75 mg(7) tablet (Justyna Fe 1.5/30 (28)) calcium carbonate (Oyster Shell 500 mg PO DAILY 06/19/25 07/26/25 Calcium 500) cholecalciferol (vitamin D3) 1,250 50,000 unit PO Q7D 06/19/25 07/26/25 mcg (50,000 unit) capsule ferrous sulfate 325 mg (65 mg 325 mg PO DAILY 06/19/25 07/26/25 iron) tablet (FeroSul) Previous Rx's ?Medication ?Instructions ?Recorded clindamycin HCl 150 mg capsule 450 mg (3 x 150 mg) PO TID 7 days 07/14/25 (Cleocin HCl) #63 caps lidocaine HCl 2 % mucosal solution 1 applic mucous membrane TID PRN 07/14/25 (Lidocaine Viscous) pain #100 mL dextromethorphan polistirex 30 10 ml PO Q12H PRN cough #89 mL 07/26/25 mg/5 mL oral susp ext.release 12hr (12-Hour Cough Relief) diphenhydramine HCl 25 mg tablet 25 mg PO .q hs PRN Post nasal 07/26/25 drainage #30 tabs duloxetine 30 mg capsule,delayed 30 mg PO DAILY #30 caps 07/26/25 release duloxetine 60 mg capsule,delayed 60 mg PO DAILY #30 caps 07/26/25 release loratadine 10 mg tablet (Loradamed) 10 mg PO BID PRN allergic symptoms 07/26/25 #90 tabs metoprolol tartrate 25 mg tablet 12.5 mg (1/2 x 25 mg) PO BID PRN 08/17/25 tachycardia #30 tabs Allergies Allergy/AdvReac Type Severity Reaction Status Date / Time [place] And Derivatives Allergy ALGY-Difficulty Verified 08/17/25 12:53 Breathing PFSH ED PFSH: Medical History (Updated 08/17/25 @ 15:20 by Zoila Sosa MD) Seasonal allergic rhinitis due to pollen Psychiatric care Depression Personal history of nonsuicidal self-harm last self harmed via cutting 2012 Generalized anxiety disorder Major depressive disorder, recurrent severe without psychotic features No pertinent past medical history Denies diabetes, hypertension, seizures, DVT/PE PCP: [facility] Mild intermittent asthma, uncomplicated States that she was diagnosed with asthma as a child. Right now she only has asthma attacks when she has panic attacks and uses her inhaler only during those times usually a couple of times a month. Surgical History Hx laparoscopic cholecystectomy 12/08/2018---performed by Dr. Roberts at [facility] in [place], [place] Family History Mother Hypertension Diabetes Thyroid disease Father Diabetes Grandfather Heart disease maternal Other Colon cancer Denies family history of Ovarian cancer Hyperlipidemia Breast cancer Uterine cancer Stroke Social History Smoking and tobacco/nicotine status: never used tobacco/nicotine Second hand smoke exposure: No Alcohol intake: current Alcohol intake frequency: holidays/special occasions only Alcohol type: hard liquor Substance/Drug Use: never Adopted: Yes Caregiver/support person: No Lives independently: Yes Household members: spouse and children Housing: Manufactured/Mobile home Marital status: Marital status details: 6 years Number of children: 2 Number of grandchildren: 0 Highest education level completed: Some College, No Degree service: No Current occupational status: unemployed Current occupational exposures/hazards: No Pets and animals: Yes Pets & animals: cat(s) Leisure activites: reading and other Leisure activities details: bake for other people Sexually active: Yes Do you think of yourself as: Straight/Heterosexual Current gender identity: Female Leticia/Pentecostal: Episcopal Special leticia needs: No Agree to transfusion: Yes Female Reproductive History: Para: 2 Spontaneous abortions: No Course Vital Signs: Vital signs: Vital Signs Temperature 98.1 F 08/17/25 12:45 Pulse Rate 120 H 08/17/25 12:45 Blood Pressure 141/89 08/17/25 12:45 Pulse Oximetry 98 08/17/25 12:45 Oxygen Delivery Me thod Room Air 08/17/25 12:45 MDM - Arrhythmia/Palpitations Medical Decision Making Medical decision making: Differential diagnosis including but not limited to and based on the above HPI, review of systems and physical exam: for patient with palpitations: atrial fibrillation with rapid ventricular response. ventricular tachycardia. sinus tachycardia. PVCs. also concern for underlying issues causing tachycardia. Infection, electrolyte abnormalities and thyroid issues. Orders placed to evaluate differential diagnosis based on the above differential, HPI and physical exam EKG: Time 1248. Rate 109. Sinus tachycardia, No ST-T changes, no ectopy, normal MD & QRS intervals, This was reviewed and interpreted by myself the ER physician at 1255. Lab Review: Laboratory results were reviewed and interpreted by myself the emergency room physician. No leukocytosis. No anemia. No renal failure. Liver enzymes are normal. TSH is normal. Patient is not . I reviewed the patient's medical record. Reexamination: Patient remained stable. No increased work of breathing. No altered mental status. No focal motor deficits. Heart rate is come down into the 90s. I discussed findings. She has follow-up with her PCP in the near future. Assessment and plan: Tachycardia - Discharged home - Discussed plan with patient. Answered any questions. - Evaluation and treatment of this problem were appropriate in the emergency setting. Lab Data 08/17/25 14:22 08/17/25 14:22 Laboratory Results WBC 8.27 10^3/uL (3.29-11.43) 08/17/25 14:22 RBC 5.53 10^6/uL (3.85-5.65) 08/17/25 14:22 Hgb 13.70 g/dL (11.27-16.99) 08/17/25 14:22 Hct 43.9 % (36-47) 08/17/25 14:22 MCV 79.4 fl (85-98) L 08/17/25 14:22 MCH 24.8 pg (27-33) L 08/17/25 14:22 MCHC 31.2 g/dL (30-55) 08/17/25 14:22 RDW 14.9 % (12.1-15.1) 08/17/25 14:22 Plt Count 350 10^3/cmm (157-399) 08/17/25 14:22 MPV 9.5 fL (7.4-10.4) 08/17/25 14:22 Neut % (Auto) 65.2 % 08/17/25 14:22 Lymph % (Auto) 27.8 % 08/17/25 14:22 Emmons % (Auto) 4.8 % 08/17/25 14:22 Eos % (Auto) 1.1 % 08/17/25 14:22 Baso % (Auto) 0.6 % 08/17/25 14:22 Neut # (Auto) 5.39 10^3/uL (1.8-7.7) 08/17/25 14:22 Lymph # (Auto) 2.3 10^3/uL (0.8-4.8) 08/17/25 14:22 Emmons # (Auto) 0.4 10^3/uL (0.2-0.9) 08/17/25 14:22 Eos # (Auto) 0.1 10^3/uL (0.0-0.8) 08/17/25 14:22 Baso # (Auto) 0.1 10^3/uL (0.0-0.1) 08/17/25 14:22 Nucleated RBC % (auto) 0 % 08/17/25 14:22 Nucleated RBCs # 0.0 /100WBC 08/17/25 14:22 Sodium 136 mmol/L (136-145) 08/17/25 14:22 Potassium 4.9 mmol/L (3.5-5.1) 08/17/25 14:22 Chloride 99 mmol/L (98-107) 08/17/25 14:22 Carbon Dioxide 22 mmol/L (22-29) 08/17/25 14:22 Anion Gap 19.9 (5-19) H 08/17/25 14:22 BUN 13 mg/dL (6-20) 08/17/25 14:22 Creatinine 0.6 mg/dL (0.5-0.9) 08/17/25 14:22 GFR Calculation 118.2 mL/min (90-130) 08/17/25 14:22 Glucose 88 mg/dL (65-115) 08/17/25 14:22 Calculated Osmolality 282 mOsm/kg (285-295) L 08/17/25 14:22 Calcium 9.8 mg/dL (8.5-10.5) 08/17/25 14:22 Magnesium 2.1 mg/dL (1.7-2.3) 08/17/25 14:22 Total Bilirubin 0.3 mg/dL (0.15-1.2) 08/17/25 14:22 AST 24 U/L (0-32) 08/17/25 14:22 ALT 31 U/L (0-33) 08/17/25 14:22 Alkaline Phosphatase 113 U/L (35-105) H 08/17/25 14:22 Troponin T Baseline < 6 ng/L (0-10) 08/17/25 14:22 C-Reactive Protein 14.1 mg/L (0.0-4.9) H 08/17/25 14:22 Total Protein 8.5 g/dL (6.6-8.7) 08/17/25 14:22 Albumin 4.7 g/dL (3.5-5.2) 08/17/25 14:22 Globulin 3.8 g/dL (1.3-4.6) 08/17/25 14:22 TSH 1.32 uIU/mL (0.27-4.20) 08/17/25 14:22 HCG, Qual Negative (Negative) 08/17/25 14:22 No radiology studies performed this visit Discharge Plan Discharge Patient Disposition: Home Clinical Impression: Palpitations, Sinus tachycardia Condition: Stable Prescriptions: New metoprolol tartrate 25 mg tablet 12.5 mg PO BID PRN (Reason: tachycardia) Qty: 30 0RF No Action clindamycin HCl [Cleocin HCl] 150 mg capsule 450 mg PO TID 7 Days Qty: 63 0RF lidocaine HCl [Lidocaine Viscous] 2 % solution 1 applic mucous membrane TID PRN (Reason: pain) Qty: 100 0RF duloxetine 30 mg capsule,delayed release(DR/EC) 30 mg PO DAILY Qty: 30 0RF duloxetine 60 mg capsule,delayed release(DR/EC) 60 mg PO DAILY Qty: 30 0RF Rx Instructions: Start after 1 month on 30 mg. dextromethorphan polistirex [12-Hour Cough Relief] 30 mg/5 mL suspension,extended rel 12 hr 10 ml PO Q12H PRN (Reason: cough) Qty: 89 1RF loratadine [Loradamed] 10 mg tablet 10 mg PO BID PRN (Reason: allergic symptoms) Qty: 90 0RF diphenhydramine HCl 25 mg tablet 25 mg PO .q hs PRN (Reason: Post nasal drainage) Qty: 30 1RF norethindrone-e.estradiol-iron [Justyna Fe 1.5/30 (28)] 1.5 mg-30 mcg (21)/75 mg (7) tablet 1 tab PO DAILY ibuprofen 200 mg Tablet 600 mg PO Q6H PRN (Reason: Pain) calcium carbonate [Oyster Shell Calcium 500] 500 mg calcium (1,250 mg) tablet 500 mg PO DAILY ferrous sulfate [FeroSul] 325 mg (65 mg iron) tablet 325 mg PO DAILY cholecalciferol (vitamin D3) 1,250 mcg (50,000 unit) capsule 50,000 unit PO Q7D Rx Instructions: Fridays Discharge Orders: Discharge ED (Routine); Ordered 08/17/25 Ordered By: Zoila Sosa Discharge Diet: Usual diet Discharge Activity: Increase activity as tolerated Patient Instructions: Tachycardia (ED), Opioid Safety, Pain Management, Patient Portal & Ricardo Instructions Activity Restrictions/Additional Instructions: Thank you for choosing [facility] for your healthcare needs today. You have been screened and evaluated and felt safe for discharge. Health conditions do change or evolve sometimes and as such it is important that you follow up with your Primary Doctor to be re checked, 3-5 days is a general good time frame for follow up. You are always welcome to return to the ED for re assessment if your symptoms are worsening or you have new concerns Print Language: Telugu Coding Level of Care Code ED Differential Repairer for Kofi Danielson
[2025-08-17 14:30] VITALS: BP 125/86; PULSE 98; O2SAT 99
[2025-08-17 14:35] LABS: Hematocrit 43.9 % (36-47); Hemoglobin 13.70 g/dL (11.27-16.99); Mean Corpuscular HGB Conc 31.2 g/dL (30-55); Mean Corpuscular Hemoglobin 24.8 pg (27-33); Mean Corpuscular Volume 79.4 fl (85-98); Nucleated Red Blood Cells % 0 %; Platelet Count 350 10^3/cmm (157-399); Red Blood Count 5.53 10^6/uL (3.85-5.65); White Blood Count 8.27 10^3/uL (3.29-11.43)
[2025-08-17 14:46] LABS: Troponin(5th) Baseline < 6 ng/L (0-10)
[2025-08-17 14:57] LABS: HCG, Serum Qual Negative (Negative)
[2025-08-17 15:00] VITALS: BP 119/85; PULSE 92; O2SAT 99
[2025-08-17 15:00] LABS: Alanine Aminotransferase 31 U/L (0-33); Albumin Level 4.7 g/dL (3.5-5.2); Alkaline Phosphatase 113 U/L (35-105); Blood Urea Nitrogen 13 mg/dL (6-20); Calcium 9.8 mg/dL (8.5-10.5); Carbon Dioxide 22 mmol/L (22-29); Chloride 99 mmol/L (98-107); Creatinine Clr Calc Pharmacy 140.9423; Globulin 3.8 g/dL (1.3-4.6); Glucose 88 mg/dL (65-115); Magnesium 2.1 mg/dL (1.7-2.3); Osmolality Calculated 282 mOsm/kg (285-295); Sodium 136 mmol/L (136-145); Thyroid Stimulating Hormone 1.32 uIU/mL (0.27-4.20); Total Protein 8.5 g/dL (6.6-8.7)
[2025-08-17 15:10] LABS: Anion Gap 19.9 (5-19); Aspartate Amino Transferase 24 U/L (0-32); Potassium 4.9 mmol/L (3.5-5.1)
[2025-08-17 15:35] VITALS: BP 137/96; PULSE 96; O2SAT 100
[2025-08-17 16:12] LABS: Respiratory Syncytial Virus Ce NEGATIVE (Negative); SARS-CoV-2 PCR NEGATIVE (Negative)
== END 2025-08-17 15:36 | disposition home or self-care (01) ==
PROVIDERS: Emergency Provider Emergency Medicine
DX: R00.2 Palpitations (principal); R00.0 Tachycardia, unspecified
CPT/HCPCS: 36415; 80053; 83735; 84443; 84484; 84703; 85025; 86140; 87637; 93005; 99284

== ENCOUNTER → 2025-09-01 08:06 | Outpatient (BNVA) | payer OTHER, SELFPAY ==
[2025-08-23 12:13] VITALS: BP 133/85; BMI 39.5
== END ==
PROVIDERS: Visit Provider Psychiatry & Neurology Psychiatry
DX: F33.2 Major depressive disorder, recurrent severe without psychotic features (principal); F41.1 Generalized anxiety disorder; F43.12 Post-traumatic stress disorder, chronic
CPT/HCPCS: 80061; 83036